=== PATIENT | female | born 1950 | race Caucasian/White ===

== ENCOUNTER → 2019-03-04 | Outpatient (CLI) | payer BC ==
--- NOTE | 2019-03-04 21:29 | NM ---
Nuclear medicine hepatobiliary scan. HISTORY: Pain. DOSAGE: The patient received 8 ounces ensure plus and 4.9 mCi of Technetium 99m Choletec. FINDINGS: There is normal hepatic extraction. The gallbladder is seen by 40 minutes. There is bilia ry to bowel clearance by 20 minutes. Ejection fraction is 83%. IMPRESSION: 1. Normal filling of the gallbladder with radiotracer. 2. Ejection fraction 83% can occasionally be seen with hyperdynamic gallbladder. Correlate clinically .
== END ==
LOC: RADNMMAIN 12:51
DX: R10.11 Right upper quadrant pain (principal)
CPT/HCPCS: 78226; A9537

== ENCOUNTER → 2020-01-31 | Outpatient (CLI) | payer BC ==
--- NOTE | 2020-01-31 16:16 | XR ---
Right knee HISTORY: Right knee strain 3 views of the right knee Bone mineralization is reduced. Joint spaces and alignment are maintained. No evident joint effusion. Question soft tissue swelling. IMPRESSION: Suspect osteopenia. Soft tissue swelling may be present.
== END | disposition home or self-care (01) ==
LOC: RADXRMAIN 15:22
DX: S86.911A Strain of unspecified muscle(s) and tendon(s) at lower leg level, right leg, initial encounter (principal)

== ENCOUNTER 2020-04-07 12:11 | Emergency (ER) | payer BC, MEDICARE ==
[2020-04-07 12:19] VITALS: TEMP 98.5
--- NOTE | 2020-04-07 12:38 | ED ---
SOB HPI - General Chief Complaint: Shortness of Breath Stated Complaint: positive covid/breathing issues Time Seen by Provider: 04/07/20 12:20 Source: patient Mode of arrival: ambulatory Limitations: no limitations - History of Present Illness Initial Comments: 69-year-old feel presenting today for chief complaint of increasing cough and shortness of breath. Patient states that she had symptoms of cough; shortness of breath that began Thursday she states she was tested at that time by the health department and received her positive results today. She describes symptoms of increasing cough and shortness of breath was told to come to the emergency department for evaluation. Patient denies any chest pain rash and arthritis nausea vomiting diarrhea. Patient has no additional complaints. Remaining ROS (-). - Related Data Home Medications Medication Instructions Recorded Confirmed Atorvastatin Calcium [Lipitor] 20 mg PO QAM 08/16/15 08/23/15 Cyclobenzaprine [Flexeril] 5 mg PO QAM 08/16/15 08/23/15 Cyclobenzaprine [Flexeril] 10 mg PO HS 08/16/15 08/23/15 Fexofenadine HCl [Mary Allergy] 180 mg PO DAILY PRN 08/16/15 08/23/15 HYDROcodone/APAP 7.5-325MG [[place] 1 - 2 each PO DAILY PRN 08/16/15 08/23/15 7.5-325] Levothyroxine Sodium 50 mcg PO QAM 08/16/15 08/23/15 Metoprolol Succinate [Toprol XL] 50 mg PO BID 08/16/15 08/23/15 Topiramate 50 mg PO QAM 08/16/15 08/23/15 Topiramate 100 mg PO HS 08/16/15 08/23/15 Zolpidem Tartrate [Ambien Cr] 12.5 mg PO HS 08/16/15 08/23/15 tiZANidine HCL [Zanaflex] 4 mg PO QAM 08/16/15 08/23/15 tiZANidine HCL [Zanaflex] 8 mg PO HS 08/16/15 08/23/15 Influenza Vaccine (3Yr+) [Fluarix 60 mcg IM .ONCE 08/24/15 08/24/15 Vaccine [id number]] Previous Rx's Medication Instructions Recorded Calcium Carb-Vit D 500Mg-200Un 1 each PO QID #100 tablet 08/23/15 [Oscal 500+D] Clindamycin HCl 300 mg PO Q12HR #20 cap 08/23/15 Hydrocodone/Acetaminophen [[place] 1 - 2 each PO Q6HR PRN #40 tab 08/23/15 5-325] Azithromycin [Zithromax Z-pack] 0 mg PO DIRECTED #6 tab 04/07/20 Allergies Allergy/AdvReac Type Severity Reaction Status Date / Time Sulfa (Sulfonamide Allergy Anaphylaxis Verified 04/07/20 12:19 Antibiotics) Review of Systems ROS Statement: Those systems with pertinent positive or pertinent negative responses have been documented in the HPI. ROS Other: All systems not noted in ROS Statement are negative. Past Medical History Past Medical History: Atrial Flutter History of Any Multi-Drug Resistant Organisms: None Reported Past Surgical History: Section, Hernia Repair, Hysterectomy Additional Past Surgical History / Comment(s): cataracts, thyroid, breast augmentation Past Psychological History: No Psychological Hx Reported Smoking Status: Never smoker Past Alcohol Use History: Occasional Past Drug Use History: None Reported General Exam - General Exam Comments Initial Comments: General: The patient is awake and alert, in no distress, and does not appear acutely ill. Eye: Pupils are equal, round and reactive to light, extra-ocular movements are intact. No nystagmus. There is normal conjunctiva bilaterally. No signs of icterus. Cardiovascular: There is a regular rate and rhythm. No murmur, rub or gallop is appreciated. Respiratory: Lungs are clear to auscultation, respirations are non-labored, breath sounds are equal. No wheezes, stridor, rales, or rhonchi. Musculoskeletal: Normal ROM, no tenderness. Strength 5/5. Sensation intact. Radial pulses equal bilaterally 2+. Neurological: A&O x 3. CN II-XII intact grossly, There are no obvious motor or sensory deficits. Coordination appears grossly intact. Speech is normal. Skin: Skin is warm and dry and no rashes or lesions are noted. Psychiatric: Cooperative, appropriate mood & affect, normal judgment. Limitations: no limitations Course Vital Signs 04/07/20 04/07/20 04/07/20 12:14 13:00 13:30 Temperature 98.5 F Pulse Rate 83 81 81 Respiratory 18 23 15 Rate Blood Pressure 118/79 130/94 119/79 O2 Sat by Pulse 96 96 98 Oximetry 04/07/20 04/07/20 04/07/20 14:00 14:30 14:57 Temperature Pulse Rate 59 L 51 L 78 Respiratory 18 16 18 Rate Blood Pressure 118/83 128/79 140/70 O2 Sat by Pulse 100 100 99 Oximetry Medical Decision Making - Medical Decision Making 69-year-old, over the 19 positive patient presenting for shortness of breath. Laboratory studies unremarkable. I sitting on room air. Patient does not appear tachypneic however has obvious cough. Patient does not appear septic she is not tachycardic nose and if the leukocytosis A stable. CRP is less than 5. Moderate elevated dimer which CT revealed no hypercoagulable processes as pulmonary embolism. There was some abdomen is a bilateral lowerto be consistent with scarring versus atelectasis. Cannot rule out a developing infection patient was started on azithromycin otherwise patient does not appear to be an ARDS and stable for discharge with close primary follow-up strict return parameters which were discussed at length the patient. Patient verbalized understanding was discharged appearing well after discussing case and reviewing imaging studies with Dr. Marcelino who is agreeable to this care plan. Patient is agreeable to discharge. - Lab Data Result diagrams: 04/07/20 12:41 04/07/20 12:41 Lab Results 04/07/20 04/07/20 04/07/20 Range/Units 12:41 12:41 12:41 WBC 6.1 (3.8-10.6) k/uL RBC 4.85 (3.80-5.40) m/uL Hgb 14.4 (11.4-16.0) gm/dL Hct 46.0 (34.0-46.0) % MCV 94.9 (80.0-100.0) fL MCH 29.6 (25.0-35.0) pg MCHC 31.2 (31.0-37.0) g/dL RDW 13.2 (11.5-15.5) % Plt Count 191 (150-450) k/uL Neutrophils % 73 % Lymphocytes % 18 % Monocytes % 5 % Eosinophils % 1 % Basophils % 1 % Neutrophils # 4.5 (1.3-7.7) k/uL Lymphocytes # 1.1 (1.0-4.8) k/uL Monocytes # 0.3 (0-1.0) k/uL Eosinophils # 0.1 (0-0.7) k/uL Basophils # 0.0 (0-0.2) k/uL PT 9.8 (9.0-12.0) sec INR 0.9 (<1.2) APTT 24.8 (22.0-30.0) sec D-Dimer 1.06 H (<0.60) mg/L FEU Sodium 137 (137-145) mmol/L Potassium 4.4 (3.5-5.1) mmol/L Chloride 104 (98-107) mmol/L Carbon Dioxide 25 (22-30) mmol/L Anion Gap 8 mmol/L BUN 24 H (7-17) mg/dL Creatinine 1.25 H (0.52-1.04) mg/dL Est GFR (CKD-EPI)AfAm 52 (>60 ml/min/1.73 sqM) Est GFR (CKD-EPI)NonAf 45 (>60 ml/min/1.73 sqM) Glucose 92 (74-99) mg/dL Plasma Lactic Acid Mitchell (0.7-2.0) mmol/L Calcium 8.9 (8.4-10.2) mg/dL Magnesium (1.6-2.3) mg/dL Total Bilirubin 0.1 L (0.2-1.3) mg/dL AST 35 (14-36) U/L ALT 22 (4-34) U/L Alkaline Phosphatase 99 (38-126) U/L Lactate Dehydrogenase 434 (313-618) U/L C-Reactive Protein <5.0 (<10.0) mg/L Total Protein 6.7 (6.3-8.2) g/dL Albumin 4.1 (3.5-5.0) g/dL Procalcitonin (0.02-0.09) ng/mL 04/07/20 04/07/20 04/07/20 Range/Units 12:41 12:41 12:41 WBC (3.8-10.6) k/uL RBC (3.80-5.40) m/uL Hgb (11.4-16.0) gm/dL Hct (34.0-46.0) % MCV (80.0-100.0) fL MCH (25.0-35.0) pg MCHC (31.0-37.0) g/dL RDW (11.5-15.5) % Plt Count (150-450) k/uL Neutrophils % % Lymphocytes % % Monocytes % % Eosinophils % % Basophils % % Neutrophils # (1.3-7.7) k/uL Lymphocytes # (1.0-4.8) k/uL Monocytes # (0-1.0) k/uL Eosinophils # (0-0.7) k/uL Basophils # (0-0.2) k/uL PT (9.0-12.0) sec INR (<1.2) APTT (22.0-30.0) sec D-Dimer (<0.60) mg/L FEU Sodium (137-145) mmol/L Potassium (3.5-5.1) mmol/L Chloride (98-107) mmol/L Carbon Dioxide (22-30) mmol/L Anion Gap mmol/L BUN (7-17) mg/dL Creatinine (0.52-1.04) mg/dL Est GFR (CKD-EPI)AfAm (>60 ml/min/1.73 sqM) Est GFR (CKD-EPI)NonAf (>60 ml/min/1.73 sqM) Glucose (74-99) mg/dL Plasma Lactic Acid Mitchell 0.8 (0.7-2.0) mmol/L Calcium (8.4-10.2) mg/dL Magnesium 2.2 (1.6-2.3) mg/dL Total Bilirubin (0.2-1.3) mg/dL AST (14-36) U/L ALT (4-34) U/L Alkaline Phosphatase (38-126) U/L Lactate Dehydrogenase (313-618) U/L C-Reactive Protein (<10.0) mg/L Total Protein (6.3-8.2) g/dL Albumin (3.5-5.0) g/dL Procalcitonin 0.08 (0.02-0.09) ng/mL Disposition Clinical Impression: COVID-19 virus infection, SOB (shortness of breath) Disposition: HOME SELF-CARE Condition: Good Additional Instructions: Please use medication as discussed. Please follow-up with family doctor in the next 2 days. Please return to emergency room if the symptoms increase or worsen or for any other concerns. Prescriptions: Azithromycin [Zithromax Z-pack] 0 mg PO DIRECTED #6 tab Is patient prescribed a controlled substance at d/c from ED?: No Referrals: Nonstaff,Physician [REFERRING] - 1-2 days [facility] [NON-STAFF] - 1-2 days Time of Disposition: 14:30
[2020-04-07 12:56] LABS: Basophils % (A) 1 %; Eosinophils # (A) 0.1 k/uL (0-0.7); Eosinophils % (A) 1 %; HGB 14.4 gm/dL (11.4-16.0); Lymphocytes # (A) 1.1 k/uL (1.0-4.8); Lymphocytes % (A) 18 %; MCH 29.6 pg (25.0-35.0); MCHC 31.2 g/dL (31.0-37.0); MCV 94.9 fL (80.0-100.0); Mean Platelet Volume 7.7; Monocytes # (A) 0.3 k/uL (0-1.0); Monocytes % (A) 5 %; Neutrophils # (A) 4.5 k/uL (1.3-7.7); Neutrophils % (A) 73 %; Platelet Count 191 k/uL (150-450); RBC 4.85 m/uL (3.80-5.40); RDW 13.2 % (11.5-15.5); WBC 6.1 k/uL (3.8-10.6)
[2020-04-07 13:07] LABS: ALT 22 U/L (4-34); AST 35 U/L (14-36); African American GFR (CKD) 52 (>60 ml/min/1.73 sqM); Albumin 4.1 g/dL (3.5-5.0); Alkaline Phosphatase 99 U/L (38-126); Anion Gap 8 mmol/L; Blood Urea Nitrogen 24 mg/dL (7-17); C Reactive Protein <5.0 mg/L (<10.0); Calcium 8.9 mg/dL (8.4-10.2); Carbon Dioxide 25 mmol/L (22-30); Chloride 104 mmol/L (98-107); Glucose 92 mg/dL (74-99); LDH 434 U/L (313-618); Non-African American GFR(CKD) 45 (>60 ml/min/1.73 sqM); Potassium 4.4 mmol/L (3.5-5.1); Sodium 137 mmol/L (137-145); Total Bilirubin 0.1 mg/dL (0.2-1.3); Total Protein 6.7 g/dL (6.3-8.2)
--- NOTE | 2020-04-07 13:14 | XR ---
EXAMINATION TYPE: XR chest 1V portable DATE OF EXAM: 04/07/2020 HISTORY: Suspected COVID-19 pneumonia. REFERENCE: Previous study dated 08/23/2015. FINDINGS: The patient has a right breast implants in place. This is partially calcified. Lungs are clear. Pleural space are clear. The heart is not enlarged. IMPRESSION: NO ACTIVE INTRATHORACIC DISEASE.
[2020-04-07 13:18] LABS: INR 0.9 (<1.2); Partial Thromboplastin Time 24.8 sec (22.0-30.0); Prothrombin Time 9.8 sec (9.0-12.0)
[2020-04-07 13:23] LABS: D-Dimer 1.06 mg/L FEU (<0.60)
[2020-04-07] MEDS ORDERED: SODIUM CHLORIDE 0.9% 500 ML 500 ML IV ONE (13:34)
--- NOTE | 2020-04-07 14:20 | CT ---
EXAMINATION TYPE: CT angio chest DATE OF EXAM: 04/07/2020 COMPARISON: 09/10/2015 HISTORY: PE, positive COVID CT DLP: 258.2 mGycm Automated exposure control for dose reduction was used. CONTRAST: Performed without and with IV Contrast, patient injected with 100 ml mL of Isovue 370. There are 3-D post processed images. There is no mediastinal adenopathy. There are no hilar masses. There is normal contrast opacification of the pulmonary arteries. There are no filling defects. Thoracic aorta is intact without evidence o f aneurysm or dissection. There are is no pleural effusion. There is no pericardial effusion. Heart size is normal. There is mi nimal pleural thickening at the lung apices. There is reticular interstitial infiltrates in both lowe r lobes. There is no evidence of a pulmonary mass. Thoracic spine is intact. There is no compression fracture. There are bilateral breast implants with calcification. IMPRESSION: No evidence of pulmonary embolism. Pulmonary interstitial density at the lung bases consistent with scarring and subsegmental atelectasi s that is increased compared to old exam. Minimal posterior pleural scarring unchanged.
[2020-04-07 14:58] VITALS: BP 140/70; PULSE 78; RESP 18
== END 2020-04-07 14:57 | disposition home or self-care (01) ==
LOC: EC 12:11
DX: U07.1 COVID-19 (principal); R79.89 Other specified abnormal findings of blood chemistry; Z88.2 Allergy status to sulfonamides
CPT/HCPCS: 36415; 93005; 85379; 80053; 82728; 83605; 83615; 83735; 85025; 85610; 85730; 86140; 87040; 84145; 71045; 71275; 99285; 96360; Q9967

== ENCOUNTER 2020-06-27 14:15 | Emergency (ER) | payer MEDICARE ==
[2020-06-27 14:42] VITALS: RESP 18; TEMP 98
[2020-06-27] MEDS ORDERED: KETOROLAC 30 MG/ML 1 ML VIAL IM STA (14:56)
--- NOTE | 2020-06-27 14:58 | ED ---
Fall HPI - General Chief Complaint: Fall Stated Complaint: Fall, wrist injury Time Seen by Provider: 06/27/20 14:37 Source: patient Mode of arrival: ambulatory - History of Present Illness Initial Comments: Patient is 62-year-old male presenting to emergency with a chief complaint of wrist pain. Patient reports about 2 hours ago she was on some landscaping rocks when she lost balance and fell on the left side of her body. Patient denies any loss of consciousness or head trauma. Patient reports she did injure her left wrist. States most of the pain is located on the medial aspect of the left wrist. Patient reports limited range of motion with flexion and extension of the wrist along with decreased medical diagnostic radiographer strength. Patient denies any numbness or tingling. Denies taking medication to alleviate the symptoms. States she is not on any blood thinners. Denies any other complaints. Denies other alleviating or aggravating factors. - Related Data Home Medications Medication Instructions Recorded Confirmed Atorvastatin Calcium [Lipitor] 20 mg PO QAM 08/16/15 08/23/15 Cyclobenzaprine [Flexeril] 5 mg PO QAM 08/16/15 08/23/15 Cyclobenzaprine [Flexeril] 10 mg PO HS 08/16/15 08/23/15 Fexofenadine HCl [Mary Allergy] 180 mg PO DAILY PRN 08/16/15 08/23/15 HYDROcodone/APAP 7.5-325MG [[place] 1 - 2 each PO DAILY PRN 08/16/15 08/23/15 7.5-325] Levothyroxine Sodium 50 mcg PO QAM 08/16/15 08/23/15 Metoprolol Succinate [Toprol XL] 50 mg PO BID 08/16/15 08/23/15 Topiramate 50 mg PO QAM 08/16/15 08/23/15 Topiramate 100 mg PO HS 08/16/15 08/23/15 Zolpidem Tartrate [Ambien Cr] 12.5 mg PO HS 08/16/15 08/23/15 tiZANidine HCL [Zanaflex] 4 mg PO QAM 08/16/15 08/23/15 tiZANidine HCL [Zanaflex] 8 mg PO HS 08/16/15 08/23/15 Influenza Vaccine (3Yr+) [Fluarix 60 mcg IM .ONCE 08/24/15 08/24/15 Vaccine [id number]] Previous Rx's Medication Instructions Recorded Calcium Carb-Vit D 500Mg-200Un 1 each PO QID #100 tablet 08/23/15 [Oscal 500+D] Clindamycin HCl 300 mg PO Q12HR #20 cap 08/23/15 Hydrocodone/Acetaminophen [[place] 1 - 2 each PO Q6HR PRN #40 tab 08/23/15 5-325] Azithromycin [Zithromax Z-pack] 0 mg PO DIRECTED #6 tab 04/07/20 Allergies Allergy/AdvReac Type Severity Reaction Status Date / Time Sulfa (Sulfonamide Allergy Anaphylaxis Verified 06/27/20 14:42 Antibiotics) Review of Systems ROS Statement: Those systems with pertinent positive or pertinent negative responses have been documented in the HPI. ROS Other: All systems not noted in ROS Statement are negative. Past Medical History Past Medical History: Atrial Flutter History of Any Multi-Drug Resistant Organisms: None Reported Past Surgical History: Section, Hernia Repair, Hysterectomy Additional Past Surgical History / Comment(s): cataracts, thyroid, breast augmentation Past Psychological History: No Psychological Hx Reported Past Alcohol Use History: Occasional Past Drug Use History: None Reported General Exam Limitations: no limitations General appearance: alert, in no apparent distress Head exam: Present: atraumatic, normocephalic, normal inspection Eye exam: Present: normal appearance, PERRL, EOMI Pupils: Present: normal accommodation ENT exam: Present: normal exam, normal oropharynx, mucous membranes moist, TM's normal bilaterally, normal external ear exam Neck exam: Present: normal inspection, full ROM Respiratory exam: Present: normal lung sounds bilaterally. Absent: wheezes, rales Cardiovascular Exam: Present: regular rate, normal rhythm, normal heart sounds Extremities exam: Present: normal inspection (No signs of trauma to the left wrist or distal forearm.), tenderness (Tenderness along the medial aspect of the left wrist along with some anterior distal forearm tenderness.), normal c apillary refill, other (+2 ulnar and radial pulses bilaterally.). Absent: full ROM (Limited range of motion with wrist flexion and extension), pedal edema (No swelling detected.), joint swelling, calf tenderness Back exam: Present: normal inspection, full ROM. Absent: tenderness Neurological exam: Present: alert, oriented X3 Psychiatric exam: Present: normal affect, normal mood Skin exam: Present: warm, dry, intact, normal color Course Vital Signs 06/27/20 06/27/20 14:37 16:21 Temperature 98.0 F Pulse Rate 91 80 Respiratory 18 18 Rate Blood Pressure 114/86 118/81 O2 Sat by Pulse 100 99 Oximetry Medical Decision Making - Medical Decision Making Patient is 70-year-old female presenting to emergency Department with a chief complaint of left wrist pain. Patient is not on blood thinners. There is no loss of consciousness or head injury. On exam patient has tenderness over the medial aspect of the left wrist. Limited range of motion with flexion and extension of the wrist due to pain. X-ray of the forearm and wrist reveals no signs of acute fracture or dislocations. Robert wrap applied. Patient advised to follow with medical program specialist if her symptoms not improve. Patient advised to alternate between Tylenol Motrin for pain control. Patient was to apply ice compress to minimize symptoms. Strict return parameters were thoroughly discussed patient is a 72-year-old. Case discussed physician. Disposition Clinical Impression: Fall, Left wrist injury, Left wrist pain Disposition: HOME SELF-CARE Condition: Stable Instructions (If sedation given, give patient instructions): Wrist Sprain (ED) Additional Instructions: Please follow with medical program specialist. Alternate between tolerable Motrin for pain control. Apply ice compress to minimize symptoms. Is patient prescribed a controlled substance at d/c from ED?: No Referrals: Stefan Mckinley DO [Primary Care Provider] - 1-2 days Time of Disposition: 15:53
--- NOTE | 2020-06-27 15:15 | XR ---
EXAMINATION TYPE: XR forearm LT, XR wrist complete LT DATE OF EXAM: 06/27/2020 CLINICAL HISTORY: Pain after fall injury. TECHNIQUE: Two views of the left forearm are obtained. 4 views left wrist. COMPARISON: None. FINDINGS: Demineralization is present. There is no acute fracture or dislocation seen in the left ra dius or ulna. Visualized left elbow joint is thought within normal limits. The overlying soft tissue appears within normal limits. Images of the left wrist show no acute fracture or dislocation. Carpal joint spaces are maintained. O verlying soft tissues are unremarkable. IMPRESSION: There is no acute fracture or dislocation seen in left forearm or wrist.
[2020-06-27 16:22] VITALS: BP 118/81; PULSE 80
== END 2020-06-27 16:22 | disposition home or self-care (01) ==
LOC: EC 14:15
DX: S69.92XA Unspecified injury of left wrist, hand and finger(s), initial encounter (principal); Z88.0 Allergy status to penicillin; Z98.42 Cataract extraction status, left eye; Z98.41 Cataract extraction status, right eye; W18.30XA Fall on same level, unspecified, initial encounter; Y92.009 Unspecified place in unspecified non-institutional (private) residence as the place of occurrence of the external cause
CPT/HCPCS: 73090; 73110; 99283; 96372; J1885

== ENCOUNTER → 2021-01-09 | Outpatient (CLI) | payer MEDICARE ==
[2021-01-10 00:46] LABS: African American GFR (CKD) 53.8 (60.0-200.0); Albumin 4.7 g/dL (3.80-4.90); Albumin/Globulin Ratio 2.47 (1.60-3.17); Anion Gap 15.7 mmol/L (4.00-12.00); BUN/Creat Ratio 17.5 Ratio (12.00-20.00); Calcium 8.7 mg/dL (8.7-10.3); Carbon Dioxide 15.3 mmol/L (21.6-31.8); Globulin 1.9 g/dL (1.6-3.3); Non-African American GFR(CKD) 46.4 (60.0-200.0); Potassium 4.7 mmol/L (3.5-5.5); Total Bilirubin 0.2 mg/dL (0.3-1.2); Total Protein 6.6 g/dL (6.2-8.2)
== END | disposition home or self-care (01) ==
LOC: LABWHC1 14:54
PROVIDERS: ATTEND Internal Medicine Gastroenterology
DX: K52.9 Noninfective gastroenteritis and colitis, unspecified (principal); R10.11 Right upper quadrant pain; R11.0 Nausea; R63.4 Abnormal weight loss
CPT/HCPCS: 36415; 80053

== ENCOUNTER 2021-02-21 22:14 | Emergency (ER) | payer MEDICARE ==
[2021-02-21 22:24] VITALS: TEMP 97.8
--- NOTE | 2021-02-21 22:55 | ED ---
Chest Pain HPI - General Chief Complaint: Chest Pain Stated Complaint: Chest Pain Time Seen by Provider: 02/21/21 22:19 Source: EMS, RN notes reviewed, old records reviewed Mode of arrival: EMS Limitations: no limitations - History of Present Illness Initial Comments: This is a 62-year-old female DF for evaluation patient Dese for evaluation regarding chest pain. Sensation states just mainly not feeling well, some chest pain substernal anterior chest. No other significant complaints. She does occasionally have an abnormal heart rate does feel palpitations in her chest she did take an extra one for blood pressure heart rate pills which made no difference. Patient denies fever cough or congestion. MD Complaint: chest pain, other (Palpitations) -: hour(s) Onset: during rest Pain Location: substernal Pain Radiation: none Severity: mild Severity scale (1-10): 2 Quality: tightness Consistency: constant, intermittent Improves With: nothing Worsens With: nothing Context: other (none) Anginal Symptoms: dyspnea, sense of impending doom Other Symptoms: palpitations Treatments Prior to Arrival: none - Related Data Home Medications Medication Instructions Recorded Confirmed Zolpidem Tartrate [Ambien Cr] 12.5 mg PO HS 08/16/15 02/21/21 Aspirin EC [Ecotrin Low Dose] 81 mg PO DAILY 02/21/21 02/21/21 Cholecalciferol [Vitamin D3 (25 25 mcg PO DAILY 02/21/21 02/21/21 Mcg = 1000 Iu)] Cyclobenzaprine [Flexeril] 10 mg PO BID 02/21/21 02/21/21 Ibuprofen [Motrin] 800 mg PO Q8H PRN 02/21/21 02/21/21 Levothyroxine Sodium [Synthroid] 75 mcg PO DAILY 02/21/21 02/21/21 Metoprolol Succinate [Toprol XL] 100 mg PO DAILY 02/21/21 02/21/21 Rosuvastatin [Crestor] 10 mg PO DAILY 02/21/21 02/21/21 Zinc 50 mg PO DAILY 02/21/21 02/21/21 clindamycin HCL [Cleocin] 300 mg PO TID 02/21/21 02/21/21 oxyCODONE HCL [OxyIR] 5 mg PO Q6H PRN 02/21/21 02/21/21 Allergies Allergy/AdvReac Type Severity Reaction Status Date / Time Sulfa (Sulfonamide Allergy Anaphylaxis Verified 02/21/21 22:58 Antibiotics) Review of Systems ROS Statement: Those systems with pertinent positive or pertinent negative responses have been documented in the HPI. ROS Other: All systems not noted in ROS Statement are negative. EKG Findings - EKG Comments: EKG Findings:: EKG is sinus rhythm 75, VT 138 QRS 86 QTc 433 Past Medical History Past Medical History: Atrial Flutter History of Any Multi-Drug Resistant Organisms: None Reported Past Surgical History: Section, Hernia Repair, Hysterectomy Additional Past Surgical History / Comment(s): cataracts, thyroid, breast augmentation, right hip replacement january 2021, debridment on right hip january 2021. Past Psychological History: No Psychological Hx Reported Smoking Status: Never smoker Past Alcohol Use History: Occasional Past Drug Use History: None Reported General Exam Limitations: no limitations Course Vital Signs 02/21/21 22:19 Temperature 97.8 F Pulse Rate 78 Respiratory 17 Rate Blood Pressure 170/98 O2 Sat by Pulse 99 Oximetry - Reevaluation(s) Reevaluation #1: 02/21/21 22:55 Medical record is reviewed Reevaluation #2: 02/22/21 01:04 Patient is in no significant distress has no current complaints Reevaluation #3: 02/22/21 01:04 Patient informed results and questions are answered Reevaluation #4: 02/22/21 01:04 Patient feels good for discharge home Chest Pain MDM - MDM 62 female with nonspecific symptoms. Labwork is within normal limits here today. Chest x-rays negative. Patient can be discharged home Disposition Clinical Impression: Atypical chest pain Disposition: HOME SELF-CARE Condition: Good Instructions (If sedation given, give patient instructions): Chest Pain (ED) Is patient prescribed a controlled substance at d/c from ED?: No Referrals: Stefan Mckinley, [Primary Care Provider] - 1-2 days
--- NOTE | 2021-02-21 23:20 | XR ---
EXAMINATION TYPE: XR chest 2V DATE OF EXAM: 02/21/2021 COMPARISON: 04/07/2020 HISTORY: Chest pain TECHNIQUE: FINDINGS: Heart size is normal. There are no hilar masses. Lungs are clear of consolidation. There is no pleural effusion. There is right side calcified breast implant. There are chest leads. Thoracic s pine is intact. IMPRESSION: No active cardiopulmonary disease. No change.
[2021-02-21 23:34] LABS: Anisocytosis Slight; Basophils % (A) 1 %; Eosinophils # (A) 0.2 k/uL (0-0.7); Eosinophils % (A) 4 %; HCT 38.4 % (34.0-46.0); HGB 12.4 gm/dL (11.4-16.0); Lymphocytes # (A) 1.5 k/uL (1.0-4.8); Lymphocytes % (A) 21 %; MCH 27.1 pg (25.0-35.0); MCHC 32.3 g/dL (31.0-37.0); MCV 83.9 fL (80.0-100.0); Mean Platelet Volume 7.4; Monocytes # (A) 0.4 k/uL (0-1.0); Monocytes % (A) 6 %; Neutrophils # (A) 4.6 k/uL (1.3-7.7); Neutrophils % (A) 67 %; Platelet Count 279 k/uL (150-450); RBC 4.57 m/uL (3.80-5.40); RDW 17.7 % (11.5-15.5); WBC 6.9 k/uL (3.8-10.6)
[2021-02-21 23:42] LABS: INR 0.9 (<1.2); Partial Thromboplastin Time 23.7 sec (22.0-30.0); Prothrombin Time 10.1 sec (9.0-12.0)
[2021-02-22 00:18] LABS: Albumin 3.5 g/dL (3.5-5.0); Calcium 9.2 mg/dL (8.4-10.2); Magnesium 1.9 mg/dL (1.6-2.3); Potassium 3.9 mmol/L (3.5-5.1); Total Bilirubin 0.3 mg/dL (0.2-1.3)
[2021-02-22 01:19] VITALS: BP 119/74; PULSE 61; RESP 18
== END 2021-02-22 01:19 | disposition home or self-care (01) ==
LOC: EC 22:14
DX: R07.89 Other chest pain (principal); R00.2 Palpitations; R06.00 Dyspnea, unspecified; I48.92 Unspecified atrial flutter; Z79.82 Long term (current) use of aspirin; Z79.1 Long term (current) use of non-steroidal anti-inflammatories (NSAID); Z79.899 Other long term (current) drug therapy
CPT/HCPCS: 36415; 71046; 80053; 82550; 83690; 83735; 84484; 85025; 85610; 85730; 93005; 99285

== ENCOUNTER 2021-03-07 14:11 | Inpatient (IN) | payer MEDICARE ==
[2021-03-07] MEDS ORDERED: MORPHINE SULFATE 2 MG/ML SYRINGE IVP STA (14:43)
[2021-03-07] MEDS ORDERED: ONDANSETRON 4 MG/2 ML VIAL IVP STA (14:43)
[2021-03-07 15:27] LABS: Anisocytosis Slight; Basophils % (A) 1 %; Eosinophils # (A) 0.2 k/uL (0-0.7); Eosinophils % (A) 3 %; HCT 36.5 % (34.0-46.0); HGB 12.4 gm/dL (11.4-16.0); Lymphocytes # (A) 1.6 k/uL (1.0-4.8); Lymphocytes % (A) 24 %; MCH 28.9 pg (25.0-35.0); MCV 84.9 fL (80.0-100.0); Mean Platelet Volume 7.2; Monocytes # (A) 0.5 k/uL (0-1.0); Monocytes % (A) 8 %; Neutrophils # (A) 4.1 k/uL (1.3-7.7); Neutrophils % (A) 62 %; Platelet Count 248 k/uL (150-450); WBC 6.6 k/uL (3.8-10.6)
[2021-03-07 15:35] LABS: Calcium 9.4 mg/dL (8.4-10.2); Potassium 4.3 mmol/L (3.5-5.1); Total Bilirubin 0.4 mg/dL (0.2-1.3); Total Protein 6.6 g/dL (6.3-8.2)
[2021-03-07 15:37] LABS: INR 0.9 (<1.2); Partial Thromboplastin Time 24.1 sec (22.0-30.0); Prothrombin Time 10.1 sec (9.0-12.0)
--- NOTE | 2021-03-07 15:41 | XR ---
EXAMINATION TYPE: XR knee complete RT DATE OF EXAM: 03/07/2021 CLINICAL HISTORY: Pain after falling injury TECHNIQUE: Three views of the right knee are obtained. COMPARISON: None. FINDINGS: Suboptimal study due to poor positioning. There is no acute fracture/dislocation evident i n right knee. Mild to moderate narrowing patellofemoral compartment slightly more prominent from prio r. No significant new spurring. New Mild subcutaneous edema laterally. IMPRESSION: There is no acute fracture or dislocation in the right knee.
--- NOTE | 2021-03-07 15:43 | XR ---
EXAMINATION TYPE: XR Hip RT and AP Pelvis DATE OF EXAM: 03/07/2021 COMPARISON: NONE HISTORY: Trauma and pain TECHNIQUE: A single AP view of the pelvis is obtained. Two views of the right hip are obtained. FINDINGS: There is no acute fracture/dislocation evident in the pelvis. The hip and sacroiliac join ts appear symmetric and unremarkable. The overlying soft tissue appears unremarkable. Two views of right hip show no acute fracture or dislocation. Patient is status post right hip arthr oplasty. No focal lytic or sclerotic lesion seen in the proximal right femur. The overlying soft tis mahogany is unremarkable. Possible vascular calcifications are present within the pelvis IMPRESSION: There is no acute fracture or dislocation in the pelvis or right hip.
--- NOTE | 2021-03-07 16:29 | ED ---
General Adult HPI - General Chief complaint: Fall Stated complaint: Fall, R hip pain Time Seen by Provider: 03/07/21 14:23 Source: patient Mode of arrival: wheelchair Limitations: no limitations - History of Present Illness Initial comments: 70-year-old female patient presents to the emergency department today for evaluation after experiencing a fall at home. Patient states around 1:00 in the morning she was in the kitchen. States she was walking, does not remember falling, but does remember hitting the floor. States that next thing she knew she woke up at 0500 and called for her . She is unsure if she passed out. She did have a recent admission for Atrial flutter and her physician is concerned about her heart. She does not believe she hit her head. Denies any head pain, headache, new neck pain, or back pain. She is reporting pain to the right hip and right knee. She did have right total hip replacement at the beginning of January. Denies any shortness of breath or chest pain. Patient denies any recent rash, fever, chills, cough, abdominal pain, nausea, vomiting, diarrhea, constipation, numbness, tingling, hematuria, dysuria, urinary urgency, urinary frequency, headache, visual changes, or any other complaints. - Related Data Home Medications Medication Instructions Recorded Confirmed Zolpidem Tartrate [Ambien Cr] 12.5 mg PO HS 08/16/15 02/21/21 Aspirin EC [Ecotrin Low Dose] 81 mg PO DAILY 02/21/21 02/21/21 Cholecalciferol [Vitamin D3 (25 25 mcg PO DAILY 02/21/21 02/21/21 Mcg = 1000 Iu)] Cyclobenzaprine [Flexeril] 10 mg PO BID 02/21/21 02/21/21 Ibuprofen [Motrin] 800 mg PO Q8H PRN 02/21/21 02/21/21 Levothyroxine Sodium [Synthroid] 75 mcg PO DAILY 02/21/21 02/21/21 Metoprolol Succinate [Toprol XL] 100 mg PO DAILY 02/21/21 02/21/21 Rosuvastatin [Crestor] 10 mg PO DAILY 02/21/21 02/21/21 Zinc 50 mg PO DAILY 02/21/21 02/21/21 clindamycin HCL [Cleocin] 300 mg PO TID 02/21/21 02/21/21 oxyCODONE HCL [OxyIR] 5 mg PO Q6H PRN 02/21/21 02/21/21 Allergies Allergy/AdvReac Type Severity Reaction Status Date / Time Sulfa (Sulfonamide Allergy Anaphylaxis Verified 03/07/21 14:18 Antibiotics) Review of Systems ROS Statement: Those systems with pertinent positive or pertinent negative responses have been documented in the HPI. ROS Other: All systems not noted in ROS Statement are negative. Past Medical History Past Medical History: Atrial Flutter History of Any Multi-Drug Resistant Organisms: None Reported Past Surgical History: Section, Hernia Repair, Hysterectomy Additional Past Surgical History / Comment(s): cataracts, thyroid, breast augmentation, right hip replacement january 2021, debridment on right hip january 2021. Past Psychological History: No Psychological Hx Reported Smoking Status: Never smoker Past Alcohol Use History: Occasional Past Drug Use History: None Reported General Exam Limitations: no limitations General appearance: alert, in no apparent distress, other (Physical well- developed, well-nourished adult female patient in no acute distress. Vital signs upon presentation are temperature 97.4F, pulse 69, respirations 18, blood pressure 177/79, pulse ox 98% on room air.) Eye exam: Present: normal appearance, PERRL, EOMI. Absent: scleral icterus, conjunctival injection, periorbital swelling ENT exam: Present: normal exam, normal oropharynx, mucous membranes moist Respiratory exam: Present: normal lung sounds bilaterally. Absent: respiratory distress, wheezes, rales, rhonchi, stridor Cardiovascular Exam: Present: regular rate, normal rhythm, normal heart sounds. Absent: systolic murmur, diastolic murmur, rubs, gallop, clicks GI/Abdominal exam: Present: soft, normal bowel sounds. Absent: distended, tenderness, guarding, rebound, rigid Extremities exam: Present: full ROM, tenderness (right lateral hip, right anterior knee), normal capillary refill. Absent: normal inspection, pedal edema, joint swelling, calf tenderness Neurological exam: Present: alert, oriented X3, CN II-XII intact Psychiatric exam: Present: normal affect, normal mood Skin exam: Present: warm, dry, intact, normal color. Absent: rash Course Vital Signs 03/07/21 14:13 Temperature 97.4 F L Pulse Rate 69 Respiratory 18 Rate Blood Pressure 177/79 O2 Sat by Pulse 98 Oximetry EKG Findings - EKG Comments: EKG Findings:: EKG obtained at 1623 shows normal sinus rhythm with a ventricular rate of 69, NH 144, QRS duration 88, QT 404, QTC 432. No evidence of ST elevation or depression. Medical Decision Making - Medical Decision Making 70-year-old female patient presents to the emergency department today for evaluation after experiencing a fall early in the morning. It is unclear whether this is related to a syncopal event or not. Physical examination is unremarkable. She is neurologically intact. Labs are unremarkable. EKG showed normal sinus rhythm. She'll be admitted to the hospital for further evaluation by cardiology. She is agreeable with this plan. Case discussed with my attending Dr. Jesus. - Lab Data Result diagrams: 03/07/21 14:55 03/07/21 14:55 Lab Results 03/07/21 03/07/21 03/07/21 Range/Units 14:55 14:55 14:55 WBC 6.6 (3.8-10.6) k/uL RBC 4.30 (3.80-5.40) m/uL Hgb 12.4 (11.4-16.0) gm/dL Hct 36.5 (34.0-46.0) % MCV 84.9 (80.0-100.0) fL MCH 28.9 (25.0-35.0) pg MCHC 34.0 (31.0-37.0) g/dL RDW 18.0 H (11.5-15.5) % Plt Count 248 (150-450) k/uL MPV 7.2 Neutrophils % 62 % Lymphocytes % 24 % Monocytes % 8 % Eosinophils % 3 % Basophils % 1 % Neutrophils # 4.1 (1.3-7.7) k/uL Lymphocytes # 1.6 (1.0-4.8) k/uL Monocytes # 0.5 (0-1.0) k/uL Eosinophils # 0.2 (0-0.7) k/uL Basophils # 0.0 (0-0.2) k/uL Anisocytosis Slight PT 10.1 (9.0-12.0) sec INR 0.9 (<1.2) APTT 24.1 (22.0-30.0) sec Sodium 137 (137-145) mmol/L Potassium 4.3 (3.5-5.1) mmol/L Chloride 107 (98-107) mmol/L Carbon Dioxide 21 L (22-30) mmol/L Anion Gap 9 mmol/L BUN 23 H (7-17) mg/dL Creatinine 1.20 H (0.52-1.04) mg/dL Est GFR (CKD-EPI)AfAm 54 (>60 ml/min/1.73 sqM) Est GFR (CKD-EPI)NonAf 47 (>60 ml/min/1.73 sqM) Glucose 85 (74-99) mg/dL Calcium 9.4 (8.4-10.2) mg/dL Total Bilirubin 0.4 (0.2-1.3) mg/dL AST 32 (14-36) U/L ALT 20 (4-34) U/L Alkaline Phosphatase 100 (38-126) U/L Creatine Kinase 64 (30-135) U/L Total Protein 6.6 (6.3-8.2) g/dL Albumin 4.0 (3.5-5.0) g/dL - Radiology Data Radiology results: report reviewed, image reviewed X-ray of the hip and pelvis was obtained. Report was reviewed in its entirety. Impression by Dr. Dominguez shows no acute fracture dislocation the pelvis or right hip. X-ray of the right knee is obtained. Report reviewed in its entirety. Impression by Dr. Philippe shows no acute fracture dislocation the right knee. Disposition Clinical Impression: Syncope, Contusion of right hip Disposition: ADMITTED IP TO THIS [facility] Condition: Serious Referrals: Stefan Mckinley DO [Primary Care Provider] - 1-2 days Decision to Admit Reason: Admit from EC Decision Date: 03/07/21 Decision Time: 17:02
[2021-03-07] MEDS ORDERED: ONDANSETRON 4 MG/2 ML VIAL IVP PRN (17:40)
[2021-03-07] MEDS ORDERED: NALOXONE 0.4 MG/ML 1 ML VIAL IV PRN (17:40)
[2021-03-07] MEDS: SODIUM CHLORIDE 0.9% 1,000 ML IV SCH ×2 (17:54→18:17)
[2021-03-07] MEDS ORDERED: METOPROLOL TARTRATE 50 MG TAB PO STA (18:06)
[2021-03-07] MEDS ORDERED: ACETAMINOPHEN TAB 325 MG TAB PO PRN (23:31)
[2021-03-08] MEDS ORDERED: DILTIAZEM DRIP BOLUS FROM BAG 1 MG SOLN IV ONE (05:37)
[2021-03-08] MEDS: DILTIAZEM 125 MG in SODIUM CHLORIDE 0.9% 100 ML IV SCH ×2 (05:47→18:26)
[2021-03-08] MEDS: LEVOTHYROXINE 75 MCG TAB PO SCH (05:54)
--- NOTE | 2021-03-08 10:36 | P.CRDCN ---
History of Present Illness Consult date: 03/08/21 History of present illness: HISTORY OF PRESENT ILLNESS: This is a 70-year-old female with a past medical history significant for palpitations, hyperlipidemia, and hypothyroidism. 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 We have been asked to see the patient in consultation for syncope. Patient examined at the bedside. Patient states around midnight she was on walking in her living room towards her bedroom when she suddenly passed out. Aren herrera states she believes she was on the floor for about 5 hours because when she woke up the clock said 5am. She states she was able to call her who was sleeping upstairs to come help her. Patient states she did not loss bowel or bladder control. She denies biting her tongue. She states she has fallen 4 times in the last 6 months. She states two of the falls she does not remember. Patient went into afib with RVR this morning and was started on a cardizem drip. Patient states she was brought to the hospital recently for palpitations and states that she was in an irregular heart rate when she was in the ambulance but when she came to the ER her EKG showed sinus rhythm. EKG reveals sinus mechanism with no signs of acute ischemia. Repeat EKG performed this morning reveals A. fib with RVR Laboratory data: WBC 6.6. Hemoglobin 12.4. Platelet count 248. Sodium 137. Potassium 4.3. BUN 23. Creatinine 1.20. Current home cardiac medications include Crestor 10 mg daily, metoprolol succinate 100 mg at night, and aspirin 81 mg daily REVIEW OF SYSTEMS: At the time of my exam: CONSTITUTIONAL: Denies fever or chills. HEENT: Denies blurred vision, vision changes, or eye pain. Denies hemoptysis CARDIOVASCULAR: Denies chest pain. Denies orthopnea. Denies PND. Denies palpitations RESPIRATORY: Denies shortness of breath. GASTROINTESTINAL: Denies abdominal pain. Denies nausea or vomiting. HEMATOLOGIC: Denies bleeding disorders. GENITOURINARY: Denies any blood in urine. SKIN: Denies pruitis. Denies rash. PHYSICAL EXAM: VITAL SIGNS: Reviewed. GENERAL: Well-developed in no acute distress. HEENT: Head is normocephalic. Pupils are equal, round. Sclerae anicteric. Mucous membranes of the mouth are moist. Neck supple. No JVD or thyromegaly LUNGS: Respirations even and unlabored. Lungs essentially clear to auscultation bilaterally. HEART: Tachycardic. Irregular rate and rhythm. S1 and S2 heard. ABDOMEN: Soft. Nondistended. Nontender. EXTREMITIES: Normal range of motion. No clubbing or cyanosis. Peripheral pulses intact. No lower extremity edema NEUROLOGIC: Awake and alert. Oriented x 3. ASSESSMENT: Syncope Palpitations New onset atrial fibrillation with RVR Hyperlipidemia Hypertension Frequent falls PLAN: Obtain 2D echo to assess cardiac structure and function Continue telemetry monitoring Continue IV cardizem Continue metoprolol Check TSH Due to frequent falls, will not place patient on anticoagulation Further recommendations pending patient course Nurse practitioner note has been reviewed by physician. Signing provider agrees with the documented findings, assessment, and plan of care. Past Medical History Past Medical History: Atrial Flutter History of Any Multi-Drug Resistant Organisms: None Reported Past Surgical History: Section, Hernia Repair, Hysterectomy Additional Past Surgical History / Comment(s): cataracts, thyroid, breast augmentation, right hip replacement january 2021, debridment on right hip january 2021. Past Anesthesia/Blood Transfusion Reactions: No Reported Reaction Past Psychological History: No Psychological Hx Reported Smoking Status: Former smoker Past Alcohol Use History: None Reported, Occasional Past Drug Use History: None Reported - Past Family History Mother Family Medical History: Cancer, Hypertension, Thyroid Disorder Father Family Medical History: Coronary Artery Disease (CAD), CVA/TIA Medications and Allergies Home Medications Medication Instructions Recorded Confirmed Type Zolpidem Tartrate [Ambien Cr] 12.5 mg PO HS 08/16/15 03/07/21 History Aspirin EC [Ecotrin Low Dose] 81 mg PO HS 02/21/21 03/07/21 History Cyclobenzaprine [Flexeril] 10 mg PO BID 02/21/21 03/07/21 History Ibuprofen [Motrin] 800 mg PO Q8H PRN 02/21/21 03/07/21 History Levothyroxine Sodium [Synthroid] 75 mcg PO DAILY 02/21/21 03/07/21 History Metoprolol Succinate [Toprol XL] 100 mg PO HS 02/21/21 03/07/21 History Rosuvastatin [Crestor] 10 mg PO HS 02/21/21 03/07/21 History Zinc 50 mg PO DAILY 02/21/21 03/07/21 History oxyCODONE HCL [OxyIR] 5 mg PO Q6H PRN 02/21/21 03/07/21 History Allergies Allergy/AdvReac Type Severity Reaction Status Date / Time Sulfa (Sulfonamide Allergy Anaphylaxis Verified 03/07/21 18:00 Antibiotics) Physical Exam Vitals: Vital Signs Temp Pulse Pulse Resp BP BP Pulse Ox 03/08/21 07:00 98.4 F 72 16 138/81 96 03/08/21 02:30 69 18 03/08/21 00:48 97.8 F 69 18 166/84 97 03/07/21 23:15 62 16 03/07/21 21:09 98.4 F 62 16 179/71 99 03/07/21 19:05 176/92 03/07/21 18:05 75 18 187/94 99 03/07/21 14:13 97.4 F L 69 18 177/79 98 Intake and Output 03/07/21 03/08/21 03/08/21 22:59 06:59 14:59 Other: Voiding Method Toilet # Voids 1 2 Weight 52.163 kg Results 03/07/21 14:55 03/07/21 14:55 Cardiac Enzymes 03/07/21 Range/Units 14:55 AST 32 (14-36) U/L Coagulation 03/07/21 Range/Units 14:55 PT 10.1 (9.0-12.0) sec APTT 24.1 (22.0-30.0) sec CBC 03/07/21 Range/Units 14:55 WBC 6.6 (3.8-10.6) k/uL RBC 4.30 (3.80-5.40) m/uL Hgb 12.4 (11.4-16.0) gm/dL Hct 36.5 (34.0-46.0) % Plt Count 248 (150-450) k/uL Comprehensive Metabolic Panel 03/07/21 Range/Units 14:55 Sodium 137 (137-145) mmol/L Potassium 4.3 (3.5-5.1) mmol/L Chloride 107 (98-107) mmol/L Carbon Dioxide 21 L (22-30) mmol/L BUN 23 H (7-17) mg/dL Creatinine 1.20 H (0.52-1.04) mg/dL Glucose 85 (74-99) mg/dL Calcium 9.4 (8.4-10.2) mg/dL AST 32 (14-36) U/L ALT 20 (4-34) U/L Alkaline Phosphatase 100 (38-126) U/L Total Protein 6.6 (6.3-8.2) g/dL Albumin 4.0 (3.5-5.0) g/dL Current Medications Generic Name Dose Route Start Last Admin Trade Name Freq PRN Reason Stop Dose Admin Acetaminophen 650 mg 03/07/21 23:31 Acetaminophen Tab 325 Mg Tab PO Q4HR PRN Fever and/ or Pain Aspirin 81 mg 03/08/21 21:00 Aspirin 81 Mg PO HS MARIEL Atorvastatin Calcium 20 mg 03/08/21 21:00 Atorvastatin 20 Mg Tab PO HS MARIEL Sodium Chloride 1,000 mls @ 75 mls/hr 03/07/21 17:45 03/07/21 18:17 Saline 0.9% IV 75 mls/hr .[id number] MARIEL Administration Diltiazem HCl 125 mg/ Sodium 125 mls @ 10 mls/hr 03/08/21 06:00 03/08/21 05:47 Chloride IV 10 mg/hr .[id number] MARIEL 10 mls/hr Administration 10 MG/HR Levothyroxine Sodium 75 mcg 03/08/21 06:30 03/08/21 05:54 Levothyroxine 75 Mcg Tab PO 75 mcg DAILY@0630 MARILE Administration Metoprolol Succinate 100 mg 03/08/21 21:00 Metoprolol Succinate (Er) 100 Mg Tab.Er.24h PO HS MARIEL Naloxone HCl 0.2 mg 03/07/21 17:40 Naloxone 0.4 Mg/Ml 1 Ml Vial IV Q2M PRN Opioid Reversal Ondansetron HCl 4 mg 03/07/21 17:40 Ondansetron 4 Mg/2 Ml Vial IVP Q8HR PRN Nausea And Vomiting Intake and Output 03/07/21 03/08/21 03/08/21 22:59 06:59 14:59 Other: Voiding Method Toilet # Voids 1 2 Weight 52.163 kg 03/07/21 14:55 03/07/21 14:55
[2021-03-08] MEDS: SODIUM CHLORIDE 0.9% 1,000 ML IV SCH ×2 (10:46→21:20)
--- NOTE | 2021-03-08 11:00 | ECHOF ---
Referral Reason:Lv function MEASUREMENTS -------- HEIGHT: 167.6 cm WEIGHT: 52.2 kg BP: 138/81 RVIDd: 2.7 cm (< 3.3) IVSd: 1.2 cm (0.6 - 1.1) LVIDd: 3.2 cm (3.9 - 5.3) LVPWd: 1.1 cm (0.6 - 1.1) IVSs: 1.5 cm LVIDs: 2.4 cm LVPWs: 1.2 cm LA Diam: 2.7 cm (2.7 - 3.8) LAESV Index (A-L): 21.67 ml/m Ao Diam: 2.7 cm (2.0 - 3.7) AV Cusp: 1.9 cm (1.5 - 2.6) MV EXCURSION: 14.317 mm (> 18.000) MV EF SLOPE: 69 mm/s (70 - 150) EPSS: 0.3 cm MV E Orlin: 0.74 m/s MV DecT: 252 ms MV A Orlin: 0.90 m/s MV E/A Ratio: 0.83 RAP: 5.00 mmHg RVSP: 28.15 mmHg FINDINGS -------- Sinus rhythm. This was a technically good study. The left ventricular size is normal. There is borderline concentric left ventricular hypertrophy. Overall left ventricular systolic function is normal with, an EF between 60 - 65 %. The right ventricle is normal in size. Normal LA size by volume 22+/-6 ml/m2. The right atrium is normal in size. Interatrial and interventricular septum intact. There is mild aortic valve sclerosis. Mild mitral annular calcification present. Mild mitral regurgitation is present. Mild tricuspid regurgitation present. Right ventricular systolic pressure is normal at < 35 mmHg. Trace/mild (physiologic) pulmonic regurgitation. The aortic root size is normal. Normal inferior vena cava with normal inspiratory collapse consistent with estimated right atrial pre ssure of 5 mmHg. There is no pericardial effusion. CONCLUSIONS -------- 1. The left ventricular size is normal. 2. There is borderline concentric left ventricular hypertrophy. 3. Overall left ventricular systolic function is normal with, an EF between 60 - 65 %. 4. Mild mitral annular calcification present. 5. Mild mitral regurgitation is present. 6. Mild tricuspid regurgitation present. 7. Trace/mild (physiologic) pulmonic regurgitation. 8. There is no pericardial effusion. HEALTH SERVICES DIRECTOR: Katalina Yuan RDCS
[2021-03-08] MEDS: PROPAFENONE 150 MG TAB PO SCH ×3 (11:42→21:00)
[2021-03-08 13:08] VITALS: BMI 18.6
--- NOTE | 2021-03-08 17:19 | P.HPIM ---
History of Present Illness H&P Date: 03/08/21 70-year-old female patient presents to the emergency department today for evaluation after experiencing a fall at home. Patient states around 1:00 in the morning she was in the kitchen. States she was walking, does not remember falling, but does remember hitting the floor. States that next thing she knew she woke up at 0500 and called for her . She is unsure if she passed out. She did have a recent admission for Atrial flutter and her physician is concerned about her heart. She does not believe she hit her head. Denies any head pain, headache, new neck pain, or back pain. She is reporting pain to the right hip and right knee. She did have right total hip replacement at the beginning of January. Denies any shortness of breath or chest pain. Patient denies any recent rash, fever, chills, cough, abdominal pain, nausea, vomiting, diarrhea, constipation, numbness, tingling, hematuria, dysuria, urinary urgency, urinary frequency, headache, visual changes, or any other complaints. Workup in ED including blood work reveals elevated creatinine of 1.2; EKG obtained at 1623 shows normal sinus rhythm with a ventricular rate of 69, MN 144, QRS duration 88, QT 404, QTC 432. No evidence of ST elevation or depression. Review of Systems REVIEW OF SYSTEMS: CONSTITUTIONAL: No fever, no malaise, no fatigue. HEENT: No recent visual problems or hearing problems. Denied any sore throat. CARDIOVASCULAR: No chest pain, orthopnea, PND, no palpitations, no syncope. PULMONARY: No shortness of breath, no cough, no hemoptysis. GASTROINTESTINAL: No diarrhea, no nausea, no vomiting, no abdominal pain. NEUROLOGICAL: No headaches, no weakness, no numbness. HEMATOLOGICAL: Denies any bleeding or petechiae. GENITOURINARY: Denies any burning micturition, frequency, or urgency. MUSCULOSKELETAL/RHEUMATOLOGICAL: Denies any joint pain, swelling, or any muscle pain. ENDOCRINE: Denies any polyuria or polydipsia. The rest of the 14-point review of systems is negative. Past Medical History Past Medical History: Atrial Flutter History of Any Multi-Drug Resistant Organisms: None Reported Past Surgical History: Section, Hernia Repair, Hysterectomy Additional Past Surgical History / Comment(s): cataracts, thyroid, breast augmentation, right hip replacement january 2021, debridment on right hip january 2021. Past Anesthesia/Blood Transfusion Reactions: No Reported Reaction Past Psychological History: No Psychological Hx Reported Smoking Status: Former smoker Past Alcohol Use History: None Reported, Occasional Past Drug Use History: None Reported - Past Family History Mother Family Medical History: Cancer, Hypertension, Thyroid Disorder Father Family Medical History: Coronary Artery Disease (CAD), CVA/TIA Medications and Allergies Home Medications Medication Instructions Recorded Confirmed Type Zolpidem Tartrate [Ambien Cr] 12.5 mg PO HS 08/16/15 03/07/21 History Aspirin EC [Ecotrin Low Dose] 81 mg PO HS 02/21/21 03/07/21 History Cyclobenzaprine [Flexeril] 10 mg PO BID 02/21/21 03/07/21 History Ibuprofen [Motrin] 800 mg PO Q8H PRN 02/21/21 03/07/21 History Levothyroxine Sodium [Synthroid] 75 mcg PO DAILY 02/21/21 03/07/21 History Metoprolol Succinate [Toprol XL] 100 mg PO HS 02/21/21 03/07/21 History Rosuvastatin [Crestor] 10 mg PO HS 02/21/21 03/07/21 History Zinc 50 mg PO DAILY 02/21/21 03/07/21 History oxyCODONE HCL [OxyIR] 5 mg PO Q6H PRN 02/21/21 03/07/21 History Allergies Allergy/AdvReac Type Severity Reaction Status Date / Time Sulfa (Sulfonamide Allergy Anaphylaxis Verified 03/07/21 18:00 Antibiotics) Physical Exam Vitals: Vital Signs Temp Pulse Pulse Resp BP BP Pulse Ox 03/08/21 07:00 98.4 F 72 16 138/81 96 03/08/21 02:30 69 18 03/08/21 00:48 97.8 F 69 18 166/84 97 03/07/21 23:15 62 16 03/07/21 21:09 98.4 F 62 16 179/71 99 03/07/21 19:05 176/92 03/07/21 18:05 75 18 187/94 99 03/07/21 14:13 97.4 F L 69 18 177/79 98 Intake and Output 03/07/21 03/08/21 03/08/21 22:59 06:59 14:59 Intake Total 200 Balance 200 Intake: Oral 200 Other: Voiding Method Toilet # Voids 1 2 Weight 52.163 kg 52.163 kg PHYSICAL EXAMINATION: GENERAL: The patient is alert and oriented x3, not in any acute distress. Well developed, well nourished. HEENT: Pupils are round and equally reacting to light. EOMI. No scleral icterus. No conjunctival pallor. Normocephalic, atraumatic. No pharyngeal erythema. No thyromegaly. CARDIOVASCULAR: S1 and S2 present. No murmurs, rubs, or gallops. PULMONARY: Chest is clear to auscultation, no wheezing or crackles. ABDOMEN: Soft, nontender, nondistended, normoactive bowel sounds. No palpable organomegaly. MUSCULOSKELETAL: No joint swelling or deformity. EXTREMITIES: No cyanosis, clubbing, or pedal edema. NEUROLOGICAL: Gross neurological examination did not reveal any focal deficits. SKIN: No rashes. Results CBC & Chem 7: 03/07/21 14:55 03/07/21 14:55 Labs: Abnormal Lab Results - Last 24 Hours (Table) 03/07/21 03/07/21 Range/Units 14:55 14:55 RDW 18.0 H (11.5-15.5) % Carbon Dioxide 21 L (22-30) mmol/L BUN 23 H (7-17) mg/dL Creatinine 1.20 H (0.52-1.04) mg/dL Thrombosis Risk Factor Assmnt - Choose All That Apply Any of the Below Risk Factors Present?: No Each Risk Factor Represents 2 Points: Age 61-74 years Other congenital or acquired thrombophilia - If yes, enter type in comment: No Thrombosis Risk Factor Assessment Total Risk Factor Score: 2 Thrombosis Risk Factor Assessment Level: Low Risk Assessment and Plan Assessment: 1. Acute syncope - Monitor patient on telemetry; monitor EKG and cardiac enzymes; cardiology is recommending 2-D echo 2. New onset atrial fibrillation/RVR; patient remains on IV Cardizem; continues to have elevated heart rate; patient remains on metoprolol; patient started on Rythmol; plan is to wean Cardizem off once heart rate is better controlled; no plans for anticoagulation due to frequent falls 3. Frequent fall; possibly secondary to cardiac arrhythmia; we will continue to monitor and recommend PT OT once patient is stable for discharge 4. Hypertension; stable on metoprolol 5. Hyperlipidemia; Lipitor 20 mg by mouth daily at bedtime 6. Hypothyroidism; levothyroxine 75 MCG daily DVT prophylaxis; SCDs/subcu heparin CODE STATUS; full code
[2021-03-08] MEDS ORDERED: IBUPROFEN 800 MG TAB PO PRN (17:57)
[2021-03-08] MEDS: CYCLOBENZAPRINE 10 MG TAB PO SCH (19:24)
[2021-03-08] MEDS ORDERED: ASPIRIN 81 MG PO SCH (21:00)
[2021-03-08] MEDS ORDERED: METOPROLOL SUCCINATE (ER) 100 MG TAB.ER.24H PO SCH (21:00)
[2021-03-08] MEDS ORDERED: ATORVASTATIN 20 MG TAB PO SCH (21:00)
[2021-03-09] MEDS: LEVOTHYROXINE 75 MCG TAB PO SCH (05:27)
[2021-03-09 08:29] VITALS: BP 95/53; TEMP 97.4
[2021-03-09] MEDS ORDERED: ZINC SULFATE 220 MG CAP PO SCH (09:00)
[2021-03-09] MEDS: CYCLOBENZAPRINE 10 MG TAB PO SCH (09:08)
[2021-03-09] MEDS: PROPAFENONE 150 MG TAB PO SCH (09:08)
[2021-03-09] MEDS: SODIUM CHLORIDE 0.9% 1,000 ML IV SCH (09:08)
[2021-03-09] MEDS: DILTIAZEM 125 MG in SODIUM CHLORIDE 0.9% 100 ML IV SCH (09:08)
[2021-03-09 10:43] VITALS: PULSE 56; RESP 18
--- NOTE | 2021-03-09 11:27 | P.PN ---
Subjective This is a pleasant 70-year-old female past medical history significant for dyslipidemia and hypothyroidism. 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 She has been diagnosed with new onset atrial fibrillation. She was initiated yesterday on Rythmol per Dr. Engle. She is maintaining sinus mechanism since that time. Repeat EKG this morning reveals sinus mechanism with QT 380-400 ms. Blood pressure 95/53 heart rate 67 afebrile maintaining oxygen saturation on room air. Echocardiogram obtained on this admission reveals pr eserved LV systolic function with ejection fraction 60-65%. Currently maintained on Rythmol 150 mg 3 times a day, Toprol 100 mg at bedtime, atorvastatin 20 mg daily and aspirin 81 mg daily. TSH 0.649. GENERAL: Well-appearing, well-nourished and in no acute distress. NECK: Supple without JVD or thyromegaly. LUNGS: Breath sounds clear to auscultation bilaterally. Respiration equal and unlabored. No wheezes, rales or rhonchi. HEART: Regular rate and rhythm without murmurs, rubs or gallops. S1 and S2 heard. EXTREMITIES: Normal range of motion, no edema. No clubbing or cyanosis. Peripheral pulses intact. ASSESSMENT Syncope Palpitations New onset paroxysmal atrial fibrillation with rapid ventricular rate Hypertension Dyslipidemia Frequent falls. PLAN Continue current medical regimen. Recommend outpatient event monitoring. This can be done with Dr. Engle in the office next week. Stable for discharge from a cardiac perspective, follow-up in the office with Dr. Engle next week. Nurse Practitioner note has been reviewed, I agree with a documented findings and plan of care. Patient was seen and examined. Objective - Vital Signs Vital signs: Vital Signs Temp 97.4 F L 03/09/21 07:00 Pulse 67 03/09/21 07:00 Resp 16 03/09/21 07:00 BP 95/53 03/09/21 07:00 Pulse Ox 98 03/09/21 07:00 Intake & Output 03/08/21 03/09/21 03/09/21 18:59 06:59 18:59 Intake Total 316.25 13.083 Balance 316.25 13.083 Weight 52.163 kg Intake: Intake, IV Titration 116.25 13.083 Amount Diltiazem 125 mg In 116.25 13.083 Sodium Chloride 0.9% 100 ml @ 10 MG/HR 10 mls/hr IV .[id number] [facility] Rx#: [id number] Oral 200 Other: Voiding Method Toilet # Voids 1 1 - Labs CBC & Chem 7: 03/07/21 14:55 03/07/21 14:55
--- NOTE | 2021-03-17 07:40 | P.DS ---
Providers Date of admission: 03/09/21 08:58 Expected date of discharge: 03/09/21 Attending physician: Johann Curry Consults: 03/07/21 17:40 Consult Physician Routine Consulting Provider: [facility] Consult Reason/Comments: Syncope Do you want consulting provider notified?: Yes Primary care physician: Stefan Mckinley, DO Hospital Course: 70-year-old female past medical history significant for dyslipidemia and hypothyroidism. 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 She has been diagnosed with new onset atrial fibrillation. She was initiated yesterday on Rythmol per Dr. Engle. She is maintaining sinus mechanism since that time. Repeat EKG this morning reveals sinus mechanism with QT 380-400 ms. Blood pressure 95/53 heart rate 67 afebrile maintaining oxygen saturation on room air. Echocardiogram obtained on this admission reveals preserved LV systolic function with ejection fraction 60-65%. Currently maintained on Rythmol 150 mg 3 times a day, Toprol 100 mg at bedtime, atorvastatin 20 mg daily and aspirin 81 mg daily. TSH 0.649. Syncope Palpitations New onset paroxysmal atrial fibrillation with rapid ventricular rate Hypertension Dyslipidemia Frequent falls. Cardiology evaluated patient; Continue current medical regimen. Recommend outpatient event monitoring. This can be done with Dr. Engle in the office next week. Stable for discharge from a cardiac perspective, follow-up in the office with Dr. Engle next week. Patient Condition at Discharge: Serious Plan - Discharge Summary Discharge Rx Participant: No New Discharge Prescriptions: New Propafenone [Rythmol] 150 mg PO TID #270 tab Continue Zolpidem Tartrate [Ambien Cr] 12.5 mg PO HS Rosuvastatin [Crestor] 10 mg PO HS Aspirin EC [Ecotrin Low Dose] 81 mg PO HS Metoprolol Succinate [Toprol XL] 100 mg PO HS Levothyroxine Sodium [Synthroid] 75 mcg PO DAILY Cyclobenzaprine [Flexeril] 10 mg PO BID Zinc 50 mg PO DAILY oxyCODONE HCL [OxyIR] 5 mg PO Q6H PRN PRN Reason: Pain Ibuprofen [Motrin] 800 mg PO Q8H PRN PRN Reason: Pain Discharge Medication List Zolpidem Tartrate [Ambien Cr] 12.5 mg PO HS 08/16/15 [History] Aspirin EC [Ecotrin Low Dose] 81 mg PO HS 02/21/21 [History] Cyclobenzaprine [Flexeril] 10 mg PO BID 02/21/21 [History] Ibuprofen [Motrin] 800 mg PO Q8H PRN 02/21/21 [History] Levothyroxine Sodium [Synthroid] 75 mcg PO DAILY 02/21/21 [History] Metoprolol Succinate [Toprol XL] 100 mg PO HS 02/21/21 [History] Rosuvastatin [Crestor] 10 mg PO HS 02/21/21 [History] Zinc 50 mg PO DAILY 02/21/21 [History] oxyCODONE HCL [OxyIR] 5 mg PO Q6H PRN 02/21/21 [History] Propafenone [Rythmol] 150 mg PO TID #270 tab 03/09/21 [Rx] Follow up Appointment(s)/Referral(s): Stefan Mckinley DO [REFERRING] - 1-2 days Sacha Engle MD [STAFF PHYSICIAN] - 1 Week Patient Instructions/Handouts: A-fib (Atrial Fibrillation) (GEN), Syncope (GEN) Discharge Disposition: HOME SELF-CARE
== END 2021-03-09 15:45 | disposition home or self-care (01) | DRG 310 ==
LOC: EC 14:11 → 6NMEDSUR 17:40 → OBSVTOIN 03-09 08:58
PROVIDERS: ADMIT Internal Medicine; ATTEND Internal Medicine
DX: I48.0 Paroxysmal atrial fibrillation (principal); R29.6 Repeated falls; E03.9 Hypothyroidism, unspecified; E78.5 Hyperlipidemia, unspecified; I10 Essential (primary) hypertension; S70.01XA Contusion of right hip, initial encounter; W19.XXXA Unspecified fall, initial encounter; Y92.009 Unspecified place in unspecified non-institutional (private) residence as the place of occurrence of the external cause; Z20.822 Contact with and (suspected) exposure to COVID-19; Z79.82 Long term (current) use of aspirin; Z79.890 Hormone replacement therapy; Z79.899 Other long term (current) drug therapy; Z82.49 Family history of ischemic heart disease and other diseases of the circulatory system; Z87.891 Personal history of nicotine dependence; Z90.710 Acquired absence of both cervix and uterus; Z96.641 Presence of right artificial hip joint; Z80.9 Family history of malignant neoplasm, unspecified; Z82.3 Family history of stroke; Z98.42 Cataract extraction status, left eye; Z98.41 Cataract extraction status, right eye
CPT/HCPCS: 36415; 73502; 80053; 82550; 83735; 84443; 85025; 85610; 85730; 87635; 93005; 93306; 96374; 96375; 99285

== ENCOUNTER → 2021-03-21 | Outpatient (CLI) | payer MEDICARE ==
--- NOTE | 2021-03-22 08:51 | CT ---
EXAMINATION TYPE: CT abdomen pelvis w con DATE OF EXAM: 03/21/2021 COMPARISON: 02/09/2010 HISTORY: RUQ pain, gastroenteritis, colitis. CT DLP: 905 mGycm Automated exposure control for dose reduction was used. CONTRAST: CT scan of the abdomen pelvis is performed with IV Contrast, patient injected with 80 mL of Isovue 30 0. FINDINGS- LUNG BASES-subsegmental changes involving both lungs. Pleural-based thickening and nodularity seen po steriorly greater on the left. Subpleural largest nodule measures approximately 7 mm. LIVER/GB-hypodensity involving the dome of the liver is most typical simple cyst. Gallbladder is deco mpressed limiting assessment. PANCREAS- No gross abnormality is seen. SPLEEN-subcentimeter splenic hypodensity too small to characterize could represent small cysts. Very tiny perisplenic fluid collection is seen measuring 1.9 x 0.7 cm. This is stable from prior exam of 2 010.. ADRENALS- No gross abnormality is seen. KIDNEYS/BLADDER-no hydronephrosis or nephrolithiasis. Upper pole lesion involving the left kidney too small to characterize but statistically most likely related to a cyst.. BOWEL-bowel gas pattern nonspecific with no obstruction. Extensive retained fecal debris.. LYMPH NODES- No greater than 1cm abdominal or pelvic lymph nodes areappreciated. OSSEOUS STRUCTURES-postsurgical change involving the right hip.. OTHER- bladder markedly distended. No free fluid. Aorta of normal caliber. IMPRESSION- 1. Nonspecific abdomen with no obstruction correlate for constipation. 2. Suspected hepatic and left renal cyst. Hypodense lesion involving the spleen is reduced in size fr om prior exam. Perisplenic low-attenuation is nonspecific may represent a fluid collection or lack of enhancement peripheral margin of the spleen but appears similar to the prior exam 2009.
== END | disposition home or self-care (01) ==
LOC: RADCTMAIN 14:26
PROVIDERS: ATTEND Internal Medicine Gastroenterology
DX: D73.89 Other diseases of spleen (principal)
CPT/HCPCS: 82565; 84520; 74177; 36415; Q9967

== ENCOUNTER 2021-03-28 07:21 | Day surgery (SDC) | payer MEDICARE ==
[2021-03-25 11:59] VITALS: BMI 23.1
[~2021-03-28 07:21] MED LIST: ALPRAZolam 0.25 MG TAB PO PRN; ALPRAZolam 0.5 MG TAB PO PRN; ASPIRIN 325 MG TAB PO STA; ATORVASTATIN 80 MG TAB PO STA; HEPARIN SODIUM,PORCINE 10,000 UNIT in SODIUM CHLORIDE 0.9% 1,000 ML IRRIGATION PRN; HEPARIN SODIUM,PORCINE 2,500 UNIT in SODIUM CHLORIDE 0.9% 250 ML IRRIGATION PRN; NITROGLYCERIN SL TABS 0.4 MG TAB SUBLINGUAL PRN; SODIUM CHLORIDE 0.9% 1,000 ML in EMPTY BAG 1 BAG IV ONE
[2021-03-28] MEDS ORDERED: SODIUM CHLORIDE 0.9% 1,000 ML in EMPTY BAG 1 BAG IV ONE (07:30)
[2021-03-28] MEDS ORDERED: SODIUM CHLORIDE 0.9% 1,000 ML IV ONE (07:44)
[2021-03-28 07:49] VITALS: RESP 16; TEMP 97.8
[2021-03-28 08:12] LABS: Anisocytosis Slight; Basophils % (A) 1 %; Eosinophils # (A) 0.1 k/uL (0-0.7); Eosinophils % (A) 3 %; HCT 44.9 % (34.0-46.0); HGB 13.9 gm/dL (11.4-16.0); Hypochromasia Slight; Lymphocytes # (A) 1.8 k/uL (1.0-4.8); Lymphocytes % (A) 38 %; MCH 27.3 pg (25.0-35.0); MCHC 30.9 g/dL (31.0-37.0); MCV 88.3 fL (80.0-100.0); Mean Platelet Volume 7.3; Monocytes # (A) 0.3 k/uL (0-1.0); Monocytes % (A) 6 %; Neutrophils # (A) 2.4 k/uL (1.3-7.7); Neutrophils % (A) 50 %; Platelet Count 286 k/uL (150-450); RBC 5.09 m/uL (3.80-5.40); RDW 17.2 % (11.5-15.5); WBC 4.8 k/uL (3.8-10.6)
[2021-03-28 08:40] LABS: Calcium 8.1 mg/dL (8.4-10.2); Potassium 3.9 mmol/L (3.5-5.1)
[2021-03-28] MEDS ORDERED: LIDOCAINE 1% INJ 10MG/ML (20 ML MDV) ONE ×2 (09:01→10:08)
[2021-03-28] MEDS ORDERED: VERAPAMIL 2.5 MG/ML 2 ML AMP ONE (09:01)
[2021-03-28] MEDS ORDERED: HEPARIN SODIUM 1,000 UN/ML (10ML VL) ONE (09:18)
[2021-03-28] MEDS ORDERED: fentaNYL (PF) 50 MCG/ML 2 ML AMP ONE (09:19)
[2021-03-28] MEDS ORDERED: MIDAZOLAM 2 MG/2 ML VIAL IVP ONE (09:28)
[2021-03-28] MEDS ORDERED: fentaNYL (PF) 50 MCG/ML 2 ML AMP IVP ONE (09:28)
[2021-03-28] MEDS ORDERED: LIDOCAINE 1% INJ 10MG/ML (20 ML MDV) SQ ONE (09:32)
[2021-03-28] MEDS: VERAPAMIL SYRINGE (5 MG/10 ML) INTRAARTER ONE ×2 (09:35→09:45)
[2021-03-28] MEDS ORDERED: HEPARIN SODIUM 1,000 UN/ML (10ML VL) IV ONE (09:36)
[2021-03-28] MEDS ORDERED: IOPAMIDOL-370 125ML BTL INJ ONE (09:45)
[2021-03-28] MEDS ORDERED: hydrALAZINE HCL 20 MG/ML 1 ML VIAL ONE (09:47)
[2021-03-28] MEDS: hydrALAZINE HCL 20 MG/ML 1 ML VIAL IV ONE ×2 (09:48→10:17)
--- NOTE | 2021-03-28 09:57 | P.CARDCATH ---
Description of Procedure: PROCEDURES PERFORMED: Left heart catheterization, bilateral coronary angiography, left ventriculogram INDICATION: Chest pain concerning for unstable angina, hyperlipidemia, syncope HISTORY: Patient is a pleasant 70-year-old female with history of hyperlipidemia, new-onset paroxysmal atrial fibrillation and syncope. She was initially evaluated with chest pain over last month and has also had a syncopal episode which was acute onset without much of a prodrome. When she presented to emergency department she had new onset A. fib with mild RVR with heart rate up to [address] depressions concerning for ischemia. Patient has been having ongoing intermittent chest pain with a total cholesterol level greater than 300. Given concerning symptoms, heart catheterization was recommended. CONSENT:I have discussed the risks, benefits and alternative therapies for the above-mentioned procedure and for both sedation/analgesia as well as necessary blood product administration, if indicated, as they pertain to this patient. The patient has indicated understanding and acceptance of the risks and procedures discussed. PROCEDURE: After the risks, benefits and alternatives of the above mentioned procedure explained in detail with the patient, informed consent was obtained. Patient was taken to the catheterization lab and prepped and draped in usual fashion. 1% lidocaine was used to anesthetize the right radial artery. A 6- [place] sheath was placed in the right radial artery using modified Seldinger technique. Left coronary angiography was performed with a 5-[place] JL 3.5 catheter and right coronary angiography was performed with a 5-[place] JR5 catheter in various views. A 5-[place] pigtail catheter was inserted into the left ventricle and pressure measurements were obtained. Left ventriculography was performed in the ANTONIO projection with a power injection. The right radial sheath was removed and a TR band was placed with hemostasis achieved. The patient tolerated the procedure well. Patient was transported back to the post catheterization holding area in stable condition. Conscious Sedation: Patient was monitored under the direct supervision of vision of myself for conscious sedation using Versed and fentanyl for a total duration of 20 minutes HEMODYNAMICS: Aorta: 167/82 LV: 162/5, LVEDP 22 SELECTIVE CORONARY ARTERIOGRAPHY: LEFT MAIN: The left main is a large caliber vessel which bifurcates into the LAD and circumflex. There is no significant stenosis. LEFT ANTERIOR DESCENDING CORONARY ARTERY: LAD is a large caliber vessel which wraps around to the apex. There is no significant stenosis. LEFT CIRCUMFLEX CORONARY ARTERY: Left circumflex is a moderate caliber vessel without significant stenosis. RIGHT CORONARY ARTERY: The right coronary artery is a large caliber vessel which gives off a PDA and PLV branch and is the dominant vessel. There is no significant stenosis. LEFT VENTRICULOGRAPHY: Left ventricular ejection fraction is 60% without wall motion abnormalities. There is no significant mitral regurgitation and no significant gradient with pullback across the aortic valve. FINAL IMPRESSION: 1. Normal coronary arteries as described above. 2. Normal ejection fraction 60% percent without wall motion abnormalities. 3. Mildly elevated left-sided filling pressures. PLAN: 1. Aggressive risk factor modification per most recent ACC/AHA guidelines. 2. Follow-up in the office in 1-2 weeks.
[2021-03-28] MEDS ORDERED: TOPICAL SKIN ADHESIVE 1 EACH AMP TOPICAL ONE (10:22)
--- NOTE | 2021-03-28 10:43 | P.PCN ---
Description of Procedure: Procedure: Insertion of Linq loop recorder Indication: Syncope HISTORY: Patient is a pleasant 70-year-old female with history of hypertension, hyperlipidemia, new onset of atrial fibrillation, syncope, chest pain. Patient has been having episodes of chest pain over last 1 month and was found to have new onset of atrial fibrillation. She had an episode of acute onset syncope with a prior episode approximate 6 months ago. She had a heart catheterization performed earlier today which showed no obstructive coronary artery disease. Secondary to recurrent syncope concerning for cardiogenic source, loop recorder was recommended. CONSENT:I have discussed the risks, benefits and alternative therapies for the above-mentioned procedure. The patient has indicated understanding and acceptance of the risks and procedures discussed. PROCEDURE: Patient was brought to the catheterization lab in a fasting state. Patient was prepped and draped in the usual fashion. 1% lidocaine was used to anesthetize the area of the left third intercostal space. Using the loop recorder incision device, a small 0.5 cm incision was made in the left 3rd intercostal space. Next the Linq loop recorder was deployed in the 3rd intercostal space subcutaneously using the insertion tool. Thresholds were checked and were excellent at 0.3V. Next the incision was closed using Dermabond. Steristrips were placed over the incision and the procedure was completed. The patient tolerated the procedure well. The patient was transported to the post cath holding area in stable condition. Linq loop recorder serial number: [id number]
[2021-03-28] MEDS ORDERED: RX INFO: IV CONTRAST WAS GIVEN 1 EACH MISC MISCELLANE PRN (10:45)
[2021-03-28 14:49] VITALS: BP 145/72; PULSE 71
== END 2021-03-28 14:15 | disposition home or self-care (01) ==
LOC: CATHCVL 07:21
PROVIDERS: ATTEND Internal Medicine
DX: R07.2 Precordial pain (principal); R55 Syncope and collapse; I48.0 Paroxysmal atrial fibrillation; R00.2 Palpitations; R94.31 Abnormal electrocardiogram [ECG] [EKG]; E78.5 Hyperlipidemia, unspecified
CPT/HCPCS: 93458; 33285; 80048; 85025; 87635; C1894; J2250; J0360; J0690; J2001; J3010; J1644; Q9967

== ENCOUNTER 2021-05-29 17:22 | Inpatient (IN) | payer MEDICARE ==
[2021-05-29] MEDS ORDERED: SODIUM CHLORIDE 0.9% 500 ML 500 ML IV STA (17:47)
[2021-05-29] MEDS ORDERED: ONDANSETRON 4 MG/2 ML VIAL IVP STA (17:48)
[2021-05-29] MEDS ORDERED: MORPHINE SULFATE 4 MG/ML SYRINGE IVP STA (17:48)
[2021-05-29 18:23] LABS: Anisocytosis Slight; Basophils # (A) 0.1 k/uL (0-0.2); Basophils % (A) 1 %; Eosinophils # (A) 0.3 k/uL (0-0.7); Eosinophils % (A) 3 %; HCT 41.7 % (34.0-46.0); HGB 13.8 gm/dL (11.4-16.0); Lymphocytes # (A) 1.4 k/uL (1.0-4.8); Lymphocytes % (A) 13 %; MCH 29.7 pg (25.0-35.0); MCHC 33.1 g/dL (31.0-37.0); MCV 89.7 fL (80.0-100.0); Mean Platelet Volume 6.9; Monocytes # (A) 0.6 k/uL (0-1.0); Monocytes % (A) 5 %; Neutrophils # (A) 8.4 k/uL (1.3-7.7); Neutrophils % (A) 78 %; Platelet Count 215 k/uL (150-450); RBC 4.65 m/uL (3.80-5.40); RDW 17.5 % (11.5-15.5); WBC 10.8 k/uL (3.8-10.6)
[2021-05-29 18:34] LABS: INR 0.9 (<1.2); Partial Thromboplastin Time 23.6 sec (22.0-30.0); Prothrombin Time 10.2 sec (9.0-12.0)
[2021-05-29 18:40] LABS: Albumin 3.8 g/dL (3.5-5.0); Calcium 9.1 mg/dL (8.4-10.2); Potassium 4.3 mmol/L (3.5-5.1); Total Bilirubin 0.3 mg/dL (0.2-1.3); Total Protein 6.3 g/dL (6.3-8.2)
--- NOTE | 2021-05-29 19:02 | CT ---
EXAMINATION TYPE: CT brain cspine wo con DATE OF EXAM: 05/29/2021 COMPARISON: None HISTORY: FALL Pain CT DLP: 1236 mGycm Automated exposure control for dose reduction was used. Of the brain and cervical spine without contrast. Ventricles and sulci appear normal for age. There is no mass effect nor midline shift. There is no si gn of intracranial hemorrhage. Calvarium is intact. There is no evidence of cerebral edema. There is normal aeration of the mastoid sinuses. There is small fluid level left maxillary sinus consistent wi th minimal sinusitis. The cervical vertebra have fairly normal alignment. There is mild disc space narrowing at C6-7 with s pur formation. There is mild facet arthropathy in the lower cervical spine. Prevertebral soft tissues are intact. Skull base is intact. IMPRESSION: Negative CT scan of the brain. Minimal cervical spondylotic changes. No fracture.
--- NOTE | 2021-05-29 19:04 | XR ---
EXAMINATION TYPE: XR chest 2V DATE OF EXAM: 05/29/2021 COMPARISON: 02/21/2021 HISTORY: Chest pain TECHNIQUE: 2 views FINDINGS: Heart and mediastinum are normal. Lungs are clear. Diaphragm is normal. There is calcified right breast implant. There are chest leads. The bony thorax is intact. IMPRESSION: No active cardiopulmonary disease. Normal heart. No change.
[2021-05-29] MEDS ORDERED: HYDROmorphone 0.5 MG/0.5 ML SYRINGE IVP STA (19:08)
--- NOTE | 2021-05-29 19:50 | ED ---
Fall HPI - General Chief Complaint: Fall Stated Complaint: Fall Time Seen by Provider: 05/29/21 17:29 Source: patient, RN notes reviewed Mode of arrival: wheelchair Limitations: no limitations - History of Present Illness Initial Comments: This a 71-year-old female presents emergency Department with chief complaint of fall. Patient states she was standing at the counter and then suddenly fell the ground. Patient states she did feel lightheaded. Patient states she's had these recurrent episodes is not on the usual. She complains of left shoulder posterior chest pain from the fall, mild headacheand neck her back pain. Patient also complains of left hip pain. Patient states states that she did not ambulate after the fall. - Related Data Home Medications Medication Instructions Recorded Confirmed Zolpidem Tartrate [Ambien Cr] 12.5 mg PO HS 08/16/15 05/29/21 Aspirin EC [Ecotrin Low Dose] 81 mg PO HS 02/21/21 05/29/21 Cyclobenzaprine [Flexeril] 10 mg PO BID 02/21/21 05/29/21 Ibuprofen [Motrin] 800 mg PO Q8H PRN 02/21/21 05/29/21 Levothyroxine Sodium [Synthroid] 75 mcg PO DAILY 02/21/21 05/29/21 Metoprolol Succinate [Toprol XL] 100 mg PO HS 02/21/21 05/29/21 Rosuvastatin [Crestor] 20 mg PO HS 02/21/21 05/29/21 Zinc 50 mg PO DAILY 02/21/21 05/29/21 Apixaban [Eliquis] 5 mg PO BID 03/25/21 05/29/21 HYDROcodone/APAP 7.5-325MG [[place] 1 tab PO TID PRN 05/29/21 05/29/21 7.5-325] Previous Rx's Medication Instructions Recorded Propafenone [Rythmol] 150 mg PO TID #270 tab 03/09/21 Allergies Allergy/AdvReac Type Severity Reaction Status Date / Time Sulfa (Sulfonamide Allergy Anaphylaxis Verified 05/29/21 20:20 Antibiotics) Review of Systems ROS Statement: Those systems with pertinent positive or pertinent negative responses have been documented in the HPI. ROS Other: All systems not noted in ROS Statement are negative. Past Medical History Past Medical History: Atrial Fibrillation, Hyperlipidemia, Hypertension, Syncope, Thyroid Disorder Additional Past Medical History / Comment(s): hx of migraine headaches, takes flexeril for that History of Any Multi-Drug Resistant Organisms: None Reported Past Surgical History: Section, Hernia Repair, Hysterectomy, Joint Replacement Additional Past Surgical History / Comment(s): cataracts, partial thyroidectomy, breast augmentation, right hip replacement january 2021, debridment on right hip january 2021. Past Anesthesia/Blood Transfusion Reactions: Postoperative Nausea & Vomiting (PONV) Past Psychological History: No Psychological Hx Reported Smoking Status: Former smoker - Past Family History Mother Family Medical History: Cancer, Hypertension, Thyroid Disorder Father Family Medical History: Coronary Artery Disease (CAD), CVA/TIA General Exam Limitations: no limitations General appearance: alert, in no apparent distress Head exam: Present: atraumatic, normocephalic, normal inspection Eye exam: Present: normal appearance, PERRL, EOMI. Absent: scleral icterus, conjunctival injection, periorbital swelling ENT exam: Present: normal exam, normal oropharynx, mucous membranes moist Neck exam: Present: normal inspection, full ROM. Absent: tenderness, meningismus, lymphadenopathy Respiratory exam: Present: normal lung sounds bilaterally, chest wall tenderness (Left posterior chest wall, scapular region there is some ecchymosis noted). Absent: respiratory distress, wheezes, rales, rhonchi, stridor Cardiovascular Exam: Present: regular rate, normal rhythm, normal heart sounds. Absent: systolic murmur, diastolic murmur, rubs, gallop, clicks GI/Abdominal exam: Present: soft, normal bowel sounds. Absent: distended, tend erness, guarding, rebound, rigid Extremities exam: Present: other (Left hip there is tenderness palpation, full range of motion, neurovascular intact extremities) Back exam: Present: full ROM, tenderness, paraspinal tenderness. Absent: vertebral tenderness Neurological exam: Present: alert, oriented X3, CN II-XII intact, reflexes normal. Absent: motor sensory deficit Course Vital Signs 05/29/21 17:34 Temperature 98.4 F Pulse Rate 74 Respiratory 18 Rate Blood Pressure 145/66 O2 Sat by Pulse 92 L Oximetry Medical Decision Making - Medical Decision Making Case discussed with [facility] on-call for orthopedics patient will be admitted to Dr. José Antonio medel patient will have medical clearance. - Lab Data Result diagrams: 05/29/21 18:14 05/29/21 18:14 Lab Results 05/29/21 05/29/21 05/29/21 Range/Units 18:14 18:14 18:14 WBC 10.8 H (3.8-10.6) k/uL RBC 4.65 (3.80-5.40) m/uL Hgb 13.8 (11.4-16.0) gm/dL Hct 41.7 (34.0-46.0) % MCV 89.7 (80.0-100.0) fL MCH 29.7 (25.0-35.0) pg MCHC 33.1 (31.0-37.0) g/dL RDW 17.5 H (11.5-15.5) % Plt Count 215 (150-450) k/uL MPV 6.9 Neutrophils % 78 % Lymphocytes % 13 % Monocytes % 5 % Eosinophils % 3 % Basophils % 1 % Neutrophils # 8.4 H (1.3-7.7) k/uL Lymphocytes # 1.4 (1.0-4.8) k/uL Monocytes # 0.6 (0-1.0) k/uL Eosinophils # 0.3 (0-0.7) k/uL Basophils # 0.1 (0-0.2) k/uL Anisocytosis Slight PT 10.2 (9.0-12.0) sec INR 0.9 (<1.2) APTT 23.6 (22.0-30.0) sec Sodium 140 (137-145) mmol/L Potassium 4.3 (3.5-5.1) mmol/L Chloride 105 (98-107) mmol/L Carbon Dioxide 27 (22-30) mmol/L Anion Gap 8 mmol/L BUN 25 H (7-17) mg/dL Creatinine 1.18 H (0.52-1.04) mg/dL Est GFR (CKD-EPI)AfAm 55 (>60 ml/min/1.73 sqM) Est GFR (CKD-EPI)NonAf 47 (>60 ml/min/1.73 sqM) Glucose 96 (74-99) mg/dL Calcium 9.1 (8.4-10.2) mg/dL Total Bilirubin 0.3 (0.2-1.3) mg/dL AST 43 H (14-36) U/L ALT 35 H (4-34) U/L Alkaline Phosphatase 84 (38-126) U/L Troponin I (0.000-0.034) ng/mL Total Protein 6.3 (6.3-8.2) g/dL Albumin 3.8 (3.5-5.0) g/dL 05/29/21 Range/Units 18:14 WBC (3.8-10.6) k/uL RBC (3.80-5.40) m/uL Hgb (11.4-16.0) gm/dL Hct (34.0-46.0) % MCV (80.0-100.0) fL MCH (25.0-35.0) pg MCHC (31.0-37.0) g/dL RDW (11.5-15.5) % Plt Count (150-450) k/uL MPV Neutrophils % % Lymphocytes % % Monocytes % % Eosinophils % % Basophils % % Neutrophils # (1.3-7.7) k/uL Lymphocytes # (1.0-4.8) k/uL Monocytes # (0-1.0) k/uL Eosinophils # (0-0.7) k/uL Basophils # (0-0.2) k/uL Anisocytosis PT (9.0-12.0) sec INR (<1.2) APTT (22.0-30.0) sec Sodium (137-145) mmol/L Potassium (3.5-5.1) mmol/L Chloride (98-107) mmol/L Carbon Dioxide (22-30) mmol/L Anion Gap mmol/L BUN (7-17) mg/dL Creatinine (0.52-1.04) mg/dL Est GFR (CKD-EPI)AfAm (>60 ml/min/1.73 sqM) Est GFR (CKD-EPI)NonAf (>60 ml/min/1.73 sqM) Glucose (74-99) mg/dL Calcium (8.4-10.2) mg/dL Total Bilirubin (0.2-1.3) mg/dL AST (14-36) U/L ALT (4-34) U/L Alkaline Phosphatase (38-126) U/L Troponin I <0.012 (0.000-0.034) ng/mL Total Protein (6.3-8.2) g/dL Albumin (3.5-5.0) g/dL Disposition Clinical Impression: Fall, Subcapital fracture of left femur Disposition: ADMITTED IP TO THIS HOSP Condition: Fair Referrals: Stefan Mckinley DO [Primary Care Provider] - 1-2 days
--- NOTE | 2021-05-29 20:08 | XR ---
EXAMINATION TYPE: XR Hip LT and AP Pelvis DATE OF EXAM: 05/29/2021 COMPARISON: 03/07/2021 HISTORY: Pain TECHNIQUE: 3 views FINDINGS: The pelvic ring is intact. There is right hip prosthesis. Proximal left femur shows impacte d subcapital acute fracture of the femoral neck. There is no dislocation. Sacroiliac joints are intac t. IMPRESSION: Acute subcapital fracture of the left femur which is a change compared to old exam.
[2021-05-29] MEDS ORDERED: HYDROmorphone 1 MG/ML 1 ML SYRINGE IVP STA (20:11)
[2021-05-29] MEDS ORDERED: NALOXONE 0.4 MG/ML 1 ML VIAL IV PRN (20:34)
[2021-05-29] MEDS ORDERED: ZOLPIDEM 5 MG TAB PO SCH (21:00)
[2021-05-29] MEDS: METOPROLOL SUCCINATE (ER) 100 MG TAB.ER.24H PO SCH (22:26)
[2021-05-29] MEDS: ATORVASTATIN 40 MG TAB PO SCH (22:26)
[2021-05-29] MEDS: PROPAFENONE 150 MG TAB PO SCH (22:26)
[2021-05-29] MEDS: HYDROmorphone 0.5 MG/0.5 ML SYRINGE IVP PRN (23:28)
[2021-05-30] MEDS: LEVOTHYROXINE 75 MCG TAB PO SCH (05:48)
[2021-05-30] MEDS: HYDROmorphone 1 MG/ML 1 ML SYRINGE IVP PRN ×5 (05:53→22:10)
[2021-05-30] MEDS: PROPAFENONE 150 MG TAB PO SCH ×3 (07:50→22:10)
--- NOTE | 2021-05-30 08:37 | P.HPOR ---
History of Present Illness H&P Date: 05/30/21 Chief Complaint: Left femoral neck fracture Patient is a 71-year-old female who presented to [facility] yesterday evening after injuring her left lower extremity. Currently the patient was standing in the kitchen, the next thing she knew she was lying on th e ground. She was unable to put any weight on the left lower extremity due to pain, her was able to contact EMS bring her to the hospital. Upon arrival to the hospital, imaging and lab tests were done, images did demonstrate a left femoral neck fracture. I was contacted by the emergency room staff and was able to review the images. I was unable to review the case with my attending Dr. Modi. Patient was admitted under orthopedic care with plan for likely surgical intervention. Internal medicine was then consult also. Patient was evaluated today at bedside, she is resting comfortably. Most pain she states is in the proximal aspect of the left lower extremity with movement. She is also having some left-sided upper and lower back pain. She notes some bruising in that area from falling. She denies any pain involving the right lower extremity. She denies any pain involving the bilateral upper extremity. She denies any new onset cervical or thoracic pain in the midline region. She denies any loss of bowel or bladder function at this time. She denies any numbness or tingling in bilateral lower extremities. She denies any headaches, lightheadedness, chest pain or shortness of breath. Patient has a history of multiple syncopal episodes over the last year. She did have a fall in January that led to a femoral neck fracture on the right side, she underwent a total hip replacement by the trauma service [facility]. Patient has been evaluated by cardiology, they did do a cardiac cath procedure back in March 2021, a loop recorder was also instilled. There is been no acute findings that have been reported to her. Patient recently retired about a year ago, she was living in [facility]. She does not currently have a primary care doctor in this location. Review of Systems Constitutional: Reports as per HPI Past Medical History Past Medical History: Atrial Fibrillation, Hyperlipidemia, Hypertension, Syncope, Thyroid Disorder Additional Past Medical History / Comment(s): hx of migraine headaches, takes flexeril for that History of Any Multi-Drug Resistant Organisms: None Reported Past Surgical History: Section, Hernia Repair, Hysterectomy, Joint Replacement Additional Past Surgical History / Comment(s): cataracts, partial thyroidectomy, breast augmentation, right hip replacement january 2021, debridment on right hip january 2021. Past Anesthesia/Blood Transfusion Reactions: Postoperative Nausea & Vomiting (PONV) Past Psychological History: No Psychological Hx Reported Smoking Status: Former smoker Past Alcohol Use History: Rare Additional Past Alcohol Use History / Comment(s): smoked for a few years as a teen, less than 1ppd Past Drug Use History: None Reported - Past Family History Mother Family Medical History: Cancer, Hypertension, Thyroid Disorder Father Family Medical History: Coronary Artery Disease (CAD), CVA/TIA Brother(s) Additional Family Medical History / Comment(s): history of Factor X Medications and Allergies Home Medications Medication Instructions Recorded Confirmed Type Zolpidem Tartrate [Ambien Cr] 12.5 mg PO HS 08/16/15 05/29/21 History Aspirin EC [Ecotrin Low Dose] 81 mg PO HS 02/21/21 05/29/21 History Cyclobenzaprine [Flexeril] 10 mg PO BID 02/21/21 05/29/21 History Ibuprofen [Motrin] 800 mg PO Q8H PRN 02/21/21 05/29/21 History Levothyroxine Sodium [Synthroid] 75 mcg PO DAILY 02/21/21 05/29/21 History Metoprolol Succinate [Toprol XL] 100 mg PO HS 02/21/21 05/29/21 History Rosuvastatin [Crestor] 20 mg PO HS 02/21/21 05/29/21 History Zinc 50 mg PO DAILY 02/21/21 05/29/21 History Propafenone [Rythmol] 150 mg PO TID #270 tab 03/09/21 05/29/21 Rx Apixaban [Eliquis] 5 mg PO BID 03/25/21 05/29/21 History HYDROcodone/APAP 7.5-325MG [[place] 1 tab PO TID PRN 05/29/21 05/29/21 History 7.5-325] Allergies Allergy/AdvReac Type Severity Reaction Status Date / Time Sulfa (Sulfonamide Allergy Anaphylaxis Verified 05/29/21 20:20 Antibiotics) Physical Examination Left lower extremity: There are no obvious open lesions or sores visualized on the extremity. There is some ecchymosis noted on the lateral posterior aspect of the upper left leg. She is tender with palpation in the area of the proximal femur, no tenderness with palpation noted about the knee, foot/ankle Logroll maneuver reproduces pain in the groin, she is unable to straight leg raise Knee flexion and extension were not assessed along with hip flexion due to pain. Plantar flexion, dorsiflexion, EHL, FHL are intact Calf is soft, there is no tenderness with palpation Her sensory exam to light touch throughout the extremity is intact Dorsalis pedis pulse is difficult to assess, posterior tibialis pulses 2+ Gen. orthopedic exam: No obvious open skin lesions or sores were noted on the remaining aspect exam. She does have ecchymosis noted in the midthoracic region on the left side Range of motion in the bilateral upper extremities intact in all major muscle groups, no significant strength deficits were appreciated in the bilateral upper extremities. Her sensory exam to light touch throughout bilateral upper extremities intact. Her radial and ulnar pulses are 2+ bilaterally Exam of the right lower extremity demonstrates no open lesions or sores, a well- healed incision is noted on the posterior lateral aspect of the leg. She is nontender with palpation throughout the right lower extremity, this including the foot and ankle along with knee. Logroll maneuver reproduces pain. Straight leg raise is intact. Range of motion with regards to hip flexion, knee extension, knee flexion, lateral flexion, dorsiflexion are intact. Calf is soft, no tenderness with palpation. Her sensory exam to light touch is intact throughout the extremity. Dorsalis pedis pulse and posterior tibialis pulses 2+ Results - Labs Labs: Abnormal Lab Results - Last 24 Hours (Table) 05/29/21 05/29/21 Range/Units 18:14 18:14 WBC 10.8 H (3.8-10.6) k/uL RDW 17.5 H (11.5-15.5) % Neutrophils # 8.4 H (1.3-7.7) k/uL BUN 25 H (7-17) mg/dL Creatinine 1.18 H (0.52-1.04) mg/dL AST 43 H (14-36) U/L ALT 35 H (4-34) U/L H & H 05/29/21 Range/Units 18:14 Hgb 13.8 (11.4-16.0) gm/dL Hct 41.7 (34.0-46.0) % Coagulation 05/29/21 Range/Units 18:14 INR 0.9 (<1.2) Result Diagrams: 05/29/21 18:14 05/29/21 18:14 - Diagnostic results Hip x-ray: report reviewed, image reviewed (X-ray of the pelvis and left hip demonstrate a obvious left subcapital femur fracture. Evidence of previous prosthesis noted in the right hip, with stable appearing components. There is no obvious lucencies appreciated.) Assessment and Plan Assessment: Left femoral neck fracture Syncopal episode resulting in fall from standing History of right femoral neck fracture with right total hip arthroplasty, January 2021 Other medical comorbidities Plan: I was able to discuss the case, including both physical exam findings and imaging studies my attending Dr. Modi. Our plan is to proceed with surgical intervention, more specifically a left total hip arthroplasty on 05/30/2021. Patient was made nothing by mouth after midnight on 05/29/2021, continue this at this time Risk and benefits of the procedure were discussed with the patient, this to include but not exclude infection, blood loss, neurovascular injury, development blood clots, inadequate healing of bone, need for subsequent surgery. Patient is in good understanding and would like to proceed. Obtain consent Nonweightbearing at this time, weight-bear as tolerated with walker after surgery. PT/OT evaluation after surgery GI and DVT prophylaxis, we'll restart her Eliquis 05/31/2021 Medical recommendations Due to her syncopal episodes will consult neurology for recommendations Further recommendations to follow Time with Patient: Less than 30
--- NOTE | 2021-05-30 09:34 | P.CONS ---
History of Present Illness - Reason for Consult Consult date: 05/30/21 Requesting physician: Fletcher Modi - Chief Complaint Medical clearance - History of Present Illness This is a 71-year-old female with past medical history noted below significant for recurrent syncopal episodes who presented to the emergency room after she passed out at home. Patient said that she was standing in the kitchen and next thing she remembers was waking up on the floor. She was complaining of left hip pain. She was brought into the emergency room by EMS. She was found to have a left femoral fracture. She is admitted under orthopedic surgery planned surgical intervention today at 1 PM. I was asked to see the patient for medical clearance. Patient denies any underlying diabetes, hypertension, chronic kidney disease. No history of CHF. No known cardiac history. She said that she is fairly active usually and able to climb one flight of stairs with no difficulty. She has been having problems with recurrent syncopal episode and had extensive evaluation with cardiology including a loop recorder that was unrevealing. Patient also had a left heart catheterization couple of month ago showing clear coronary arteries. Review of Systems Review of system: 14 points review of systems were obtained and were negative except to what were mentioned in the HPI. Past Medical History Past Medical History: Atrial Fibrillation, Hyperlipidemia, Hypertension, Syncope, Thyroid Disorder Additional Past Medical History / Comment(s): hx of migraine headaches, takes flexeril for that History of Any Multi-Drug Resistant Organisms: None Reported Past Surgical History: Section, Hernia Repair, Hysterectomy, Joint Replacement Additional Past Surgical History / Comment(s): cataracts, partial thyroidectomy, breast augmentation, right hip replacement january 2021, debridment on right hip january 2021. Past Anesthesia/Blood Transfusion Reactions: Postoperative Nausea & Vomiting (PONV) Past Psychological History: No Psychological Hx Reported Smoking Status: Former smoker Past Alcohol Use History: Rare Additional Past Alcohol Use History / Comment(s): smoked for a few years as a teen, less than 1ppd Past Drug Use History: None Reported - Past Family History Mother Family Medical History: Cancer, Hypertension, Thyroid Disorder Father Family Medical History: Coronary Artery Disease (CAD), CVA/TIA Brother(s) Additional Family Medical History / Comment(s): history of Factor X Medications and Allergies Home Medications Medication Instructions Recorded Confirmed Type Zolpidem Tartrate [Ambien Cr] 12.5 mg PO HS 08/16/15 05/29/21 History Aspirin EC [Ecotrin Low Dose] 81 mg PO HS 02/21/21 05/29/21 History Cyclobenzaprine [Flexeril] 10 mg PO BID 02/21/21 05/29/21 History Ibuprofen [Motrin] 800 mg PO Q8H PRN 02/21/21 05/29/21 History Levothyroxine Sodium [Synthroid] 75 mcg PO DAILY 02/21/21 05/29/21 History Metoprolol Succinate [Toprol XL] 100 mg PO HS 02/21/21 05/29/21 History Rosuvastatin [Crestor] 20 mg PO HS 02/21/21 05/29/21 History Zinc 50 mg PO DAILY 02/21/21 05/29/21 History Propafenone [Rythmol] 150 mg PO TID #270 tab 03/09/21 05/29/21 Rx Apixaban [Eliquis] 5 mg PO BID 03/25/21 05/29/21 History HYDROcodone/APAP 7.5-325MG [[place] 1 tab PO TID PRN 05/29/21 05/29/21 History 7.5-325] Allergies Allergy/AdvReac Type Severity Reaction Status Date / Time Sulfa (Sulfonamide Allergy Anaphylaxis Verified 05/29/21 20:20 Antibiotics) Physical Exam Vitals: Vital Signs Temp Pulse Pulse Resp BP BP Pulse Ox 05/30/21 08:00 97.7 F 60 18 120/75 96 05/30/21 02:30 97.6 F 70 17 122/76 98 05/29/21 22:02 97.8 F 68 18 177/98 94 L 05/29/21 21:15 76 18 156/86 96 05/29/21 17:34 98.4 F 74 18 145/66 92 L Intake and Output 05/29/21 05/30/21 05/30/21 22:59 06:59 14:59 Other: Voiding Method Bedpan # Voids 2 Weight 63.503 kg General: The patient is awake and alert, in no distress Eye: there is normal conjunctiva bilaterally. Neck: The neck is supple, there is no JVD. Cardiovascular: Normal S1-S2, no S3-S4, no murmurs. Respiratory: Lungs clear to auscultation bilaterally Gastrointestinal: Abdomen is soft, nontender Musculoskeletal: There is no pedal edema. Neurological:. Speech is normal. Skin: Skin is warm and dry Results CBC & Chem 7: 05/29/21 18:14 05/29/21 18:14 Labs: Abnormal Lab Results - Last 24 Hours (Table) 05/29/21 05/29/21 Range/Units 18:14 18:14 WBC 10.8 H (3.8-10.6) k/uL RDW 17.5 H (11.5-15.5) % Neutrophils # 8.4 H (1.3-7.7) k/uL BUN 25 H (7-17) mg/dL Creatinine 1.18 H (0.52-1.04) mg/dL AST 43 H (14-36) U/L ALT 35 H (4-34) U/L Assessment and Plan Assessment: This is a 71-year-old female who presented to the emergency room after having a syncopal episode at home and complaining of left hip pain. She was found to have left femoral fracture and currently admitted under orthopedic surgery. I was asked to see her for ongoing management of her medical problems noted below 1. Preoperative clearance, patient is at an acceptable risk for No risk orthopedic surgery according to the RCRI score. 2. Left femoral fracture, and for surgical intervention this afternoon with orthopedic 3. Recurrent syncopal episodes, exact etiology unclear. I counseled the patient extensively to stop taking Ambien. She had a loop recorder placed recently that was unrevealing for any arrhythmia. Left heart catheterization 2 months ago showed normal coronary arteries. Echocardiogram done in February showed preserved ejection fraction with no significant valvular abnormalities. 4. History of paroxysmal atrial fibrillation not on anticoagulation secondary to recurrent falls. Currently normal sinus rhythm. We will continue telemetry monitoring. 5. Acute kidney injury, mild. I would start gentle IV fluid hydration with normal saline at 50 mL per hour. 6. DVT prophylaxis with subcu Lovenox Today, I reviewed her medication list and lab work results. Continue current regimen. Repeat lab work in the morning. Thank you very much for the consultation. I will continue to follow up on the patient closely with you.
--- NOTE | 2021-05-30 11:39 | P.CRDCN ---
History of Present Illness History of present illness: HISTORY OF PRESENT ILLNESS: This is a 70-year-old female with a past medical history significant for paroxysmal atrial fibrillation (on Eliquis), Syncope, palpitations, dyslipi demia, hypothyroidism. Patient follows with Dr. Cuellar. We have been asked to see the patient in consultation for syncope. Patient examined at the bedside. Patient states that around 7:30 in the morning and 05/29/2021 patient was standing at the counter in her kitchen getting her breakfast together and she states that she fell. She is unsure what caused her fall. She states that she did feel some lightheadedness. She denies loss of consciousness or dizziness. She denies chest pain, palpitations, shortness of breath, nausea, vomiting, abdominal pain. She had pain to her left lower extremity after her fall. Her found her on the floor, contacted EMS and patient was brought to the emergency department. X-ray pelvis and left hip revealed a left subcapital femur fracture. Orthopedics has been consulted and the plan is for patient to undergo left total hip arthroplasty today. Patient is a nonsmoker. She denies alcohol or illicit drug use. She does have a family history of her father with an aneurysm, OK and stroke. Her mother had TIA, and her brother had an OK at age 55. Patient denies history of diabetes, OK, stroke. Patient was recently hospitalized in 03/07/2021 for syncopal episode. She underwent an echocardiogram showed an ejection fraction of 60-65%, mild mitral regurgitation and no other significant findings. She was also diagnosed with new onset atrial fibrillation with mild RVR. She was placed on aspirin, metoprolol 100 mg daily as well as Rythmol. She was not started on anticoagulation due to multiple falls at that time. However, patient was started on Eliquis 5mg BID. Her initial EKG was atrial fibrillation with mild RVR with heart rate up to 1:[address] depressions concerning for ischemia. She did convert to normal sinus rhythm. Patient was discharged home. In 03/28/2021 patient underwent cardiac catheterization which revealed normal coronary arteries, normal ejection fraction 60% without wall motion abnormaliti es, mildly elevated left sided filling pressures. Due to patient's multiple syncopal episodes, a loop recorder was placed on 03/28/2021 DIAGNOSTICS: EKG reveals sinus mechanism with no signs of acute ischemia, HR 67 Telemetry reviewed, patient in sinus mechanism heart rate 50 to 60s. Laboratory data: WBC 10.8, hemoglobin 13.8, platelets 215, sodium 140, potassium 4.3, BUN 25, serum creatinine 1.18, troponin negative 1 Current home cardiac medications include Eliquis 5 mg twice a day, aspirin 81 mg daily, metoprolol succinate 100 mg nightly, rosuvastatin 20 mg nightly, Rythmol 150 mg 3 times a day REVIEW OF SYSTEMS: At the time of my exam: CONSTITUTIONAL: Denies fever or chills. HEENT: Denies blurred vision, vision changes, or eye pain. Denies hemoptysis CARDIOVASCULAR: +lightheadness Denies chest pain. Denies orthopnea. Denies PND. Denies palpitations RESPIRATORY: Denies shortness of breath. GASTROINTESTINAL: Denies abdominal pain. Denies nausea or vomiting. HEMATOLOGIC: Denies bleeding disorders. GENITOURINARY: Denies any blood in urine. SKIN: Denies pruitis. Denies rash. PHYSICAL EXAM: VITAL SIGNS: Reviewed. GENERAL: Well-developed in no acute distress. HEENT: Head is normocephalic. Pupils are equal, round. Sclerae anicteric. Mucous membranes of the mouth are moist. Neck supple. No JVD or thyromegaly LUNGS: Respirations even and unlabored. Lungs essentially clear to auscultation bilaterally. HEART: Regular rate and rhythm. S1 and S2 heard. ABDOMEN: Soft. Nondistended. Nontender. EXTREMITIES: Normal range of motion. No clubbing or cyanosis. Peripheral pulses intact. No lower extremity edema NEUROLOGIC: Awake and alert. Oriented x 3. ASSESSMENT: Syncope Acute Left fracture of the left femur- Ortho following Paroxysmal atrial fibrillation with RVR on Eliquis Hyperlipidemia Hypertension Frequent falls Acute Kidney Injury- patient started on IV fluids PLAN: Interrogation of Loop Recorder completed this morning- There is no evidence of tachyarrhythmias, bradyarrhythmias, or pauses noted. Eliquis held, per ortho will restart tomorrow 05/31 Continue cardiac telemetry From cardiology perspective, patient is at moderate risk for surgery. However the benefits of the surgery outweigh the risk. Patient seemed very stable. Patient may proceed with surgery with no additional cardiac testing or procedures. Further recommendations pending patient course Nurse practitioner note has been reviewed by physician. Signing provider agrees with the documented findings, assessment, and plan of care Past Medical History Past Medical History: Atrial Fibrillation, Hyperlipidemia, Hypertension, Syncope, Thyroid Disorder Additional Past Medical History / Comment(s): hx of migraine headaches, takes flexeril for that History of Any Multi-Drug Resistant Organisms: None Reported Past Surgical History: Section, Hernia Repair, Hysterectomy, Joint Replacement Additional Past Surgical History / Comment(s): cataracts, partial thyroidectomy, breast augmentation, right hip replacement january 2021, debridment on right hip january 2021. Past Anesthesia/Blood Transfusion Reactions: Postoperative Nausea & Vomiting (PONV) Past Psychological History: No Psychological Hx Reported Smoking Status: Former smoker Past Alcohol Use History: Rare Additional Past Alcohol Use History / Comment(s): smoked for a few years as a teen, less than 1ppd Past Drug Use History: None Reported - Past Family History Mother Family Medical History: Cancer, Hypertension, Thyroid Disorder Father Family Medical History: Coronary Artery Disease (CAD), CVA/TIA Brother(s) Additional Family Medical History / Comment(s): history of Factor X Medications and Allergies Home Medications Medication Instructions Recorded Confirmed Type Zolpidem Tartrate [Ambien Cr] 12.5 mg PO HS 08/16/15 05/29/21 History Aspirin EC [Ecotrin Low Dose] 81 mg PO HS 02/21/21 05/29/21 History Cyclobenzaprine [Flexeril] 10 mg PO BID 02/21/21 05/29/21 History Ibuprofen [Motrin] 800 mg PO Q8H PRN 02/21/21 05/29/21 History Levothyroxine Sodium [Synthroid] 75 mcg PO DAILY 02/21/21 05/29/21 History Metoprolol Succinate [Toprol XL] 100 mg PO HS 02/21/21 05/29/21 History Rosuvastatin [Crestor] 20 mg PO HS 02/21/21 05/29/21 History Zinc 50 mg PO DAILY 02/21/21 05/29/21 History Propafenone [Rythmol] 150 mg PO TID #270 tab 03/09/21 05/29/21 Rx Apixaban [Eliquis] 5 mg PO BID 03/25/21 05/29/21 History HYDROcodone/APAP 7.5-325MG [[place] 1 tab PO TID PRN 05/29/21 05/29/21 History 7.5-325] Allergies Allergy/AdvReac Type Severity Reaction Status Date / Time Sulfa (Sulfonamide Allergy Anaphylaxis Verified 05/29/21 20:20 Antibiotics) Physical Exam Vitals: Vital Signs Temp Pulse Pulse Resp BP BP Pulse Ox 05/30/21 08:00 97.7 F 60 18 120/75 96 05/30/21 02:30 97.6 F 70 17 122/76 98 05/29/21 22:02 97.8 F 68 18 177/98 94 L 05/29/21 21:15 76 18 156/86 96 05/29/21 17:34 98.4 F 74 18 145/66 92 L Intake and Output 05/29/21 05/30/21 05/30/21 22:59 06:59 14:59 Other: Voiding Method Bedpan # Voids 2 Weight 63.503 kg Results 05/29/21 18:14 05/29/21 18:14 Cardiac Enzymes 05/29/21 05/29/21 Range/Units 18:14 18:14 AST 43 H (14-36) U/L Troponin I <0.012 (0.000-0.034) ng/mL Coagulation 05/29/21 Range/Units 18:14 PT 10.2 (9.0-12.0) sec APTT 23.6 (22.0-30.0) sec CBC 05/29/21 Range/Units 18:14 WBC 10.8 H (3.8-10.6) k/uL RBC 4.65 (3.80-5.40) m/uL Hgb 13.8 (11.4-16.0) gm/dL Hct 41.7 (34.0-46.0) % Plt Count 215 (150-450) k/uL Comprehensive Metabolic Panel 05/29/21 Range/Units 18:14 Sodium 140 (137-145) mmol/L Potassium 4.3 (3.5-5.1) mmol/L Chloride 105 (98-107) mmol/L Carbon Dioxide 27 (22-30) mmol/L BUN 25 H (7-17) mg/dL Creatinine 1.18 H (0.52-1.04) mg/dL Glucose 96 (74-99) mg/dL Calcium 9.1 (8.4-10.2) mg/dL AST 43 H (14-36) U/L ALT 35 H (4-34) U/L Alkaline Phosphatase 84 (38-126) U/L Total Protein 6.3 (6.3-8.2) g/dL Albumin 3.8 (3.5-5.0) g/dL Current Medications Generic Name Dose Route Start Last Admin Trade Name Freq PRN Reason Stop Dose Admin Hydrocodone Bitart/Acetaminophen 1 each 05/29/21 20:34 Hydrocodone/Apap 7.5-325mg 1 Each Tab PO TID PRN pain/migraines Atorvastatin Calcium 40 mg 05/29/21 21:00 05/29/21 22:26 Atorvastatin 40 Mg Tab PO 40 mg HS MARIEL Administration Hydromorphone HCl 0.5 mg 05/29/21 20:34 05/29/21 23:28 Hydromorphone 0.5 Mg/0.5 Ml Syringe IVP 0.5 mg Q3HR PRN Administration Moderate Pain Hydromorphone HCl 1 mg 05/29/21 20:34 05/30/21 08:58 Hydromorphone 1 Mg/Ml 1 Ml Syringe IVP 1 mg Q3HR PRN Administration Severe Pain Levothyroxine Sodium 75 mcg 05/30/21 06:30 05/30/21 05:48 Levothyroxine 75 Mcg Tab PO Not Given DAILY@0630 MARIEL Metoprolol Succinate 100 mg 05/29/21 21:00 05/29/21 22:26 Metoprolol Succinate (Er) 100 Mg Tab.Er.24h PO 100 mg HS MARIEL Administration Naloxone HCl 0.2 mg 05/29/21 20:34 Naloxone 0.4 Mg/Ml 1 Ml Vial IV Q2M PRN Opioid Reversal Propafenone HCl 150 mg 05/29/21 22:00 05/30/21 07:50 Propafenone 150 Mg Tab PO Not Given TID MARIEL Zolpidem Tartrate 5 mg 05/29/21 21:00 05/29/21 23:27 Zolpidem 5 Mg Tab PO 5 mg HS MARIEL Administration Intake and Output 05/29/21 05/30/21 05/30/21 22:59 06:59 14:59 Other: Voiding Method Bedpan # Voids 2 Weight 63.503 kg 05/29/21 18:14 05/29/21 18:14
--- NOTE | 2021-05-30 13:21 | P.CNNES ---
History of Present Illness Consult date: 05/30/21 Requesting physician: Adryan Sparks Reason for Consult: syncope with multiple falls History of Present Illness: This is a 71-year-old woman with medical history of recurrent syncopal epsidoes, borderline diabetes mellitus, chronic kidney insufficiency hypertension, hyperlipidemia, atrial fibrillation on Eliquis who presented emergency department via EMS on 05/29/2021 who had a syncopal episode and left hip pain. Patient stated that she was standing in the kitchen and then next thing she remembers was waking up on the floor. After waking up but she started having left hip pain. Patient stated that this episode that just transpired the was brief and she regained consciousness fast. Denies of urinary or bowel incontinence. The denies of any tongue soreness. She says that that she didn't have any warning signs such as any chest palpitation any lightheadedness any sweating and feeling warm. She said that she's been having these episodes of passing out for the last 6-8 months and that she had about 6 episodes so far and she said that the happen all of a sudden. She said that 2 of the episodes the day lasted for between 2-6 hours. She does not have any warning signs. Again with these episodes she denies tongue bite, urinary bowel incontinence. Patient's was at bedside and he denies witnessing these episodes and he said that he saw her once the while she was on the floor but she was waking up and her gaze was in midline no foaming around the mouth. She does not recall having any jerk in of any extremities at. She said one episode that she was trying to get out of bed but could not make it at. She said that her hands and feet are cold and sometimes they turn into blue coloration. He denies having any butterfly rash on her face or any rash. She said that that she tried the address this issue of cold sensation to her primary care physician and the cardiology and the she was notified that the was of vascular team that needs to address this issue. She had extensive workup for her syncopal episode by cardiology including a loop recorder which and cardiac cath which is unremarkable so far. Her loop recorder is being interrogated today. Patient had a cardiac cath on 03/28/2021 and it's reported as normal coronary artery. Normal ejection fraction 60% without wall motion abnormality. Mild elevated left sided filling pressure. Of note the patient on medication is Eliquis 5 Mill gram one tablet twice a day, aspirin 81 mg, Flexeril 10 mg 1 tablet twice a day, Synthroid, metoprolol, Crestor 20 mg daily at bedtime, zolpidem 12.5 mg daily at bedtime, Clinton as needed. He denies history of seizures as a child. Denies any family history of seizure. Regarding her history she said that the she was 3 months premature but was vaginal delivery no complication did not have to be in the ICU or any intervention. Of note she said that she has headaches that start in the neck occipital region that radiates the behind the right eye or left eye she seeing a specialist over at the [facility] and that initially she was tried on Elavil then Depakote which she could not tolerate the side effects now she said that she is on muscle relaxant and they're given her injections. She had MRI of the brain in the past and was told was unremarkable. Some of the workup in the hospital consisted of: Initial vitals his blood pressure of 145/66, heart rate is 74, respiratory of 18, temperature of 98.4 Fahrenheit oral and pulse ox of 92% at room air. CT of the head and cervical spine is reported as negative the computed tomography scan of the brain. While the cervical spine was reported as minimal cervical spondylitic changes. No fracture. EKG is reported as normal sinus rhythm. Possible left atrial enlargement. Borderline EKG. Left hip x-rays reported as acute subcapital fracture of the left femur which is a change compared to old exam. Initial white blood cells 10.8 and minimally slightly a neutrophilic. Creatinine is 1.18. The AST is an ALT are just slightly elevated for history of AST and ALT is 35 but not remarkable for both. Otherwise the rest of the chemistry panel is unremarkable. Sugar was 96, sodium is 140 Review of Systems Review of system: The 12 point system was reviewed and apparent positive and negative per HPI. Past Medical History Past Medical History: Atrial Fibrillation, Hyperlipidemia, Hypertension, Syncope, Thyroid Disorder Additional Past Medical History / Comment(s): hx of migraine headaches, takes flexeril for that History of Any Multi-Drug Resistant Organisms: None Reported Past Surgical History: Section, Hernia Repair, Hysterectomy, Joint Replacement Additional Past Surgical History / Comment(s): cataracts, partial thyroidectomy, breast augmentation, right hip replacement january 2021, debridment on right hip january 2021. Past Anesthesia/Blood Transfusion Reactions: Postoperative Nausea & Vomiting (PONV) Past Psychological History: No Psychological Hx Reported Smoking Status: Former smoker Past Alcohol Use History: Rare Additional Past Alcohol Use History / Comment(s): smoked for a few years as a teen, less than 1ppd Past Drug Use History: None Reported - Past Family History Mother Family Medical History: Cancer, Hypertension, Thyroid Disorder Father Family Medical History: Coronary Artery Disease (CAD), CVA/TIA Brother(s) Additional Family Medical History / Comment(s): history of Factor X Medications and Allergies Home Medications Medication Instructions Recorded Confirmed Type Zolpidem Tartrate [Ambien Cr] 12.5 mg PO HS 08/16/15 05/29/21 History Aspirin EC [Ecotrin Low Dose] 81 mg PO HS 02/21/21 05/29/21 History Cyclobenzaprine [Flexeril] 10 mg PO BID 02/21/21 05/29/21 History Ibuprofen [Motrin] 800 mg PO Q8H PRN 02/21/21 05/29/21 History Levothyroxine Sodium [Synthroid] 75 mcg PO DAILY 02/21/21 05/29/21 History Metoprolol Succinate [Toprol XL] 100 mg PO HS 02/21/21 05/29/21 History Rosuvastatin [Crestor] 20 mg PO HS 02/21/21 05/29/21 History Zinc 50 mg PO DAILY 02/21/21 05/29/21 History Propafenone [Rythmol] 150 mg PO TID #270 tab 03/09/21 05/29/21 Rx Apixaban [Eliquis] 5 mg PO BID 03/25/21 05/29/21 History HYDROcodone/APAP 7.5-325MG [Clinton 1 tab PO TID PRN 05/29/21 05/29/21 History 7.5-325] Allergies Allergy/AdvReac Type Severity Reaction Status Date / Time Sulfa (Sulfonamide Allergy Anaphylaxis Verified 05/29/21 20:20 Antibiotics) Physical Examination - Vital Signs Vital Signs: Vital Signs Temp Pulse Pulse Resp BP BP Pulse Ox 05/30/21 08:00 97.7 F 60 18 120/75 96 07/08/21 02:30 97.6 F 70 17 122/76 98 05/29/21 22:02 97.8 F 68 18 177/98 94 L 05/29/21 21:15 76 18 156/86 96 05/29/21 17:34 98.4 F 74 18 145/66 92 L Intake and Output 05/29/21 05/30/21 05/30/21 22:59 06:59 14:59 Other: Voiding Method Bedpan Bedpan # Voids 2 Weight 63.503 kg GENERAL: The patient is lying in bed and is not in acute distress. CHEST: The heart rate is regular rate rhythm. No murmurs to auscultation. No carotid bruit bilaterally. She has cold sensation of all distal extremities, more drastically feet. LUNG: Clear to auscultation bilaterally no wheezing noted throughout. Not labored breathing. ABDOMEN/GI: Bowel sounds present in all 4 quadrants. No tenderness to palpation throughout. NEUROLOGICAL: Higher mental function: The patient is awake, alert, oriented to self, place and time. Patient is following commands. No aphasia and no neglect. Cranial nerves: The pupils are round, equal and reactive to light and accommodation. Visual rowe are full to confrontation throughout. Extraocular movement is intact no nystagmus is noted. Facial sensation is normal to touch throughout. The facial strength is normal throughout. Hearing is normal bilaterally to hand rub. Tongue is midline and moved [id number] without any difficulty. No dysarthria is noted. Shoulder shrug is normal bilaterally. Motor: The strength is 5 over 5 throughout. Normal tone and bulk. Cerebellum: Normal finger to nose heel to mckay bilaterally. Sensation: Sensation is normal to touch throughout. Reflexes (right/left): 2+ throughout. Plantars are downgoing bilaterally. Results - Laboratory Findings CBC and BMP: 05/29/21 18:14 05/29/21 18:14 Abnormal Lab Findings: Abnormal Labs 05/29/21 05/29/21 18:14 18:14 WBC 10.8 H RDW 17.5 H Neutrophils # 8.4 H BUN 25 H Creatinine 1.18 H AST 43 H ALT 35 H Assessment and Plan Assessment: Recurrent syncopal episode. Does not seem seizure. Unknown exact etiology but a had extensive cardiac workup and was negative so far. Acute subcapital fracture of the left femur as result of recent fall Possibly peripheral artery disease Atrial fibrillation on Eliquis Diabetes mellitus Chronic kidney insufficiency Hypertension Hyperlipidemia Plan: I ordered a routine EEG. I'll not start the patient on antiepileptic drugs unless there is epileptiform discharges or seizure on the EEG. Cannot get MRI of the brain with and without as inpatient since has loop recorder and so recommend getting it as outpatient. Will consider getting prolonged EEG as outpatient if work-up is negative. Consulted vascular surgery team. Ordered hemoglobin A1c, Vitamin B12 and folate level. I'll get orthostatic vitals (if possible). Please avoid any narcotics last sedation or opiate that would affect the patient's mentation/neurological exam if possible. On continuous cardiac monitoring Every 4 hours neuro checks PT and OT are consulted Cardiology team is consulted. The plan is discussed with the patient, her who is at bedside and her nurse. Thank you for the consultation. Donald James MD Neuro-Hospitalist Time with Patient: Greater than 30
[2021-05-30] MEDS ORDERED: LACTATED RINGERS 1,000 ML IV ONE (13:23)
[2021-05-30] MEDS ORDERED: ONDANSETRON 4 MG/2 ML VIAL ONE (14:00)
[2021-05-30] MEDS ORDERED: ONDANSETRON 4 MG/2 ML VIAL IVP ONE (14:08)
[2021-05-30] MEDS ORDERED: DEXAMETHASONE SOD PHOSPHATE 4 MG/ML 1 ML VIAL IVP ONE (14:08)
--- NOTE | 2021-05-30 14:14 | XR ---
Thoracic spine HISTORY: Back pain Frontal lateral views of the thoracic spine submitted on 3 images There is mild multilevel spondylosis. Some loss of disc height present at the midthoracic spine level s. Bone mineralization is reduced. Thoracic vertebral bodies show preserved height and alignment. The re is no evident paraspinal mass. There is some questionable patchy increased basilar lung density. D egenerative disc disease is also noted in the cervical spine. IMPRESSION: Degenerative disc disease. Consider alternate imaging of the thoracic spine as indicated, chest x-ray
--- NOTE | 2021-05-30 14:19 | XR ---
Left RIBS HISTORY: History of trauma, pain 4 views of the left ribs There is a loop recorder over the left mid chest. Bone mineralization is reduced. Patchy densities pr esent are better seen than on chest x-ray same date on the left. No evident pneumothorax or pleural e ffusion. There is no evident displaced rib fracture, reduced bone mineralization could limit sensitivity. Calc ified breast prostheses are noted incidentally. Retained fecal debris present throughout the distribu tion of the visualized colon. IMPRESSION: Consider bone scan as indicated to assess for occult fracture. There may be lung contusio n or atelectasis, calcified breast prosthesis noted incidentally.
[2021-05-30] MEDS ORDERED: TRANEXAMIC ACID 1,000 MG in SODIUM CHLORIDE 0.9% 100 ML IVPB ONE ×5 (14:31→14:45)
[2021-05-30] MEDS ORDERED: MIDAZOLAM 2 MG/2 ML VIAL ONE (14:38)
[2021-05-30] MEDS ORDERED: ceFAZolin 1,000 MG VIAL ONE (14:38)
[2021-05-30] MEDS ORDERED: fentaNYL (PF) 50 MCG/ML 2 ML AMP ONE (14:38)
[2021-05-30] MEDS ORDERED: LIDOCAINE 1% INJ 10MG/ML (20 ML MDV) ONE (14:38)
[2021-05-30] MEDS ORDERED: SUCCINYLCHOLINE CHLORIDE 100 MG/5 ML SYR IV ONE (14:38)
[2021-05-30] MEDS ORDERED: TRANEXAMIC ACID 1,000 MG/10 ML VIAL ONE (14:38)
[2021-05-30] MEDS ORDERED: SODIUM CHLORIDE 0.9% 100 ML BAG ONE ×2 (14:38)
[2021-05-30] MEDS ORDERED: PROPOFOL 10 MG/ML 20 ML VIAL IV ONE (14:38)
--- NOTE | 2021-05-30 14:39 | XR ---
Lumbar spine HISTORY: Low back pain 3 views the lumbar spine There is a dextroscoliosis centered at L3. Bone mineralization is reduced. Lumbar vertebral bodies sh ow preserved height. There is some loss of disc height present at L4-5. Sclerosis is present in the p osterior elements of the lower lumbar spine. There is mild spondylosis. IMPRESSION: Osteopenia, facet arthropathy, degenerative disc disease.
[2021-05-30] MEDS ORDERED: ROPIVACAINE/EPI/CLONIDINE/KET 50 ML SYRINGE MISCELLANE PRN (15:10)
--- NOTE | 2021-05-30 15:58 | EEG ---
ELECTROENCEPHALOGRAM REPORT DATE OF SERVICE: 05/30/2021. CLINICAL HISTORY: This is a 71-year-old woman with recurrent syncopal episode. The video EEG is obtained to evaluate for seizure epileptiform activity. RELEVANT MEDICATION: The patient is not on any antiepileptic drug. EEG TYPE: A routine 21 channel EEG is performed with video using the 10/20 electrode placement system. DESCRIPTION: Wakefulness is only obtained. During wakefulness, there is a posterior dominant rhythm of low to moderate voltage of 8.5-9 hertz activity. There is no sleep architecture seen. There is no focal slowing seen. Interictal and ictal are none. ACTIVATION PROCEDURES: Photic stimulation did not evoke a posterior driving response. There is no abnormality during photic stimulation. Hyperventilation is not performed. CLINICAL INTERPRETATION: This is a normal routine EEG. There are no focal slowing, epileptiform discharges or seizure on the EEG. Clinical correlation is recommended. MELYSSA / RYANN: [id number] / MTDD
[2021-05-30] MEDS ORDERED: ONDANSETRON 4 MG/2 ML VIAL IVP PRN (16:19)
[2021-05-30] MEDS ORDERED: ACETAMINOPHEN TAB 325 MG TAB PO PRN (16:19)
[2021-05-30] MEDS ORDERED: MAGNESIUM HYDROXIDE 2,400 MG/10 ML CUP PO PRN (16:19)
--- NOTE | 2021-05-30 16:51 | P.OP ---
Date of Procedure: 05/30/21 Preoperative Diagnosis: Displaced left subcapital femoral neck fracture Postoperative Diagnosis: Same Procedure(s) Performed: Left total hip arthroplastypress-fitlateral approach Implants: Depuy Corail size 13 collared standard press-fit femoral stem, 36+1.5 cobalt chrome femoral head, 52 mm [place] acetabular shell with neutral polyethylene liner. Anesthesia: GETA, local Surgeon: Fletcher Modi Joiner Apprentice #1: Adryan Sparks Assistant #2: Demetri Sims Estimated Blood Loss (ml): 100 Pathology: other (Femoral head) Condition: stable Disposition: PACU Indications for Procedure: The patient's a 71-year-old female who presents after falling injuring her left hip and on evaluation was noted to have a displaced/impacted subcapital femoral neck fracture. A discussion of the risks and benefits of operative intervention was made with patient and her family. She opted to proceed with surgery. Operative options were discussed include pinning versus hemiarthroplasty versus total hip arthroplasty. She opted to proceed with total hip arthroplasty. Specific risks of the surgery to include infection, neurovascular injury, development of blood clots, possible leg length discrepancy, possible ins tability, possible component failure need for subsequent procedures was discussed. Informed consent was obtained. Operative Findings: As below Description of Procedure: The patient was brought to the operating room, and after induction of spinal anesthesia was placed in a lateral decubitus position. The bony prominences were appropriately padded. The pelvis was stable perpendicular to the floor with a pegboard. The left lower extremity was prepped and draped in normal fashion. A 12 cm incision was then made centered over the greater trochanter extending superiorly to level the ASIS and distally in line with the femoral shaft. The skin and subcutaneous tissues were divided sharply. Electrocautery was used for hemostasis. The fascia mignon and gluteus nathalia fascia was split in line with the skin incision. The muscle fibers were bluntly dissected proximally. A self-retaining retractor was placed. The anterior and posterior margins of the gluteus medius muscles identified and the anterior two thirds was detached from the greater trochanter with electrocautery. The gluteus minimus tendon was identified and detached in a similar fashion. A wide capsulotomy was performed. The femoral neck fracture was identified in the lower neck cut was made approximately 1 1/2 cm above the level of the lesser trochanter with a s agittal saw at a 45 the shaft. The head was then extracted with a corkscrew. Attention was then paid towards preparing the acetabular. Anterior and posterior retractors were placed. The remaining capsular labral tissues debrided sharply clearly defining the acetabular margins. Began reaming with a 45 mm reamer taking care to initially medialize, then reaming at 45 of abduction and 20 of anteversion. Sequential reaming is performed up to 51 mm. This was down to bleeding bony surface. A trial 52 mm acetabular shell was inserted at 45 of abduction and 20 of anteversion. This was fully seated. There was good rim fit and stability. A neutral polyethylene liner was then impacted. Care taken to avoid any soft tissue interposition. Attention was then paid towards preparing the proximal femur. A box chisel was used to open the metaphyseal region. A canal finder was used to find the femoral canal. Sequential broaching was performed up to a size 13. This is placed in 15 of anteversion with the leg perpendicular floor judging off the trans-epicondylar axis. There is good rotational stability. A calcar mill was used to fashion the medial calcar. A trial standard neck along with a 36 mm + 1.5 trial head was placed. The hip was gently reduced. It was taken through range of motion. I felt to be stable in flexion and extension with internal and external rotation. I felt there was adequate jew of soft tissue tension. The hip was gently dislocated. The trial components removed. Pulsatile lavage was utilized. The final size 13 standard collared femoral stem was inserted again with the leg perpendicular to the floor in 15 of anteversion. Again there was good rotational stability. A 36 mm + 0.5 cobalt chrome femoral head was gently impacted. The hip was gently reduced. Again it was taken through motion and felt to be stable in flexion and extension with internal and external rotation. Ropivacaine was injected in the capsular tissue, deep subcutaneous tissues and superficial subcutaneous tissues. Pulsatile lavage was again utilized. With the leg in abduction the gluteus minimus and medius tendons reattached to the greater trochanter with #2 Ethibond suture. There was minimal drainage therefore a deep drain was not placed. The fascia mignon and gluteus nathalia fascia was closed with #2 Ethibond suture. The subcutaneous tissues were reapproximated interrupted 2-0 Vicryl sutures. The skin was reapproximated with 3-0 subcuticular strata fix suture. Skin tape and adhesive was applied. A sterile dressing was applied. The patient was awoken from sedation and transferred to recovery room in good condition. Blood loss was estimated at 100 mL. No complications were incurred. Sponge and needle counts were correct in the case. Sanket PARNELL assisted during the major composes case to include exposure, implantation, and closure.
[2021-05-30] MEDS ORDERED: SODIUM CHLORIDE 0.9% 1,000 ML IV ONE ×2 (17:00)
[2021-05-30] MEDS ORDERED: HYDROmorphone 0.5 MG/0.5 ML SYRINGE IVP ONE ×2 (17:07→17:27)
--- NOTE | 2021-05-30 17:19 | XR ---
EXAMINATION TYPE: XR Hip Limited LT DATE OF EXAM: 05/30/2021 CLINICAL HISTORY: Left hip fracture. TECHNIQUE: Single AP portable view of left hip is obtained immediately postoperatively. COMPARISON: Pelvic and left hip x-ray from yesterday FINDINGS: Metallic hardware from left hip arthroplasty is seen and appears satisfactory in alignment and position. There is evidence of recent surgery with subcutaneous gas noted laterally. IMPRESSION: Metallic hardware from left hip arthroplasty is satisfactory in position.
[2021-05-30] MEDS: SODIUM CHLORIDE 0.9% 1,000 ML IV SCH ×2 (18:18→22:13)
[2021-05-30 21:53] LABS: Hemoglobin A1C 5.7 % (4.0-6.0)
[2021-05-30] MEDS: METOPROLOL SUCCINATE (ER) 100 MG TAB.ER.24H PO SCH (22:10)
[2021-05-30] MEDS: SENNOSIDES-DOCUSATE SODIUM 1 EACH TAB PO SCH (22:10)
[2021-05-30] MEDS: ATORVASTATIN 40 MG TAB PO SCH (22:10)
[2021-05-31] MEDS: HYDROmorphone 1 MG/ML 1 ML SYRINGE IVP PRN ×3 (04:10→20:19)
[2021-05-31] MEDS: LEVOTHYROXINE 75 MCG TAB PO SCH (05:50)
[2021-05-31] MEDS: FAMOTIDINE 20 MG TAB PO SCH (07:40)
[2021-05-31] MEDS: APIXABAN 5 MG TAB PO SCH ×2 (07:40→21:01)
[2021-05-31 07:44] LABS: Anisocytosis Slight; Basophils % (A) 0 %; Eosinophils # (A) 0.1 k/uL (0-0.7); Eosinophils % (A) 0 %; HCT 30.4 % (34.0-46.0); Lymphocytes # (A) 1.1 k/uL (1.0-4.8); Lymphocytes % (A) 8 %; MCH 30.7 pg (25.0-35.0); MCHC 33.9 g/dL (31.0-37.0); MCV 90.5 fL (80.0-100.0); Mean Platelet Volume 7.1; Monocytes # (A) 0.7 k/uL (0-1.0); Monocytes % (A) 5 %; Neutrophils % (A) 86 %; Platelet Count 205 k/uL (150-450); RBC 3.36 m/uL (3.80-5.40); RDW 17.8 % (11.5-15.5); WBC 13.9 k/uL (3.8-10.6)
[2021-05-31 08:03] LABS: HGB 10.3 gm/dL (11.4-16.0)
[2021-05-31] MEDS ORDERED: ENOXAPARIN 40 MG/0.4 ML SYRINGE SQ SCH (09:00)
--- NOTE | 2021-05-31 09:10 | P.PN ---
Subjective Progress Note Date: 05/31/21 Patient is doing well today. Her pain is well-controlled. She is postoperative day #1 status post left hip arthroplasty. She does not have any complaints this morning. Objective - Vital Signs Vital signs: Vital Signs Temp 97.5 F L 05/31/21 07:40 Pulse 59 L 05/31/21 07:40 Resp 17 05/31/21 07:40 BP 93/61 05/31/21 07:40 Pulse Ox 98 05/31/21 07:40 Intake & Output 05/30/21 05/31/21 05/31/21 18:59 06:59 18:59 Intake Total 1025 Output Total 100 Balance 925 Weight 63.503 kg Intake: IV 1025 Output: Estimated Blood Loss 100 Other: Voiding Method Bedpan Bedside Commode # Voids 1 - Exam General: The patient is awake and alert, in no distress Eye: there is normal conjunctiva bilaterally. Neck: The neck is supple, there is no JVD. Cardiovascular: Normal S1-S2, no S3-S4, no murmurs. Respiratory: Lungs clear to auscultation bilaterally Gastrointestinal: Abdomen is soft, nontender Musculoskeletal: There is no pedal edema. Neurological:. Speech is normal. Skin: Skin is warm and dry - Labs CBC & Chem 7: 05/31/21 07:13 05/29/21 18:14 Labs: Abnormal Lab Results - Last 24 Hours (Table) 05/31/21 Range/Units 07:13 WBC 13.9 H (3.8-10.6) k/uL RBC 3.36 L (3.80-5.40) m/uL Hgb 10.3 L D (11.4-16.0) gm/dL Hct 30.4 L (34.0-46.0) % RDW 17.8 H (11.5-15.5) % Neutrophils # 12.0 H (1.3-7.7) k/uL Assessment and Plan Assessment: This is a 71-year-old female who presented to the emergency room after having a syncopal episode at home and complaining of left hip pain. She was found to have left femoral fracture and currently admitted under orthopedic surgery. I was asked to see her for ongoing management of her medical problems noted below 1. Recurrent syncopal episodes, exact etiology unclear. I counseled the patient extensively to stop taking Ambien. She had a loop recorder placed recently unrevealing for any arrhythmia. Left heart catheterization 2 months ago showed normal coronary arteries. Echocardiogram done in February showed preserved ejection fraction with no significant valvular abnormalities. Patient was seen and evaluated by both cardiology and neurology. She underwent an EEG that was normal. 2. Left femoral fracture, postoperative day #1 status post left total hip arthroplasty. Postoperative care, pain control, and DVT prophylaxis. Orthopedic team 3. History of paroxysmal atrial fibrillation on anticoagulation with Eliquis. Currently normal sinus rhythm. We will continue telemetry monitoring. 4. Acute kidney injury, mild. Patient received IV fluid hydration since admission awaiting repeat lab work 5. DVT prophylaxis with Eliquis Today, I reviewed her medication list and lab work results. Continue current regimen. PT/OT evaluation. I will continue to follow up on the patient closely with you.
[2021-05-31] MEDS: HYDROcodone/APAP 7.5-325MG 1 EACH TAB PO PRN (09:31)
[2021-05-31 09:37] LABS: African American GFR (CKD) >90 (>60 ml/min/1.73 sqM); Anion Gap 3 mmol/L; Blood Urea Nitrogen 15 mg/dL (7-17); Calcium 8.5 mg/dL (8.4-10.2); Carbon Dioxide 27 mmol/L (22-30); Chloride 105 mmol/L (98-107); Glucose 113 mg/dL (74-99); Non-African American GFR(CKD) 82 (>60 ml/min/1.73 sqM); Sodium 135 mmol/L (137-145)
--- NOTE | 2021-05-31 12:25 | P.GSCN ---
History of Present Illness Consult date: 05/31/21 Reason for Consult: possible peripheral arterial disease Requesting physician: Donald James History of present illness: This is a 71-year-old white female who presented to the emergency room 2 days ago after having a syncopal collapse episode. he has a past medical history including atrial fibrillation, hyperlipidemia, hypertension, thyroid disorder, migraine headaches,Patient states that she's had at least 6 episodes where she wakes up on the floor. She states she does not recall feeling dizzy or lightheaded when this occurs, she states she just blacked out and wakes up on the floor. in January the patient had a similar episode and fractured her right hip and underwent a right hip arthroplasty. After sustaining this fall she was noted to also have a left femoral neck fracture and underwent a left hip arthr oplasty yesterday. Neurology was on consult and saw the patient yesterday and they reported that she had cold feet and hands therefore they placed a consult to vascular surgery for possible peripheral arterial disease. The patient denies any history of peripheral arterial disease. She is staying nonsmoker, states she only smoked when she was 20 years old for a few months. His been seen and evaluated by cardiology and underwent a cardiac cath which was normal, and underwent a loop recorder. she states she has had bluish tint to her feet for many years, mostly when she is sitting and improves when she is up and walking. She denies any pain in her lower extremities however states that she is not able to walk far distances because she feels tired and short of breath and legs get tired. She is currently on Eliquis for DVT prophylaxis.she had a CT of the head that was negative with no acute findings.currently denies any chest pain, shortness of breath, abdominal pain, nausea or vomiting. She states her pain is well controlled from her surgery. She denies any pain in her upper or lower extremities at this time. Review of Systems A 14 point review of systems was completed all pertinent positives and negatives as stated in the HPI Past Medical History Past Medical History: Atrial Fibrillation, Hyperlipidemia, Hypertension, Syncope, Thyroid Disorder Additional Past Medical History / Comment(s): hx of migraine headaches, takes flexeril for that History of Any Multi-Drug Resistant Organisms: None Reported Past Surgical History: Section, Hernia Repair, Hysterectomy, Joint Replacement Additional Past Surgical History / Comment(s): cataracts, partial thyroidectomy, breast augmentation, right hip replacement january 2021, debridment on right hip january 2021. Past Anesthesia/Blood Transfusion Reactions: Postoperative Nausea & Vomiting (PONV) Past Psychological History: No Psychological Hx Reported Smoking Status: Former smoker Past Alcohol Use History: Rare Additional Past Alcohol Use History / Comment(s): smoked for a few years as a teen, less than 1ppd Past Drug Use History: None Reported - Past Family History Mother Family Medical History: Cancer, Hypertension, Thyroid Disorder Father Family Medical History: Coronary Artery Disease (CAD), CVA/TIA Brother(s) Additional Family Medical History / Comment(s): history of Factor X Medications and Allergies Home Medications Medication Instructions Recorded Confirmed Type Zolpidem Tartrate [Ambien Cr] 12.5 mg PO HS 08/16/15 05/29/21 History Aspirin EC [Ecotrin Low Dose] 81 mg PO HS 02/21/21 05/29/21 History Cyclobenzaprine [Flexeril] 10 mg PO BID 02/21/21 05/29/21 History Ibuprofen [Motrin] 800 mg PO Q8H PRN 02/21/21 05/29/21 History Levothyroxine Sodium [Synthroid] 75 mcg PO DAILY 02/21/21 05/29/21 History Metoprolol Succinate [Toprol XL] 100 mg PO HS 02/21/21 05/29/21 History Rosuvastatin [Crestor] 20 mg PO HS 02/21/21 05/29/21 History Zinc 50 mg PO DAILY 02/21/21 05/29/21 History Propafenone [Rythmol] 150 mg PO TID #270 tab 03/09/21 05/29/21 Rx Apixaban [Eliquis] 5 mg PO BID 03/25/21 05/29/21 History HYDROcodone/APAP 7.5-325MG [[place] 1 tab PO TID PRN 05/29/21 05/29/21 History 7.5-325] Allergies Allergy/AdvReac Type Severity Reaction Status Date / Time Sulfa (Sulfonamide Allergy Anaphylaxis Verified 05/29/21 20:20 Antibiotics) Surgical - Exam Vital Signs Temp Pulse Resp BP Pulse Ox 98.4 F 74 18 145/66 92 L 05/29/21 17:34 05/29/21 17:34 05/29/21 17:34 05/29/21 17:34 05/29/21 17:34 General appearance: The patient is alert, oriented, in no acute distress. HET: Head is normocephalic and atraumatic. Pupils are equal and reactive. Neck: Supple without lymphadenopathy. Trachea midline. Heart: S1 S2. Regular rate and rhythm. Lungs: Clear to auscultation. Abdomen: Soft, nontender, nondistended. Extremities: Normal skin color and turgor. No cyanosis, rash, ulceration, clubbing, or edema. Palpable bilateral femoral,, popliteal, and posterior tibialis pulses. Palpable right dorsalis pedis pulse. Unable to palpate left dorsalis pedis pulse or obtain doppler signal. Neurological: No focal deficits. Alert and oriented 3. Results - Labs 05/31/21 07:13 05/31/21 07:13 Abnormal Lab Results - Last 24 Hours (Table) 05/31/21 Range/Units 07:13 WBC 13.9 H (3.8-10.6) k/uL RBC 3.36 L (3.80-5.40) m/uL Hgb 10.3 L D (11.4-16.0) gm/dL Hct 30.4 L (34.0-46.0) % RDW 17.8 H (11.5-15.5) % Neutrophils # 12.0 H (1.3-7.7) k/uL Diabetes panel 05/30/21 Range/Units 08:35 Hemoglobin A1c 5.7 (4.0-6.0) % - Imaging Comments: CT brain and cervical spine: Negative computed tomography scan of the brain. Minimal cervical spondylotic changes. No fracture. EEG: With reported normal findings. Assessment and Plan Assessment: 1. Cold lower extremities 2. Syncope and collapse 3. Postop day #1 for left hip arthroplasty 4. History of atrial fibrillation 5. History of hypertension 6. History of hyperlipidemia Plan: 1. Lower extremity arterial study ordered and reviewed, ABIs right 1.17, left 1.2 2. Continue Eliquis as ordered 3. There is no indication for any vascular surgical intervention. Patient does not need to follow up outpatient. Thank you for this consultation allowing us take part in the plan of care of your patient during her hospital stay The impression and plan of care has been dictated as directed. Dr. Cuppari I performed a history and examination of this patient, discussed the same with the dictator. I agree with the dictator's note ,documented as a scribe. Any additional findings or plans will be noted.
--- NOTE | 2021-05-31 12:58 | P.PN ---
Subjective Progress Note Date: 05/31/21 Principal diagnosis: Status post left total hip arthroplasty Patient is evaluated today at bedside, she is resting comfortably in a hospital chair. She is ambulating well with physical therapy. Her pain is well- controlled. She has no headaches, lightheadedness, chest pain, shortness of breath, nausea vomiting. She is being followed by cardiology, internal medicine, cardiology and vascular surgery. Objective - Vital Signs Vital signs: Vital Signs Temp 97.5 F L 05/31/21 07:40 Pulse 59 L 05/31/21 07:40 Resp 17 05/31/21 07:40 BP 93/61 05/31/21 07:40 Pulse Ox 98 05/31/21 11:13 Intake & Output 05/30/21 05/31/21 05/31/21 18:59 06:59 18:59 Intake Total 1025 Output Total 100 Balance 925 Weight 63.503 kg Intake: IV 1025 Output: Estimated Blood Loss 100 Other: Voiding Method Bedpan Bedside Commode Toilet # Voids 1 - Exam Left lower extremity: Incision is clean, dry, and intact. The exofin fusion tape is in good condition. There is minimal soft tissue swelling and ecchymosis surrounding the medial and lateral aspects of the incision. Calf is soft, no tenderness with palpation. Plantar flexion, dorsiflexion, EHL, FHL are intact. Sensory exam to light touch throughout the extremity is intact, dorsal pedis pulses 2+. - Labs CBC & Chem 7: 05/31/21 07:13 05/31/21 07:13 Labs: Abnormal Lab Results - Last 24 Hours (Table) 05/31/21 05/31/21 Range/Units 07:13 07:13 WBC 13.9 H (3.8-10.6) k/uL RBC 3.36 L (3.80-5.40) m/uL Hgb 10.3 L D (11.4-16.0) gm/dL Hct 30.4 L (34.0-46.0) % RDW 17.8 H (11.5-15.5) % Neutrophils # 12.0 H (1.3-7.7) k/uL Sodium 135 L (137-145) mmol/L Glucose 113 H (74-99) mg/dL Assessment and Plan Assessment: Postop day #1 status post left total hip arthroplasty Plan: Pain control, continue with current medication GI and DVT prophylaxis, Eliquis 5 mg twice a day has been restarted Wound care instructions were discussed the patient Weight-bear as tolerated with walker, posterior hip precautions Encourage incentive spirometer Other medical assembler recommendations Discharge planning: I'm an orthopedic standpoint, the patient is stable for discharge. Would like to wait for other medical specialty recommendations with regards to syncope, plan for discharge home 06/01/2021 unless acute processes or testing is warranted Time with Patient: Less than 30
--- NOTE | 2021-05-31 13:02 | P.PN ---
Subjective This is a 70-year-old female with a past medical history significant for paroxysmal atrial fibrillation (on Eliquis), Syncope, palpitations, dyslipid emia, hypothyroidism. Patient follows with Dr. Cuellar. We have been asked to see the patient in consultation for syncope. Patient examined at the bedside. Patient states that around 7:30 in the morning and 05/29/2021 patient was standing at the counter in her kitchen getting her breakfast together and she states that she fell. She is unsure what caused her fall. She states that she did feel s ome lightheadedness. She denies loss of consciousness or dizziness. She denies chest pain, palpitations, shortness of breath, nausea, vomiting, abdominal pain. She had pain to her left lower extremity after her fall. Her found her on the floor, contacted EMS and patient was brought to the emergency department. X-ray pelvis and left hip revealed a left subcapital femur fracture. Ortho pedics has been consulted and the plan is for patient to undergo left total hip arthroplasty 05/30/2021. 05/30/2021: Interrogation of Loop Recorder completed this morning- There is no evidence of tachyarrhythmias, bradyarrhythmias, or pauses noted. 05/31/2021: Patient seen and examined at bedside, no acute distress. She is POD #2 left total hip arthroplasty. She states she is doing well, pain is controlled. She denies chest pain, shortness of breath, lightheadedness, dizziness. Telemetry reviewed, patient in sinus mechanism heart rate 50 to 60s. Laboratory data reviewed, WBC 13.9, hemoglobin 10.8, platelets 205, sodium 135, potassium 5.0, BUN 15, serum creatinine 0.75. Sclerae be maintained on Eliquis 5 mg twice a day, atorvastatin 40 mg nightly, metoprolol succinate 100 mg nightly, Rythmol 150 mg 3 times a day. PHYSICAL EXAM: VITAL SIGNS: Reviewed. GENERAL: Well-developed in no acute distress. HEENT: Head is normocephalic. Pupils are equal, round. Sclerae anicteric. Mucous membranes of the mouth are moist. Neck supple. No JVD or thyromegaly LUNGS: Respirations even and unlabored. Lungs essentially clear to auscultation bilaterally. HEART: Regular rate and rhythm. S1 and S2 heard. ABDOMEN: Soft. Nondistended. Nontender. EXTREMITIES: Normal range of motion. No clubbing or cyanosis. Peripheral pulses intact. No lower extremity edema NEUROLOGIC: Awake and alert. Oriented x 3. ASSESSMENT: Syncope Acute Left fracture of the left femur- Ortho following Paroxysmal atrial fibrillation with RVR on Eliquis Hyperlipidemia Hypertension Frequent falls Acute Kidney Injury- patient started on IV fluids, now resolved PLAN: From cardiology perspective, patient is stable. We will sign off at this time. Please at Any further questions or concerns. Eliquis has been restarted. Continue home cardiac medications. Patient followed by Dr. Cuellar in the office. Objective - Vital Signs Vital signs: Vital Signs Temp 97.5 F L 05/31/21 07:40 Pulse 59 L 05/31/21 07:40 Resp 17 05/31/21 07:40 BP 93/61 05/31/21 07:40 Pulse Ox 98 05/31/21 11:13 Intake & Output 05/30/21 05/31/21 05/31/21 18:59 06:59 18:59 Intake Total 1025 Output Total 100 Balance 925 Weight 63.503 kg Intake: IV 1025 Output: Estimated Blood Loss 100 Other: Voiding Method Bedpan Bedside Commode Toilet # Voids 1 - Labs CBC & Chem 7: 05/31/21 07:13 05/31/21 07:13 Labs: Abnormal Lab Results - Last 24 Hours (Table) 05/31/21 05/31/21 Range/Units 07:13 07:13 WBC 13.9 H (3.8-10.6) k/uL RBC 3.36 L (3.80-5.40) m/uL Hgb 10.3 L D (11.4-16.0) gm/dL Hct 30.4 L (34.0-46.0) % RDW 17.8 H (11.5-15.5) % Neutrophils # 12.0 H (1.3-7.7) k/uL Sodium 135 L (137-145) mmol/L Glucose 113 H (74-99) mg/dL
[2021-05-31] MEDS: HYDROmorphone 0.5 MG/0.5 ML SYRINGE IVP PRN (13:49)
--- NOTE | 2021-05-31 14:23 | P.PN ---
Subjective Progress Note Date: 05/31/21 The patient was seen at bedside she denies any further syncopal episodes. The patient also states that she has not had any further syncopal episodes. Objective - Vital Signs Vital signs: Vital Signs Temp 97.5 F L 05/31/21 14:11 Pulse 62 05/31/21 14:11 Resp 18 05/31/21 14:11 BP 111/65 05/31/21 14:11 Pulse Ox 93 L 05/31/21 14:11 Intake & Output 05/30/21 05/31/21 05/31/21 18:59 06:59 18:59 Intake Total 1025 Output Total 100 Balance 925 Weight 63.503 kg Intake: IV 1025 Output: Estimated Blood Loss 100 Other: Voiding Method Bedpan Bedside Commode Toilet # Voids 1 - Exam GENERAL: The patient is lying in bed and is not in acute distress. INTEGUMENTARY: Has cold hand feet to touch bilaterally (feet>hand). NEUROLOGICAL: Higher mental function: The patient is awake, alert, oriented to self, place and time. Patient is following commands. No aphasia and no neglect. Cranial nerves: The pupils are round, equal and reactive to light and accommodation. Visual rowe are full to confrontation throughout. Extraocular movement is intact no nystagmus is noted. Facial sensation is normal to touch t hroughout. The facial strength is normal throughout. Hearing is normal bilaterally to hand rub. Tongue is midline and moved [id number] without any difficulty. No dysarthria is noted. Shoulder shrug is normal bilaterally. Motor: The strength is 5 over 5 throughout. Normal tone and bulk. Cerebellum: Normal finger to nose heel to mckay bilaterally. Sensation: Sensation is normal to touch throughout. Reflexes (right/left): 2+ throughout. Plantars are downgoing bilaterally. LABS/IMAGING/OTHER TESTS: Vitamin B-12 is 481. The folate is 12 both are within normal limits Hemoglobin A1c is 5.7 which is within normal limits. EEG on 05/30/2021 is normal. There are no focal slowing, epileptiform discharges or seizure on EEG. CT of the head and cervical spine is reported as negative the computed tomography scan of the brain. While the cervical spine was reported as minimal cervical spondylitic changes. No fracture. - Labs CBC & Chem 7: 05/31/21 07:13 05/31/21 07:13 Labs: Abnormal Lab Results - Last 24 Hours (Table) 05/31/21 05/31/21 Range/Units 07:13 07:13 WBC 13.9 H (3.8-10.6) k/uL RBC 3.36 L (3.80-5.40) m/uL Hgb 10.3 L D (11.4-16.0) gm/dL Hct 30.4 L (34.0-46.0) % RDW 17.8 H (11.5-15.5) % Neutrophils # 12.0 H (1.3-7.7) k/uL Sodium 135 L (137-145) mmol/L Glucose 113 H (74-99) mg/dL Assessment and Plan Assessment: Recurrent syncopal episode. Does not seem seizure. Unknown exact etiology but a had extensive cardiac workup and was negative so far. Acute subcapital fracture of the left femur as result of recent fall Cold distal extremities Possibly peripheral artery disease Atrial fibrillation on Eliquis Diabetes mellitus Chronic kidney insufficiency Hypertension Hyperlipidemia Plan: Cannot get MRI of the brain with and without as inpatient since has loop r ecorder and so recommend getting it as outpatient. Ordered a 2 1/2 hours EEG as outpatient. Consulted vascular surgery team. Please avoid any narcotics last sedation or opiate that would affect the patient's mentation/neurological exam if possible. On continuous cardiac monitoring Every 4 hours neuro checks PT and OT are consulted Cardiology team is on board. The patient was notified that per [place] DM law, she cannot drive for 6 months unless no further episodes of loss of consciousness. She is to avoid swimining unassisted, heights or using heavy machinery. Will defer the rest of medical management to the primary team. No further neurological work-up. Neurology will sign off. Please reconsult if needed. Donald James MD Neuro-Hospitalist Time with Patient: Less than 30
[2021-05-31] MEDS: PROPAFENONE 150 MG TAB PO SCH ×2 (17:30→21:01)
[2021-05-31] MEDS: ATORVASTATIN 40 MG TAB PO SCH (21:01)
[2021-05-31] MEDS: METOPROLOL SUCCINATE (ER) 100 MG TAB.ER.24H PO SCH (21:01)
[2021-05-31] MEDS: SENNOSIDES-DOCUSATE SODIUM 1 EACH TAB PO SCH (21:01)
[2021-06-01] MEDS: HYDROmorphone 1 MG/ML 1 ML SYRINGE IVP PRN ×4 (00:39→22:50)
[2021-06-01] MEDS: LEVOTHYROXINE 75 MCG TAB PO SCH (06:17)
[2021-06-01] MEDS: HYDROcodone/APAP 7.5-325MG 1 EACH TAB PO PRN (08:50)
[2021-06-01] MEDS: APIXABAN 5 MG TAB PO SCH ×2 (08:51→20:43)
[2021-06-01] MEDS: FAMOTIDINE 20 MG TAB PO SCH (08:51)
[2021-06-01] MEDS: PROPAFENONE 150 MG TAB PO SCH ×3 (08:51→22:50)
[2021-06-01] MEDS ORDERED: CYCLOBENZAPRINE 10 MG TAB PO PRN (09:29)
--- NOTE | 2021-06-01 09:31 | P.PN ---
Subjective Progress Note Date: 06/01/21 Principal diagnosis: Status post left total hip arthroplasty Patient is evaluated today at bedside, she is lying in her hospital bed. She states that she is having worsening pain in the left lower extremity today. She states that the leg feels heavy. She has no headaches, lightheadedness, chest pain, shortness of breath, nausea vomiting. She is being followed by cardiology, internal medicine, cardiology and vascular surgery. Objective - Vital Signs Vital signs: Vital Signs Temp 98.6 F 06/01/21 07:42 Pulse 76 06/01/21 07:42 Resp 16 06/01/21 07:42 BP 132/83 06/01/21 07:42 Pulse Ox 93 L 06/01/21 07:42 Intake & Output 05/31/21 06/01/21 06/01/21 18:59 06:59 18:59 Other: Voiding Method Toilet Toilet # Voids 2 - Exam Left lower extremity: Incision is clean, dry, and intact. The exofin fusion tape is in good condition. There is minimal soft tissue swelling and ecchymosis surrounding the medial and lateral aspects of the incision. Calf is soft, no tenderness with palpation. Plantar flexion, dorsiflexion, EHL, FHL are intact. Sensory exam to light touch throughout the extremity is intact, dorsal pedis pulses 2+. - Labs CBC & Chem 7: 05/31/21 07:13 05/31/21 07:13 Labs: Abnormal Lab Results - Last 24 Hours (Table) 05/31/21 Range/Units 07:13 Sodium 135 L (137-145) mmol/L Glucose 113 H (74-99) mg/dL Assessment and Plan Assessment: Postop day #2 status post left total hip arthroplasty Plan: Pain control, will adjust oral medication. Flexeril 10 mg twice a day is also an avid GI and DVT prophylaxis, Eliquis 5 mg twice a day has been restarted Wound care instructions were discussed the patient Weight-bear as tolerated with walker, posterior hip precautions Encourage incentive spirometer Other medical receptionist recommendations Discharge planning: Cardiology signed off the patient, neurology is recommending a more extensive EEG to be done in the outpatient setting, she is scheduled for mid May. Internal medicine is still following the patient. Depending on how the patient progresses today and tomorrow, may discharge home Time with Patient: Less than 30
--- NOTE | 2021-06-01 10:12 | P.PN ---
Subjective Progress Note Date: 06/01/21 Patient is doing well this morning. She was having problems with left hip pain and pain down her knee throughout the night. She is using ice pack for pain relief. Objective - Vital Signs Vital signs: Vital Signs Temp 98.6 F 06/01/21 07:42 Pulse 76 06/01/21 07:42 Resp 16 06/01/21 07:42 BP 132/83 06/01/21 07:42 Pulse Ox 93 L 06/01/21 07:42 Intake & Output 05/31/21 06/01/21 06/01/21 18:59 06:59 18:59 Other: Voiding Method Toilet Toilet # Voids 2 - Exam General: The patient is awake and alert, in no distress Eye: there is normal conjunctiva bilaterally. Neck: The neck is supple, there is no JVD. Cardiovascular: Normal S1-S2, no S3-S4, no murmurs. Respiratory: Lungs clear to auscultation bilaterally Gastrointestinal: Abdomen is soft, nontender Musculoskeletal: There is no pedal edema. Neurological:. Speech is normal. Skin: Skin is warm and dry - Labs CBC & Chem 7: 05/31/21 07:13 05/31/21 07:13 Assessment and Plan Assessment: This is a 71-year-old female who presented to the emergency room after having a syncopal episode at home and complaining of left hip pain. She was found to have left femoral fracture and currently admitted under orthopedic surgery. I was asked to see her for ongoing management of her medical problems noted below 1. Recurrent syncopal episodes, exact etiology unclear. I counseled the p atient extensively to stop taking Ambien. She had a loop recorder placed recently unrevealing for any arrhythmia. Left heart catheterization 2 months ago showed normal coronary arteries. Echocardiogram done in February showed preserved ejection fraction with no significant valvular abnormalities. Patient was seen and evaluated by both cardiology and neurology. She underwent an EEG that was normal. 2. Left femoral fracture, postoperative day #2 status post left total hip arthroplasty. Postoperative care, pain control, and DVT prophylaxis. Orthopedic team 3. History of paroxysmal atrial fibrillation on anticoagulation with Eliquis. Currently normal sinus rhythm. We will continue telemetry monitoring. 4. Acute kidney injury, mild. Patient received IV fluid hydration since admission awaiting repeat lab work 5. DVT prophylaxis with Eliquis Today, I reviewed her medication list and lab work results. Continue current regimen. PT/OT evaluation. Discharge planning per primary team. I will continue to follow up on the patient closely with you.
[2021-06-01] MEDS: oxyCODONE-APAP 5-325MG 1 EACH TAB PO PRN ×2 (14:16→20:41)
[2021-06-01] MEDS: ATORVASTATIN 40 MG TAB PO SCH (20:42)
[2021-06-01] MEDS: METOPROLOL SUCCINATE (ER) 100 MG TAB.ER.24H PO SCH (20:42)
[2021-06-01] MEDS: SENNOSIDES-DOCUSATE SODIUM 1 EACH TAB PO SCH (22:49)
[2021-06-02] MEDS: HYDROmorphone 1 MG/ML 1 ML SYRINGE IVP PRN ×4 (02:58→19:47)
[2021-06-02] MEDS: oxyCODONE-APAP 5-325MG 1 EACH TAB PO PRN ×4 (05:36→23:06)
[2021-06-02] MEDS: LEVOTHYROXINE 75 MCG TAB PO SCH (05:37)
[2021-06-02] MEDS: FAMOTIDINE 20 MG TAB PO SCH (08:21)
[2021-06-02] MEDS: PROPAFENONE 150 MG TAB PO SCH ×3 (08:21→21:56)
[2021-06-02] MEDS: APIXABAN 5 MG TAB PO SCH ×2 (08:21→20:19)
--- NOTE | 2021-06-02 12:46 | P.PN ---
Subjective Progress Note Date: 06/02/21 Principal diagnosis: Status post left total hip arthroplasty Patient is evaluated today at bedside, she is lying in her hospital bed. Patient states that while ambulating the pain is very minimal, she notes most of the pain when she tries to move the leg going from a lying down and sitting position. She has no headaches, lightheadedness, chest pain, shortness of breath, nausea vomiting. She is being followed by cardiology, internal medicine, cardiology and vascular surgery. Objective - Vital Signs Vital signs: Vital Signs Temp 97.9 F 06/02/21 07:56 Pulse 67 06/02/21 07:56 Resp 16 06/02/21 07:56 BP 139/68 06/02/21 07:56 Pulse Ox 92 L 06/02/21 07:56 Intake & Output 06/01/21 06/02/21 06/02/21 18:59 06:59 18:59 Other: # Voids 3 2 # Bowel Movements 1 - Exam Left lower extremity: Incision is clean, dry, and intact. The exofin fusion tape is in good condition. There is minimal soft tissue swelling and ecchymosis surrounding the medial and lateral aspects of the incision. Calf is soft, no tenderness with palpation. Plantar flexion, dorsiflexion, EHL, FHL are intact. Sensory exam to light touch throughout the extremity is intact, dorsal pedis pulses 2+. - Labs CBC & Chem 7: 05/31/21 07:13 05/31/21 07:13 Assessment and Plan Assessment: Postop day #3 status post left total hip arthroplasty Plan: Pain control, continue with current medication GI and DVT prophylaxis, Eliquis 5 mg twice a day has been restarted Wound care instructions were discussed the patient Weight-bear as tolerated with walker, posterior hip precautions Encourage incentive spirometer Other medical insurance clerk recommendations Discharge planning: Plan for discharge to home with home care tomorrow Time with Patient: Less than 30
--- NOTE | 2021-06-02 13:23 | P.PN ---
Subjective Progress Note Date: 06/02/21 Patient is doing well today. Her pain is not well controlled mostly with ambulation. No acute events overnight. Objective - Vital Signs Vital signs: Vital Signs Temp 97.9 F 06/02/21 07:56 Pulse 67 06/02/21 07:56 Resp 16 06/02/21 07:56 BP 139/68 06/02/21 07:56 Pulse Ox 92 L 06/02/21 07:56 Intake & Output 06/01/21 06/02/21 06/02/21 18:59 06:59 18:59 Other: # Voids 3 2 # Bowel Movements 1 - Exam General: The patient is awake and alert, in no distress Eye: there is normal conjunctiva bilaterally. Neck: The neck is supple, there is no JVD. Cardiovascular: Normal S1-S2, no S3-S4, no murmurs. Respiratory: Lungs clear to auscultation bilaterally Gastrointestinal: Abdomen is soft, nontender Musculoskeletal: There is no pedal edema. Neurological:. Speech is normal. Skin: Skin is warm and dry - Labs CBC & Chem 7: 05/31/21 07:13 05/31/21 07:13 Assessment and Plan Assessment: This is a 71-year-old female who presented to the emergency room after having a syncopal episode at home and complaining of left hip pain. She was found to have left femoral fracture and currently admitted under orthopedic surgery. I was asked to see her for ongoing management of her medical problems noted below 1. Recurrent syncopal episodes, exact etiology unclear. I counseled the patient extensively to stop taking Ambien. She had a loop recorder placed recently unrevealing for any arrhythmia. Left heart catheterization 2 months ago showed normal coronary arteries. Echocardiogram done in February showed preserved ejection fraction with no significant valvular abnormalities. Patient was seen and evaluated by both cardiology and neurology. She underwent an EEG that was normal. 2. Left femoral fracture, status post left total hip arthroplasty. Postoperative care, pain control, and DVT prophylaxis. Orthopedic team 3. History of paroxysmal atrial fibrillation on anticoagulation with Eliquis. Currently normal sinus rhythm. We will continue telemetry monitoring. 4. Acute kidney injury, mild. Patient received IV fluid hydration since admission awaiting repeat lab work 5. DVT prophylaxis with Eliquis Today, I reviewed her medication list and lab work results. Continue current regimen. PT/OT evaluation. Discharge planning per primary team. I will continue to follow up on the patient closely with you.
[2021-06-02] MEDS: SENNOSIDES-DOCUSATE SODIUM 1 EACH TAB PO SCH (20:18)
[2021-06-02] MEDS: ATORVASTATIN 40 MG TAB PO SCH (20:18)
[2021-06-02] MEDS: METOPROLOL SUCCINATE (ER) 100 MG TAB.ER.24H PO SCH (20:18)
[2021-06-02 22:46] VITALS: RESP 16
[2021-06-03] MEDS: HYDROmorphone 1 MG/ML 1 ML SYRINGE IVP PRN ×3 (02:03→08:57)
[2021-06-03] MEDS: LEVOTHYROXINE 75 MCG TAB PO SCH (05:32)
[2021-06-03 07:20] VITALS: BP 112/77; PULSE 73; TEMP 98
[2021-06-03] MEDS: APIXABAN 5 MG TAB PO SCH (08:56)
[2021-06-03] MEDS: PROPAFENONE 150 MG TAB PO SCH ×2 (08:56→16:20)
[2021-06-03] MEDS: FAMOTIDINE 20 MG TAB PO SCH (08:56)
--- NOTE | 2021-06-03 09:44 | P.PN ---
Subjective Progress Note Date: 06/03/21 Patient is doing well today. Her pain is improved. She does not have any complaints this morning. Objective - Vital Signs Vital signs: Vital Signs Temp 98 F 06/03/21 07:19 Pulse 73 06/03/21 07:19 Resp 16 06/03/21 07:19 BP 112/77 06/03/21 07:19 Pulse Ox 92 L 06/03/21 07:19 Intake & Output 06/02/21 06/03/21 06/03/21 18:59 06:59 18:59 Intake Total 400 Balance 400 Intake: Oral 400 Other: # Voids 3 - Exam General: The patient is awake and alert, in no distress Eye: there is normal conjunctiva bilaterally. Neck: The neck is supple, there is no JVD. Cardiovascular: Normal S1-S2, no S3-S4, no murmurs. Respiratory: Lungs clear to auscultation bilaterally Gastrointestinal: Abdomen is soft, nontender Musculoskeletal: There is no pedal edema. Neurological:. Speech is normal. Skin: Skin is warm and dry - Labs CBC & Chem 7: 05/31/21 07:13 05/31/21 07:13 Assessment and Plan Assessment: This is a 71-year-old female who presented to the emergency room after having a syncopal episode at home and complaining of left hip pain. She was found to have left femoral fracture and currently admitted under orthopedic surgery. I was asked to see her for ongoing management of her medical problems noted below 1. Recurrent syncopal episodes, exact etiology unclear. I counseled the patient extensively to stop taking Ambien. She had a loop recorder placed recently unrevealing for any arrhythmia. Left heart catheterization 2 months ago showed normal coronary arteries. Echocardiogram done in February showed preserved ejection fraction with no significant valvular abnormalities. Patient was seen and evaluated by both cardiology and neurology. She underwent an EEG that was normal. 2. Left femoral fracture, status post left total hip arthroplasty. Postoperative care, pain control, and DVT prophylaxis per Orthopedic team 3. History of paroxysmal atrial fibrillation on anticoagulation with Eliquis. Currently normal sinus rhythm. We will continue telemetry monitoring. 4. Acute kidney injury, mild. Patient received IV fluid hydration since admission awaiting repeat lab work 5. DVT prophylaxis with Eliquis Today, I reviewed her medication list and lab work results. Continue current regimen. Patient is cleared for discharge home. Resume home medications. Discontinue Ambien and Flexeril
--- NOTE | 2021-06-03 09:47 | P.PN ---
Subjective Progress Note Date: 06/03/21 Principal diagnosis: Status post left total hip arthroplasty Patient is evaluated today at bedside, she is lying in her hospital bed. She has no headaches, lightheadedness, chest pain, shortness of breath, nausea vomiting. She is being followed by cardiology, internal medicine, cardiology and vascular surgery. Objective - Vital Signs Vital signs: Vital Signs Temp 98 F 06/03/21 07:19 Pulse 73 06/03/21 07:19 Resp 16 06/03/21 07:19 BP 112/77 06/03/21 07:19 Pulse Ox 92 L 06/03/21 07:19 Intake & Output 06/02/21 06/03/21 06/03/21 18:59 06:59 18:59 Intake Total 400 Balance 400 Intake: Oral 400 Other: # Voids 3 - Exam Left lower extremity: Incision is clean, dry, and intact. The exofin fusion tape is in good condition. There is minimal soft tissue swelling and ecchymosis surrounding the medial and lateral aspects of the incision. Calf is soft, no tenderness with palpation. Plantar flexion, dorsiflexion, EHL, FHL are intact. Sensory exam to light touch throughout the extremity is intact, dorsal pedis pulses 2+. - Labs CBC & Chem 7: 05/31/21 07:13 05/31/21 07:13 Assessment and Plan Assessment: Postop day #4 status post left total hip arthroplasty Plan: Pain control, plan for discharge home on Percocet 5 mg/325 mg GI and DVT prophylaxis, Eliquis 5 mg twice a day has been restarted Wound care instructions were discussed the patient Weight-bear as tolerated with walker, posterior hip precautions Encourage incentive spirometer Other medical education coordinator recommendations Discharge planning: Plan for discharge to home with home health care Time with Patient: Less than 30
--- NOTE | 2021-06-03 09:53 | P.DS ---
Providers Date of admission: 05/30/21 13:02 Expected date of discharge: 06/03/21 Attending physician: Fletcher Modi Consults: 05/29/21 20:34 Consult Physician Urgent Consulting Provider: Garfield Ledbetter Consult Reason/Comments: Surgical clearance, medical management Do you want consulting provider notified?: Yes 05/30/21 08:37 Consult Physician Routine Consulting Provider: Donald James Consult Reason/Comments: Syncope with multiple falls Do you want consulting provider notified?: Yes 05/30/21 08:50 Consult Physician Routine Consulting Provider: Madan Cuellar Consult Reason/Comments: syncopal episode Do you want consulting provider notified?: Yes Primary care physician: Power Mckinley DO Hospital Course: Date of admission: 05/29/2021 Date of discharge: 06/03/2021 Admission diagnosis: Displaced left femoral neck fracture, syncopal episode Discharge diagnosis: Status post left total hip arthroplasty lateral approach Attending physician: Dr. Modi Surgical procedures: Left total hip arthroplasty lateral approach Brief history: Patient is a 71-year-old female who presented to [facility] on 05/29/2021 after sustaining a syncopal episode and fall at home. She uses her left lower extremity during the fall. After being evaluated in the emergency room at [facility], it was determined that she had a displaced left femoral neck fracture. She was admitted under orthopedic services for surgical intervention, internal medicine, neurology, vascular surgery, cardiology on consult. She was scheduled for surgery for 05/30/2021. Hospital course: Details of patient's surgery can be found in operative report. Patient tolerated the procedure well and was subsequently transported to orthopedic floor. Patient's orthopeidc and medical care was provided daily. Patient had daily laboratory tests performed for evaluation of overall blood counts. Patient had daily physical therapy to include strengthening range of motion as well as education with walker ambulation. Patient was treated with Xarelto their postoperative DVT prophylaxis during their inpatient stay. Patient was noted to have a relatively uneventful postoperative course. Patient reported satisfactory pain control with oral pain medications by postoperative day 2. Patient showed satisfactory progress with physical therapy. Patient moved steadily through the program and had no difficulty meeting the goals by postoperative day 4. Given patient's otherwise satisfactory course and having met physical therapy goals, plan is to discharge patient home on postoperative day 4. Discharge condition/disposition: Patient will be discharged home in stable condition. Discharge medications: Instructions are given on resumption of patient's normal daily medications per primary care recommendation, in addition patient will be prescribed Percocet 5 mg/325 mg, Colace 100mg. Discharge instructions: 1. Wound care and infection precautions, keep incision dry and covered while showering, no lotions, creams, moisturizers. No soaking, tubs, pools, hottubs. Do not scrub over the incision. 2. Weight-bear as tolerated with walker / cane until follow-up. 3. Ice and elevate when necessary. Do not exceed 20 minutes per hour with ice pack. 4. Utilize compression sleeve until seen at first follow up appointment. 5. Visiting nursing care. 6. Home physical therapy 7. Pain meds and anticoagulants per prescription. 8. Pain medication has potential to cause constipation. Increase oral fluid and fiber intake. Contact primary care provider if you have not had a bowel movement within 48 hours after discharge 9. No anti-inflammatory medication until discussed at first post operative visit, this including Motrin, Aleve, Mobic, Diclofenac 10. Follow up in office at 2 weeks postop with Sanket Sparks PA-C/Demetri Lee 11. Follow up with your primary care doctor 7-10 days after discharge. 12. Contact [facility] with any questions, . Procedures: Left total hip arthroplasty lateral approach Patient Condition at Discharge: Good Plan - Discharge Summary Discharge Rx Participant: No New Discharge Prescriptions: New Docusate [Colace] 100 mg PO DAILY #30 capsule oxyCODONE HCL/ACETAMINOPHEN [Percocet 5-325 mg] 1 tab PO Q4HR PRN #42 tab PRN Reason: Pain Continue Rosuvastatin [Crestor] 20 mg PO HS Aspirin EC [Ecotrin Low Dose] 81 mg PO HS Metoprolol Succinate [Toprol XL] 100 mg PO HS Levothyroxine Sodium [Synthroid] 75 mcg PO DAILY Propafenone [Rythmol] 150 mg PO TID #270 tab Zinc 50 mg PO DAILY Apixaban [Eliquis] 5 mg PO BID Discontinued Zolpidem Tartrate [Ambien Cr] 12.5 mg PO HS Cyclobenzaprine [Flexeril] 10 mg PO BID Ibuprofen [Motrin] 800 mg PO Q8H PRN PRN Reason: Pain HYDROcodone/APAP 7.5-325MG [[place] 7.5-325] 1 tab PO TID PRN PRN Reason: pain/migraines Discharge Medication List Aspirin EC [Ecotrin Low Dose] 81 mg PO HS 02/21/21 [History] Levothyroxine Sodium [Synthroid] 75 mcg PO DAILY 02/21/21 [History] Metoprolol Succinate [Toprol XL] 100 mg PO HS 02/21/21 [History] Rosuvastatin [Crestor] 20 mg PO HS 02/21/21 [History] Zinc 50 mg PO DAILY 02/21/21 [History] Propafenone [Rythmol] 150 mg PO TID #270 tab 03/09/21 [Rx] Apixaban [Eliquis] 5 mg PO BID 03/25/21 [History] Docusate [Colace] 100 mg PO DAILY #30 capsule 06/03/21 [Rx] oxyCODONE HCL/ACETAMINOPHEN [Percocet 5-325 mg] 1 tab PO Q4HR PRN #42 tab 06/03/21 [Rx] Follow up Appointment(s)/Referral(s): Madan Cuellar DO [STAFF PHYSICIAN] - 2 Weeks [facility], [NON-STAFF] - As Needed Stefan Mckinley DO [REFERRING] - 1-2 days Adryan Sparks PAC [PHYSICIAN DOLL SURGEON] - 2 Weeks Activity/Diet/Wound Care/Special Instructions: Orthopedic Discharge Instructions: 1. Wound care and infection precautions, keep incision dry and covered while showering, no lotions, creams, moisturizers. No soaking, pools, hot tubs. Do not scrub over incision. 2. Weight-bear as tolerated with walker / cane until follow-up. 3. Ice and elevate when necessary. Do not exceed 20 minutes per hour with ice pack. 4. Utilize compression sleeve until seen at first follow up appointment. 5. Pain meds and anticoagulants per prescription. 6. Pain medication has potential to cause constipation. Increase oral fluid and fiber intake. Contact primary care provider if you have not had a bowel movement within 48 hours after discharge. 7. No anti-inflammatory medication until discussed at first post operative visit, this including Motrin, Aleve, Mobic, Diclofenac. 8. Follow up in office at 2 weeks postop with Sanket Sparks PA-C/Demetri Sims PA-C 9. Follow up with your primary care doctor 7-10 days after discharge. 10. Contact [facility] with any questions, . Discharge Disposition: HOME WITH HOME HEALTH SERVICES
[2021-06-03] MEDS: oxyCODONE-APAP 5-325MG 1 EACH TAB PO PRN ×2 (11:09→15:25)
--- NOTE | 2021-06-05 09:36 | P.ARTDOP ---
Arterial Doppler LOWER EXTREMITY ARTERIAL DOPPLER: DATE OF SERVICE: 05/31/2021 Reason for study: Diminished pulse. Doppler waveforms: Multiphasic bilaterally throughout. Pulse volume recording: []. Pressure gradients: None. Ankle-brachial indices: Greater than 1 bilaterally. Toe brachial indices: [] on the right, [] on the left Impression: Normal study.
== END 2021-06-03 16:45 | disposition home health service (06) | DRG 522 ==
LOC: EC 17:22 → 4SSUR 20:59 → OBSVTOIN 05-30 13:02
PROVIDERS: ADMIT Orthopaedic Surgery; ATTEND Orthopaedic Surgery
PROC: 0SRB0JA Replacement of Left Hip Joint with Synthetic Substitute, Uncemented, Open Approach (ICD-10-PCS; principal; 2021-05-30 07:30)
DX: S72.012A Unspecified intracapsular fracture of left femur, initial encounter for closed fracture (principal); N17.9 Acute kidney failure, unspecified; W18.30XA Fall on same level, unspecified, initial encounter; Y92.000 Kitchen of unspecified non-institutional (private) residence as the place of occurrence of the external cause; N18.9 Chronic kidney disease, unspecified; E11.22 Type 2 diabetes mellitus with diabetic chronic kidney disease; E78.5 Hyperlipidemia, unspecified; E89.0 Postprocedural hypothyroidism; I12.9 Hypertensive chronic kidney disease with stage 1 through stage 4 chronic kidney disease, or unspecified chronic kidney disease; I48.0 Paroxysmal atrial fibrillation; R29.6 Repeated falls; R55 Syncope and collapse; G43.909 Migraine, unspecified, not intractable, without status migrainosus; Z98.890 Other specified postprocedural states; Z79.01 Long term (current) use of anticoagulants; Z79.890 Hormone replacement therapy; Z79.899 Other long term (current) drug therapy; Z82.3 Family history of stroke; Z82.49 Family history of ischemic heart disease and other diseases of the circulatory system; Z87.891 Personal history of nicotine dependence; Z90.710 Acquired absence of both cervix and uterus; Z91.81 History of falling; Z96.641 Presence of right artificial hip joint; Z80.9 Family history of malignant neoplasm, unspecified; Z98.49 Cataract extraction status, unspecified eye; Z88.2 Allergy status to sulfonamides
CPT/HCPCS: 36415; 70450; 71046; 72070; 72100; 72125; 73501; 73502; 80048; 80053; 82607; 82746; 83036; 84484; 85025; 85610; 85730; 86850; 86900; 86901; 88305; 88311; 93005; 93923; 94760; 95819; 96374; 96375; 96376; 99285

== ENCOUNTER → 2021-06-11 | Outpatient (CLI) | payer MEDICARE | LOC: NEUROMAIN 06:58 | PROVIDERS: ATTEND Student in an Organized Health Care Education/Training Program | DX: R55 Syncope and collapse (principal); Z88.2 Allergy status to sulfonamides | CPT/HCPCS: 95713 ==

== ENCOUNTER → 2021-10-08 | Outpatient (CLI) | payer MEDICARE ==
--- NOTE | 2021-10-08 15:58 | BD ---
EXAMINATION TYPE: Axial Bone Density DATE OF EXAM: 10/08/2021 COMPARISON: NONE CLINICAL HISTORY: Postmenopausal female Nuclear Medicine Study in the last 2 weeks: NO Barium Study in the last week: NO : NO Height: 65 Weight: 129 FRAX RISK QUESTIONS: Alcohol (3 or more units per day): NO Family History (Parent hip fracture): NO Glucocorticoids (More than 3mos): NO (Ex: prednisone, prednisolone, methylprednisolone, dexamethasone, and hydrocortisone). History of Fracture in Adulthood: YES Secondary Osteoporosis: 1. Type 1 Diabetes: NO 2. Hyperthyroidism: NO 3. Menopause before 45: YES 4. Malnutrition: NO 5. Chronic liver disease: NO Rheumatoid Arthritis: YES Current Tobacco Use: NO RISK FACTORS HISTORY OF: Hip Fracture (Right/Left): JANELLE HIP FX When: 2020 Spine Fracture: NO When: History of Wrist Fracture: NO When: Surgery to Spine/Hip(right/left)/Wrist (right/left): BILATERAL HIP REPLACEMENT When: 2020 Family History of Osteoporosis: YES Active: YES Diet low in dairy products/other sources of calcium: NO Postmenopausal woman: YES If Premenopausal, do you have irregular periods: Take estrogen and/or progesterone medications: NO How long: Lost more than 2 inches in height since high school: NO Frequent falls: YES Poor Health: GOOD Hyperparathyroidism: NO Adrenal Insufficiency: NO MEDICATIONS: Prednisone or other steroids: NO How Long: Thyroid Medications: YES Which medication: LEVOTHYROXINE How Long: SINCE 2012 Osteoporosis Medications: NO Which medication: How Long: Additional Medications: BLOOD PRESSURE MED. MEDS FOR AFIB, FLEXERIL, RESTLESS LEG MEDS AMBIEN, NICOLE STEROL MEDS, Additional History: EXAM MEASUREMENTS: Bone mineral densitometry was performed using the Active Circle System. Bone mineral density as measured about the Lumbar spine is: ----- L1-L4(G/cm2): 0.899 T Score Values are as follows: ----- L2: -2.6 ----- L3: -2.3 ----- L4: -1.6 ----- L1-L4: -2.3 BASELINE Bone mineral density about the L Wrist (g/cm2): 0.522 T Score values are as follows: -----Dist. R+U: -3.6 -----Prox. R+U: -1.8 -----Radius total: -2.5 BASELINE IMPRESSION: Osteopenia (T Score between -2.5 and -1). There is slightly increased risk of fracture and the patient may be considered for treatment. Re-Screen 2-5 years. NOTE: T-SCORE=SD OF THE YOUNG ADULT MEAN.
== END | disposition home or self-care (01) ==
LOC: RADBDWWP 13:19
DX: M81.0 Age-related osteoporosis without current pathological fracture (principal); M85.89 Other specified disorders of bone density and structure, multiple sites; Z78.0 Asymptomatic menopausal state
CPT/HCPCS: 77080

== ENCOUNTER 2021-10-18 20:03 | Emergency (ER) | payer MEDICARE ==
[2021-10-18 20:18] VITALS: RESP 18; TEMP 97.8
[2021-10-18] MEDS ORDERED: SODIUM CHLORIDE 0.9% 500 ML 500 ML IV STA (20:51)
[2021-10-18 21:33] LABS: Basophils % (A) 1 %; Eosinophils # (A) 0.1 k/uL (0-0.7); Eosinophils % (A) 3 %; HCT 37.3 % (34.0-46.0); Lymphocytes # (A) 0.9 k/uL (1.0-4.8); Lymphocytes % (A) 18 %; MCH 26.9 pg (25.0-35.0); MCHC 32.1 g/dL (31.0-37.0); MCV 83.8 fL (80.0-100.0); Mean Platelet Volume 7.7; Monocytes # (A) 0.4 k/uL (0-1.0); Monocytes % (A) 8 %; Neutrophils # (A) 3.3 k/uL (1.3-7.7); Neutrophils % (A) 68 %; Platelet Count 283 k/uL (150-450); RBC 4.45 m/uL (3.80-5.40); RDW 15.4 % (11.5-15.5); WBC 4.8 k/uL (3.8-10.6)
[2021-10-18 21:44] LABS: Partial Thromboplastin Time 24.3 sec (22.0-30.0); Prothrombin Time 10.7 sec (9.0-12.0)
--- NOTE | 2021-10-18 21:52 | CT ---
EXAMINATION TYPE: CT brain evangelist wo con DATE OF EXAM: 10/18/2021 COMPARISON: 05/29/2021 HISTORY: Syncope, right frontal injury. CT DLP: 1270.3 mGycm Automated exposure control for dose reduction was used. Images obtained of the brain and cervical spine without contrast. There is some cerebral cortical atrophy. There is no mass effect nor midline shift. There is no sign of intracranial hemorrhage. There is small right frontal scalp hematoma measuring 5 mm. Cervical vertebra have normal alignment. There is degenerative mild disc space narrowing at C6-7 with spurring. Posterior elements are intact. There is no compression fracture. IMPRESSION: Cerebral atrophy. No acute intracranial abnormality. Minor degenerative changes in the cervical spine. No fracture. No change compared to old exam.
--- NOTE | 2021-10-18 21:56 | ED ---
General Adult HPI - General Chief complaint: Fall Stated complaint: Fall, from standing, On Blood Thinners Time Seen by Provider: 10/18/21 20:37 Source: patient, RN notes reviewed Mode of arrival: wheelchair Limitations: no limitations - History of Present Illness Initial comments: 71-year-old female with a past medical history of atrial fibrillation, h yperlipidemia, hypertension presents to the emergency room or a chief complaint of fall and syncope. Patient states she missed been walking to the bathroom this morning and had a syncopal episode. States this has happened before. She did hit her head and her left hip. She is also complaining of low back pain. Patient does take blood thinners.Patient has no other complaints at this time including shortness of breath, chest pain, abdominal pain, nausea or vomiting, headache, or visual changes. - Related Data Home Medications Medication Instructions Recorded Confirmed Aspirin EC [Ecotrin Low Dose] 81 mg PO HS 02/21/21 05/29/21 Levothyroxine Sodium [Synthroid] 75 mcg PO DAILY 02/21/21 05/29/21 Metoprolol Succinate [Toprol XL] 100 mg PO HS 02/21/21 05/29/21 Rosuvastatin [Crestor] 20 mg PO HS 02/21/21 05/29/21 Zinc 50 mg PO DAILY 02/21/21 05/29/21 Apixaban [Eliquis] 5 mg PO BID 03/25/21 05/29/21 Previous Rx's Medication Instructions Recorded Propafenone [Rythmol] 150 mg PO TID #270 tab 03/09/21 Docusate [Colace] 100 mg PO DAILY #30 capsule 06/03/21 oxyCODONE HCL/ACETAMINOPHEN 1 tab PO Q4HR PRN #42 tab 06/03/21 [Percocet 5-325 mg] Allergies Allergy/AdvReac Type Severity Reaction Status Date / Time Sulfa (Sulfonamide Allergy Anaphylaxis Verified 10/18/21 20:18 Antibiotics) Review of Systems ROS Statement: Those systems with pertinent positive or pertinent negative responses have been documented in the HPI. ROS Other: All systems not noted in ROS Statement are negative. Past Medical History Past Medical History: Atrial Fibrillation, Hyperlipidemia, Hypertension, Syncope, Thyroid Disorder Additional Past Medical History / Comment(s): hx of migraine headaches, takes flexeril for that History of Any Multi-Drug Resistant Organisms: None Reported Past Surgical History: Section, Hernia Repair, Hysterectomy, Joint Replacement Additional Past Surgical History / Comment(s): cataracts, partial thyroidectomy, breast augmentation, right hip replacement january 2021, debridment on right hip january 2021. Past Anesthesia/Blood Transfusion Reactions: Postoperative Nausea & Vomiting (PONV) Past Psychological History: No Psychological Hx Reported Smoking Status: Former smoker Past Alcohol Use History: Rare Past Drug Use History: None Reported - Past Family History Mother Family Medical History: Cancer, Hypertension, Thyroid Disorder Father Family Medical History: Coronary Artery Disease (CAD), CVA/TIA Brother(s) Additional Family Medical History / Comment(s): history of Factor X General Exam - General Exam Comments Initial Comments: Patient has ecchymosis on the left hip with full range of motion. Mild lumbar spine tenderness with no ecchymosis or external signs of trauma Limitations: no limitations General appearance: alert, in no apparent distress Head exam: Absent: atraumatic (Patient has ecchymosis noted above the right eyebrow) Eye exam: Present: normal appearance, PERRL, EOMI. Absent: scleral icterus, co njunctival injection ENT exam: Present: normal exam, mucous membranes moist Neck exam: Present: normal inspection, full ROM. Absent: tenderness Respiratory exam: Present: normal lung sounds bilaterally. Absent: respiratory distress, wheezes Cardiovascular Exam: Present: regular rate, normal rhythm, normal heart sounds GI/Abdominal exam: Present: soft, normal bowel sounds. Absent: distended, tenderness Course Vital Signs 10/18/21 10/18/21 20:13 22:37 Temperature 97.8 F Pulse Rate 90 100 Respiratory 18 18 Rate Blood Pressure 114/69 139/87 O2 Sat by Pulse 98 96 Oximetry Medical Decision Making - Medical Decision Making Vitals are stable. HPI and physical exam as documented. X-ray of the lumbar spine, hip and pelvis, and chest showed no active cardiopulmonary process. Vitals are stable. CBC CMP unremarkable. Mild dehydration, given fluids. Urinalysis negative for infection. Patient has been evaluated for syncope multiple times and the hospitalist here. She did have an echocardiogram which was unremarkable. She had a loop recorder inserted and it is still present. Patient also was negative by neurology and had an EEG. Discussed with patient and his . As they have had extensive workup twice for syncope in the hospital this year they do not want to be admitted again. They have an appointment coming up to speak with primary care that they will attend. They also did push the button on her Holter monitor. They will return here for any worsening symptoms. - Lab Data Result diagrams: 10/18/21 21:13 10/18/21 21:13 Lab Results 10/18/21 10/18/21 10/18/21 Range/Units 21:05 21:13 21:13 WBC 4.8 (3.8-10.6) k/uL RBC 4.45 (3.80-5.40) m/uL Hgb 12.0 (11.4-16.0) gm/dL Hct 37.3 (34.0-46.0) % MCV 83.8 (80.0-100.0) fL MCH 26.9 (25.0-35.0) pg MCHC 32.1 (31.0-37.0) g/dL RDW 15.4 (11.5-15.5) % Plt Count 283 (150-450) k/uL MPV 7.7 Neutrophils % 68 % Lymphocytes % 18 % Monocytes % 8 % Eosinophils % 3 % Basophils % 1 % Neutrophils # 3.3 (1.3-7.7) k/uL Lymphocytes # 0.9 L (1.0-4.8) k/uL Monocytes # 0.4 (0-1.0) k/uL Eosinophils # 0.1 (0-0.7) k/uL Basophils # 0.0 (0-0.2) k/uL PT 10.7 (9.0-12.0) sec INR 1.0 (<1.2) APTT 24.3 (22.0-30.0) sec Sodium (137-145) mmol/L Potassium (3.5-5.1) mmol/L Chloride (98-107) mmol/L Carbon Dioxide (22-30) mmol/L Anion Gap mmol/L BUN (7-17) mg/dL Creatinine (0.52-1.04) mg/dL Est GFR (CKD-EPI)AfAm (>60 ml/min/1.73 sqM) Est GFR (CKD-EPI)NonAf (>60 ml/min/1.73 sqM) Glucose (74-99) mg/dL Calcium (8.4-10.2) mg/dL Magnesium (1.6-2.3) mg/dL Total Bilirubin (0.2-1.3) mg/dL AST (14-36) U/L ALT (4-34) U/L Alkaline Phosphatase (38-126) U/L Troponin I (0.000-0.034) ng/mL Total Protein (6.3-8.2) g/dL Albumin (3.5-5.0) g/dL Urine Color Urine Appearance (Clear) Urine pH (5.0-8.0) Ur Specific Golden (1.001-1.035) Urine Protein (Negative) Urine Glucose (UA) (Negative) Urine Ketones (Negative) Urine Blood (Negative) Urine Nitrite (Negative) Urine Bilirubin (Negative) Urine Urobilinogen (<2.0) mg/dL Ur Leukocyte Esterase (Negative) Urine RBC (0-5) /hpf Urine WBC (0-5) /hpf Ur Squamous Epith Cells (0-4) /hpf Hyaline Casts (0-2) /lpf Urine Mucus (None) /hpf Blood Type A Negative Blood Type Recheck A Neg Bld Type Recheck Status No Antibody Screen NEGATIVE Spec Expiration Date 10/21/2021 - 230410/18/21 10/18/21 10/18/21 Range/Units 21:13 21:13 22:33 WBC (3.8-10.6) k/uL RBC (3.80-5.40) m/uL Hgb (11.4-16.0) gm/dL Hct (34.0-46.0) % MCV (80.0-100.0) fL MCH (25.0-35.0) pg MCHC (31.0-37.0) g/dL RDW (11.5-15.5) % Plt Count (150-450) k/uL MPV Neutrophils % % Lymphocytes % % Monocytes % % Eosinophils % % Basophils % % Neutrophils # (1.3-7.7) k/uL Lymphocytes # (1.0-4.8) k/uL Monocytes # (0-1.0) k/uL Eosinophils # (0-0.7) k/uL Basophils # (0-0.2) k/uL PT (9.0-12.0) sec INR (<1.2) APTT (22.0-30.0) sec Sodium 141 (137-145) mmol/L Potassium 3.5 (3.5-5.1) mmol/L Chloride 112 H (98-107) mmol/L Carbon Dioxide 22 (22-30) mmol/L Anion Gap 7 mmol/L BUN 28 H (7-17) mg/dL Creatinine 1.02 (0.52-1.04) mg/dL Est GFR (CKD-EPI)AfAm 65 (>60 ml/min/1.73 sqM) Est GFR (CKD-EPI)NonAf 57 (>60 ml/min/1.73 sqM) Glucose 136 H (74-99) mg/dL Calcium 9.1 (8.4-10.2) mg/dL Magnesium 2.1 (1.6-2.3) mg/dL Total Bilirubin 0.2 (0.2-1.3) mg/dL AST 30 (14-36) U/L ALT 21 (4-34) U/L Alkaline Phosphatase 93 (38-126) U/L Troponin I <0.012 (0.000-0.034) ng/mL Total Protein 6.3 (6.3-8.2) g/dL Albumin 3.6 (3.5-5.0) g/dL Urine Color Yellow Urine Appearance Clear (Clear) Urine pH 6.5 (5.0-8.0) Ur Specific Golden 1.024 (1.001-1.035) Urine Protein 1+ H (Negative) Urine Glucose (UA) Negative (Negative) Urine Ketones Negative (Negative) Urine Blood Negative (Negative) Urine Nitrite Negative (Negative) Urine Bilirubin Negative (Negative) Urine Urobilinogen 2.0 (<2.0) mg/dL Ur Leukocyte Esterase Negative (Negative) Urine RBC <1 (0-5) /hpf Urine WBC 1 (0-5) /hpf Ur Squamous Epith Cells <1 (0-4) /hpf Hyaline Casts 1 (0-2) /lpf Urine Mucus Rare H (None) /hpf Blood Type Blood Type Recheck Bld Type Recheck Status Antibody Screen Spec Expiration Date Disposition Clinical Impression: Syncope, Contusion of left hip, Scalp contusion Disposition: HOME SELF-CARE Condition: Good Instructions (If sedation given, give patient instructions): Scalp Contusion in Adults (ED) Additional Instructions: Please follow up with your doctor in 1-2 days. Return to the ER for any worsening symptoms. Is patient prescribed a controlled substance at d/c from ED?: No Referrals: Stefan Mckinley DO [Primary Care Provider] - 1-2 days Time of Disposition: 23:58
[2021-10-18 22:32] LABS: Albumin 3.6 g/dL (3.5-5.0); Calcium 9.1 mg/dL (8.4-10.2); Magnesium 2.1 mg/dL (1.6-2.3); Potassium 3.5 mmol/L (3.5-5.1); Total Bilirubin 0.2 mg/dL (0.2-1.3); Total Protein 6.3 g/dL (6.3-8.2)
--- NOTE | 2021-10-18 22:34 | XR ---
EXAMINATION TYPE: XR chest 2V DATE OF EXAM: 10/18/2021 COMPARISON: 05/29/2021 HISTORY: Syncope TECHNIQUE: FINDINGS: There is no heart failure nor confluent pneumonic infiltrate. Costophrenic angles are clear . There is calcified right breast implant. There is no pleural effusion. There are no hilar masses. T here are chest leads. IMPRESSION: No active cardiopulmonary disease. No change.
--- NOTE | 2021-10-18 22:36 | XR ---
EXAMINATION TYPE: XR Hip LT and AP Pelvis DATE OF EXAM: 10/18/2021 COMPARISON: 05/30/2021 HISTORY: Fall. Hip pain TECHNIQUE: 3 views FINDINGS: Pelvic ring is intact. There is bilateral hip prosthesis. Components appear in anatomic pos ition. Sacroiliac joints are intact. IMPRESSION: Negative pelvis and left hip exam. No fracture. No adverse change compared to old exam.
--- NOTE | 2021-10-18 22:37 | XR ---
EXAMINATION TYPE: XR lumbar spine 2 or 3V DATE OF EXAM: 10/18/2021 COMPARISON: 05/30/2021 HISTORY: Fall. Back pain TECHNIQUE: 2 views FINDINGS: Lumbar vertebra have normal alignment. Posterior elements are intact. There is no compressi on fracture. Sacroiliac joints are intact. IMPRESSION: Negative lumbar spine exam. No adverse change.
[2021-10-18 22:38] VITALS: BP 139/87; PULSE 100
[2021-10-18 23:06] LABS: Appearance,Urine Clear (Clear); Bilirubin,Urine Negative (Negative); Blood,Urine Negative (Negative); Color,Urine Yellow; Glucose,Urine (UA) Negative (Negative); Hyaline Casts,Urine 1 /lpf (0-2); Ketones,Urine Negative (Negative); Leukocyte Esterase,Urine Negative (Negative); Mucus,Urine Rare /hpf; Nitrite,Urine Negative (Negative); PH, Urine 6.5 (5.0-8.0); Protein,Urine 1+ (Negative); RBC,Urine <1 /hpf (0-5); Specific Gravity,Urine 1.024 (1.001-1.035); Squamous Epithelial Cell,Urine <1 /hpf (0-4); WBC,Urine 1 /hpf (0-5)
== END 2021-10-19 01:07 | disposition home or self-care (01) ==
LOC: EC 20:03
DX: S00.03XA Contusion of scalp, initial encounter (principal); S70.02XA Contusion of left hip, initial encounter; R55 Syncope and collapse; I48.91 Unspecified atrial fibrillation; E78.5 Hyperlipidemia, unspecified; I10 Essential (primary) hypertension; E07.9 Disorder of thyroid, unspecified; Z79.82 Long term (current) use of aspirin; Z79.01 Long term (current) use of anticoagulants; Z88.2 Allergy status to sulfonamides; Z90.710 Acquired absence of both cervix and uterus; Z87.891 Personal history of nicotine dependence; W18.30XA Fall on same level, unspecified, initial encounter
CPT/HCPCS: 36415; 70450; 71046; 72100; 72125; 73502; 80053; 81001; 83735; 84484; 85025; 85610; 85730; 86850; 86900; 86901; 93005; 99284

== ENCOUNTER → 2021-11-22 | Outpatient (CLI) | payer MEDICARE ==
[2021-11-22 16:17] LABS: African American GFR (CKD) 50.8 (60.0-200.0); Anion Gap 14.9 mmol/L (10.00-18.00); Blood Urea Nitrogen 30.2 mg/dL (9.0-27.0); Carbon Dioxide 25.8 mmol/L (20.0-27.5); Non-African American GFR(CKD) 43.9 (60.0-200.0); Potassium 3.1 mmol/L (3.5-5.5)
== END | disposition home or self-care (01) ==
LOC: LABWHC1 10:30
DX: R06.02 Shortness of breath (principal)
CPT/HCPCS: 36415; 80051; 82565; 84520

== ENCOUNTER 2022-01-26 12:06 | Emergency (ER) | payer MEDICARE ==
--- NOTE | 2022-01-26 12:37 | ED ---
General Adult HPI - General Chief complaint: Syncope Stated complaint: Syncope Time Seen by Provider: 01/26/22 12:11 Source: patient, RN notes reviewed Mode of arrival: ambulatory Limitations: no limitations - History of Present Illness Initial comments: Patient is a pleasant [age]-year-old female presenting to the emergency Department with left upper abdomen and rib pain. Patient woke up in the middle the night and had a syncopal episode. Patient woke up on the floor and had knocked over a small table. Patient has had discomfort of her left upper abdomen and left lower ribs since that time. Discomfort increases with movement and touch. Patient does have history of syncopal episodes, approximately 7 times previously and has fractured hips previously secondary to that. Patient is on Eliquis. - Related Data Home Medications Medication Instructions Recorded Confirmed Aspirin EC [Ecotrin Low Dose] 81 mg PO HS 02/21/21 05/29/21 Levothyroxine Sodium [Synthroid] 75 mcg PO DAILY 02/21/21 05/29/21 Metoprolol Succinate [Toprol XL] 100 mg PO HS 02/21/21 05/29/21 Rosuvastatin [Crestor] 20 mg PO HS 02/21/21 05/29/21 Zinc 50 mg PO DAILY 02/21/21 05/29/21 Apixaban [Eliquis] 5 mg PO BID 03/25/21 05/29/21 Previous Rx's Medication Instructions Recorded Propafenone [Rythmol] 150 mg PO TID #270 tab 03/09/21 Docusate [Colace] 100 mg PO DAILY #30 capsule 06/03/21 oxyCODONE HCL/ACETAMINOPHEN 1 tab PO Q4HR PRN #42 tab 06/03/21 [Percocet 5-325 mg] Allergies Allergy/AdvReac Type Severity Reaction Status Date / Time Sulfa (Sulfonamide Allergy Anaphylaxis Verified 01/26/22 12:10 Antibiotics) Review of Systems ROS Statement: Those systems with pertinent positive or pertinent negative responses have been documented in the HPI. ROS Other: All systems not noted in ROS Statement are negative. Constitutional: Denies: fever Eyes: Denies: eye pain ENT: Denies: ear pain Respiratory: Denies: cough, dyspnea Cardiovascular: Reports: as per HPI. Denies: chest pain Endocrine: Denies: fatigue Gastrointestinal: Reports: as per HPI, abdominal pain Genitourinary: Denies: dysuria Musculoskeletal: Denies: back pain Skin: Denies: rash Neurological: Denies: headache, weakness, confusion Past Medical History Past Medical History: Atrial Fibrillation, Hyperlipidemia, Hypertension, Syncope, Thyroid Disorder Additional Past Medical History / Comment(s): hx of migraine headaches, takes flexeril for that History of Any Multi-Drug Resistant Organisms: None Reported Past Surgical History: Section, Hernia Repair, Hysterectomy, Joint Replacement Additional Past Surgical History / Comment(s): cataracts, partial thyroidectomy, breast augmentation, right hip replacement january 2021, debridment on right hip january 2021. Past Anesthesia/Blood Transfusion Reactions: Postoperative Nausea & Vomiting (PONV) Past Psychological History: No Psychological Hx Reported Smoking Status: Former smoker Past Alcohol Use History: Rare Past Drug Use History: None Reported - Past Family History Mother Family Medical History: Cancer, Hypertension, Thyroid Disorder Father Family Medical History: Coronary Artery Disease (CAD), CVA/TIA Brother(s) Additional Family Medical History / Comment(s): history of Factor X General Exam Limitations: no limitations General appearance: alert, in no apparent distress Head exam: Present: atraumatic, normocephalic Eye exam: Present: normal appearance, PERRL, EOMI ENT exam: Present: normal oropharynx Neck exam: Present: normal inspection. Absent: tenderness Respiratory exam: Present: normal lung sounds bilaterally, chest wall tenderness (Left lower anterior lateral ribs with tenderness) Cardiovascular Exam: Present: regular rate, normal rhythm Expanded Peripheral pulses: 2+: Radial (R), Radial (L), Posterior Tibialis (R), Posterior Tibialis (L) GI/Abdominal exam: Present: soft, tenderness (Mild tenderness left upper quadrant). Absent: distended Extremities exam: Present: normal inspection, full ROM. Absent: tenderness Back exam: Present: normal inspection. Absent: tenderness, vertebral tenderness Neurological exam: Present: alert, oriented X3, CN II-XII intact. Absent: motor sensory deficit Expanded Neurological exam: Present: protecting the airway Speech: Present: fluid speech Cranial nerves: EOM's Intact: Normal Motor strength exam: RUE: 5, LUE: 5, RLE: 5, LLE: 5 Eye Response: (4) open spontaneously Motor Response: (6) obeys commands Verbal Response: (5) oriented Psychiatric exam: Present: normal affect, normal mood Skin exam: Present: normal color Course Vital Signs 01/26/22 01/26/22 12:08 13:17 Temperature 98.2 F Pulse Rate 78 62 Respiratory 18 20 Rate Blood Pressure 160/65 146/94 O2 Sat by Pulse 99 99 Oximetry EKG Findings - EKG Comments: EKG Findings:: Sinus rhythm with sinus arrhythmia, rate 73. [place] 157. QRS 110. QT 385. QTC 411. Normal axis. No acute ST change. Q wave in V2. Medical Decision Making - Medical Decision Making Patient reevaluated and resting comfortably in bed. Patient and family updated on results. They do state that breast implant was previously punctured during placement of recorder years ago. Patient states she has passed out at least 7 times previously and has been previously evaluated for that. - Lab Data Result diagrams: 01/26/22 12:37 01/26/22 12:37 Lab Results 01/26/22 01/26/22 01/26/22 Range/Units 12:37 12:37 12:37 WBC 7.6 (3.8-10.6) k/uL RBC 4.43 (3.80-5.40) m/uL Hgb 12.6 (11.4-16.0) gm/dL Hct 39.7 (34.0-46.0) % MCV 89.7 (80.0-100.0) fL MCH 28.4 (25.0-35.0) pg MCHC 31.6 (31.0-37.0) g/dL RDW 17.2 H (11.5-15.5) % Plt Count 249 (150-450) k/uL MPV 7.3 Neutrophils % 72 % Lymphocytes % 17 % Monocytes % 6 % Eosinophils % 2 % Basophils % 1 % Neutrophils # 5.5 (1.3-7.7) k/uL Lymphocytes # 1.3 (1.0-4.8) k/uL Monocytes # 0.5 (0-1.0) k/uL Eosinophils # 0.2 (0-0.7) k/uL Basophils # 0.0 (0-0.2) k/uL Hypochromasia Slight Anisocytosis Slight PT 10.5 (9.0-12.0) sec INR 1.0 (<1.2) APTT 25.2 (22.0-30.0) sec Sodium 139 (137-145) mmol/L Potassium 4.1 (3.5-5.1) mmol/L Chloride 105 (98-107) mmol/L Carbon Dioxide 28 (22-30) mmol/L Anion Gap 6 mmol/L BUN 34 H (7-17) mg/dL Creatinine 1.04 (0.52-1.04) mg/dL Est GFR (CKD-EPI)AfAm 64 (>60 ml/min/1.73 sqM) Est GFR (CKD-EPI)NonAf 55 (>60 ml/min/1.73 sqM) Glucose 91 (74-99) mg/dL Calcium 8.6 (8.4-10.2) mg/dL Magnesium 2.3 (1.6-2.3) mg/dL Total Bilirubin 0.3 (0.2-1.3) mg/dL AST 29 (14-36) U/L ALT 27 (4-34) U/L Alkaline Phosphatase 71 (38-126) U/L Troponin I (0.000-0.034) ng/mL Total Protein 6.4 (6.3-8.2) g/dL Albumin 3.7 (3.5-5.0) g/dL Urine Color Urine Appearance (Clear) Urine pH (5.0-8.0) Ur Specific Mcrae (1.001-1.035) Urine Protein (Negative) Urine Glucose (UA) (Negative) Urine Ketones (Negative) Urine Blood (Negative) Urine Nitrite (Negative) Urine Bilirubin (Negative) Urine Urobilinogen (<2.0) mg/dL Ur Leukocyte Esterase (Negative) 01/26/22 01/26/22 Range/Units 12:37 13:17 WBC (3.8-10.6) k/uL RBC (3.80-5.40) m/uL Hgb (11.4-16.0) gm/dL Hct (34.0-46.0) % MCV (80.0-100.0) fL MCH (25.0-35.0) pg MCHC (31.0-37.0) g/dL RDW (11.5-15.5) % Plt Count (150-450) k/uL MPV Neutrophils % % Lymphocytes % % Monocytes % % Eosinophils % % Basophils % % Neutrophils # (1.3-7.7) k/uL Lymphocytes # (1.0-4.8) k/uL Monocytes # (0-1.0) k/uL Eosinophils # (0-0.7) k/uL Basophils # (0-0.2) k/uL Hypochromasia Anisocytosis PT (9.0-12.0) sec INR (<1.2) APTT (22.0-30.0) sec Sodium (137-145) mmol/L Potassium (3.5-5.1) mmol/L Chloride (98-107) mmol/L Carbon Dioxide (22-30) mmol/L Anion Gap mmol/L BUN (7-17) mg/dL Creatinine (0.52-1.04) mg/dL Est GFR (CKD-EPI)AfAm (>60 ml/min/1.73 sqM) Est GFR (CKD-EPI)NonAf (>60 ml/min/1.73 sqM) Glucose (74-99) mg/dL Calcium (8.4-10.2) mg/dL Magnesium (1.6-2.3) mg/dL Total Bilirubin (0.2-1.3) mg/dL AST (14-36) U/L ALT (4-34) U/L Alkaline Phosphatase (38-126) U/L Troponin I <0.012 (0.000-0.034) ng/mL Total Protein (6.3-8.2) g/dL Albumin (3.5-5.0) g/dL Urine Color Light Yellow Urine Appearance Clear (Clear) Urine pH 7.0 (5.0-8.0) Ur Specific Mcrae 1.008 (1.001-1.035) Urine Protein Negative (Negative) Urine Glucose (UA) Negative (Negative) Urine Ketones Negative (Negative) Urine Blood Negative (Negative) Urine Nitrite Negative (Negative) Urine Bilirubin Negative (Negative) Urine Urobilinogen <2.0 (<2.0) mg/dL Ur Leukocyte Esterase Negative (Negative) - Radiology Data Radiology results: report reviewed (CT brain, CT chest abdomen pelvis shows no acute process), image reviewed (Chest x-ray shows no acute process) Disposition Clinical Impression: Syncope, Chest wall contusion Disposition: HOME SELF-CARE Condition: Stable Instructions (If sedation given, give patient instructions): Syncope (ED), Rib Contusion (ED) Additional Instructions: Please do follow-up to primary care physician in the next or 2 for recheck. Return for difficulty in breathing, passing out, weakness or confusion, chest pain, worsening symptoms or other concerns. Is patient prescribed a controlled substance at d/c from ED?: No Referrals: Stefan Mckinley DO [Primary Care Provider] - 1-2 days Time of Disposition: 13:39
[2022-01-26 12:47] LABS: Anisocytosis Slight; Basophils % (A) 1 %; Eosinophils # (A) 0.2 k/uL (0-0.7); Eosinophils % (A) 2 %; HCT 39.7 % (34.0-46.0); HGB 12.6 gm/dL (11.4-16.0); Hypochromasia Slight; Lymphocytes # (A) 1.3 k/uL (1.0-4.8); Lymphocytes % (A) 17 %; MCH 28.4 pg (25.0-35.0); MCHC 31.6 g/dL (31.0-37.0); MCV 89.7 fL (80.0-100.0); Mean Platelet Volume 7.3; Monocytes # (A) 0.5 k/uL (0-1.0); Monocytes % (A) 6 %; Neutrophils # (A) 5.5 k/uL (1.3-7.7); Neutrophils % (A) 72 %; Platelet Count 249 k/uL (150-450); RBC 4.43 m/uL (3.80-5.40); RDW 17.2 % (11.5-15.5); WBC 7.6 k/uL (3.8-10.6)
[2022-01-26 12:56] LABS: Albumin 3.7 g/dL (3.5-5.0); Calcium 8.6 mg/dL (8.4-10.2); Magnesium 2.3 mg/dL (1.6-2.3); Potassium 4.1 mmol/L (3.5-5.1); Total Bilirubin 0.3 mg/dL (0.2-1.3); Total Protein 6.4 g/dL (6.3-8.2)
--- NOTE | 2022-01-26 13:04 | XR ---
EXAMINATION TYPE: XR chest 2V DATE OF EXAM: 01/26/2022 COMPARISON: 10/18/2021 HISTORY: Shortness of breath TECHNIQUE: Frontal and lateral views of the chest are obtained. FINDINGS: Scattered senescent parenchymal changes noted. Hyperinflation compatible with COPD. No evidence for infiltrate. No evidence for atelectasis. Heart size is stable. Mediastinal structures are stable and grossly unremarkable. No evidence for hilar prominence. Degenerative changes dorsal spine. Calcified right breast implant. IMPRESSION: 1. No evidence for acute pulmonary disease.
[2022-01-26 13:13] LABS: Partial Thromboplastin Time 25.2 sec (22.0-30.0); Prothrombin Time 10.5 sec (9.0-12.0)
--- NOTE | 2022-01-26 13:16 | CT ---
EXAMINATION TYPE: CT brain wo con DATE OF EXAM: 01/26/2022 COMPARISON: 10/18/2021 HISTORY: syncope CT DLP: [address] of the brain was performed. The ventricles, basal cisterns and sulci overlying the cerebral convexities demonstrate mild enlargem ent. There is no evidence for intracranial hemorrhage or sulcal effacement. There is decreased attenuation about the periventricular white matter and deep white matter of both c erebral hemispheres, compatible with chronic small vessel ischemia. Differential diagnosis does inclu de demyelination. No mass effects are seen.No midline shift. Osseous calvarium is intact. If symptoms persist consider MRI. IMPRESSION: 1. Age related atrophic and chronic small vessel ischemic change without acute intracranial process s een at this time.
[2022-01-26 13:18] VITALS: RESP 20
[2022-01-26] MEDS ORDERED: MORPHINE SULFATE 2 MG/ML SYRINGE IVP STA ×2 (13:18→14:07)
[2022-01-26 13:24] LABS: Appearance,Urine Clear (Clear); Bilirubin,Urine Negative (Negative); Blood,Urine Negative (Negative); Color,Urine Light Yellow; Glucose,Urine (UA) Negative (Negative); Ketones,Urine Negative (Negative); Leukocyte Esterase,Urine Negative (Negative); Nitrite,Urine Negative (Negative); Protein,Urine Negative (Negative); Specific Gravity,Urine 1.008 (1.001-1.035); Urobilinogen,Urine <2.0 mg/dL (<2.0)
--- NOTE | 2022-01-26 13:25 | CT ---
EXAMINATION TYPE: CT ChestAbdPelvis w con DATE OF EXAM: 01/26/2022 COMPARISON: None HISTORY: syncope, Lt sided abd pain and bruising CT DLP: 1096.3 mGycm CONTRAST: Contrast enhanced Trauma CT of the Chest, Abdomen and Pelvis is performed with IV Contrast, patient i njected with 80 mL of Isovue 300. Chest: LUNGS: There is no evidence for pneumothorax. The lungs are clear and free of focal contusion or ate lectasis. No pleural effusion MEDIASTINUM: Thoracic aorta is of normal caliber without CT evidence to suggest traumatic induced ao rtic injury. No mediastinal fluid or blood. No pericardial fluid or cardia abnormality. HILAR STRUCTURES: No evidence for mass. No hilar adenopathy is appreciated. OTHER: Left breast implant is ruptured. OSSEOUS: No displaced osseous fractures identified. CT ABDOMEN AND PELVIS FINDINGS: LIVER/GB: No focal laceration, contusion or subcapsular hemorrhage. No calcified gallstones. No s pace occupying hepatic lesion. Biliary tree is of normal caliber. PANCREAS: No evidence for transection. No inflammation. No distinct mass. SPLEEN: No focal laceration, contusion or subcapsular hemorrhage. ADRENALS: No hemorrhage. No nodule. No thickening. KIDNEYS/BLADDER: No focal laceration, contusion or subcapsular hemorrhage. No hydronephrosis. No n ephrolithiasis. No disctinct renal mass. BOWEL: Bowel is intact. No evidence for pneumoperitoneum. GENITAL ORGANS: No gross abnormality. LYMPH NODES: No greater than 1cm abdominal or pelvic lymph nodes areappreciated. AORTA: No traumatic aortic injury visualized. OSSEOUS STRUCTURES: No displaced fracture seen. OTHER: No evidence for hemoperitoneum. IMPRESSION: 1. No evidence for traumatic injury to the chest. 2. No evidence for traumatic injury to the abdomen or pelvis.
[2022-01-26 14:34] VITALS: BP 145/78; PULSE 66; TEMP 98.1
== END 2022-01-26 14:49 | disposition home or self-care (01) ==
LOC: EC 12:06
DX: S20.212A Contusion of left front wall of thorax, initial encounter (principal); R55 Syncope and collapse; I10 Essential (primary) hypertension; I48.91 Unspecified atrial fibrillation; E78.5 Hyperlipidemia, unspecified; Z87.891 Personal history of nicotine dependence; Z79.01 Long term (current) use of anticoagulants; Z79.82 Long term (current) use of aspirin; Z79.890 Hormone replacement therapy; Z79.899 Other long term (current) drug therapy; W18.39XA Other fall on same level, initial encounter; W22.8XXA Striking against or struck by other objects, initial encounter
CPT/HCPCS: 36415; 93005; 80053; 83735; 84484; 85025; 85610; 85730; 81003; 71046; 70450; 71260; 74177; 99284; 96374; 96376; J2270; Q9967

== ENCOUNTER → 2022-05-23 | Outpatient (CLI) | payer MEDICARE ==
--- NOTE | 2022-05-23 12:40 | XR ---
EXAMINATION TYPE: XR chest 2V DATE OF EXAM: 05/23/2022 COMPARISON: 01/26/2022 TECHNIQUE: PA and lateral views submitted. HISTORY: Presurgical FINDINGS: The lungs are clear and there is no pneumothorax, pleural effusion, or focal pneumonia. Calcificati on related to the right breast implant noted. Loop recorder suspected. Biapical pleural thickening. H eart size normal. No overt failure. Hypertrophic changes of the spine. Hyperinflation suggests COPD IMPRESSION: 1. No acute process.
== END | disposition home or self-care (01) ==
LOC: RADXRMAIN 12:21
PROVIDERS: ATTEND Neuromusculoskeletal Medicine & OMM
DX: Z01.818 Encounter for other preprocedural examination (principal); R91.8 Other nonspecific abnormal finding of lung field
CPT/HCPCS: 71046; 93005

== ENCOUNTER 2022-06-10 09:30 | Emergency (ER) | payer MEDICARE ==
[2022-06-10] MEDS ORDERED: SODIUM CHLORIDE 0.9% 500 ML 500 ML IV STA (09:45)
--- NOTE | 2022-06-10 10:01 | ED ---
General Adult HPI - General Chief complaint: Syncope Stated complaint: Fall,Back injury and pain Time Seen by Provider: 06/10/22 09:39 Source: patient, RN notes reviewed, old records reviewed Mode of arrival: wheelchair Limitations: no limitations - History of Present Illness Initial comments: 72-year-old female presents status post fall and syncopal episode. Scrotal 1 AM. The patient was in the bathroom, she had apparently fallen and did have head trauma. She does not recall the events. She was apparently on the bathroom floor for about 2 hours. She also injured her right elbow and her low back. She denies any preceding symptoms of dictation, no chest pain, no vomiting or diarrhea. She states she's had issues in the past with recurrent s yncope. - Related Data Home Medications Medication Instructions Recorded Confirmed Aspirin EC [Ecotrin Low Dose] 81 mg PO HS 02/21/21 05/29/21 Levothyroxine Sodium [Synthroid] 75 mcg PO DAILY 02/21/21 05/29/21 Metoprolol Succinate [Toprol XL] 100 mg PO HS 02/21/21 05/29/21 Rosuvastatin [Crestor] 20 mg PO HS 02/21/21 05/29/21 Zinc 50 mg PO DAILY 02/21/21 05/29/21 Apixaban [Eliquis] 5 mg PO BID 03/25/21 05/29/21 Previous Rx's Medication Instructions Recorded Propafenone [Rythmol] 150 mg PO TID #270 tab 03/09/21 Docusate [Colace] 100 mg PO DAILY #30 capsule 06/03/21 oxyCODONE HCL/ACETAMINOPHEN 1 tab PO Q4HR PRN #42 tab 06/03/21 [Percocet 5-325 mg] Allergies Allergy/AdvReac Type Severity Reaction Status Date / Time Sulfa (Sulfonamide Allergy Anaphylaxis Verified 06/10/22 09:37 Antibiotics) Review of Systems ROS Statement: Those systems with pertinent positive or pertinent negative responses have been documented in the HPI. ROS Other: All systems not noted in ROS Statement are negative. Past Medical History Past Medical History: Atrial Fibrillation, Hyperlipidemia, Hypertension, Syncope, Thyroid Disorder Additional Past Medical History / Comment(s): hx of migraine headaches, takes flexeril for that History of Any Multi-Drug Resistant Organisms: None Reported Past Surgical History: Section, Hernia Repair, Hysterectomy, Joint Replacement Additional Past Surgical History / Comment(s): cataracts, partial thyroidectomy, breast augmentation, right hip replacement january 2021, debridment on right hip january 2021. Past Anesthesia/Blood Transfusion Reactions: Postoperative Nausea & Vomiting (PONV) Past Psychological History: No Psychological Hx Reported Smoking Status: Former smoker Past Alcohol Use History: Rare Past Drug Use History: None Reported - Past Family History Mother Family Medical History: Cancer, Hypertension, Thyroid Disorder Father Family Medical History: Coronary Artery Disease (CAD), CVA/TIA Brother(s) Additional Family Medical History / Comment(s): history of Factor X General Exam Limitations: no limitations General appearance: alert, in no apparent distress Head exam: Present: normocephalic Eye exam: Present: PERRL ENT exam: Present: normal exam Neck exam: Present: full ROM, other (Ecchymosis at the base of the cervical spine) Respiratory exam: Present: normal lung sounds bilaterally. Absent: respiratory distress, wheezes Cardiovascular Exam: Present: regular rate, normal rhythm GI/Abdominal exam: Present: soft. Absent: distended, tenderness Extremities exam: Present: other (Ecchymosis posterior right elbow) Back exam: Present: normal inspection, paraspinal tenderness (Lumbar) Neurological exam: Present: alert, oriented X3, CN II-XII intact. Absent: motor sensory deficit Psychiatric exam: Present: normal affect, normal mood Skin exam: Present: warm, dry, intact. Absent: cyanosis, diaphoretic Course Vital Signs 06/10/22 06/10/22 06/10/22 09:31 11:00 12:00 Temperature 97.4 F L Pulse Rate 70 57 L 78 Respiratory 18 18 16 Rate Blood Pressure 142/80 155/92 155/92 O2 Sat by Pulse 99 99 97 Oximetry EKG Findings - EKG Comments: EKG Findings:: EKG: Sinus rhythm with sinus arrhythmia rate of 70, NV interval 180, QRS duration 97, QTC 398 Procedures - Orthopedic Splinting/Casting Injury #1 Side: right Upper Extremity Injury Location: elbow Upper Extremity Immobilizer: posterior splint Medical Decision Making - Medical Decision Making 72-year-old female with likely syncopal episode and fall. Head trauma, trauma to the right elbow and some low back pain. Patient overall well-appearing with stable vitals. Laboratory testing is essentially unremarkable. She had imaging of the brain and C-spine which is negative. X-ray of the elbow negative for displaced fracture but there is a small joint effusion. Patient's placed in a posterior splint. She's given orthopedic follow-up. I did offer observation for monitoring the patient declines. She prefers discharge she states she's had these episodes in the past and this is unchanged. - Lab Data Result diagrams: 06/10/22 09:56 06/10/22 11:02 Lab Results 06/10/22 06/10/22 06/10/22 Range/Units 09:56 09:56 10:49 WBC 7.7 (3.8-10.6) k/uL RBC 5.03 (3.80-5.40) m/uL Hgb 15.6 (11.4-16.0) gm/dL Hct 48.7 H (34.0-46.0) % MCV 96.8 (80.0-100.0) fL MCH 31.1 (25.0-35.0) pg MCHC 32.1 (31.0-37.0) g/dL RDW 13.6 (11.5-15.5) % Plt Count 302 (150-450) k/uL MPV 7.5 Neutrophils % 67 % Lymphocytes % 22 % Monocytes % 8 % Eosinophils % 1 % Basophils % 1 % Neutrophils # 5.1 (1.3-7.7) k/uL Lymphocytes # 1.7 (1.0-4.8) k/uL Monocytes # 0.6 (0-1.0) k/uL Eosinophils # 0.1 (0-0.7) k/uL Basophils # 0.0 (0-0.2) k/uL PT 10.4 (9.0-12.0) sec INR 1.0 (<1.2) APTT 25.1 (22.0-30.0) sec Sodium (137-145) mmol/L Potassium (3.5-5.1) mmol/L Chloride (98-107) mmol/L Carbon Dioxide (22-30) mmol/L Anion Gap mmol/L BUN (7-17) mg/dL Creatinine (0.52-1.04) mg/dL Est GFR (CKD-EPI)AfAm (>60 ml/min/1.73 sqM) Est GFR (CKD-EPI)NonAf (>60 ml/min/1.73 sqM) Glucose (74-99) mg/dL Calcium (8.4-10.2) mg/dL Magnesium (1.6-2.3) mg/dL Total Bilirubin (0.2-1.3) mg/dL AST (14-36) U/L ALT (4-34) U/L Alkaline Phosphatase (38-126) U/L Creatine Kinase (30-135) U/L Troponin I (0.000-0.034) ng/mL Total Protein (6.3-8.2) g/dL Albumin (3.5-5.0) g/dL Urine Color Colorless Urine Appearance Clear (Clear) Urine pH 6.5 (5.0-8.0) Ur Specific [place] 1.005 (1.001-1.035) Urine Protein Negative (Negative) Urine Glucose (UA) Negative (Negative) Urine Ketones Negative (Negative) Urine Blood Negative (Negative) Urine Nitrite Negative (Negative) Urine Bilirubin Negative (Negative) Urine Urobilinogen <2.0 (<2.0) mg/dL Ur Leukocyte Esterase Negative (Negative) 06/10/22 06/10/22 Range/Units 11:02 11:02 WBC (3.8-10.6) k/uL RBC (3.80-5.40) m/uL Hgb (11.4-16.0) gm/dL Hct (34.0-46.0) % MCV (80.0-100.0) fL MCH (25.0-35.0) pg MCHC (31.0-37.0) g/dL RDW (11.5-15.5) % Plt Count (150-450) k/uL MPV Neutrophils % % Lymphocytes % % Monocytes % % Eosinophils % % Basophils % % Neutrophils # (1.3-7.7) k/uL Lymphocytes # (1.0-4.8) k/uL Monocytes # (0-1.0) k/uL Eosinophils # (0-0.7) k/uL Basophils # (0-0.2) k/uL PT (9.0-12.0) sec INR (<1.2) APTT (22.0-30.0) sec Sodium 140 (137-145) mmol/L Potassium 4.3 (3.5-5.1) mmol/L Chloride 106 (98-107) mmol/L Carbon Dioxide 26 (22-30) mmol/L Anion Gap 8 mmol/L BUN 42 H (7-17) mg/dL Creatinine 1.06 H (0.52-1.04) mg/dL Est GFR (CKD-EPI)AfAm 62 (>60 ml/min/1.73 sqM) Est GFR (CKD-EPI)NonAf 54 (>60 ml/min/1.73 sqM) Glucose 91 (74-99) mg/dL Calcium 8.9 (8.4-10.2) mg/dL Magnesium 1.9 (1.6-2.3) mg/dL Total Bilirubin 0.4 (0.2-1.3) mg/dL AST 34 (14-36) U/L ALT 31 (4-34) U/L Alkaline Phosphatase 85 (38-126) U/L Creatine Kinase 35 (30-135) U/L Troponin I <0.012 (0.000-0.034) ng/mL Total Protein 7.3 (6.3-8.2) g/dL Albumin 4.4 (3.5-5.0) g/dL Urine Color Urine Appearance (Clear) Urine pH (5.0-8.0) Ur Specific [place] (1.001-1.035) Urine Protein (Negative) Urine Glucose (UA) (Negative) Urine Ketones (Negative) Urine Blood (Negative) Urine Nitrite (Negative) Urine Bilirubin (Negative) Urine Urobilinogen (<2.0) mg/dL Ur Leukocyte Esterase (Negative) Disposition Clinical Impression: Fall, Elbow effusion Disposition: HOME SELF-CARE Condition: Fair Instructions (If sedation given, give patient instructions): Swollen Joint (ED), Syncope (ED) Is patient prescribed a controlled substance at d/c from ED?: No Referrals: Stefan Mckniley DO [Primary Care Provider] - 1-2 days Dusty Goldstein DO [Doctor of Osteopathic Medicine] - 1-2 days Time of Disposition: 12:37
[2022-06-10 10:24] LABS: Basophils % (A) 1 %; Eosinophils # (A) 0.1 k/uL (0-0.7); Eosinophils % (A) 1 %; HCT 48.7 % (34.0-46.0); HGB 15.6 gm/dL (11.4-16.0); Lymphocytes # (A) 1.7 k/uL (1.0-4.8); Lymphocytes % (A) 22 %; MCH 31.1 pg (25.0-35.0); MCHC 32.1 g/dL (31.0-37.0); MCV 96.8 fL (80.0-100.0); Mean Platelet Volume 7.5; Monocytes # (A) 0.6 k/uL (0-1.0); Monocytes % (A) 8 %; Neutrophils # (A) 5.1 k/uL (1.3-7.7); Neutrophils % (A) 67 %; Platelet Count 302 k/uL (150-450); RBC 5.03 m/uL (3.80-5.40); RDW 13.6 % (11.5-15.5); WBC 7.7 k/uL (3.8-10.6)
--- NOTE | 2022-06-10 10:29 | CT ---
EXAMINATION TYPE: CT brain cspine wo con CT DLP: 1311.5 mGycm, Automated exposure control for dose reduction was used. DATE OF EXAM: 06/10/2022 10:23 AM COMPARISON: CT brain 01/26/2022 CT brain C-spine 10/18/2021. CLINICAL INDICATION:Female, 72 years old with history of syncope; Fall, Syncope TECHNIQUE: Brain: Multiple axial CT images of the brain were obtained without IV contrast. Cspine: Axial CT images from the skull base to the inferior aspect of T2 we obtained without intraven ous contrast. Coronal and sagittal reformatted images were also reviewed. FINDINGS: Brain: Extra-axial spaces: No abnormal extra-axial fluid collections. Ventricular system: Within normal limits Cerebral parenchyma: No acute intraparenchymal hemorrhage or mass effect. The farrar-white junction is well differentiated. Cerebellum: Unremarkable. Mass effect: No evidence of midline shift. Intracranial vasculature: unremarkable Soft tissues: Normal. Calvarium/osseous structures: No depressed skull fracture. Paranasal sinuses and mastoid air cells: Minimal mucosal thickening of the left maxillary sinus. Mast oid air cells are clear. Visualized orbits: Bilateral aphakia Cervical spine: Fracture: None. Osseous structures: Unremarkable Vertebral alignment: Within normal limits. Spinal canal/Neural Foramina: Posterior disc osteophyte complex at C6-C7 with mild effacement of the anterior thecal sac. No evidence for significant neural foraminal stenosis. Neck soft tissues: Prevertebral soft tissues are within normal limits. Other: The airway is patent. Biapical scarring. Centrilobular emphysematous changes. Vascular scleros is. IMPRESSION: * No acute intracranial process. * No evidence of cervical spine fracture. * Mild multilevel degenerative disc disease.
[2022-06-10 10:38] LABS: Partial Thromboplastin Time 25.1 sec (22.0-30.0); Prothrombin Time 10.4 sec (9.0-12.0)
--- NOTE | 2022-06-10 10:38 | XR ---
EXAMINATION TYPE: XR elbow complete RT DATE OF EXAM: 06/10/2022 COMPARISON: NONE HISTORY: Pain FINDINGS: Three views of the elbow demonstrate the osseous structures are intact. There is no acute fracture o r dislocation. Subtle displacement anterior fat pad. IMPRESSION: 1. Question a subtle joint effusion with mild displacement of the anterior fat pad. No definite fract ure seen. Occult fracture not excluded.
--- NOTE | 2022-06-10 10:46 | XR ---
Lumbar spine HISTORY: Trauma and pain 3 views lumbar spine, correlation prior exam 10/18/2021 There is a dextroscoliosis centered at L3, rudimentary ribs noted L1. Lumbar vertebral bodies show st able height, alignment, bone mineralization. Disc spaces are stable. Sclerosis in the posterior eleme nts consistent with facet arthropathy. IMPRESSION: No acute fracture or subluxation. MRI or bone scan could be performed for increased sensi tivity as indicated.
[2022-06-10 11:01] LABS: Appearance,Urine Clear (Clear); Bilirubin,Urine Negative (Negative); Blood,Urine Negative (Negative); Color,Urine Colorless; Glucose,Urine (UA) Negative (Negative); Ketones,Urine Negative (Negative); Leukocyte Esterase,Urine Negative (Negative); Nitrite,Urine Negative (Negative); PH, Urine 6.5 (5.0-8.0); Protein,Urine Negative (Negative); Specific Gravity,Urine 1.005 (1.001-1.035); Urobilinogen,Urine <2.0 mg/dL (<2.0)
[2022-06-10 11:21] LABS: Albumin 4.4 g/dL (3.5-5.0); Calcium 8.9 mg/dL (8.4-10.2); Magnesium 1.9 mg/dL (1.6-2.3); Potassium 4.3 mmol/L (3.5-5.1); Total Bilirubin 0.4 mg/dL (0.2-1.3); Total Protein 7.3 g/dL (6.3-8.2)
[2022-06-10] MEDS ORDERED: HYDROmorphone 0.5 MG/0.5 ML SYRINGE IVP STA (11:24)
[2022-06-10 13:12] VITALS: BP 128/79; PULSE 67; RESP 18; TEMP 98
== END 2022-06-10 13:11 | disposition home or self-care (01) ==
LOC: EC 09:30
DX: W19.XXXA Unspecified fall, initial encounter (principal); S59.901A Unspecified injury of right elbow, initial encounter; Z88.2 Allergy status to sulfonamides; E78.5 Hyperlipidemia, unspecified; E07.9 Disorder of thyroid, unspecified; Z79.899 Other long term (current) drug therapy; Z87.891 Personal history of nicotine dependence
CPT/HCPCS: 99285; 29125; 96374; 96361; 36415; 93005; 80053; 82550; 83735; 84484; 85025; 85610; 85730; 81003; 72100; 73080; 72125; 70450; J1170

== ENCOUNTER → 2022-06-14 | Outpatient (CLI) | payer MEDICARE ==
--- NOTE | 2022-06-14 18:07 | MR ---
EXAMINATION TYPE: MR lumbar spine wo con DATE OF EXAM: 06/14/2022 COMPARISON: CT chest abdomen pelvis 01/26/2022. HISTORY: LUMBAR RADICULOPATHY TECHNIQUE: Multiplanar, multisequence images of the lumbar spine were acquired without IV contrast. Lumbar segments are intact. No paraspinal masses are identified. Conus medullaris has a normal appe arance. Disc desiccation is present at L4-L5 and L5-S1. Rudimentary disc at S1-S2. T12-L1: No herniation, protrusion or disc bulging. No canal stenosis is present. Foramina are paten t bilaterally. L1-L2: No herniation, protrusion or disc bulging. No canal stenosis is present. Foramina are patent bilaterally. L2-L3: No herniation, protrusion or disc bulging. No canal stenosis is present. Foramina are patent bilaterally. L3-L4: No herniation, protrusion or disc bulging. No canal stenosis is present. Foramina are patent bilaterally. L4-L5: Broad-based disc bulge with minimal effacement of the anterior thecal sac. Mild facet arthropa thy bilaterally. Mild bilateral neural foraminal stenosis. L5-S1: Broad-based disc bulge with minimal effacement of the anterior thecal sac. Mild facet arthropa thy bilaterally. Mild bilateral neural foraminal stenosis. IMPRESSION: 1. No disc herniation or significant spinal canal stenosis. 2. Mild degenerative changes of the lumbar spine at L4-L5 and L5-S1. Mild bilateral neural foraminal stenosis at these levels.
== END | disposition home or self-care (01) ==
LOC: RADMRIMAIN 09:54
PROVIDERS: ATTEND Orthopaedic Surgery Orthopaedic Trauma
DX: M47.26 Other spondylosis with radiculopathy, lumbar region (principal); M48.061 Spinal stenosis, lumbar region without neurogenic claudication; M99.73 Connective tissue and disc stenosis of intervertebral foramina of lumbar region
CPT/HCPCS: 72148

== ENCOUNTER 2022-07-27 10:02 | Observation (INO) | payer MEDICARE ==
--- NOTE | 2022-07-27 10:41 | ED ---
General Adult HPI - General Chief complaint: Syncope Stated complaint: Fall,Head injury Source: patient, RN notes reviewed Mode of arrival: wheelchair Limitations: no limitations - History of Present Illness Initial comments: Patient is a pleasant 72-year-old male presenting to the emergency room with her spouse with complaints of a syncopal event earlier today in which she fell to the ground hitting her left hip, left shoulder and head. She is currently on Eliquis for atrial fibrillation. She denies any dizziness prior to the event or prodromal indicator for her syncope. 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 She immediately regained consciousness. She reports that she had a syncopal event approximately 2 months ago as well at that time she had a workup completed that was negative. She does have a loop recorder in place but did not press the alert button when the event occurred. She is complaining of pain in her right shoulder and right hip or she fell along with a mild headache from her fall. She has chronic blurred vision with diplopia to her right eye that is unchanged pre-or post fall. She denies any focal neurological deficits, chest pain, shortness of breath, headache related to trauma, abdominal pain, nausea, vomiting, fevers or chills. She has a past medical history significant for as stated above A. fib, hypertension, hyperlipidemia, migraines and hypothyroidism. - Related Data Home Medications Medication Instructions Recorded Confirmed Levothyroxine Sodium [Synthroid] 75 mcg PO DAILY 02/21/21 07/27/22 Zinc 50 mg PO DAILY 02/21/21 07/27/22 Apixaban [Eliquis] 5 mg PO BID 03/25/21 07/27/22 Bumetanide [Bumex] 1 mg PO DAILY 06/10/22 07/27/22 Cholecalciferol (Vitamin D3) 75 mcg PO DAILY 06/10/22 07/27/22 [Vitamin D3 (3000 Iu)] Metoprolol Tartrate [Lopressor] 50 mg PO BID 06/10/22 07/27/22 NIFEdipine [NIFEdipine ER] 30 mg PO DAILY PRN 06/10/22 07/27/22 Omeprazole [PriLOSEC] 20 mg PO DAILY PRN 06/10/22 07/27/22 Zolpidem Tartrate [Zolpidem 12.5 mg PO HS 06/10/22 07/27/22 Tartrate ER] rOPINIRole HCL [Requip] 4 mg PO HS 06/10/22 07/27/22 Atorvastatin [Lipitor] 20 mg PO HS 07/27/22 07/27/22 HYDROcodone/APAP 7.5-325MG [[place] 1 tab PO TID 07/27/22 07/27/22 7.5-325] Propafenone [Rythmol] 150 mg PO BID 07/27/22 07/27/22 methocarbamoL [Robaxin] 500 mg PO BID 07/27/22 07/27/22 Allergies Allergy/AdvReac Type Severity Reaction Status Date / Time Sulfa (Sulfonamide Allergy Anaphylaxis Verified 07/27/22 10:15 Antibiotics) Review of Systems ROS Statement: Those systems with pertinent positive or pertinent negative responses have been documented in the HPI. ROS Other: All systems not noted in ROS Statement are negative. Past Medical History Past Medical History: Atrial Fibrillation, Hyperlipidemia, Hypertension, Syncope, Thyroid Disorder Additional Past Medical History / Comment(s): hx of migraine headaches, takes flexeril for that History of Any Multi-Drug Resistant Organisms: None Reported Past Surgical History: Section, Hernia Repair, Hysterectomy, Joint Replacement Additional Past Surgical History / Comment(s): cataracts, partial thyroidectomy, breast augmentation, right hip replacement january 2021, debridment on right hip january 2021. Past Anesthesia/Blood Transfusion Reactions: Postoperative Nausea & Vomiting (PONV) Past Psychological History: No Psychological Hx Reported Smoking Status: Former smoker Past Alcohol Use History: Rare Past Drug Use History: None Reported - Past Family History Mother Family Medical History: Cancer, Hypertension, Thyroid Disorder Father Family Medical History: Coronary Artery Disease (CAD), CVA/TIA Brother(s) Additional Family Medical History / Comment(s): history of Factor X General Exam General appearance: alert, in no apparent distress Head exam: Present: normocephalic, other (small hematoma to right upper forehead. ) Course Vital Signs 07/27/22 07/27/22 07/27/22 10:12 12:57 12:59 Temperature 97.9 F Pulse Rate 54 L Pulse Rate [ 56 L Sitting] Pulse Rate [ Standing] Pulse Rate [ 60 Supine] Respiratory 16 Rate Blood Pressure 124/71 Blood Pressure 162/83 [Right Arm Sitting] Blood Pressure [Right Arm Standing] Blood Pressure 157/83 [Right Arm Supine] O2 Sat by Pulse 100 Oximetry 07/27/22 13:01 Temperature Pulse Rate Pulse Rate [ Sitting] Pulse Rate [ 60 Standing] Pulse Rate [ Supine] Respiratory Rate Blood Pressure Blood Pressure [Right Arm Sitting] Blood Pressure 155/90 [Right Arm Standing] Blood Pressure [Right Arm Supine] O2 Sat by Pulse Oximetry Medical Decision Making - Lab Data Result diagrams: 07/27/22 11:03 07/27/22 11:03 Lab Results 07/27/22 07/27/22 07/27/22 Range/Units 11:03 11:03 11:03 WBC 9.1 (3.8-10.6) k/uL RBC 4.60 (3.80-5.40) m/uL Hgb 15.1 (11.4-16.0) gm/dL Hct 45.3 (34.0-46.0) % MCV 98.5 (80.0-100.0) fL MCH 32.9 (25.0-35.0) pg MCHC 33.4 (31.0-37.0) g/dL RDW 13.4 (11.5-15.5) % Plt Count 246 (150-450) k/uL MPV 7.4 Neutrophils % 75 % Lymphocytes % 16 % Monocytes % 6 % Eosinophils % 1 % Basophils % 0 % Neutrophils # 6.9 (1.3-7.7) k/uL Lymphocytes # 1.4 (1.0-4.8) k/uL Monocytes # 0.5 (0-1.0) k/uL Eosinophils # 0.1 (0-0.7) k/uL Basophils # 0.0 (0-0.2) k/uL PT 10.5 (9.0-12.0) sec INR 1.0 (<1.2) APTT 23.0 (22.0-30.0) sec Sodium 140 (137-145) mmol/L Potassium 4.2 (3.5-5.1) mmol/L Chloride 109 H (98-107) mmol/L Carbon Dioxide 22 (22-30) mmol/L Anion Gap 9 mmol/L BUN 28 H (7-17) mg/dL Creatinine 0.87 (0.52-1.04) mg/dL Est GFR (CKD-EPI)AfAm 78 (>60 ml/min/1.73 sqM) Est GFR (CKD-EPI)NonAf 68 (>60 ml/min/1.73 sqM) Glucose 96 (74-99) mg/dL Calcium 9.0 (8.4-10.2) mg/dL Magnesium 2.2 (1.6-2.3) mg/dL Total Bilirubin 0.4 (0.2-1.3) mg/dL AST 32 (14-36) U/L ALT 26 (4-34) U/L Alkaline Phosphatase 68 (38-126) U/L Troponin I (0.000-0.034) ng/mL Total Protein 6.4 (6.3-8.2) g/dL Albumin 3.9 (3.5-5.0) g/dL TSH (0.465-4.680) mIU/L 07/27/22 07/27/22 Range/Units 11:03 11:03 WBC (3.8-10.6) k/uL RBC (3.80-5.40) m/uL Hgb (11.4-16.0) gm/dL Hct (34.0-46.0) % MCV (80.0-100.0) fL MCH (25.0-35.0) pg MCHC (31.0-37.0) g/dL RDW (11.5-15.5) % Plt Count (150-450) k/uL MPV Neutrophils % % Lymphocytes % % Monocytes % % Eosinophils % % Basophils % % Neutrophils # (1.3-7.7) k/uL Lymphocytes # (1.0-4.8) k/uL Monocytes # (0-1.0) k/uL Eosinophils # (0-0.7) k/uL Basophils # (0-0.2) k/uL PT (9.0-12.0) sec INR (<1.2) APTT (22.0-30.0) sec Sodium (137-145) mmol/L Potassium (3.5-5.1) mmol/L Chloride (98-107) mmol/L Carbon Dioxide (22-30) mmol/L Anion Gap mmol/L BUN (7-17) mg/dL Creatinine (0.52-1.04) mg/dL Est GFR (CKD-EPI)AfAm (>60 ml/min/1.73 sqM) Est GFR (CKD-EPI)NonAf (>60 ml/min/1.73 sqM) Glucose (74-99) mg/dL Calcium (8.4-10.2) mg/dL Magnesium (1.6-2.3) mg/dL Total Bilirubin (0.2-1.3) mg/dL AST (14-36) U/L ALT (4-34) U/L Alkaline Phosphatase (38-126) U/L Troponin I <0.012 (0.000-0.034) ng/mL Total Protein (6.3-8.2) g/dL Albumin (3.5-5.0) g/dL TSH 2.990 (0.465-4.680) mIU/L - EKG Data EKG Comments: Sinus bradycardia, possible left atrial enlargement, probable lateral myocardial infarction of indeterminate age, ventricular rate 53 bpm, PA interval 125 ms, QRS duration 107 ms, QT/QTC 415/397 ms, PRT axes 43, 1, 15 - Radiology Data Radiology results: report reviewed, image reviewed Disposition Clinical Impression: Syncope Disposition: ADMITTED IP TO THIS [facility] Condition: Stable Is patient prescribed a controlled substance at d/c from ED?: No Referrals: Sandoval Mckinley MD [Primary Care Provider] - 1-2 days Time of Disposition: 13:26
[2022-07-27 11:24] LABS: Albumin 3.9 g/dL (3.5-5.0); Magnesium 2.2 mg/dL (1.6-2.3); Potassium 4.2 mmol/L (3.5-5.1); Total Bilirubin 0.4 mg/dL (0.2-1.3); Total Protein 6.4 g/dL (6.3-8.2)
[2022-07-27 11:26] LABS: Prothrombin Time 10.5 sec (9.0-12.0)
--- NOTE | 2022-07-27 11:32 | CT ---
EXAMINATION TYPE: CT brain cspine wo con CT DLP: 1281 mGycm, Automated exposure control for dose reduction was used. DATE OF EXAM: 07/27/2022 11:25 AM COMPARISON: CT brain C-spine 06/10/2022. CLINICAL INDICATION:Female, 72 years old with history of syncope; TECHNIQUE: Brain: Multiple axial CT images of the brain were obtained without IV contrast. Cspine: Axial CT images from the skull base to the inferior aspect of T2 we obtained without intraven ous contrast. Coronal and sagittal reformatted images were also reviewed. FINDINGS: Brain: Extra-axial spaces: No abnormal extra-axial fluid collections. Ventricular system: Within normal limits Cerebral parenchyma: No acute intraparenchymal hemorrhage or mass effect. The farrar-white junction is well differentiated. Cerebellum: Unremarkable. Mass effect: No evidence of midline shift. Intracranial vasculature: unremarkable Soft tissues: Normal. Calvarium/osseous structures: No depressed skull fracture. Paranasal sinuses and mastoid air cells: Clear. Visualized orbits: Bilateral aphakia Cervical spine: Fracture: None. Osseous structures: Unremarkable Vertebral alignment: Within normal limits. Spinal canal/Neural Foramina: Disc osteophyte complexes at C6-C7 with at least mild spinal canal sten osis. No evidence for significant neural foraminal stenosis. Neck soft tissues: Prevertebral soft tissues are within normal limits. Other: The airway is patent. Biapical scarring. Centrilobular emphysematous changes. Vascular scleros is. IMPRESSION: No acute intracranial process. No evidence of cervical spine fracture. Mild multilevel degenerative disc disease.
--- NOTE | 2022-07-27 11:34 | XR ---
EXAMINATION TYPE: XR Hip RT and AP Pelvis DATE OF EXAM: 07/27/2022 11:27 AM INDICATION: Patient age:Female; 72 years old; Reason for study: fall.; [facility]. COMPARISON: Right hip radiograph 03/07/2021. TECHNIQUE: The right hip was examined in the frontal and lateral projections and a AP pelvis. FINDINGS: Postsurgical changes from bilateral total hip arthroplasty. Hardware appears intact with ap propriate alignment. No acute fracture or dislocation. Multilevel degenerative changes visualized spi ne. No soft tissue swelling. IMPRESSION: 1. No acute osseous pathology. 2. Postsurgical changes from bilateral total hip arthroplasty. Hardware appears intact.
[2022-07-27 13:07] LABS: Basophils % (A) 0 %; Eosinophils # (A) 0.1 k/uL (0-0.7); Eosinophils % (A) 1 %; HCT 45.3 % (34.0-46.0); HGB 15.1 gm/dL (11.4-16.0); Lymphocytes # (A) 1.4 k/uL (1.0-4.8); Lymphocytes % (A) 16 %; MCH 32.9 pg (25.0-35.0); MCHC 33.4 g/dL (31.0-37.0); MCV 98.5 fL (80.0-100.0); Mean Platelet Volume 7.4; Monocytes # (A) 0.5 k/uL (0-1.0); Monocytes % (A) 6 %; Neutrophils # (A) 6.9 k/uL (1.3-7.7); Neutrophils % (A) 75 %; Platelet Count 246 k/uL (150-450); RDW 13.4 % (11.5-15.5); WBC 9.1 k/uL (3.8-10.6)
[2022-07-27] MEDS ORDERED: NALOXONE 0.4 MG/ML 1 ML VIAL IV PRN (13:26)
[2022-07-27] MEDS ORDERED: PANTOPRAZOLE 40 MG TABLET PO PRN (14:41)
[2022-07-27] MEDS ORDERED: methocarbamoL 500 MG TAB PO PRN (14:41)
[2022-07-27] MEDS ORDERED: ZOLPIDEM 5 MG TAB PO PRN (14:41)
[2022-07-27] MEDS ORDERED: ACETAMINOPHEN TAB 325 MG TAB PO PRN (14:49)
--- NOTE | 2022-07-27 14:53 | P.HPIM ---
History of Present Illness H&P Date: 07/27/22 Patient is a 72-year-old female with PMH of paroxysmal atrial fibrillation, congestive heart failure with unknown EF, hypertension, dyslipidemia, chronic lower back pain, hypothyroidism, GERD, restless leg syndrome and insomnia that presents the ED after syncopal episode. Her is at bedside contributing to her history. Patient reports waking up last night to use the washroom. As she was walking to the washroom, she reports having a syncopal episode. There was noone to witness her syncopal episode. She does not remember the events proceeding or preceding her syncope. Patient reports multiple syncopal episodes in the past, last one was a year ago. Patient denies any prodrome prior to her syncopal episodes. She denies any auras, palpitations, lightheadedness, nausea vomiting or shortness of breath prior to her syncope. She denies any tongue biting, shaking or bladder or bowel incontinence during her syncopal episodes. She is usually confused for a brief period of time after regaining consciousness. She denies any history of CAD or CVA. 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 She currently has a loop recorder which has shown no abnormalities according to her. She currently reports feeling well. She denies any symptoms at the time of her interview. She denies any lower extremity edema, fever or chills, cough or chest pain, changes in urination or bowel habits. No changes in appetite or weight. She denies any lightheadedness, numbness/weakness/tingling of extremities. In the ED, her vital signs are stable except for bradycardia with heart rate in the 50s. Orthostatic vitals were negative. CBC was unremarkable. INR was 1.0. CMP showed chloride of 109, BUN of 28. Troponin was less than 0.012 with EKG showing sinus bradycardia with ventricular rate of 53 and T-wave inversions. CT head and C-spine showed no acute intracranial process, mild multilevel DJD. Hip x-ray was negative for acute process. Patient is admitted under observation s tatus for syncopal episode with cardiology consultation. Review of systems is performed and is negative except above. General: [non toxic], [no distress], [appears at stated age] Derm: [warm], [dry] Head: [atraumatic], [normocephalic], [symmetric] Eyes: [EOMI], [no lid lag], [anicteric sclera] Mouth: [no lip lesion], [mucus membranes moist] Cardiovascular: [Bradycardia], [no murmur], [positive posterior tibial pulse bilateral], Lungs: [CTA bilateral], [no rhonchi, no rales] , [no accessory muscle use] Abdominal: [soft], [ nontender to palpation], [no guarding], [no appreciable organomegaly] Ext: [no gross muscle atrophy], [no edema], [no contractures] Neuro: [ CN II-XI grossly intact], [no focal neuro deficits] Psych: [Alert], [oriented], [appropriate affect] #Syncopal episode #Sinus bradycardia #History of atrial fibrillation #Elevated BUN Chronic conditions: Chronic lower back pain, dyslipidemia, congestive heart failure, GERD, restless leg syndrome, insomnia Patient presents with syncopal episode with no prodrome. Initial troponin is negative with EKG showing sinus bradycardia with T wave inversions. She follows a [facility] [facility] out of [facility]. Orthostats is negative. Troponins will be trended and ACS will be ruled out. Patient be placed on telemetry monitoring. Echocardiogram will be ordered. We will hold AV rita blockers for now (Diltiazem and Metoprolol). PT and OT will be consulted to work with this patient. Patient will be placed on fall precautions. Cardiology will be consulted for further management of this patient. Restart propafenone for history of atrial fibrillation. Continue Eliquis for stroke prevention. Elevated BUN likely due to use of Bumex at home. Restart [place] as needed for chronic lower back pain. Restart Lipitor for history of dyslipidemia. Restart Bumex. Restart omeprazole for history of GERD. Restart ropinirole for history of loss. Zolpidem as needed for insomnia. DVT prophylaxis: [Eliquis] Discussed with: [Patient, , ED physician] Anticipated discharge: [1-2 days] Anticipated discharge place: [Home] A total of [35] minutes was spent on the care of this complex patient more than 50% of the time was spent in counseling and care coordination. Patient names her decision maker if she can't make decisions for herself. Patient would like to be full code. Past Medical History Past Medical History: Atrial Fibrillation, Hyperlipidemia, Hypertension, Syncop e, Thyroid Disorder Additional Past Medical History / Comment(s): hx of migraine headaches, takes flexeril for that History of Any Multi-Drug Resistant Organisms: None Reported Past Surgical History: Section, Hernia Repair, Hysterectomy, Joint Replacement Additional Past Surgical History / Comment(s): cataracts, partial thyroidectomy, breast augmentation, right hip replacement january 2021, debridment on right hip january 2021. Past Anesthesia/Blood Transfusion Reactions: Postoperative Nausea & Vomiting (PONV) Past Psychological History: No Psychological Hx Reported Smoking Status: Former smoker Past Alcohol Use History: Rare Past Drug Use History: None Reported - Past Family History Mother Family Medical History: Cancer, Hypertension, Thyroid Disorder Father Family Medical History: Coronary Artery Disease (CAD), CVA/TIA Brother(s) Additional Family Medical History / Comment(s): history of Factor X Medications and Allergies Home Medications Medication Instructions Recorded Confirmed Type Levothyroxine Sodium [Synthroid] 75 mcg PO DAILY 02/21/21 07/27/22 History Zinc 50 mg PO DAILY 02/21/21 07/27/22 History Apixaban [Eliquis] 5 mg PO BID 03/25/21 07/27/22 History Bumetanide [Bumex] 1 mg PO DAILY 06/10/22 07/27/22 History Cholecalciferol (Vitamin D3) 75 mcg PO DAILY 06/10/22 07/27/22 History [Vitamin D3 (3000 Iu)] Metoprolol Tartrate [Lopressor] 50 mg PO BID 06/10/22 07/27/22 History NIFEdipine [NIFEdipine ER] 30 mg PO DAILY PRN 06/10/22 07/27/22 History Omeprazole [PriLOSEC] 20 mg PO DAILY PRN 06/10/22 07/27/22 History Zolpidem Tartrate [Zolpidem 12.5 mg PO HS 06/10/22 07/27/22 History Tartrate ER] rOPINIRole HCL [Requip] 4 mg PO HS 06/10/22 07/27/22 History Atorvastatin [Lipitor] 20 mg PO HS 07/27/22 07/27/22 History HYDROcodone/APAP 7.5-325MG [[place] 1 tab PO TID 07/27/22 07/27/22 History 7.5-325] Propafenone [Rythmol] 150 mg PO BID 07/27/22 07/27/22 History methocarbamoL [Robaxin] 500 mg PO BID 07/27/22 07/27/22 History Allergies Allergy/AdvReac Type Severity Reaction Status Date / Time Sulfa (Sulfonamide Allergy Anaphylaxis Verified 07/27/22 10:15 Antibiotics) Physical Exam Vitals: Vital Signs Temp Pulse Pulse Pulse Pulse Resp BP 07/27/22 13:01 60 07/27/22 12:59 56 L 07/27/22 12:57 60 07/27/22 10:12 97.9 F 54 L 16 124/71 BP BP BP Pulse Ox 07/27/22 13:01 155/90 07/27/22 12:59 162/83 07/27/22 12:57 157/83 07/27/22 10:12 100 Intake and Output 07/26/22 07/27/22 07/27/22 22:59 06:59 14:59 Other: Weight 60.781 kg Results CBC & Chem 7: 07/27/22 11:03 07/27/22 11:03 Labs: Abnormal Lab Results - Last 24 Hours (Table) 07/27/22 Range/Units 11:03 Chloride 109 H (98-107) mmol/L BUN 28 H (7-17) mg/dL
[2022-07-27] MEDS ORDERED: MORPHINE SULFATE 2 MG/ML SYRINGE IVP STA (15:15)
[2022-07-27] MEDS: rOPINIRole HCL 4 MG TABLET PO SCH (21:58)
[2022-07-27] MEDS: PROPAFENONE 150 MG TAB PO SCH (21:58)
[2022-07-27] MEDS: HYDROcodone/APAP 7.5-325MG 1 EACH TAB PO PRN (21:58)
[2022-07-27] MEDS: ATORVASTATIN 20 MG TAB PO SCH (21:58)
[2022-07-27] MEDS: APIXABAN 5 MG TAB PO SCH (21:58)
[2022-07-28] MEDS: LEVOTHYROXINE 75 MCG TAB PO SCH (05:41)
[2022-07-28] MEDS: HYDROcodone/APAP 7.5-325MG 1 EACH TAB PO PRN ×2 (09:12→21:38)
[2022-07-28] MEDS: APIXABAN 5 MG TAB PO SCH ×2 (09:13→21:39)
[2022-07-28] MEDS: PROPAFENONE 150 MG TAB PO SCH ×2 (09:13→21:38)
[2022-07-28] MEDS: BUMETANIDE 1 MG TAB PO SCH (09:49)
--- NOTE | 2022-07-28 10:53 | P.PN ---
Subjective Progress Note Date: 07/28/22 Patient was seen and examined. No acute events overnight. Patient reports no lightheadedness. No chest pain, shortness breath or palpitations. No syncopal episodes. She has no complaints today. General: non toxic, no distress, appears at stated age Derm: warm, dry Head: atraumatic, normocephalic, symmetric Eyes: EOMI, no lid lag, anicteric sclera Mouth: no lip lesion, mucus membranes moist Cardiovascular: Bradycardia, no murmur Lungs: CTA bilateral, no rhonchi, no rales , no accessory muscle use Ext: no gross muscle atrophy, no edema, no contractures Neuro: no focal neuro deficits Psych: Alert, oriented, appropriate affect #Syncopal episode #Sinus bradycardia #History of atrial fibrillation #Elevated BUN Chronic conditions: Chronic lower back pain, dyslipidemia, congestive heart failure, GERD, restless leg syndrome, insomnia Patient presents with syncopal episode with no prodrome. Initial troponin is negative with EKG showing sinus bradycardia with T wave inversions. 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 Orthostats is negative. Troponins have been trended and ACS has been ruled out. Patient be placed on telemetry monitoring. Echocardiogram is pending. We will hold AV rita blockers for now (Diltiazem and Metoprolol). PT and OT will be consulted to work with thi s patient. Patient will be placed on fall precautions. Loop recorder interrogation ordered. Cardiology will be consulted for further management of this patient. Continue propafenone for history of atrial fibrillation. Continue Eliquis for stroke prevention. Elevated BUN likely due to use of Bumex at home. Restart [place] as needed for chronic lower back pain. Restart Lipitor for history of dyslipidemia. Restart Bumex. Restart omeprazole for history of GERD. Restart ropinirole for history of loss. Zolpidem as needed for insomnia. DVT prophylaxis: Eliquis Discussed with: Patient, nurse Anticipated discharge: 1-[address]: Home Objective - Vital Signs Vital signs: Vital Signs Temp 98.0 F 07/28/22 07:00 Pulse 60 07/28/22 07:00 Resp 18 07/28/22 07:00 BP 171/89 07/28/22 07:00 Pulse Ox 99 07/28/22 07:00 FiO2 Intake & Output 07/27/22 07/28/22 07/28/22 18:59 06:59 18:59 Weight 60.781 kg 60.781 kg Other: # Voids 2 1 - Labs CBC & Chem 7: 07/27/22 11:03 07/27/22 11:03 Labs: Abnormal Lab Results - Last 24 Hours (Table) 07/27/22 Range/Units 11:03 Chloride 109 H (98-107) mmol/L BUN 28 H (7-17) mg/dL
--- NOTE | 2022-07-28 11:37 | P.CRDCN ---
History of Present Illness Consult date: 07/28/22 Consult reason: sycope History of present illness: The patient is a 72-year-old female with past medical history of recurrent syncope, who presented to the emergency room after experiencing an additional syncopal spell. She states she got up to go to the bathroom, when she collapsed in her bathroom. She states there was no prodromal symptoms. She is unsure of how long she was unconscious as this was not witnessed. The patient states that she was not ill or had any change in health status leading up to the syncopal episode. She states she previously [facility] with [facility], however has recently been following at [facility] in [place], however there has been no found cause. She does have a loop monitor implant. DIAGNOSTICS: Sinus bradycardia with normal PA, narrow QRS and QT interval less than [address] shows no acute process Hip/pelvis CT shows no acute osseous pathology Labs data: WBC 9.1, hemoglobin 15.1, hematocrit 45.3, platelet 246, sodium 140, potassium 4.2, BUN 20, creatinine 0.87, troponins negative 3, magnesium 2.2, AST 32, ALT 26, TSH 2.99 PAST MEDICAL HISTORY: Recurrent syncope, status post loop implant, paroxysmal atrial fibrillation, hypothyroidism REVIEW OF SYSTEMS: No fever or chills. No cough or expectoration. No diaphoresis. Patient denies headache, dizziness, blurred vision, double vision. Patient denies any stomach discomfort. No nausea, vomiting. No hematochezia. No hematemesis. Denies any black stools or blood in his stools. Denies dysuria or hematuria. No muscle weakness or numbness. No chest pain or chest pressure. No dyspnea. PHYSICAL EXAMINATION: This is a 72-year-old female in no apparent distress at the time of my examination. HEENT: Head is atraumatic, normocephalic. Pupils are equal, round. Sclerae anicteric. Conjunctivae are clear. Mucous membranes of the mouth are moist. Neck is supple. There is no jugular venous distention. No carotid bruit is heard. CHEST EXAMINATION: Lungs are clear to auscultation. No chest wall tenderness is noted on palpation or with deep breathing. HEART EXAMINATION: Heart regular rate and rhythm. S1, S2 heard. No murmurs, gallops or rub. ABDOMEN: Soft, nontender. Bowel sounds are heard. No organomegaly noted. EXTREMITIES: 2+ peripheral pulses with no evidence of peripheral edema and no calf tenderness noted. NEUROLOGIC EXAMINATION: Patient is awake, alert and oriented x3. FINAL ASSESSMENT AND PLAN: Syncope and collapse, recurrent Paroxysmal atrial fibrillation, maintaining sinus rhythm on propafenone History of hypothyroidism, normal TSH History of dyslipidemia PLAN: Orthostatic blood pressure readings Interrogation of loop monitor to assess for arrhythmias Further recommendations be placed on clinical course I am dictating on behalf of Dr Diego Titus's history/physical and assess ment/plan. Past Medical History Past Medical History: Atrial Fibrillation, Hyperlipidemia, Hypertension, Syncope, Thyroid Disorder Additional Past Medical History / Comment(s): hx of migraine headaches, takes flexeril for that History of Any Multi-Drug Resistant Organisms: None Reported Past Surgical History: Section, Hernia Repair, Hysterectomy, Joint Replacement Additional Past Surgical History / Comment(s): cataracts, partial thyroidectomy, breast augmentation, right hip replacement january 2021, debridment on right hip january 2021. Past Anesthesia/Blood Transfusion Reactions: Postoperative Nausea & Vomiting (PONV) Past Psychological History: No Psychological Hx Reported Smoking Status: Former smoker Past Alcohol Use History: Rare Additional Past Alcohol Use History / Comment(s): smoked for a few years as a teen, less than 1ppd Past Drug Use History: None Reported - Past Family History Mother Family Medical History: Cancer, Hypertension, Thyroid Disorder Father Family Medical History: Coronary Artery Disease (CAD), CVA/TIA Brother(s) Additional Family Medical History / Comment(s): history of Factor X Medications and Allergies Home Medications Medication Instructions Recorded Confirmed Type Levothyroxine Sodium [Synthroid] 75 mcg PO DAILY 02/21/21 07/27/22 History Zinc 50 mg PO DAILY 02/21/21 07/27/22 History Apixaban [Eliquis] 5 mg PO BID 03/25/21 07/27/22 History Bumetanide [Bumex] 1 mg PO DAILY 06/10/22 07/27/22 History Cholecalciferol (Vitamin D3) 75 mcg PO DAILY 06/10/22 07/27/22 History [Vitamin D3 (3000 Iu)] Metoprolol Tartrate [Lopressor] 50 mg PO BID 06/10/22 07/27/22 History NIFEdipine [NIFEdipine ER] 30 mg PO DAILY PRN 06/10/22 07/27/22 History Omeprazole [PriLOSEC] 20 mg PO DAILY PRN 06/10/22 07/27/22 History Zolpidem Tartrate [Zolpidem 12.5 mg PO HS 06/10/22 07/27/22 History Tartrate ER] rOPINIRole HCL [Requip] 4 mg PO HS 06/10/22 07/27/22 History Atorvastatin [Lipitor] 20 mg PO HS 07/27/22 07/27/22 History HYDROcodone/APAP 7.5-325MG [[place] 1 tab PO TID 07/27/22 07/27/22 History 7.5-325] Propafenone [Rythmol] 150 mg PO BID 07/27/22 07/27/22 History methocarbamoL [Robaxin] 500 mg PO BID 07/27/22 07/27/22 History Allergies Allergy/AdvReac Type Severity Reaction Status Date / Time Sulfa (Sulfonamide Allergy Anaphylaxis Verified 07/27/22 10:15 Antibiotics) Physical Exam Vitals: Vital Signs Temp Pulse Pulse Pulse Resp BP BP 07/28/22 07:00 98.0 F 60 18 171/89 07/28/22 03:26 98.4 F 76 15 07/27/22 22:46 98.6 F 62 15 07/27/22 18:41 97.8 F 65 18 150/73 07/27/22 13:01 60 155/90 07/27/22 12:59 56 L 162/83 07/27/22 12:57 60 BP Pulse Ox 07/28/22 07:00 99 07/28/22 03:26 135/84 96 07/27/22 22:46 150/79 97 07/27/22 18:41 98 07/27/22 13:01 07/27/22 12:59 07/27/22 12:57 157/83 Intake and Output 07/27/22 07/28/22 07/28/22 22:59 06:59 14:59 Other: # Voids 2 2 1 Weight 60.781 kg Results 07/27/22 11:03 07/27/22 11:03 Cardiac Enzymes 07/27/22 07/27/22 07/27/22 Range/Units 11:03 19:09 23:04 Troponin I <0.012 <0.012 <0.012 (0.000-0.034) ng/mL CBC 07/27/22 Range/Units 11:03 WBC 9.1 (3.8-10.6) k/uL RBC 4.60 (3.80-5.40) m/uL Hgb 15.1 (11.4-16.0) gm/dL Hct 45.3 (34.0-46.0) % Plt Count 246 (150-450) k/uL Current Medications Generic Name Dose Route Start Last Admin Trade Name Freq PRN Reason Stop Dose Admin Acetaminophen 650 mg 07/27/22 14:49 07/28/22 08:01 Acetaminophen Tab 325 Mg Tab PO 650 mg Q6HR PRN Administration Mild Pain or Fever > 100.5 Hydrocodone Bitart/Acetaminophen 1 each 07/27/22 14:41 07/28/22 09:12 Hydrocodone/Apap 7.5-325mg 1 Each Tab PO 1 each TID PRN Administration Breakthrough Pain Apixaban 5 mg 07/27/22 21:00 07/28/22 09:13 Apixaban 5 Mg Tab PO 5 mg BID MARIEL Administration Protocol Atorvastatin Calcium 20 mg 07/27/22 21:00 07/27/22 21:58 Atorvastatin 20 Mg Tab PO 20 mg HS MARIEL Administration Bumetanide 1 mg 07/28/22 09:00 07/28/22 09:49 Bumetanide 1 Mg Tab PO 1 mg DAILY MARIEL Administration Levothyroxine Sodium 75 mcg 07/28/22 06:30 07/28/22 05:41 Levothyroxine 75 Mcg Tab PO 75 mcg 0630 MARIEL Administration Methocarbamol 500 mg 07/27/22 14:41 Methocarbamol 500 Mg Tab PO BID PRN Mild Spasms Naloxone HCl 0.2 mg 07/27/22 13:26 Naloxone 0.4 Mg/Ml 1 Ml Vial IV Q2M PRN Opioid Reversal Pantoprazole Sodium 40 mg 07/27/22 14:41 Pantoprazole 40 Mg Tablet PO DAILY PRN gerd Propafenone HCl 150 mg 07/27/22 21:00 07/28/22 09:13 Propafenone 150 Mg Tab PO 150 mg BID MARIEL Administration Ropinirole HCl 4 mg 07/27/22 21:00 07/27/22 21:58 Ropinirole Hcl 4 Mg Tablet PO 4 mg HS MARIEL Administration Zolpidem Tartrate 5 mg 07/27/22 14:41 Zolpidem 5 Mg Tab PO HS PRN Insomnia Intake and Output 07/27/22 07/28/22 07/28/22 22:59 06:59 14:59 Other: # Voids 2 2 1 Weight 60.781 kg 07/27/22 11:03 07/27/22 11:03
[2022-07-28] MEDS: rOPINIRole HCL 4 MG TABLET PO SCH (21:38)
[2022-07-28] MEDS: ATORVASTATIN 20 MG TAB PO SCH (21:39)
[2022-07-29] MEDS: LEVOTHYROXINE 75 MCG TAB PO SCH (05:55)
[2022-07-29 07:54] VITALS: BP 168/90; PULSE 74; RESP 18; TEMP 98
[2022-07-29] MEDS: APIXABAN 5 MG TAB PO SCH (09:39)
[2022-07-29] MEDS: HYDROcodone/APAP 7.5-325MG 1 EACH TAB PO PRN (09:40)
[2022-07-29] MEDS: PROPAFENONE 150 MG TAB PO SCH (09:40)
[2022-07-29] MEDS: BUMETANIDE 1 MG TAB PO SCH (09:40)
--- NOTE | 2022-07-29 10:44 | P.PN ---
Subjective The is a 72-year-old female with past medical history of recurrent syncope, status post loop recorder implantation, paroxysmal atrial fibrillation on Eliquis. Follows with a riveter portable machine in [facility]. Patient presented to the emergency room after experiencing an additional syncopal spell. She states she got up to go to the bathroom, when she collapsed in her bathroom. She states there was no prodromal symptoms. She is unsure of how long she was unconscious as this was not witnessed. The patient states that she was not ill or had any change in health status leading up to the syncopal episode. DIAGNOSTICS: Sinus bradycardia with normal MI, narrow QRS and QT interval less than [address] shows no acute process Hip/pelvis CT shows no acute osseous pathology Labs data on admission WBC 9.1, hemoglobin 15.1, hematocrit 45.3, platelet 246, sodium 140, potassium 4.2, BUN 20, creatinine 0.87, troponins negative 3, magnesium 2.2, AST 32, ALT 26, TSH 2.99 Cardiac catheterization 03/27/2021 revealed normal coronary arteries 07/29 Patient seen and examined at bedside, no distress. No further episodes of syncope. Telemetry is maintaining sinus mechanism with heart rates in the 70s80s. Loop recorder was interrogated which revealed no evidence of acute arrhythmia explaining patient's symptoms. She has had episodes of tachycardia which are documented in July 2021. PHYSICAL EXAMINATION: This is a 72-year-old female in no apparent distress at the time of my examination. HEENT: Head is atraumatic, normocephalic. Sclerae anicteric. Mucous membranes of the mouth are moist. Neck is supple. There is no jugular venous distention. CHEST EXAMINATION: Lungs are clear to auscultation. No chest wall tenderness is noted on palpation or with deep breathing. HEART EXAMINATION: Heart regular rate and rhythm. S1, S2 heard. No murmurs, gallops or rub. ABDOMEN: Soft, nontender. Bowel sounds are heard. N EXTREMITIES: 2+ peripheral pulses with no evidence of peripheral edema and no calf tenderness noted. NEUROLOGIC EXAMINATION: Patient is awake, alert and oriented x3. FINAL ASSESSMENT AND PLAN: Syncope and collapse, recurrent, unclear etiology Paroxysmal atrial fibrillation, maintaining sinus rhythm on propafenone, anticoagulation with Eliquis History of hypothyroidism, normal TSH History of dyslipidemia PLAN: Orthostatic blood pressure readings were negative Interrogation of loop monitor revealed sinus rhythm with no significant arrhythmias, only reported with episodes tachycardia. From cardiology perspective, no further inpatient workup indicated at this time. Recommend follow-up with her primary riveter portable machine within 12 weeks Nurse practitioner note has been reviewed by physician. Signing provider agrees with the documented findings, assessment, and plan of care. Objective - Vital Signs Vital signs: Vital Signs Temp 98.0 F 07/29/22 07:35 Pulse 74 07/29/22 07:35 Resp 18 07/29/22 07:35 BP 168/90 07/29/22 07:35 Pulse Ox 99 07/29/22 07:35 FiO2 Intake & Output 07/28/22 07/29/22 07/29/22 18:59 06:59 18:59 Intake Total 118 240 Balance 118 240 Intake: Oral 118 240 Other: Voiding Method Toilet # Voids 4 2 - Labs CBC & Chem 7: 07/27/22 11:03 07/27/22 11:03
--- NOTE | 2022-07-29 12:30 | P.DS ---
Providers Date of admission: 07/27/22 14:49 Expected date of discharge: 07/29/22 Attending physician: Roberto Fried MD Consults: 07/27/22 14:50 Consult Physician Routine Consulting Provider: Andrew Clark Consult Reason/Comments: Syncope Do you want consulting provider notified?: Yes Primary care physician: Sandoval Mckinley MD Hospital Course: 72-year-old female with PMH of paroxysmal atrial fibrillation, congestive heart failure with unknown EF, hypertension, dyslipidemia, chronic lower back pain, hypothyroidism, GERD, restless leg syndrome and insomnia that presents the ED after syncopal episode. She was waking up to use the washroom. As she was walking to the washroom, she reports having a syncopal episode. There was no one to witness her syncopal episode. She does not remember the events proceeding or preceding her syncope. Patient reports multiple syncopal episodes in the past, first one was a year and a half ago. She had 4 episodes over the past 4 months. Patient denies any prodrome prior to her syncopal episodes. She denies any auras, palpitations, lightheadedness, nausea vomiting or shortness of breath prior to her syncope. She denies any tongue biting, shaking or bladder or bowel incontinence during her syncopal episodes. She is usually confused for a brief period of time after regaining consciousness. No tongue biting, shaking, lightheadedness, numbness/weakness/tingling of extremities. She denies any history of CAD or CVA. 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 She currently has a loop recorder which has shown no abnorm alities according to her. In the ED, her vital signs are stable except for bradycardia with heart rate in the 50s. Orthostatic vitals were negative. CBC was unremarkable. INR was 1.0. CMP showed chloride of 109, BUN of 28. Troponin was less than 0.012 with EKG showing sinus bradycardia with ventricular rate of 53 and T-wave inversions. CT head and C-spine showed no acute intracranial process, mild multilevel DJD. Hip x-ray was negative for acute process. Patient was admitted under observation status for syncopal episode with cardiology consultation. Patient was admitted, was monitored on telemetry. She cardiology evaluated her, the loop recorder was checked and she was only found to have some intermittent tachycardia which could not explain her symptoms. Echocardiogram was checked, patient was cleared by cardiology for discharge. She did not have any episodes of passing out during the hospitalization.. About a year ago patient was admitted for the same thing, she was seen by neurology at that time, she had an EEG that was negative. MRI could not be done because of the presence of the loop recorder. I advised patient to follow up with neurology in the office. May be the loop recorder could be removed for her to have an MRI. Patient Condition at Discharge: Stable Plan - Discharge Summary New Discharge Prescriptions: Continue Levothyroxine Sodium [Synthroid] 75 mcg PO DAILY Cholecalciferol (Vitamin D3) [Vitamin D3 (3000 Iu)] 75 mcg PO DAILY Metoprolol Tartrate [Lopressor] 50 mg PO BID Zolpidem Tartrate [Zolpidem Tartrate ER] 12.5 mg PO HS Atorvastatin [Lipitor] 20 mg PO HS Propafenone [Rythmol] 150 mg PO BID Zinc 50 mg PO DAILY Apixaban [Eliquis] 5 mg PO BID rOPINIRole HCL [Requip] 4 mg PO HS Omeprazole [PriLOSEC] 20 mg PO DAILY PRN PRN Reason: gerd Bumetanide [BUMEX] 1 mg PO DAILY NIFEdipine [NIFEdipine ER] 30 mg PO DAILY PRN PRN Reason: BP >140 methocarbamoL [Robaxin] 500 mg PO BID HYDROcodone/APAP 7.5-325MG [[place] 7.5-325] 1 tab PO TID Discharge Medication List Levothyroxine Sodium [Synthroid] 75 mcg PO DAILY 02/21/21 [History] Zinc 50 mg PO DAILY 02/21/21 [History] Apixaban [Eliquis] 5 mg PO BID 03/25/21 [History] Bumetanide [BUMEX] 1 mg PO DAILY 06/10/22 [History] Cholecalciferol (Vitamin D3) [Vitamin D3 (3000 Iu)] 75 mcg PO DAILY 06/10/22 [History] Metoprolol Tartrate [Lopressor] 50 mg PO BID 06/10/22 [History] NIFEdipine [NIFEdipine ER] 30 mg PO DAILY PRN 06/10/22 [History] Omeprazole [PriLOSEC] 20 mg PO DAILY PRN 06/10/22 [History] Zolpidem Tartrate [Zolpidem Tartrate ER] 12.5 mg PO HS 06/10/22 [History] rOPINIRole HCL [Requip] 4 mg PO HS 06/10/22 [History] Atorvastatin [Lipitor] 20 mg PO HS 07/27/22 [History] HYDROcodone/APAP 7.5-325MG [Avella 7.5-325] 1 tab PO TID 07/27/22 [History] Propafenone [Rythmol] 150 mg PO BID 07/27/22 [History] methocarbamoL [Robaxin] 500 mg PO BID 07/27/22 [History] Follow up Appointment(s)/Referral(s): Sandoval Mckinley MD [Primary Care Provider] - 1-2 days
--- NOTE | 2022-07-30 09:52 | CA ---
Transthoracic Echo Report Name: Marcia Paiz Age: 72 Gender: F : 1950 Exam Date: 07/29/2022 11:19 Exam Location: [facility] Ht (in): 66 Wt (lb): 134 Ordering Physician: Roberto Fried MD Attending/Referring Phys: Fibreglass Gun Hand Halle Tineo RDCS Procedure CPT: Indications: Syncope Cardiac Hx: Technical Quality: Fair Contrast 1: Total Dose (mL): Contrast 2: Total Dose (mL): MEASUREMENTS (Male / Female) Normal Values 2D ECHO LV Diastolic Diameter PLAX 3.4 cm 4.2 - 5.9 / 3.9 - 5.3 cm LV Systolic Diameter PLAX 2.4 cm IVS Diastolic Thickness 1.2 cm 0.6 - 1.0 / 0.6 - 0.9 cm LVPW Diastolic Thickness 1.5 cm 0.6 - 1.0 / 0.6 - 0.9 cm LV Relative Wall Thickness 0.8 RV Internal Dim ED PLAX 2.0 cm LA Volume 55.2 cm??? 18 - 58 / 22 - 52 cm??? M-MODE Aortic Root Diameter MM 2.7 cm LA Systolic Diameter MM 3.9 cm LA Ao Ratio MM 1.4 AV Cusp Separation MM 1.5 cm DOPPLER AV Peak Velocity 135.4 cm/s AV Peak Gradient 7.3 mmHg AI Peak Velocity 375.4 cm/s AI Peak Gradient 56.4 mmHg AI Pressure Half Time 530.1 ms LVOT Peak Velocity 121.3 cm/s LVOT Peak Gradient 5.9 mmHg MV Area PHT 3.4 cm??? Mitral E Point Velocity 52.2 cm/s Mitral A Point Velocity 70.6 cm/s Mitral E to A Ratio 0.7 MV Deceleration Time 220.0 ms TR Peak Velocity 245.5 cm/s TR Peak Gradient 24.1 mmHg Right Ventricular Systolic Press 28.7 mmHg FINDINGS Left Ventricle Mildly increased left ventricular wall thickness. Normal left ventricular systolic function with no obvious regional wall motion abnormalities. Left ventricular ejection fraction is estimated at 55-60 %. Normal left ventricular diastolic filling pattern. Right Ventricle Normal right ventricular size and function. Right ventricular systolic pressure within normal limits. Right Atrium Normal right atrial size. Left Atrium Mildly increased left atrial volume. No evidence for an atrial septal defect. Mitral Valve Structurally normal mitral valve. Structurally normal mitral valve. No mitral stenosis, regurgitation or prolapse. Aortic Valve Trileaflet aortic valve. Trace aortic regurgitation. Tricuspid Valve Structurally normal tricuspid valve. Mild tricuspid regurgitation. Pulmonic Valve Structurally normal pulmonic valve. Pericardium No pericardial effusion. Aorta Normal size aortic root and proximal ascending aorta. CONCLUSIONS Normal LV size and systolic function. No significant abnormality in the Doppler exam. No pericardial effusion Previewed by: Dr. Isidra Mirza MD (Electronically Signed) Final Date: 30 July 2022 09:51
== END 2022-07-29 19:00 ==
LOC: EC 10:02 → 6NMEDSUR 14:49
PROVIDERS: ADMIT Family Medicine; ATTEND Family Medicine
DX: R55 Syncope and collapse (principal); R94.4 Abnormal results of kidney function studies; R00.1 Bradycardia, unspecified; I48.0 Paroxysmal atrial fibrillation; E78.5 Hyperlipidemia, unspecified; G43.909 Migraine, unspecified, not intractable, without status migrainosus; E89.0 Postprocedural hypothyroidism; I11.0 Hypertensive heart disease with heart failure; I50.9 Heart failure, unspecified; M54.50 Low back pain, unspecified; G89.29 Other chronic pain; K21.9 Gastro-esophageal reflux disease without esophagitis; G25.81 Restless legs syndrome; G47.00 Insomnia, unspecified; Z79.01 Long term (current) use of anticoagulants; Z79.890 Hormone replacement therapy; Z79.899 Other long term (current) drug therapy; Z88.2 Allergy status to sulfonamides; Z96.641 Presence of right artificial hip joint; Z87.891 Personal history of nicotine dependence; Z82.49 Family history of ischemic heart disease and other diseases of the circulatory system; Z82.3 Family history of stroke; Z83.49 Family history of other endocrine, nutritional and metabolic diseases
CPT/HCPCS: 36415; 93005; 93306; 97162; 97166; 80053; 84443; 83735; 84484; 85025; 85610; 85730; 73502; 72125; 70450; G0378 ×3; J2270

== ENCOUNTER → 2022-11-15 | Outpatient (CLI) | payer MEDICARE ==
[2022-11-15 23:58] LABS: INR 0.86 (0.90-1.11); Prothrombin Time 9.8 sec (9.9-11.9)
[2022-11-16 00:22] LABS: HGB 14.6 g/dL (12.0-15.0); MCH 32.3 pg (27.0-32.0); MCHC 32.4 g/dL (32.0-37.0); MCV 99.6 fL (80.0-97.0); Mean Platelet Volume 10.1 fL (9.5-12.2); NRBC Per 100 WBC 0 /100 WBCS (0.0-0.0); Platelet Count 269 X 10*3/uL (140-440); RBC 4.52 X 10*6/uL (4.10-5.20); RDW 13.4 % (11.5-14.5); WBC 8.16 X 10*3/uL (4.50-10.00)
[2022-11-16 00:32] LABS: African American GFR (CKD) 46.4 (60.0-200.0); Anion Gap 10.4 mmol/L (10.00-18.00); Blood Urea Nitrogen 36.9 mg/dL (9.0-27.0); Potassium 4.3 mmol/L (3.5-5.5)
== END | disposition home or self-care (01) ==
LOC: LABMAIN 15:08
PROVIDERS: ATTEND Internal Medicine
DX: Z01.812 Encounter for preprocedural laboratory examination (principal)
CPT/HCPCS: 80051; 82565; 84520; 85027; 85610

== ENCOUNTER 2023-02-05 08:56 | Inpatient (IN) | payer MEDICARE ==
[2023-02-05] MEDS ORDERED: SODIUM CHLORIDE 0.9% 500 ML 500 ML IV STA (09:14)
[2023-02-05] MEDS ORDERED: DIPH,PERTUS(ACELL)TETVAC-LF 0.5 ML VIAL IM ONE (09:16)
--- NOTE | 2023-02-05 09:21 | ED ---
General Adult HPI - General Chief complaint: Syncope Stated complaint: Fall,Syncope Time Seen by Provider: 02/05/23 09:07 Source: patient, EMS, RN notes reviewed, old records reviewed Mode of arrival: EMS - History of Present Illness Initial comments: 72-year-old female presents for evaluation of suspected syncopal episode and fall in the bathroom. She states she has been dealing with some blood pressure issues with standing. She does not exactly remember the events but was found by paramedics in the bathroom. She had head trauma she was placed in c-collar. She complains of left wrist pain and right hip pain. She was noted to have a skin tear on the left anterior lower extremity. She was nonambulatory by EMS. She is alert and oriented and able to give a detailed history at the time my evaluation. No chest pain. No abdominal pain. - Related Data Home Medications Medication Instructions Recorded Confirmed Levothyroxine Sodium [Synthroid] 75 mcg PO DAILY 02/21/21 07/27/22 Zinc 50 mg PO DAILY 02/21/21 07/27/22 Apixaban [Eliquis] 5 mg PO BID 03/25/21 07/27/22 Bumetanide [BUMEX] 1 mg PO DAILY 06/10/22 07/27/22 Cholecalciferol (Vitamin D3) 75 mcg PO DAILY 06/10/22 07/27/22 [Vitamin D3 (3000 Iu)] Metoprolol Tartrate [Lopressor] 50 mg PO BID 06/10/22 07/27/22 NIFEdipine [Adalat CC] 30 mg PO DAILY PRN 06/10/22 07/27/22 Omeprazole [PriLOSEC] 20 mg PO DAILY PRN 06/10/22 07/27/22 Zolpidem Tartrate [Zolpidem 12.5 mg PO HS 06/10/22 07/27/22 Tartrate ER] rOPINIRole HCL [Requip] 4 mg PO HS 06/10/22 07/27/22 Atorvastatin [Lipitor] 20 mg PO HS 07/27/22 07/27/22 HYDROcodone/APAP 7.5-325MG [[facility] 1 tab PO TID 07/27/22 07/27/22 7.5-325] Propafenone [Rythmol] 150 mg PO BID 07/27/22 07/27/22 methocarbamoL [Robaxin] 500 mg PO BID 07/27/22 07/27/22 Allergies Allergy/AdvReac Type Severity Reaction Status Date / Time Sulfa (Sulfonamide Allergy Anaphylaxis Verified 07/27/22 10:15 Antibiotics) Review of Systems ROS Statement: Those systems with pertinent positive or pertinent negative responses have been documented in the HPI. ROS Other: All systems not noted in ROS Statement are negative. Past Medical History Past Medical History: Atrial Fibrillation, Hyperlipidemia, Hypertension, Syncope, Thyroid Disorder Additional Past Medical History / Comment(s): hx of migraine headaches, takes flexeril for that History of Any Multi-Drug Resistant Organisms: None Reported Past Surgical History: Section, Hernia Repair, Hysterectomy, Joint Replacement Additional Past Surgical History / Comment(s): cataracts, partial thyroidectomy, breast augmentation, right hip replacement january 2021, debridment on right hip january 2021. Past Anesthesia/Blood Transfusion Reactions: Postoperative Nausea & Vomiting (PONV) Past Psychological History: No Psychological Hx Reported Smoking Status: Former smoker Past Alcohol Use History: Rare Past Drug Use History: None Reported - Past Family History Mother Family Medical History: Cancer, Hypertension, Thyroid Disorder Father Family Medical History: Coronary Artery Disease (CAD), CVA/TIA Brother(s) Additional Family Medical History / Comment(s): history of Factor X General Exam General appearance: alert, in no apparent distress Head exam: Present: atraumatic, normocephalic Eye exam: Present: normal appearance, PERRL Neck exam: Present: other (C-collar placed by paramedics) Respiratory exam: Present: normal lung sounds bilaterally. Absent: respiratory distress, wheezes Cardiovascular Exam: Present: regular rate, normal rhythm GI/Abdominal exam: Present: soft. Absent: distended, tenderness, guarding Extremities exam: Present: other (Left anterior mckay skin tear, pain with rotation of the right lower extremity at the hip. There is a leg length discrepancy with right leg approximately 1 inch longer than the left leg. There is ecchymosis and some suspect deformity of the left wrist and forearm. Sensation is intact distally.) Neurological exam: Present: alert. Absent: motor sensory deficit Psychiatric exam: Present: normal affect, normal mood Skin exam: Present: other (Skin tear, left anterior mckay) Course Vital Signs 02/05/23 02/05/23 02/05/23 09:01 10:00 11:56 Temperature 98.1 F Pulse Rate 66 67 Respiratory 18 22 Rate Blood Pressure 160/82 165/80 Blood Pressure 128/75 [Right Arm Sitting] Blood Pressure 98/64 [Right Arm Standing] Blood Pressure 153/81 [Right Arm Supine] O2 Sat by Pulse 96 97 Oximetry EKG Findings - EKG Results: EKG: interpreted by AUGUSTIND (EKG: Sinus rhythm, rate of 66, SD interval 166, QRS duration 94, QTC 435, T-wave inversion in V3, I do not see any ST segment elevation. EKG reviewed from July 2022, T waves in the precordial leads we re upright at that time.) Medical Decision Making - Medical Decision Making Was pt. sent in by a medical professional or institution (, PA, PRINCIPLE SOFTWARE ENGINEER, urgent care, hospital, or shelter...) When possible be specific @ -[No] Did you speak to anyone other than the patient for history (EMS, parent, family, police, friend...)? What history was obtained from this source @ -Patient's at bedside was able to provide additional history as well as paramedics upon arrival Did you review nursing and triage notes (agree or disagree)? Why? @ -[I reviewed and agree with nursing and triage notes] Were old charts reviewed (outside hosp., previous admission, EMS record, old EKG, old radiological studies, urgent care reports/EKG's, shelter records)? Report findings @ -Review blood pressure log which was obtained by the . Differential Diagnosis (chest pain, altered mental status, abdominal pain women, abdominal pain men, vaginal bleeding, weakness, fever, dyspnea, syncope, headache, dizziness, GI bleed, back pain, seizure, CVA, palpatations, mental health, musculoskeletal)? @ -Differential Syncope: Valvular disease, hypertrophic cardiomyopathy, pulmonary embolism, tamponade, tachycardia, bradycardia, KS, hypovolemia, hemorrhage, dissection, anemia, intracranial hemorrhage, seizure, hypoglycemia, carbon monoxide poisoning, this is not meant to be an all-inclusive list. EKG interpreted by me (3pts min.). @ -[As above] X-rays interpreted by me (1pt min.). @ -X-rays reviewed of the chest, right hip and pelvis, left wrist and forearm. Agree with the radiologist assessment, no acute process identified. CT interpreted by me (1pt min.). @ -CT brain and cervical spine reviewed by myself, agree with the radiologist i nterpretation, no acute process U/S interpreted by me (1pt. min.). @ -[None done] What testing was considered but not performed or refused? (CT, X-rays, U/S, labs)? Why? @ -[None] What meds were considered but not given or refused? Why? @ -[None] Did you discuss the management of the patient with other professionals (professionals i.e. , PA, PRINCIPLE SOFTWARE ENGINEER, lab, RT, psych nurse, drug abuse social worker, managing principal, teacher, command and control officer, assistant case manager)? Give summary @ -Discussed case with the admitting physician Dr. Torres Was smoking cessation discussed for >3mins.? @ -[No] Was critical care preformed (if so, how long)? @ -[No] Were there social determinants of health that impacted care today? How? (Homelessness, low income, unemployed, alcoholism, drug addiction, t ransportation, low edu. Level, literacy, decrease access to med. care, group home, rehab)? @ -[No] Was there de-escalation of care discussed even if they declined (Discuss DNR or withdrawal of care, Hospice)? DNR status @ -[No] What co-morbidities impacted this encounter? (DM, HTN, Smoking, COPD, CAD, Cancer, CVA, ARF, Chemo, Hep., AIDS, mental health diagnosis, sleep apnea, morbid obesity)? @ -Atrial fibrillation, CAD, hypertension Was patient admitted / discharged? Hospital course, mention meds given and route, prescriptions, significant lab abnormalities, going to OR and other perti nent info. @ -72-year-old female presents with syncopal episode. She has been dealing with issues of orthostasis and hypotension when standing at home. She's had several adjustments to her medications. She had a recent admission at an outside hospital. Her main complaints are from injuries including right hip pain and left wrist pain. No chest or abdominal pain. X-rays performed negative for traumatic injury as well as CT brain and cervical spine negative for intracranial hemorrhage or cervical fracture or subluxation. She has normal CBC. She has a mild acute kidney injury with 1.90 creatinine and a baseline of 1.3. She will be admitted for reevaluation, telemetry and pain control. Urinalysis pending Undiagnosed new problem with uncertain prognosis? @ -[No] Drug Therapy requiring intensive monitoring for toxicity (Heparin, Nitro, Insulin, Cardizem)? @ -[no] Were any procedures done? @ -[No] Diagnosis/symptom? @ -Syncope Acute, or Chronic, or Acute on Chronic? @ -Acute Uncomplicated (without systemic symptoms) or Complicated (systemic symptoms)? @ -[Complicated] Side effects of treatment? @ -[No] Exacerbation, Progression, or Severe Exacerbation? @ -[No] Poses a threat to life or bodily function? How? (Chest pain, USA, KS, pneumonia, PE, COPD, DKA, ARF, appy, cholecystitis, CVA, Diverticulitis, Homicidal, Suicidal, threat to staff... and all critical care pts) @ -[Syncope and hypotension does pose a threat especially accompanied by acute kidney injury. Risks of arrhythmia and sustained hypotension] - Lab Data Result diagrams: 02/05/23 09:21 02/05/23 09:21 Lab Results 02/05/23 02/05/23 02/05/23 Range/Units 09:21 09:21 09:21 WBC 4.7 (3.8-10.6) k/uL RBC 4.60 (3.80-5.40) m/uL Hgb 14.0 (11.4-16.0) gm/dL Hct 43.6 (34.0-46.0) % MCV 94.8 (80.0-100.0) fL MCH 30.4 (25.0-35.0) pg MCHC 32.1 (31.0-37.0) g/dL RDW 12.6 (11.5-15.5) % Plt Count 197 (150-450) k/uL MPV 7.8 Neutrophils % 66 % Lymphocytes % 26 % Monocytes % 4 % Eosinophils % 1 % Basophils % 0 % Neutrophils # 3.1 (1.3-7.7) k/uL Lymphocytes # 1.2 (1.0-4.8) k/uL Monocytes # 0.2 (0-1.0) k/uL Eosinophils # 0.1 (0-0.7) k/uL Basophils # 0.0 (0-0.2) k/uL PT 9.9 (9.0-12.0) sec INR 0.9 (<1.2) APTT 22.5 (22.0-30.0) sec Sodium 138 (137-145) mmol/L Potassium 3.6 (3.5-5.1) mmol/L Chloride 105 (98-107) mmol/L Carbon Dioxide 24 (22-30) mmol/L Anion Gap 9 mmol/L BUN 45 H (7-17) mg/dL Creatinine 1.98 H (0.52-1.04) mg/dL Est GFR (CKD-EPI)AfAm 29 (>60 ml/min/1.73 sqM) Est GFR (CKD-EPI)NonAf 25 (>60 ml/min/1.73 sqM) Glucose 97 (74-99) mg/dL Calcium 8.6 (8.4-10.2) mg/dL Magnesium 2.4 H (1.6-2.3) mg/dL Total Bilirubin 0.4 (0.2-1.3) mg/dL AST 32 (14-36) U/L ALT 24 (4-34) U/L Alkaline Phosphatase 87 (38-126) U/L Troponin I (0.000-0.034) ng/mL Total Protein 6.4 (6.3-8.2) g/dL Albumin 3.9 (3.5-5.0) g/dL 02/05/23 Range/Units 09:21 WBC (3.8-10.6) k/uL RBC (3.80-5.40) m/uL Hgb (11.4-16.0) gm/dL Hct (34.0-46.0) % MCV (80.0-100.0) fL MCH (25.0-35.0) pg MCHC (31.0-37.0) g/dL RDW (11.5-15.5) % Plt Count (150-450) k/uL MPV Neutrophils % % Lymphocytes % % Monocytes % % Eosinophils % % Basophils % % Neutrophils # (1.3-7.7) k/uL Lymphocytes # (1.0-4.8) k/uL Monocytes # (0-1.0) k/uL Eosinophils # (0-0.7) k/uL Basophils # (0-0.2) k/uL PT (9.0-12.0) sec INR (<1.2) APTT (22.0-30.0) sec Sodium (137-145) mmol/L Potassium (3.5-5.1) mmol/L Chloride (98-107) mmol/L Carbon Dioxide (22-30) mmol/L Anion Gap mmol/L BUN (7-17) mg/dL Creatinine (0.52-1.04) mg/dL Est GFR (CKD-EPI)AfAm (>60 ml/min/1.73 sqM) Est GFR (CKD-EPI)NonAf (>60 ml/min/1.73 sqM) Glucose (74-99) mg/dL Calcium (8.4-10.2) mg/dL Magnesium (1.6-2.3) mg/dL Total Bilirubin (0.2-1.3) mg/dL AST (14-36) U/L ALT (4-34) U/L Alkaline Phosphatase (38-126) U/L Troponin I 0.016 (0.000-0.034) ng/mL Total Protein (6.3-8.2) g/dL Albumin (3.5-5.0) g/dL Disposition Clinical Impression: Syncope, NAYELI (acute kidney injury) Disposition: ADMITTED IP TO THIS [facility] Condition: Stable Is patient prescribed a controlled substance at d/c from ED?: No Referrals: Stefan Mckinley DO [Primary Care Provider] - 1-2 days Time of Disposition: 11:59
[2023-02-05 10:00] LABS: Basophils % (A) 0 %; Eosinophils # (A) 0.1 k/uL (0-0.7); Eosinophils % (A) 1 %; HCT 43.6 % (34.0-46.0); Lymphocytes # (A) 1.2 k/uL (1.0-4.8); Lymphocytes % (A) 26 %; MCH 30.4 pg (25.0-35.0); MCHC 32.1 g/dL (31.0-37.0); MCV 94.8 fL (80.0-100.0); Mean Platelet Volume 7.8; Monocytes # (A) 0.2 k/uL (0-1.0); Monocytes % (A) 4 %; Neutrophils # (A) 3.1 k/uL (1.3-7.7); Neutrophils % (A) 66 %; Platelet Count 197 k/uL (150-450); RDW 12.6 % (11.5-15.5); WBC 4.7 k/uL (3.8-10.6)
[2023-02-05 10:11] LABS: Albumin 3.9 g/dL (3.5-5.0); Calcium 8.6 mg/dL (8.4-10.2); Magnesium 2.4 mg/dL (1.6-2.3); Potassium 3.6 mmol/L (3.5-5.1); Total Bilirubin 0.4 mg/dL (0.2-1.3); Total Protein 6.4 g/dL (6.3-8.2)
[2023-02-05 10:22] LABS: INR 0.9 (<1.2); Partial Thromboplastin Time 22.5 sec (22.0-30.0); Prothrombin Time 9.9 sec (9.0-12.0)
--- NOTE | 2023-02-05 10:37 | XR ---
EXAMINATION TYPE: XR chest 1V portable DATE OF EXAM: 02/05/2023 COMPARISON: 05/23/2022 HISTORY: Syncope TECHNIQUE: Single frontal view of the chest is obtained. FINDINGS: There is no focal air space opacity, pleural effusion, or pneumothorax seen. The cardiac silhouette size is within normal limits. The osseous structures are intact. Diffuse emphysematous c hanges are seen. Calcification related to the right breast implant noted. IMPRESSION: No acute process. Correlate for COPD.
--- NOTE | 2023-02-05 10:40 | XR ---
EXAMINATION TYPE: XR Hip RT and AP Pelvis DATE OF EXAM: 02/05/2023 10:21 AM INDICATION: Patient age:Female; 72 years old; Reason for study: fall; COMPARISON: 08/06/2022 TECHNIQUE: The right hip was examined in the frontal and lateral projections and a AP pelvis. FINDINGS: Bilateral hip arthroplasties. Hardware appears in appropriate alignment. No evidence of fra cture. No evidence for acute process, joint dislocation or significant soft tissue swelling. IMPRESSION: Hip arthroplasties with hardware in appropriate alignment. No evidence of fracture
--- NOTE | 2023-02-05 10:41 | XR ---
EXAMINATION TYPE: XR forearm LT DATE OF EXAM: 02/05/2023 COMPARISON: NONE HISTORY: Pain Two views of the forearm demonstrate that the osseous structures appear to be intact and the joint sp aces appear to be preserved. There is no acute fracture or dislocation. Soft tissue edema is seen. IMPRESSION: 1. No acute fracture or dislocation
--- NOTE | 2023-02-05 10:42 | XR ---
EXAMINATION TYPE: XR wrist complete LT DATE OF EXAM: 02/05/2023 COMPARISON: NONE HISTORY: Pain TECHNIQUE: Four views submitted. FINDINGS: The osseous structures are intact. The joint spaces are preserved and there is no acute fracture or dislocation. IMPRESSION: 1. No definite acute fracture or dislocation if symptoms persist, follow-up study in 7 to 10 days wo uld be suggested
--- NOTE | 2023-02-05 10:48 | CT ---
EXAMINATION TYPE: CT brain cspine wo con DATE OF EXAM: 02/05/2023 COMPARISON: Trauma CT July 27, 2022 HISTORY: Fall injury with headache and neck pain. CT DLP: 1285.7 mGycm. Automated Exposure Control for Dose Reduction was Utilized. TECHNIQUE: CT scan of the head and cervical spine are performed without contrast. FINDINGS: There is no acute intracranial hemorrhage or midline shift identified. Mild ventricular a nd sulcal prominence is redemonstrated. Alex-white matter differentiation is fairly well-preserved. The calvarium is intact. The globes are intact and the visualized sinuses are clear. Cervical spine is visualized in its entirety from C1 through upper thoracic levels and redemonstrates grade 1 retrolisthesis C6 on C7 without evidence of acute fracture or dislocation. Prevertebral sof t tissue appears within normal limits. The C1-C2 articulation remains within normal limits on the co byron images. Vertebral body heights are preserved. There is mild and moderate disc space narrowing C6-C7 level with mild anterior spurring. Spinal canal is grossly preserved. Review of axial images sh ows multilevel facet degenerative changes bilaterally. Thyroid gland appears within normal limits. Isa ng apices show no pneumothorax bilaterally. IMPRESSION: 1. There is no acute fracture or dislocation evident in the cervical spine. 2. No acute intracranial hemorrhage or midline shift is seen. No significant change from prior trauma CT.
[2023-02-05] MEDS ORDERED: BACITRACIN OINT 1 EACH PACKET TOPICAL ONE (11:25)
[2023-02-05] MEDS ORDERED: HYDROmorphone 0.5 MG/0.5 ML SYRINGE IVP STA (11:26)
[2023-02-05] MEDS ORDERED: ACETAMINOPHEN TAB 325 MG TAB PO PRN ×2 (11:45→15:45)
[2023-02-05] MEDS ORDERED: NALOXONE 0.4 MG/ML 1 ML VIAL IV PRN (11:45)
[2023-02-05 12:28] LABS: Appearance,Urine Clear (Clear); Bilirubin,Urine Negative (Negative); Blood,Urine Negative (Negative); Color,Urine Yellow; Glucose,Urine (UA) Negative (Negative); Ketones,Urine Trace (Negative); Leukocyte Esterase,Urine Negative (Negative); Nitrite,Urine Negative (Negative); Protein,Urine Trace (Negative); Specific Gravity,Urine 1.022 (1.001-1.035); Urobilinogen,Urine <2.0 mg/dL (<2.0)
[2023-02-05] MEDS ORDERED: ALBUTEROL NEBULIZED 2.5 MG/3 ML INHALATION PRN (15:40)
--- NOTE | 2023-02-05 15:45 | P.HPIM ---
History of Present Illness This is a pleasant 72 years old female with multiple medical problems including Atrial Fibrillation, Hyperlipidemia, Hypertension, Syncope, hypothyroidism, hx of migraine headaches, She presents because of syncope, this a.m. patient went to the restroom and as she was trying to stand up from the sitting position she felt dizzy and she passed out. Patient isn't known to have recurrent syncope last time was about one month ago 2 days ago patient had diarrhea but has now stopped and she had regular bowel movement currently. Yesterday also she has been having some chest pain which is gone now but patient complains from exertional dyspnea for example when she goes upstairs. 6 months ago she was in the hospital for also recurrent syncope also evaluated by spinning frame changer at that time she underwent interrogation of her pacemaker which was uneventful. She also complaining of from dry cough. No abdominal pain vomiting or diarrhea, she was recently treated for UTI about 1.5 weeks ago,also she was receiving another antibiotic for left forehead wound secondary to excision of lesion by her physician. Currently she denies any urinary complaints She denies smoking alcohol or illicit tracts Patient has positive orthostatic vitals with drop in blood pressure from supine 153/51 down to 98/64 Labs including CBC, INR and liver enzymes were unremarkable. Troponin is negative. Urine analysis is negative. CT of the head and neck: No acute intracranial process, no cervical spine fracture Fracture or dislocation Chest x-ray: No acute process Hip and pelvis x-ray: No fracture EKG showing normal sinus rhythm at [address]-T changes The emergency room patient received normal saline and pain medication Review of Systems Review of systems CONSTITUTIONAL: No fever, no malaise, no fatigue. HEENT: No recent visual problems or hearing problems. Denied any sore throat. CARDIOVASCULAR: No orthopnea, PND, no palpitations, no syncope. PULMONARY: No shortness of breath, no cough, no hemoptysis. GASTROINTESTINAL: No diarrhea, no nausea, no vomiting, no abdominal pain. Normoactive bowel sounds. NEUROLOGICAL: No headaches, no weakness, no numbness. HEMATOLOGICAL: Denies any bleeding or petechiae. GENITOURINARY: Denies any burning micturition, frequency, or urgency. MUSCULOSKELETAL/RHEUMATOLOGICAL: Denies any joint pain, swelling, or any muscle pain. ENDOCRINE: Denies any polyuria or polydipsia. Past Medical History Past Medical History: Atrial Fibrillation, Hyperlipidemia, Hypertension, Syncope, Thyroid Disorder Additional Past Medical History / Comment(s): hx of migraine headaches, takes flexeril for that History of Any Multi-Drug Resistant Organisms: None Reported Past Surgical History: Section, Hernia Repair, Hysterectomy, Joint Replacement Additional Past Surgical History / Comment(s): cataracts, partial thyroidectomy, breast augmentation, right hip replacement january 2021, debridment on right hip january 2021. Past Anesthesia/Blood Transfusion Reactions: Postoperative Nausea & Vomiting (PONV) Past Psychological History: No Psychological Hx Reported Smoking Status: Former smoker Past Alcohol Use History: Rare Past Drug Use History: None Reported - Past Family History Mother Family Medical History: Cancer, Hypertension, Thyroid Disorder Father Family Medical History: Coronary Artery Disease (CAD), CVA/TIA Brother(s) Additional Family Medical History / Comment(s): history of Factor X Medications and Allergies Home Medications Medication Instructions Recorded Confirmed Type Levothyroxine Sodium [Synthroid] 75 mcg PO DAILY 02/21/21 02/05/23 History Zinc 100 mg PO DAILY 02/21/21 02/05/23 History Bumetanide [BUMEX] 1 mg PO DAILY 06/10/22 02/05/23 History Metoprolol Tartrate [Lopressor] 50 mg PO BID 06/10/22 02/05/23 History NIFEdipine [Adalat CC] 30 mg PO DAILY PRN 06/10/22 02/05/23 History Zolpidem Tartrate [Zolpidem 12.5 mg PO HS 06/10/22 02/05/23 History Tartrate ER] rOPINIRole HCL [Requip] 4 mg PO HS 06/10/22 02/05/23 History HYDROcodone/APAP 7.5-325MG [[place] 1 tab PO Q8H PRN 07/27/22 02/05/23 History 7.5-325] Propafenone [Rythmol] 150 mg PO TID 07/27/22 02/05/23 History methocarbamoL [Robaxin] 500 mg PO BID 07/27/22 02/05/23 History Albuterol Sulfate [Albuterol 2 puff PO RT-Q6H PRN 02/05/23 02/05/23 History Sulfate Hfa] B Complex/Folic Acid/Basia C 1 tab PO DAILY 02/05/23 02/05/23 History Budesonide/Formoterol Fumarate 2 puff INHALATION RT-BID 02/05/23 02/05/23 History [Symbicort 80-4.5 Mcg Inhaler] Cholecalciferol [Vitamin D3 (125 250 mcg PO DAILY 02/05/23 02/05/23 History Mcg = 5000 Iu)] Omeprazole [PriLOSEC] 40 mg PO DAILY 02/05/23 02/05/23 History Oxybutynin Chloride 5 mg PO BID 02/05/23 02/05/23 History Potassium Chloride ER [K-Dur 20] 20 meq PO DAILY 02/05/23 02/05/23 History Rosuvastatin [Crestor] 20 mg PO HS 02/05/23 02/05/23 History Triamcinolone 0.1% Cream [Kenalog 1 applicatio TOPICAL BID PRN 02/05/23 02/05/23 History 0.1% Cream] estradioL [Vagifem] 10 mcg VAGINAL SUTH 02/05/23 02/05/23 History hydrOXYzine HCL [Hydroxyzine HCl] 10 mg PO HS 02/05/23 02/05/23 History Allergies Allergy/AdvReac Type Severity Reaction Status Date / Time Sulfa (Sulfonamide Allergy Anaphylaxis Verified 02/05/23 13:25 Antibiotics) Physical Exam Vitals: Vital Signs Temp Pulse Resp BP BP BP BP 02/05/23 11:56 128/75 98/64 153/81 02/05/23 10:00 67 22 165/80 02/05/23 09:01 98.1 F 66 18 160/82 Pulse Ox 02/05/23 11:56 02/05/23 10:00 97 02/05/23 09:01 96 Intake and Output 02/04/23 02/05/23 02/05/23 22:59 06:59 14:59 Other: Weight 58.967 kg GENERAL: The patient is alert and oriented x3, not in any acute distress. Well developed, well nourished. HEENT: Pupils are round and equally reacting to light. EOMI. No scleral icterus. No conjunctival pallor. Normocephalic, atraumatic. No pharyngeal erythema. No thyromegaly. CARDIOVASCULAR: S1 and S2 present. No murmurs, rubs, or gallops. PULMONARY: Chest is clear to auscultation, no wheezing or crackles. ABDOMEN: Soft, nontender, nondistended, normoactive bowel sounds. No palpable organomegaly. -MUSCULOSKELETAL: No joint swelling or deformity. Left forearm and left leg dressing in place EXTREMITIES: No cyanosis, clubbing, or pedal edema. NEUROLOGICAL: Gross neurological examination did not reveal any focal deficits. SKIN: No rashes. no petechiae. Results CBC & Chem 7: 02/05/23 09:21 02/05/23 09:21 Labs: Abnormal Lab Results - Last 24 Hours (Table) 02/05/23 02/05/23 Range/Units 09:21 09:21 BUN 45 H (7-17) mg/dL Creatinine 1.98 H (0.52-1.04) mg/dL Magnesium 2.4 H (1.6-2.3) mg/dL Urine Protein Trace H (Negative) Urine Ketones Trace H (Negative) Assessment and Plan Assessment: Syncope most likely to postural hypotension Postural hypotension Acute kidney injury Fall secondary to above with left wrist and elbow trauma with no evidence of f racture on the initial x-ray Diarrhea about 2 days ago which is resolved Chronic atrial fibrillation on a blood thinner Hypertension Hyperlipidemia History of syncope, recurrent Plan: Continue with normal saline and increased rate from 50 up to 75 mL per hour Hold Bumex Telemetry monitoring Cardiology consult We recommend repeat in left wrist and elbow x-ray in 7-10 days Labs and medication were reviewed.. Continue same treatment. Continue with symptomatic treatment. Resume home medication. Monitor labs and vitals. DVT and GI prophylaxis. Further recommendations as per clinical course of the patient DVT prophylaxis: Subcutaneous heparin GI Prophylaxis: Pepcid Prognosis is guarded
[2023-02-05] MEDS: PROPAFENONE 150 MG TAB PO SCH ×2 (17:34→22:36)
[2023-02-05] MEDS: SODIUM CHLORIDE 0.9% 1,000 ML IV SCH (17:35)
[2023-02-05] MEDS: HYDROcodone/APAP 7.5-325MG 1 EACH TAB PO PRN (17:37)
[2023-02-05] MEDS: SYMBICORT 80-4.5 MCG INHALER INHALATION SCH (19:41)
[2023-02-05] MEDS: METOPROLOL TARTRATE 50 MG TAB PO SCH (20:39)
[2023-02-05] MEDS: ATORVASTATIN 40 MG TAB PO SCH (20:39)
[2023-02-05] MEDS: OXYBUTYNIN CHLORIDE 5 MG TAB PO SCH (20:40)
[2023-02-05] MEDS: rOPINIRole HCL 4 MG TABLET PO SCH (20:40)
[2023-02-05] MEDS: HYDROmorphone 0.5 MG/0.5 ML SYRINGE IVP PRN (20:54)
[2023-02-06] MEDS: HYDROmorphone 0.5 MG/0.5 ML SYRINGE IVP PRN ×3 (01:41→22:13)
[2023-02-06] MEDS: SODIUM CHLORIDE 0.9% 1,000 ML IV SCH ×2 (03:01→16:43)
[2023-02-06] MEDS: HYDROcodone/APAP 7.5-325MG 1 EACH TAB PO PRN ×2 (04:54→16:41)
[2023-02-06] MEDS: LEVOTHYROXINE 75 MCG TAB PO SCH (04:54)
[2023-02-06] MEDS: SYMBICORT 80-4.5 MCG INHALER INHALATION SCH ×2 (07:46→21:13)
[2023-02-06] MEDS: METOPROLOL TARTRATE 50 MG TAB PO SCH ×2 (09:11→21:26)
[2023-02-06] MEDS: OXYBUTYNIN CHLORIDE 5 MG TAB PO SCH ×2 (09:18→21:30)
[2023-02-06] MEDS: PROPAFENONE 150 MG TAB PO SCH ×3 (09:18→21:30)
--- NOTE | 2023-02-06 11:41 | P.CRDCN ---
History of Present Illness Consult date: 02/06/23 Chief complaint: Syncope History of present illness: This is a 72-year-old female patient who sees a [facility] operations specialist out of [facility] with a past medical history significant for recurrent syncope and questionable history of atrial fibrillation, as well as hypertension and dyslipidemia and thyroid disease was admitted to the hospital with syncope. The patient was in her usual state of health where she went to use the bathroom and upon standing up she did feel dizzy and suddenly she lost her consciousness. She stated that she was experiencing some symptoms of diarrhea and nausea for the last few days before she had the syncopal episode. She does not recall having any symptoms of chest pain or chest discomfort or any shortness of breath. No feeling of heart racing or fluttering. She was admitted to the hospital where she underwent a workup including orthostatic blood pressure check and that came in to be unremarkable but overall her pressure has been soft in the 90s. As an outpatient she was receiving metoprolol tartrate as well as Bumex as well as the feet pain. She is on propafenone on but she is not on any oral anticoagulation and she does not recall having a diagnosis of atrial fibrillation. The patient was seen by our service recently for same presentation not long time ago where at that point she underwent an echo which revealed normal LV systolic function was no significant valvular abnormalities. A year before she underwent a loop recorder placement. She underwent CBC and that came in to be unremarkable and also BMP showed mildly elevated creatinine. The examination is remarkable for stable vital signs was soft blood pressure as well as she did have troponin first set came in to be unremarkable. The EKG showed sinus rhythm with T-wave inversion in V2 and V3, changes compared to be new to previous EKG when she was seen before. Currently she is not experiencing any symptoms of any chest pain or chest discomfort and no shortness of breath. No history of coronary artery disease or congestive heart failure according to her. The examination is remarkable for stable vitals was soft blood pressure was regular rhythm and systolic murmur at the right upper sternal border was clear breathing sounds bilaterally and no lower excellent is edema noted. Assessment Recurrent syncope, likely related to orthostatic hypotension in a patient was experiencing symptoms of nausea as well as diarrhea and also she was receiving diuretics as an outpatient Left wrist injury secondary to syncope. No acute intracranial or cervical abnormalities by the computed tomography scan Renal failure likely secondary to dehydration Paroxysmal a chair fibrillation not on any anticoagulation for unknown reason. The patient sees a [facility] operations specialist out of [facility] Rule out type IC antiarrhythmic medication brought arrhythmia. Interrogate the loop recorder. At least at this point the QRS is narrow Abnormal EKG with a normal troponin and no evidence of ischemia clinically Plan Loop recorder interrogation Hold oral diuretics Hold non-dihydropyridine calcium channel jaciel Continue the current dose of beta jaciel and consider decreasing the dose down the line The patient is not on any anticoagulation for unknown reason. That to be addressed by her primary [employer] operations specialist Recent echo showed normal LV systolic function Follow-up with the patient Past Medical History Past Medical History: Atrial Fibrillation, Hyperlipidemia, Hypertension, Syncope, Thyroid Disorder Additional Past Medical History / Comment(s): hx of migraine headaches, takes flexeril for that History of Any Multi-Drug Resistant Organisms: None Reported Past Surgical History: Section, Hernia Repair, Hysterectomy, Joint Replacement Additional Past Surgical History / Comment(s): cataracts, partial thyroidectomy, breast augmentation, right hip replacement january 2021, debridment on right hip january 2021, left hip surgery. Past Anesthesia/Blood Transfusion Reactions: Postoperative Nausea & Vomiting (PONV) Smoking Status: Former smoker - Past Family History Mother Family Medical History: Cancer, Hypertension, Thyroid Disorder Father Family Medical History: Coronary Artery Disease (CAD), CVA/TIA Brother(s) Additional Family Medical History / Comment(s): history of Factor X Medications and Allergies Home Medications Medication Instructions Recorded Confirmed Type Levothyroxine Sodium [Synthroid] 75 mcg PO DAILY 02/21/21 02/05/23 History Zinc 100 mg PO DAILY 02/21/21 02/05/23 History Bumetanide [BUMEX] 1 mg PO DAILY 06/10/22 02/05/23 History Metoprolol Tartrate [Lopressor] 50 mg PO BID 06/10/22 02/05/23 History NIFEdipine [Adalat CC] 30 mg PO DAILY PRN 06/10/22 02/05/23 History Zolpidem Tartrate [Zolpidem 12.5 mg PO HS 06/10/22 02/05/23 History Tartrate ER] rOPINIRole HCL [Requip] 4 mg PO HS 06/10/22 02/05/23 History HYDROcodone/APAP 7.5-325MG [[place] 1 tab PO Q8H PRN 07/27/22 02/05/23 History 7.5-325] Propafenone [Rythmol] 150 mg PO TID 07/27/22 02/05/23 History methocarbamoL [Robaxin] 500 mg PO BID 07/27/22 02/05/23 History Albuterol Sulfate [Albuterol 2 puff PO RT-Q6H PRN 02/05/23 02/05/23 History Sulfate Hfa] B Complex/Folic Acid/Basia C 1 tab PO DAILY 02/05/23 02/05/23 History Budesonide/Formoterol Fumarate 2 puff INHALATION RT-BID 02/05/23 02/05/23 History [Symbicort 80-4.5 Mcg Inhaler] Cholecalciferol [Vitamin D3 (125 250 mcg PO DAILY 02/05/23 02/05/23 History Mcg = 5000 Iu)] Omeprazole [PriLOSEC] 40 mg PO DAILY 02/05/23 02/05/23 History Oxybutynin Chloride 5 mg PO BID 02/05/23 02/05/23 History Potassium Chloride ER [K-Dur 20] 20 meq PO DAILY 02/05/23 02/05/23 History Rosuvastatin [Crestor] 20 mg PO HS 02/05/23 02/05/23 History Triamcinolone 0.1% Cream [Kenalog 1 applicatio TOPICAL BID PRN 02/05/23 02/05/23 History 0.1% Cream] estradioL [Vagifem] 10 mcg VAGINAL SUTH 02/05/23 02/05/23 History hydrOXYzine HCL [Hydroxyzine HCl] 10 mg PO HS 02/05/23 02/05/23 History Allergies Allergy/AdvReac Type Severity Reaction Status Date / Time Sulfa (Sulfonamide Allergy Anaphylaxis Verified 02/05/23 13:25 Antibiotics) Physical Exam Vitals: Vital Signs Temp Pulse Pulse Resp BP BP BP 02/06/23 09:03 98.0 F 65 16 96/55 89/57 91/56 02/06/23 07:47 02/06/23 01:42 98.7 F 64 16 128/74 02/05/23 20:00 97.8 F 67 16 116/73 02/05/23 19:35 16 02/05/23 18:33 98.6 F 69 16 118/70 02/05/23 14:00 98.0 F 65 18 105/56 02/05/23 11:56 128/75 98/64 153/81 Pulse Ox 02/06/23 09:03 94 L 02/06/23 07:47 95 02/06/23 01:42 98 02/05/23 20:00 96 02/05/23 19:35 02/05/23 18:33 96 02/05/23 14:00 100 02/05/23 11:56 Intake and Output 02/05/23 02/06/23 02/06/23 22:59 06:59 14:59 Intake Total 240 590 Balance 240 590 Intake: Oral 240 590 Other: # Voids 1 Weight 58.967 kg Results 02/05/23 09:21 02/05/23 09:21 Current Medications Generic Name Dose Route Start Last Admin Trade Name Freq PRN Reason Stop Dose Admin Acetaminophen 325 mg 02/05/23 15:45 Acetaminophen Tab 325 Mg Tab PO Q6HR PRN Mild Pain or Fever > 100.5 Hydrocodone Bitart/Acetaminophen 1 each 02/05/23 15:45 02/06/23 04:54 Hydrocodone/Apap 7.5-325mg 1 Each Tab PO 1 each Q12H PRN Administration Moderate Pain (Scale 4 to 6) Albuterol Sulfate 2.5 mg 02/05/23 15:40 Albuterol Nebulized 2.5 Mg/3 Ml INHALATION RT-Q6H PRN Shortness Of Breath Atorvastatin Calcium 40 mg 02/05/23 21:00 02/05/23 20:39 Atorvastatin 40 Mg Tab PO 40 mg HS MARIEL Administration Budesonide/Formoterol Fumarate 2 puff 02/05/23 20:00 02/06/23 07:46 Symbicort 80-4.5 Mcg Inhaler INHALATION 2 puff RT-BID MARIEL Administration Hydromorphone HCl 0.5 mg 02/05/23 11:45 02/06/23 06:29 Hydromorphone 0.5 Mg/0.5 Ml Syringe IVP 0.5 mg Q3HR PRN Administration Severe Pain (Scale 7 to 10) Sodium Chloride 1,000 mls @ 75 mls/hr 02/05/23 11:00 02/06/23 03:01 Saline 0.9% IV Not Given .[id number] MARIEL Levothyroxine Sodium 75 mcg 02/06/23 06:30 02/06/23 04:54 Levothyroxine 75 Mcg Tab PO 75 mcg DAILY@0630 MARIEL Administration Metoprolol Tartrate 50 mg 02/05/23 21:00 02/06/23 09:11 Metoprolol Tartrate 50 Mg Tab PO Not Given BID MARIEL Naloxone HCl 0.2 mg 02/05/23 11:45 Naloxone 0.4 Mg/Ml 1 Ml Vial IV Q2M PRN Opioid Reversal Oxybutynin Chloride 5 mg 02/05/23 21:00 02/06/23 09:18 Oxybutynin Chloride 5 Mg Tab PO 5 mg BID MARIEL Administration Propafenone HCl 150 mg 02/05/23 16:15 02/06/23 09:18 Propafenone 150 Mg Tab PO Not Given TID MARIEL Ropinirole HCl 4 mg 02/05/23 21:00 02/05/23 20:40 Ropinirole Hcl 4 Mg Tablet PO 4 mg HS MARIEL Administration Intake and Output 02/05/23 02/06/23 02/06/23 22:59 06:59 14:59 Intake Total 240 590 Balance 240 590 Intake: Oral 240 590 Other: # Voids 1 Weight 58.967 kg 02/05/23 09:21 02/05/23 09:21
[2023-02-06] MEDS: ATORVASTATIN 40 MG TAB PO SCH (21:28)
[2023-02-06] MEDS: rOPINIRole HCL 4 MG TABLET PO SCH (21:30)
[2023-02-07] MEDS: HYDROcodone/APAP 7.5-325MG 1 EACH TAB PO PRN ×2 (03:46→16:25)
[2023-02-07] MEDS: SODIUM CHLORIDE 0.9% 1,000 ML IV SCH (03:48)
[2023-02-07] MEDS: LEVOTHYROXINE 75 MCG TAB PO SCH (06:03)
[2023-02-07 08:09] VITALS: RESP 16
[2023-02-07] MEDS: PROPAFENONE 150 MG TAB PO SCH ×2 (08:59→17:25)
[2023-02-07] MEDS: METOPROLOL TARTRATE 50 MG TAB PO SCH (08:59)
[2023-02-07] MEDS: OXYBUTYNIN CHLORIDE 5 MG TAB PO SCH (08:59)
[2023-02-07] MEDS: SYMBICORT 80-4.5 MCG INHALER INHALATION SCH ×2 (09:10→19:04)
[2023-02-07] MEDS: HYDROmorphone 0.5 MG/0.5 ML SYRINGE IVP PRN (11:13)
[2023-02-07 14:38] VITALS: BP 136/70; PULSE 61; TEMP 98.3
--- NOTE | 2023-02-07 15:36 | P.PN ---
Subjective This is a 72-year-old female patient who sees a pocket builder out of [facility] with a past medical history significant for recurrent syncope and questionable history of atrial fibrillation, as well as hypertension and dyslipidemia and thyroid disease was admitted to the hospital with syncope. The patient was in her usual state of health where she went to use the bathroom and upon standing up she did feel dizzy and suddenly she lost her consciousness. She stated that she was experiencing some symptoms of diarrhea and nausea for the last few days before she had the syncopal episode. She does not recall having any symptoms of chest pain or chest discomfort or any shortness of breath. No feeling of heart racing or fluttering. She was admitted to the hospital where she underwent a workup including orthostatic blood pressure check and that came in to be unremarkable but overall her pressure has been soft in the 90s. As an outpatient she was receiving metoprolol tartrate as well as Bumex as well as the feet pain. She is on propafenone on but she is not on any oral anticoagulation and she does not recall having a diagnosis of atrial fibrillation. The patient was seen by our service recently for same presentation not long time ago where at that point she underwent an echo which revealed normal LV systolic function was no significant valvular abnormalities. A year before she underwent a loop recorder placement. She underwent CBC and that came in to be unremarkable and also BMP showed mildly elevated creatinine. The examination is remarkable for stable vital signs was soft blood pressure as well as she did have troponin first set came in to be unremarkable. The EKG showed sinus rhythm with T-wave inversion in V2 and V3, changes compared to be new to previous EKG when she was seen before. Currently she is not experiencing any symptoms of any chest pain or chest discomfort and no shortness of breath. No history of coronary artery disease or congestive heart failure according to her. The examination is remarkable for stable vitals was soft blood pressure was regular rhythm and systolic murmur at the right upper sternal border was clear breathing sounds bilaterally and no lower excellent is edema noted. 02/07 Patient seen and examined. She states she has not actually been on her nifedipine for last few weeks and only takes the Bumex around 3 times a week. She denies any chest pain or pressure. Echocardiogram has not been performed however she did have one and July which showed preserved EF. Loop recorder interrogated with multiple episodes of A. fib with RVR none during the episode February 05. Intermittent episodes of A. fib with RVR with heart rates in the 150s to 200s however low A. fib burden. No significant ventricular tachycardia. Blood pressures have been borderline in the 90s to low 100s systolic. PHYSICAL EXAMINATION Vital signs reviewed. CONSTITUTIONAL: No apparent distress. HEENT: Head is normocephalic. Pupils are equal, round. Sclerae anicteric. Mucous membranes of the mouth are moist. No JVD. No carotid bruit. CHEST EXAMINATION: Lungs are clear to auscultation. No chest wall tenderness is noted on palpation or with deep breathing. HEART EXAMINATION: Regular rate and rhythm. S1, S2 heard. No murmurs, gallops or rub. ABDOMEN: Soft, nontender. Positive bowel sounds. EXTREMITIES: 2+ peripheral pulses, no lower extremity edema and no calf tenderness. NEUROLOGIC EXAMINATION: Patient is awake, alert and oriented x3. Assessment Recurrent syncope, likely related to orthostatic hypotension in a patient was experiencing symptoms of nausea as well as diarrhea and also she was receiving diuretics as an outpatient Left wrist injury secondary to syncope. No acute intracranial or cervical abnormalities by the computed tomography scan Renal failure likely secondary to dehydration Paroxysmal a chair fibrillation not on any anticoagulation for unknown reason. The patient sees a pocket builder out of [facility] Rule out type IC antiarrhythmic medication brought arrhythmia. Interrogate the loop recorder. At least at this point the QRS is narrow Abnormal EKG with a normal troponin and no evidence of ischemia clinically NAYELI Plan Loop recorder interrogation shows intermittent episodes of A. fib with RVR liver none during the syncopal episode and patient appears mainly asymptomatic. Patient does not need repeat echo performed in the hospital and this may be performed as an outpatient. Majority of symptoms appear related to changes in blood pressure and continue to hold nifedipine and would recommend holding Bumex as well going home. Patient can follow up with primary pocket builder in the next week. Patient cleared for discharge home from a cardiology standpoint. Objective - Vital Signs Vital signs: Vital Signs Temp 98.3 F 02/07/23 14:15 Pulse 61 02/07/23 14:15 Resp 16 02/07/23 14:15 BP 136/70 02/07/23 14:15 Pulse Ox 97 02/07/23 14:15 FiO2 21 02/07/23 09:10 Intake & Output 02/06/23 02/07/23 02/07/23 18:59 06:59 18:59 Intake Total 240 Balance 240 Intake: Oral 240 Other: Voiding Method Toilet # Voids 2 1 - Labs CBC & Chem 7: 02/05/23 09:21 02/05/23 09:21
[2023-02-07 16:47] LABS: Potassium 4.4 mmol/L (3.5-5.1)
[2023-02-07 16:48] LABS: African American GFR (CKD) 65 (>60 ml/min/1.73 sqM); Albumin 3.3 g/dL (3.5-5.0); Anion Gap 4 mmol/L; Blood Urea Nitrogen 12 mg/dL (7-17); Calcium 8.4 mg/dL (8.4-10.2); Carbon Dioxide 21 mmol/L (22-30); Chloride 113 mmol/L (98-107); Glucose 96 mg/dL (74-99); Non-African American GFR(CKD) 56 (>60 ml/min/1.73 sqM); Phosphorus 2.2 mg/dL (2.5-4.5); Sodium 138 mmol/L (137-145)
--- NOTE | 2023-02-08 12:40 | P.PN ---
Subjective Progress Note Date: 02/06/23 72 years old female with multiple medical problems including Atrial Fibrillation, Hyperlipidemia, Hypertension, Syncope, hypothyroidism, hx of migraine headaches, She presents because of syncope, this a.m. patient went to the restroom and as she was trying to stand up from the sitting position she felt dizzy and she passed out. Patient isn't known to have recurrent syncope last time was about one month ago 2 days ago patient had diarrhea but has now stopped and she had regular bowel movement currently. Yesterday also she has been having some chest pain which is gone now but patient complains from exertional dyspnea for example when she goes upstairs. 6 months ago she was in the hospital for also recurrent syncope also evaluated by rocket scientist at that time she underwent interrogation of her pacemaker which was uneventful. She also complaining of from dry cough. No abdominal pain vomiting or diarrhea, she was recently treated for UTI about 1.5 weeks ago,also she was receiving another antibiotic for left forehead wound secondary to excision of lesion by her physician. Currently she denies any urinary complaints She denies smoking alcohol or illicit tracts Patient has positive orthostatic vitals with drop in blood pressure from supine 153/51 down to 98/64 Labs including CBC, INR and liver enzymes were unremarkable. Troponin is negative. Urine analysis is negative. CT of the head and neck: No acute intracranial process, no cervical spine fracture Fracture or dislocation Chest x-ray: No acute process Hip and pelvis x-ray: No fracture EKG showing normal sinus rhythm at [address]-T changes The emergency room patient received normal saline and pain medication Objective - Vital Signs Vital signs: Vital Signs Temp 97.8 F 02/06/23 11:58 Pulse 62 02/06/23 16:16 Resp 16 02/06/23 11:58 BP 125/78 02/06/23 16:16 Pulse Ox 96 02/06/23 16:16 FiO2 Intake & Output 02/05/23 02/06/23 02/06/23 18:59 06:59 18:59 Intake Total 830 Balance 830 Weight 58.967 kg Intake: Oral 830 Other: # Voids 1 2 - Exam PHYSICAL EXAMINATION: GENERAL: The patient is alert and oriented x3, not in any acute distress. Well developed, well nourished. HEENT: Pupils are round and equally reacting to light. EOMI. No scleral icterus. No conjunctival pallor. Normocephalic, atraumatic. No pharyngeal erythema. No thyromegaly. CARDIOVASCULAR: S1 and S2 present. No murmurs, rubs, or gallops. PULMONARY: Chest is clear to auscultation, no wheezing or crackles. ABDOMEN: Soft, nontender, nondistended, normoactive bowel sounds. No palpable organomegaly. MUSCULOSKELETAL: No joint swelling or deformity. EXTREMITIES: No cyanosis, clubbing, or pedal edema. NEUROLOGICAL: Gross neurological examination did not reveal any focal deficits. SKIN: No rashes. - Labs CBC & Chem 7: 02/05/23 09:21 02/07/23 16:15 Assessment and Plan Assessment: Syncope most likely to postural hypotension Postural hypotension Acute kidney injury Fall secondary to above with left wrist and elbow trauma with no evidence of fracture on the initial x-ray Diarrhea about 2 days ago which is resolved Chronic atrial fibrillation on a blood thinner Hypertension Hyperlipidemia History of syncope, recurrent Plan: Continue with normal saline and increased rate from 50 up to 75 mL per hour Hold Bumex Telemetry monitoring Cardiology consult We recommend repeat in left wrist and elbow x-ray in 7-10 days Labs and medication were reviewed.. Continue same treatment. Continue with symptomatic treatment. Resume home medication. Monitor labs and vitals. DVT and GI prophylaxis. Further recommendations as per clinical course of the patient DVT prophylaxis: Subcutaneous heparin
== END 2023-02-07 19:15 | disposition home or self-care (01) | DRG 312 ==
LOC: EC 08:56 → 5NMEDONC 11:45
PROVIDERS: ADMIT Internal Medicine; ATTEND Internal Medicine
PROC: 3E0234Z Introduction of Serum, Toxoid and Vaccine into Muscle, Percutaneous Approach (ICD-10-PCS; principal; 2023-02-05)
DX: I95.1 Orthostatic hypotension (principal); N17.9 Acute kidney failure, unspecified; S81.812A Laceration without foreign body, left lower leg, initial encounter; I48.0 Paroxysmal atrial fibrillation; E78.5 Hyperlipidemia, unspecified; E86.0 Dehydration; S69.92XA Unspecified injury of left wrist, hand and finger(s), initial encounter; S59.802A Other specified injuries of left elbow, initial encounter; I10 Essential (primary) hypertension; E89.0 Postprocedural hypothyroidism; I25.10 Atherosclerotic heart disease of native coronary artery without angina pectoris; R11.2 Nausea with vomiting, unspecified; R19.7 Diarrhea, unspecified; M25.551 Pain in right hip; G43.909 Migraine, unspecified, not intractable, without status migrainosus; Z79.51 Long term (current) use of inhaled steroids; Z79.890 Hormone replacement therapy; Z79.899 Other long term (current) drug therapy; Z96.641 Presence of right artificial hip joint; Z87.891 Personal history of nicotine dependence; W18.30XA Fall on same level, unspecified, initial encounter; Y92.002 Bathroom of unspecified non-institutional (private) residence as the place of occurrence of the external cause; Z88.2 Allergy status to sulfonamides
CPT/HCPCS: 36415; 70450; 71045; 72125; 73502; 80053; 80069; 81003; 83735; 84484; 85025; 85610; 85730; 90471; 90715; 93005; 94640; 94760; 96361; 96374; 99285

== ENCOUNTER 2023-05-17 16:42 | Inpatient (IN) | payer MEDICARE ==
--- NOTE | 2023-05-17 17:03 | ED ---
Chest Pain HPI - General Chief Complaint: Chest Pain Stated Complaint: Chest pain Time Seen by Provider: 05/17/23 16:54 Source: patient Mode of arrival: EMS Limitations: no limitations - History of Present Illness Initial Comments: 9-year-old female presenting with chief complaint of chest pain. Patient had cardiac ablation performed for atrial fibrillation last month. Pressure-like pain that radiated down the arm and up into the jaw ongoing for the last 3 hours. Patient was given a sublingual nitro and aspirin 325mg prior to arrival. States that her pain has reduced to a 4 out of 10 discomfort. Admits to shortness of breath. No abdominal pain, nausea, vomiting, fever, chills, cough, congestion, sore throat. Admits to lower extremity edema. - Related Data Home Medications Medication Instructions Recorded Confirmed Levothyroxine Sodium [Synthroid] 75 mcg PO DAILY 02/21/21 05/17/23 Zinc 100 mg PO DAILY 02/21/21 05/17/23 Bumetanide [BUMEX] 1 mg PO DAILY 06/10/22 05/17/23 Metoprolol Tartrate [Lopressor] 50 mg PO BID PRN 06/10/22 05/17/23 Zolpidem Tartrate [Zolpidem 12.5 mg PO HS 06/10/22 05/17/23 Tartrate ER] rOPINIRole HCL [Requip] 4 mg PO HS 06/10/22 05/17/23 HYDROcodone/APAP 7.5-325MG [[place] 1 tab PO Q8H PRN 07/27/22 05/17/23 7.5-325] Propafenone [Rythmol] 150 mg PO TID 07/27/22 05/17/23 Albuterol Sulfate [Albuterol 2 puff INHALATION RT-Q6H PRN 02/05/23 05/17/23 Sulfate Hfa] B Complex/Folic Acid/Basia C 1 tab PO DAILY 02/05/23 05/17/23 Budesonide/Formoterol Fumarate 2 puff INHALATION RT-BID 02/05/23 05/17/23 [Symbicort 80-4.5 Mcg Inhaler] Cholecalciferol [Vitamin D3 (125 250 mcg PO DAILY 02/05/23 05/17/23 Mcg = 5000 Iu)] Omeprazole [PriLOSEC] 40 mg PO BID 02/05/23 05/17/23 Potassium Chloride ER [K-Dur 20] 20 meq PO DAILY 02/05/23 05/17/23 Rosuvastatin [Crestor] 20 mg PO HS 02/05/23 05/17/23 Triamcinolone 0.1% Cream [Kenalog 1 applicatio TOPICAL BID PRN 02/05/23 05/17/23 0.1% Cream] estradioL [Vagifem] 10 mcg VAGINAL SUTH@2100 02/05/23 05/17/23 hydrOXYzine HCL 10 mg PO HS 02/05/23 05/17/23 oxyBUTYnin chloride 5 mg PO BID 02/05/23 05/17/23 Apixaban [Eliquis] 5 mg PO BID 05/17/23 05/17/23 Baclofen [Lioresal] 10 mg PO TID 05/17/23 05/17/23 Colchicine 0.6 mg PO DAILY 05/17/23 05/17/23 Midodrine HCl [ProAmantine] 2.5 mg PO Q8H PRN 05/17/23 05/17/23 Sucralfate [Carafate] 1 gm PO QID 05/17/23 05/17/23 Triamcinolone Acetonide 1 applic TOPICAL MOTH 05/17/23 05/17/23 [Triamcinolone Acetonide 0.025%] Allergies Allergy/AdvReac Type Severity Reaction Status Date / Time Sulfa (Sulfonamide Allergy Anaphylaxis Verified 05/17/23 18:56 Antibiotics) Review of Systems ROS Statement: Those systems with pertinent positive or pertinent negative responses have been documented in the HPI. ROS Other: All systems not noted in ROS Statement are negative. EKG Findings - EKG Comments: EKG Findings:: Sinus rhythm ventricular rate 67. AK interval 183. QRS 119. QT 336. QTc 352. No acute changes when compared to previous EKG Past Medical History Past Medical History: Atrial Fibrillation, Hyperlipidemia, Hypertension, Myocardial Infarction ([place]), Syncope, Thyroid Disorder Additional Past Medical History / Comment(s): hx of migraine headaches, takes flexeril for that History of Any Multi-Drug Resistant Organisms: None Reported Past Surgical History: Section, Heart Catheterization With Stent, Hernia Repair, Hysterectomy, Joint Replacement Additional Past Surgical History / Comment(s): cataracts, partial thyroidectomy, breast augmentation, right hip replacement january 2021, debridment on right hip january 2021, left hip surgery. Past Anesthesia/Blood Transfusion Reactions: Postoperative Nausea & Vomiting (PONV) Past Psychological History: No Psychological Hx Reported Smoking Status: Former smoker - Past Family History Mother Family Medical History: Cancer, Hypertension, Thyroid Disorder Father Family Medical History: Coronary Artery Disease (CAD), CVA/TIA Brother(s) Additional Family Medical History / Comment(s): history of Factor X General Exam Limitations: no limitations General appearance: alert, in no apparent distress Head exam: Present: atraumatic, normocephalic, normal inspection Eye exam: Present: normal appearance, EOMI. Absent: scleral icterus Neck exam: Present: normal inspection, full ROM Respiratory exam: Present: normal lung sounds bilaterally. Absent: respiratory distress, wheezes, rales, rhonchi, stridor Cardiovascular Exam: Present: regular rate, normal rhythm, normal heart sounds. Absent: systolic murmur, diastolic murmur, rubs, gallop, clicks Extremities exam: Present: pedal edema Neurological exam: Present: alert, oriented X3, CN II-XII intact Psychiatric exam: Present: normal affect, normal mood Skin exam: Present: warm, dry, intact, normal color. Absent: rash Course Vital Signs 05/17/23 05/17/23 05/17/23 16:43 16:47 17:10 Temperature 98 F Pulse Rate 66 65 Pulse Rate [ 65 Telegraph Dispatcher ] Respiratory 16 18 20 Rate Blood Pressure 163/64 160/65 O2 Sat by Pulse 96 98 Oximetry 05/17/23 05/17/23 05/17/23 17:20 17:47 18:00 Temperature Pulse Rate 65 63 62 Pulse Rate [ Telegraph Dispatcher ] Respiratory 7 L 16 18 Rate Blood Pressure 145/82 145/82 O2 Sat by Pulse 98 98 97 Oximetry 05/17/23 05/17/23 05/17/23 18:32 19:00 20:00 Temperature 98.2 F Pulse Rate 64 64 65 Pulse Rate [ Telegraph Dispatcher ] Respiratory 18 9 L 15 Rate Blood Pressure 129/80 137/75 156/78 O2 Sat by Pulse 97 98 98 Oximetry 05/17/23 05/17/23 05/17/23 20:50 21:00 22:00 Temperature Pulse Rate 69 87 66 Pulse Rate [ Telegraph Dispatcher ] Respiratory 18 14 15 Rate Blood Pressure 159/84 159/84 143/82 O2 Sat by Pulse 100 97 95 Oximetry 05/17/23 05/17/23 05/18/23 23:00 23:34 00:00 Temperature Pulse Rate 68 64 Pulse Rate [ Telegraph Dispatcher ] Respiratory 18 16 Rate Blood Pressure 176/81 138/80 138/80 O2 Sat by Pulse 97 Oximetry 05/18/23 05/18/23 01:00 03:36 Temperature Pulse Rate 65 65 Pulse Rate [ Telegraph Dispatcher ] Respiratory 13 18 Rate Blood Pressure 132/68 166/83 O2 Sat by Pulse 99 100 Oximetry Chest Pain MDM - MDM Was pt. sent in by a medical professional or institution (, PA, PURCHASING AND CLAIMS SUPERVISOR, urgent care, hospital, or prison...) When possible be specific @ -No Did you speak to anyone other than the patient for history (EMS, parent, family, police, friend...)? What history was obtained from this source @ -No Did you review nursing and triage notes (agree or disagree)? Why? @ -I reviewed and agree with nursing and triage notes Were old charts reviewed (outside hosp., previous admission, EMS record, old EKG, old radiological studies, urgent care reports/EKG's, prison records)? Report findings @ -No old charts were reviewed Differential Diagnosis (chest pain, altered mental status, abdominal pain women, abdominal pain men, vaginal bleeding, weakness, fever, dyspnea, syncope, headache, dizziness, GI bleed, back pain, seizure, CVA, palpatations, mental health, musculoskeletal)? @ -[facility] Differential Chest Pain: Stable Angina, Unstable Angina, STEMI, NSTEMI Aortic Dissection, Pneumothorax, Musculoskeletal, Esophageal Spasm GERD, Cholecystitis, Pancreatitis, Zoster This is not meant to be an all-inclusive list. EKG interpreted by me (3pts min.). @ -As above X-rays interpreted by me (1pt min.). @ -Chest X-ray shows no acute process CT interpreted by me (1pt min.). @ -None done U/S interpreted by me (1pt. min.). @ -None done What testing was considered but not performed or refused? (CT, X-rays, U/S, labs)? Why? @ -None What meds were considered but not given or refused? Why? @ -None Did you discuss the management of the patient with other professionals (professionals i.e. DrOlivier, PA, PURCHASING AND CLAIMS SUPERVISOR, lab, RT, psych nurse, web content & social media manager, sql tech, teacher, major gifts officer, window caser)? Give summary @ -Spoke with Sound Physician On-Call Who Accepted Admission Was smoking cessation discussed for >3mins.? @ -No Was critical care preformed (if so, how long)? @ -No Were there social determinants of health that impacted care today? How? (Homelessness, low income, unemployed, alcoholism, drug addiction, transportation, low edu. Level, literacy, decrease access to med. care, intermediate, rehab)? @ -No Was there de-escalation of care discussed even if they declined (Discuss DNR or withdrawal of care, Hospice)? DNR status @ -No What co-morbidities impacted this encounter? (DM, HTN, Smoking, COPD, CAD, Can cer, CVA, ARF, Chemo, Hep., AIDS, mental health diagnosis, sleep apnea, morbid obesity)? @ -Atrial fibrillation, hyperlipidemia, hypertension Was patient admitted / discharged? Hospital course, mention meds given and route, prescriptions, significant lab abnormalities, going to OR and other pertinent info. @ -72-year-old female presenting with chief complaint of pressure-like chest pain extending down the arm and up the neck associated with shortness of breath that started 3 hours prior to arrival. Physical examination is unremarkable. Patient was given aspirin prior to arrival. Patient states that after nitro pain has resolved. Troponin is 0.045. Chest x-rays unremarkable. EKG shows no acute changes. Patient is initiated on heparin and will be admitted for observation. Patient is agreeable to this plan. I discussed this with my attending Dr. Rae. Undiagnosed new problem with uncertain prognosis? @ -No Drug Therapy requiring intensive monitoring for toxicity (Heparin, Nitro, Insulin, Cardizem)? @ -Heparin Were any procedures done? @ -No Diagnosis/symptom? @ -NSTEMI Acute, or Chronic, or Acute on Chronic? @ -acute Uncomplicated (without systemic symptoms) or Complicated (systemic symptoms)? @ -Complicated Side effects of treatment? @ -No Exacerbation, Progression, or Severe Exacerbation? @ -No Poses a threat to life or bodily function? How? (Chest pain, [place], LA, pneumonia, PE, COPD, DKA, ARF, appy, cholecystitis, CVA, Diverticulitis, Homicidal, Suicidal, threat to staff... and all critical care pts) @ -Yes Disposition Clinical Impression: Acute non-ST elevation myocardial infarction (NSTEMI) Disposition: ADMITTED IP TO THIS HOSP Condition: Fair Time of Disposition: 17:50
[2023-05-17 17:10] LABS: Basophils % (A) 0 %; Eosinophils # (A) 0.2 k/uL (0-0.7); Eosinophils % (A) 2 %; HCT 37.2 % (34.0-46.0); HGB 11.9 gm/dL (11.4-16.0); Lymphocytes # (A) 1.2 k/uL (1.0-4.8); Lymphocytes % (A) 17 %; MCH 29.5 pg (25.0-35.0); MCV 92.2 fL (80.0-100.0); Mean Platelet Volume 7.7; Monocytes # (A) 0.4 k/uL (0-1.0); Monocytes % (A) 6 %; Neutrophils # (A) 5.4 k/uL (1.3-7.7); Neutrophils % (A) 74 %; Platelet Count 232 k/uL (150-450); RBC 4.03 m/uL (3.80-5.40); WBC 7.3 k/uL (3.8-10.6)
[2023-05-17 17:20] LABS: ALT 26 U/L (4-34); AST 32 U/L (14-36); African American GFR (CKD) 68 (>60 ml/min/1.73 sqM); Albumin 3.5 g/dL (3.5-5.0); Alkaline Phosphatase 111 U/L (38-126); Anion Gap 5 mmol/L; Blood Urea Nitrogen 27 mg/dL (7-17); Calcium 8.5 mg/dL (8.4-10.2); Carbon Dioxide 26 mmol/L (22-30); Chloride 106 mmol/L (98-107); Glucose 88 mg/dL (74-99); Magnesium 2.2 mg/dL (1.6-2.3); Non-African American GFR(CKD) 59 (>60 ml/min/1.73 sqM); Potassium 3.9 mmol/L (3.5-5.1); Sodium 137 mmol/L (137-145); Total Bilirubin 0.4 mg/dL (0.2-1.3); Total Protein 5.9 g/dL (6.3-8.2)
--- NOTE | 2023-05-17 17:25 | XR ---
EXAMINATION TYPE: XR chest 2V DATE OF EXAM: 05/17/2023 5:09 PM COMPARISON: Chest radiographs from 02/05/2023 TECHNIQUE: XR chest 2V Frontal and lateral views of the chest. CLINICAL INDICATION:Female, 72 years old with history of Chest Pain; FINDINGS: Lungs/Pleura: There is no evidence of pleural effusion, focal consolidation, or pneumothorax. Pulmonary vascularity: Unremarkable. Heart/mediastinum: Cardiomediastinal silhouette is unremarkable. A loop recorder projects over the le ft thorax over the heart. Musculoskeletal: No acute osseous pathology. IMPRESSION: No acute cardiopulmonary disease/process.
[2023-05-17 17:29] LABS: Partial Thromboplastin Time 24.5 sec (22.0-30.0); Prothrombin Time 10.2 sec (9.0-12.0)
[2023-05-17] MEDS: NITROGLYCERIN SL TABS 0.4 MG TAB SUBLINGUAL PRN ×2 (17:32→23:34)
[2023-05-17] MEDS ORDERED: HEPARIN SODIUM 1,000 UN/ML (10ML VL) IV PRN (17:58)
[2023-05-17] MEDS ORDERED: HEPARIN SODIUM 1,000 UN/ML (10ML VL) IV ONE (17:58)
[2023-05-17] MEDS ORDERED: NALOXONE 0.4 MG/ML 1 ML VIAL IV PRN (18:12)
[2023-05-17] MEDS: HEPARIN SOD,PORK IN 0.45% NACL 25,000 UNIT in 0.45% NACL 1 250ML.BAG IV SCH (18:21)
[2023-05-17] MEDS ORDERED: METOPROLOL TARTRATE 50 MG TAB PO PRN (23:37)
[2023-05-17] MEDS ORDERED: IPRATROPIUM-ALBUTEROL 3 ML NEB INHALATION PRN (23:39)
--- NOTE | 2023-05-17 23:46 | P.HPIM ---
History of Present Illness H&P Date: 05/17/23 Chief Complaint: chest pain 72-year-old female with coronary artery disease, A. fib on Ellequis Patient coming in for sudden onset chest pain. She reports that she was sitting doing nothing however she was feeling tired all day when gradually she felt pressure-like chest pain gradually getting worse and then started radiating to the jaw and her neck and left arm associated with feeling nauseous and shortness of breath and lightheadedness denies any profuse sweating or vomiting denies any GI bleeding denies any coughing denies any upper respiratory infectious symptoms Patient recently had similar episodes 1 day after ablation for A. fib she went on the [facility] for evaluation and was discharged from the ER after running some tests. Otherwise she denies any abdominal pain denies any weight loss denies any focal neuro deficits denies any recent travel her hospital stay denies any history of blood clots Patient denies any tobacco smoking illicit drugs or alcohol Review of systems Pertinent positives as noted in HPI. All other systems were reviewed and are negative On physical exam Constitutional: No acute distress, conversant, pleasant Eyes: Anicteric sclerae, moist conjunctiva, Pupils equal round reactive to light ENMT: NC/AT Oropharynx clear, no erythema, or exudates Neck: Supple, no masses, or JVD No carotid bruits No thyromegaly Lungs: Clear to auscultation Clear to percussion Normal respiratory effort, no accessory muscle use Cardiovascular: Heart regular in rate and rhythm, No murmurs, gallops, or rubs No peripheral edema Abdominal: Soft Nontender, no guarding, rebound or rigidity Abdomen moving with respiration Normoactive bowel sounds No hepatomegaly, No splenomegaly No palpable mass No abdominal wall hernia noted Skin: Normal temperature, tone, texture, turgor No induration No subcutaneous nodules No rash, lesions No ulcers Extremities: No digital cyanosis No clubbing Pedal pulses intact and symmetrical Radial pulses intact and symmetrical No calf tenderness Psychiatric: Alert and oriented to person, place and time Appropriate affect fair judgement Neuro Muscles Strength 5/5 in all 4 extremities Sensation to light touch grossly present throughout Cranial nerves II-XII grossly intact Lymphatics: no palpable cervical or supraclavicular lymph nodes Past Medical History Past Medical History: Atrial Fibrillation, Hyperlipidemia, Hypertension, Myoca rdial Infarction ([place]), Syncope, Thyroid Disorder Additional Past Medical History / Comment(s): hx of migraine headaches, takes flexeril for that History of Any Multi-Drug Resistant Organisms: None Reported Past Surgical History: Section, Heart Catheterization With Stent, Hernia Repair, Hysterectomy, Joint Replacement Additional Past Surgical History / Comment(s): cataracts, partial thyroidectomy, breast augmentation, right hip replacement january 2021, debridment on right hip january 2021, left hip surgery. Past Anesthesia/Blood Transfusion Reactions: Postoperative Nausea & Vomiting (PONV) Past Psychological History: No Psychological Hx Reported Smoking Status: Former smoker - Past Family History Mother Family Medical History: Cancer, Hypertension, Thyroid Disorder Father Family Medical History: Coronary Artery Disease (CAD), CVA/TIA Brother(s) Additional Family Medical History / Comment(s): history of Factor X Medications and Allergies Home Medications Medication Instructions Recorded Confirmed Type Levothyroxine Sodium [Synthroid] 75 mcg PO DAILY 02/21/21 05/17/23 History Zinc 100 mg PO DAILY 02/21/21 05/17/23 History Bumetanide [BUMEX] 1 mg PO DAILY 06/10/22 05/17/23 History Metoprolol Tartrate [Lopressor] 50 mg PO BID PRN 06/10/22 05/17/23 History Zolpidem Tartrate [Zolpidem 12.5 mg PO HS 06/10/22 05/17/23 History Tartrate ER] rOPINIRole HCL [Requip] 4 mg PO HS 06/10/22 05/17/23 History HYDROcodone/APAP 7.5-325MG [[place] 1 tab PO Q8H PRN 07/27/22 05/17/23 History 7.5-325] Propafenone [Rythmol] 150 mg PO TID 07/27/22 05/17/23 History Albuterol Sulfate [Albuterol 2 puff INHALATION RT-Q6H PRN 02/05/23 05/17/23 History Sulfate Hfa] B Complex/Folic Acid/Basia C 1 tab PO DAILY 02/05/23 05/17/23 History Budesonide/Formoterol Fumarate 2 puff INHALATION RT-BID 02/05/23 05/17/23 History [Symbicort 80-4.5 Mcg Inhaler] Cholecalciferol [Vitamin D3 (125 250 mcg PO DAILY 02/05/23 05/17/23 History Mcg = 5000 Iu)] Omeprazole [PriLOSEC] 40 mg PO BID 02/05/23 05/17/23 History Potassium Chloride ER [K-Dur 20] 20 meq PO DAILY 02/05/23 05/17/23 History Rosuvastatin [Crestor] 20 mg PO HS 02/05/23 05/17/23 History Triamcinolone 0.1% Cream [Kenalog 1 applicatio TOPICAL BID PRN 02/05/23 05/17/23 History 0.1% Cream] estradioL [Vagifem] 10 mcg VAGINAL SUTH@2100 02/05/23 05/17/23 History hydrOXYzine HCL 10 mg PO HS 02/05/23 05/17/23 History oxyBUTYnin chloride 5 mg PO BID 02/05/23 05/17/23 History Apixaban [Eliquis] 5 mg PO BID 05/17/23 05/17/23 History Baclofen [Lioresal] 10 mg PO TID 05/17/23 05/17/23 History Colchicine 0.6 mg PO DAILY 05/17/23 05/17/23 History Midodrine HCl [ProAmantine] 2.5 mg PO Q8H PRN 05/17/23 05/17/23 History Sucralfate [Carafate] 1 gm PO QID 05/17/23 05/17/23 History Triamcinolone Acetonide 1 applic TOPICAL MOTH 05/17/23 05/17/23 History [Triamcinolone Acetonide 0.025%] Allergies Allergy/AdvReac Type Severity Reaction Status Date / Time Sulfa (Sulfonamide Allergy Anaphylaxis Verified 05/17/23 18:56 Antibiotics) Physical Exam Vitals: Vital Signs Temp Pulse Pulse Resp BP Pulse Ox 05/17/23 20:50 69 18 159/84 100 05/17/23 18:32 98.2 F 64 18 129/80 97 05/17/23 17:47 63 16 145/82 98 05/17/23 17:10 20 05/17/23 16:47 65 65 18 160/65 98 05/17/23 16:43 98 F 66 16 163/64 96 Intake and Output 05/17/23 05/17/23 05/17/23 06:59 14:59 22:59 Other: Weight 66.678 kg Results CBC & Chem 7: 05/17/23 16:51 05/17/23 16:51 Labs: Abnormal Lab Results - Last 24 Hours (Table) 05/17/23 05/17/23 Range/Units 16:51 16:51 BUN 27 H (7-17) mg/dL Troponin I 0.045 H* (0.000-0.034) ng/mL Total Protein 5.9 L (6.3-8.2) g/dL Assessment and Plan Assessment: 72-year-old female with A. fib status post ablation on blood thinners, coming in for chest pain I discussed the case with the ED doctor patient has elevation of troponins accepted the admission for an STEMI for further management and cardiology evaluation with anticipated length of stay more than 2 midnights NSTEMI atypical chest pain rule out ACS EKG no acute changes CXR no acute pathology trops POSITIVE 0.045 monitoring engineer monitor vital signs ASA, statin cardiology consult A1c, lipid panel , TSH pain control Nitro when necessary In the ED patient was initiated on heparin drip,eliquis will be on hold Blood work overall unremarkable hemoglobin 11.9, wbc 7.3 Renal function unremarkable BUN 27, creatinine 0.98, sodium 137, potassium 3.9 Hypothyroid Resume levothyroxine COPD compensated Resume DuoNeb's Resume Symbicort Full code DVT prophylaxis currently on heparin drip for ACS
[2023-05-18] MEDS: LEVOTHYROXINE 75 MCG TAB PO SCH (07:13)
[2023-05-18 07:16] LABS: Basophils % (A) 1 %; Eosinophils # (A) 0.2 k/uL (0-0.7); Eosinophils % (A) 2 %; HCT 39.3 % (34.0-46.0); HGB 12.7 gm/dL (11.4-16.0); Lymphocytes # (A) 1.3 k/uL (1.0-4.8); Lymphocytes % (A) 17 %; MCHC 32.2 g/dL (31.0-37.0); MCV 93.1 fL (80.0-100.0); Mean Platelet Volume 7.7; Monocytes # (A) 0.4 k/uL (0-1.0); Monocytes % (A) 5 %; Neutrophils # (A) 5.4 k/uL (1.3-7.7); Neutrophils % (A) 73 %; Platelet Count 249 k/uL (150-450); RBC 4.23 m/uL (3.80-5.40); RDW 13.9 % (11.5-15.5); WBC 7.3 k/uL (3.8-10.6)
[2023-05-18 07:22] LABS: INR 1.1 (<1.2); Prothrombin Time 11.1 sec (9.0-12.0)
[2023-05-18] MEDS: SYMBICORT 80-4.5 MCG INHALER INHALATION SCH ×2 (08:13→20:51)
[2023-05-18] MEDS ORDERED: RX INFO: IV CONTRAST WAS GIVEN 1 EACH MISC MISCELLANE PRN (08:53)
[2023-05-18] MEDS: oxyBUTYnin chloride 5 MG TAB PO SCH ×2 (08:56→20:08)
[2023-05-18] MEDS: BUMETANIDE 1 MG TAB PO SCH (08:57)
[2023-05-18] MEDS: PANTOPRAZOLE 40 MG TABLET PO SCH ×2 (08:57→20:08)
--- NOTE | 2023-05-18 09:47 | CONS ---
CONSULTATION CHIEF COMPLAINT: Chest pain. HISTORY OF PRESENT ILLNESS: Marcia is a 72-year-old lady with a history of paroxysmal atrial fibrillation, hypotension, dyslipidemia, hypothyroidism, who presents to hospital complaining of chest discomfort. She had ablation for atrial fibrillation at [facility] on the of this month and states that she has been having episodes of chest discomfort from the day after. Yesterday, it got worse. It is a sharp, pericardial, moderate intensity that radiated to her back and neck. Due to this, she was concerned and came in to the ER. Her troponins are slightly elevated at 0.04, 0.04, and 0.04. EKG does not reveal any acute ischemic changes. The patient is in sinus rhythm. There is evidence of prior anteroseptal myocardial infarction. The patient states that she had a cardiac catheterization in October at [facility] and was told it was normal. The patient's chest discomfort is sharp and may be related to the recent ablation and certainly, the elevated troponin could be related to it. We need to rule out any complications related to the atrial fibrillation. I am going to get a CT scan of the chest. I will obtain a D-dimer to rule out any pulmonary embolism. I will obtain catheterization report from [facility] and if the cath report shows that she had normal coronaries, there is no reason to investigate her for the elevated troponin at this time. I will obtain a 2D echo to rule out any pericardial disease and to assess LV function and wall motion. I will decide on further course of action based on these test results. PAST MEDICAL HISTORY: Significant for paroxysmal atrial fibrillation and hypertension. CURRENT MEDICATIONS: Include colchicine, metoprolol, hydroxyzine, Synthroid, Symbicort, Bumex, midodrine, Rythmol 150 t.i.d. ALLERGIES: The patient is allergic to sulfa. FAMILY HISTORY: Negative for premature coronary artery disease. SOCIAL HISTORY: Negative for smoking, EtOH abuse, or drug abuse. REVIEW OF SYSTEMS: HEENT: Unremarkable. CARDIAC: As described above. RESPIRATORY: As described above. GI: Negative. GENITOURINARY: Negative. ALLERGY/IMMUNOLOGY: Negative. SKIN: Negative. MUSCULOSKELETAL: Negative. ENDOCRINE: Negative. DERM: Negative. CONSTITUTIONAL: Negative. ONCOLOGICAL: Negative. CASH MANAGEMENT COORDINATOR: Negative Rest of the system review is not relevant. PHYSICAL EXAMINATION: GENERAL: The patient is comfortable at rest. VITAL SIGNS: Afebrile. Heart rate is 67 beats per minute. Blood pressure is 150/85, respiratory rate is 16, O2 saturation is 98% on 2 L. NECK: There is no jugular venous distention. Carotid upstroke is normal. There are no bruits. CHEST: Reveals good air entry bilaterally. HEART: Reveals first and second heart sounds. No gallop. No murmur. No rub. ABDOMEN: Soft, nontender. Examination of extremities did not reveal any edema. Peripheral pulses are felt. LABS: Showed that the hemoglobin is 12.7, platelet count is 249, potassium is 3.9, creatinine 0.98. Three sets of troponins are mildly elevated. TSH is normal. BNP is 720. ASSESSMENT: 1. Elevated troponin could be related to recent ablation and EP procedure. 2. Pericardial chest pain could be related to pericarditis from the recent ablation. The patient is on colchicine which should be continued. 3. Paroxysmal atrial fibrillation, status post ablation. PLAN: I will obtain a 2D echo, obtain the cath report from [facility], stop the heparin if her coronaries were normal in October. I will obtain a CT scan of the chest and D- dimer to complete a workup. MMODL / IJN: [id number] /
[2023-05-18] MEDS: PROPAFENONE 150 MG TAB PO SCH ×3 (10:27→23:56)
--- NOTE | 2023-05-18 11:59 | CT ---
EXAMINATION TYPE: CT chest w con DATE OF EXAM: 05/18/2023 COMPARISON: HISTORY: chest pain, complications post cardiac ablation CT DLP: 212.2 mGycm, Automated exposure control for dose reduction was used. CONTRAST: Performed injected with 80 mL of Isovue 300. TECHNIQUE: Axial images were obtained at 5 mm thick sections. Reconstructed images are reviewed on [employer] computer in the coronal plane. FINDINGS: Portion of the thyroid visualized is normal. There is a 0.5 cm nodule in the right perihilar region this was present previously No enlarged mediastinal or hilar adenopathy is evident. The ascending aorta diameter at the level o f the main pulmonary artery is 3.0 cm. The main pulmonary artery diameter at the bifurcation is 2.[address] sections are obtained through the upper abdomen. Cortical renal cysts are present in the l eft. Small cyst may be in the inferior spleen. Hepatic cyst may be at the dome of the liver. Collapsed calcified prostheses or residual calcification post implant is present within the bilateral breasts. IMPRESSIONS: 1. Stable 0.5 cm nodule right midlung. 2. Post implant collapse or removal calcifications posterior bilateral breasts.
--- NOTE | 2023-05-18 18:39 | P.PN ---
Subjective Progress Note Date: 05/18/23 Patient is a 72-year-old female with a history of recent A. fib ablation on 05/07 at [facility] on Eliquis, coronary artery disease, hypertension, dyslipidemia, and hypothyroidism who presented to the hospital with complaints of chest discomfort. In the ER she underwent an extensive evaluation. Initial vital signs were remarkable for a blood pressure 163/64 initial laboratory a nalysis was remarkable for elevated troponin 0.045. Patient was transitioned from Eliquis to heparin drip and arrangements were made for placement in observation. Cardiology was consulted. Her troponins remained flat. Patient seen and examined at bedside. Patient seen and examined at bedside. She reports that she is no longer having chest pain but did have some this morning. She denies any chest pain or shortness of breath. Vital signs reviewed General: nontoxic, no distress, appears at stated age Cardiovascular: S1S2 reg, no murmur, positive posterior tibial pulse bilateral, Lungs: CTA bilateral, no rhonchi, no rales , no accessory muscle use Abdominal: soft, nontender to palpation, no guarding, no appreciable organomegaly Ext: no gross muscle atrophy, no edema b/l lower extremities, no contractures Neuro: CN II-XI grossly intact, no focal neuro deficits Psych: Alert, oriented, appropriate affect Assessment: Chest pain Elevated troponin, may be related to recent ablation Recent atrial fibrillation ablation Hypertension Dyslipidemia Hypothyroidism COPD without exacerbation Imaging: Chest CT-stable 0.5 cm nodule right mid lung, post implant collapsible a removable calcifications posterior bilateral breast Data Review: Vitals reviewed and 67, respirations 16, blood pressure 144/85, O2 sat 98% on 2 L nasal cannula -Laboratory analysis from this morning unremarkable. TSH 0.62, d-dimer 0.40 Plan: -Continue with Lipitor 40 mg daily, Prograf unknown 150 mg 3 times daily, Bumex 1 mg daily -Lopressor 50 mg as needed for high blood pressure - Cardiology note reviewed: Await echocardiogram and records from [facility]. -Symbicort 2 puffs twice daily -Protonix 40 mg twice daily, DVT prophylaxis: On heparin drip Anticipated discharge date: Pending clinical course Anticipated discharge place: Pending clinical course This dictation was prepared using [employer] voice recognition software. Though every attempt is made to correct errors during dictation some may still exist. Objective - Vital Signs Vital signs: Vital Signs Temp 98.1 F 05/18/23 17:33 Pulse 84 05/18/23 18:00 Resp 16 05/18/23 18:00 BP 136/73 05/18/23 17:33 Pulse Ox 97 05/18/23 17:33 FiO2 Intake & Output 05/17/23 05/18/23 05/18/23 18:59 06:59 18:59 Weight 66.678 kg 66.678 kg - Labs CBC & Chem 7: 05/18/23 07:05 05/17/23 16:51 Labs: Abnormal Lab Results - Last 24 Hours (Table) 05/17/23 05/17/23 05/17/23 Range/Units 21:21 23:52 23:52 APTT 92.9 H (22.0-30.0) sec Troponin I 0.042 H* 0.041 H* (0.000-0.034) ng/mL
[2023-05-18 18:58] LABS: Chol/HDL Ratio 2.97 Ratio; LDL Cholesterol,Calculated 93.8 mg/dL (0.0-131.0); VLDL Calculation 17.04 mg/dL (5.00-40.00)
[2023-05-18] MEDS: HEPARIN SOD,PORK IN 0.45% NACL 25,000 UNIT in 0.45% NACL 1 250ML.BAG IV SCH (20:02)
[2023-05-18] MEDS: APIXABAN 5 MG TAB PO SCH (20:08)
[2023-05-18] MEDS ORDERED: ATORVASTATIN 40 MG TAB PO SCH (21:00)
[2023-05-19 00:41] VITALS: RESP 18
[2023-05-19] MEDS: LEVOTHYROXINE 75 MCG TAB PO SCH (06:29)
[2023-05-19] MEDS: SYMBICORT 80-4.5 MCG INHALER INHALATION SCH (09:15)
[2023-05-19] MEDS: APIXABAN 5 MG TAB PO SCH (09:20)
[2023-05-19] MEDS: BUMETANIDE 1 MG TAB PO SCH (09:21)
[2023-05-19] MEDS: PANTOPRAZOLE 40 MG TABLET PO SCH (09:21)
[2023-05-19] MEDS: oxyBUTYnin chloride 5 MG TAB PO SCH (09:21)
[2023-05-19] MEDS: PROPAFENONE 150 MG TAB PO SCH (09:21)
[2023-05-19] MEDS ORDERED: COLCHICINE 0.6 MG EACH PO SCH (12:00)
--- NOTE | 2023-05-19 12:00 | P.PN ---
Subjective Progress Note Date: 05/19/23 HISTORY OF PRESENT ILLNESS: Patient examined this morning at the bedside. She denies shortness of breath. She reports minimal chest discomfort this morning and states it is improved compared to yesterday. She has been up ambulating to the bathroom. Vital signs are stable. Records received from [facility] and reviewed. Patient underwent right heart cath and 2021 revealing mild pulmonary hypertension. It is noted that the patient had a left heart catheterization performed By Dr. Cuellar in 2020 revealing normal coronary arteries. CT of the chest completed revealing stable 0.5 cm nodule right midlung. Post-implant collapse or removable calcifications posterior bilateral breasts. PHYSICAL EXAM: VITAL SIGNS: Reviewed. GENERAL: Well-developed in no acute distress. NECK: Supple. No JVD or thyromegaly LUNGS: Respirations even and unlabored. Lungs essentially clear to auscultation bilaterally. HEART: Regular rate and rhythm. S1 and S2 heard. EXTREMITIES: Normal range of motion. No clubbing or cyanosis. Peripheral pulses intact. No lower extremity edema ASSESSMENT: Chest pain, possible pericarditis Recent A. fib ablation Elevated troponins, flat, likely secondary to recent ablation, ACS ruled out History of paroxysmal atrial fibrillation Hypertension PLAN: Await results of 2D echo Continue current cardiac medications Resume colchicine Patient may be discharged home today pending the results of her echocardiogram Patient to follow-up with her primary associate professor of sociology Nurse practitioner note has been reviewed by physician. Signing provider agrees with the documented findings, assessment, and plan of care. Objective - Vital Signs Vital signs: Vital Signs Temp 97.9 F 05/19/23 07:55 Pulse 84 05/19/23 08:00 Resp 18 05/19/23 08:00 BP 158/85 05/19/23 07:55 Pulse Ox 99 05/19/23 07:55 FiO2 Intake & Output 05/18/23 05/19/23 05/19/23 18:59 06:59 18:59 Intake Total 180 Balance 180 Weight 66.678 kg Intake: Oral 180 Other: Voiding Method Toilet Toilet # Voids 2 - Labs CBC & Chem 7: 05/18/23 07:05 05/17/23 16:51
[2023-05-19 12:31] VITALS: BP 134/81; PULSE 83; TEMP 98.4
--- NOTE | 2023-05-19 13:22 | CA ---
Transthoracic Echo Report Name: Marcia Paiz Age: 72 Gender: F : 1950 Exam Date: 05/18/2023 09:29 Exam Location: [facility] Ht (in): 66 Wt (lb): 147 Ordering Physician: Sacha Engle MD ([id number]) Attending/Referring Phys: Dean Cooper DO Business Solutions Architect Marcelo León Procedure CPT: Indications: Chest Pain Cardiac Hx: Technical Quality: Fair Contrast 1: Total Dose (mL): Contrast 2: Total Dose (mL): MEASUREMENTS (Male / Female) Normal Values 2D ECHO LV Diastolic Diameter PLAX 4.2 cm 4.2 - 5.9 / 3.9 - 5.3 cm LV Systolic Diameter PLAX 2.5 cm IVS Diastolic Thickness 1.1 cm 0.6 - 1.0 / 0.6 - 0.9 cm LVPW Diastolic Thickness 0.9 cm 0.6 - 1.0 / 0.6 - 0.9 cm LV Relative Wall Thickness 0.5 RV Internal Dim ED PLAX 1.9 cm LVOT Diameter 1.9 cm Aortic Root Diameter 2.5 cm LA Systolic Diameter LX 3.3 cm 3.0 - 4.0 / 2.7 - 3.8 cm LV Diastolic Volume MOD BP 58.8 cm??? 67 - 155 / 56 - 104 cm??? LV Systolic Volume MOD BP 18.8 cm??? 22 - 58 / 19 - 49 cm??? LV Ejection Fraction MOD BP 68.0 % >= 55 % LV Diastolic Volume MOD 4C 58.7 cm??? LV Systolic Volume MOD 4C 20.5 cm??? LV Ejection Fraction MOD 4C 65.1 % LV Diastolic Length 4C 5.7 cm LV Systolic Length 4C 5.2 cm LV Diastolic Volume MOD 2C 58.9 cm??? LV Systolic Volume MOD 2C 15.1 cm??? LV Ejection Fraction MOD 2C 74.4 % LV Diastolic Length 2C 5.6 cm LV Systolic Length 2C 4.5 cm LA Volume 64.8 cm??? 18 - 58 / 22 - 52 cm??? Ascending Aorta Diameter 2.4 cm DOPPLER AV Peak Velocity 184.5 cm/s AV Peak Gradient 13.6 mmHg AV Mean Velocity 115.1 cm/s AV Mean Gradient 6.4 mmHg AV Velocity Time Integral 40.6 cm AI Peak Velocity 404.4 cm/s AI Peak Gradient 65.4 mmHg AI Pressure Half Time 670.6 ms LVOT Peak Velocity 144.4 cm/s LVOT Peak Gradient 8.3 mmHg LVOT Velocity Time Integral 30.8 cm LVOT Stroke Volume 89.7 cm??? LVOT Stroke Volume Index 51.1 ml/m??? AV Area Cont Eq vti 2.2 cm??? AV Area Cont Eq pk 2.3 cm??? MV Peak Velocity 106.6 cm/s MV Peak Gradient 4.5 mmHg MV Mean Velocity 53.5 cm/s MV Mean Gradient 1.5 mmHg MV Velocity Time Integral 34.5 cm MR Peak Velocity 441.5 cm/s MR Peak Gradient 78.0 mmHg Mitral E Point Velocity 92.3 cm/s Mitral A Point Velocity 82.6 cm/s Mitral E to A Ratio 1.1 MV Deceleration Time 248.9 ms MV E' Velocity 7.8 cm/s Mitral E to MV E' Ratio 11.8 TR Peak Velocity 281.5 cm/s TR Peak Gradient 31.7 mmHg Right Ventricular Systolic Press 36.8 mmHg FINDINGS Left Ventricle Left ventricular ejection fraction is estimated at 55-60 %. Right Ventricle Normal right ventricular size. Right Atrium Normal right atrial size. Left Atrium Mild left atrial dilatation. Mitral Valve Structurally normal mitral valve. Moderate MR. Aortic Valve Aortic valve not well visualized. Moderate AI. Tricuspid Valve Structurally normal tricuspid valve. Mild to Moderate TR. RVSP= 40mmhg. Pulmonic Valve Pulmonic valve not well visualized. No pulmonic regurgitation. Pericardium Small Anterior pericardial effusion best visualized in subcostal views. Aorta Normal size aortic root and proximal ascending aorta. CONCLUSIONS Normal LV size and systolic function. Mild to moderate mitral and aortic insufficiency. Mild pulmonary hypertension. Small anterior pericardial effusion noted. Previewed by: Dr. Isidra Mirza MD (Electronically Signed) Final Date: 19 May 2023 13:21
--- NOTE | 2023-05-19 14:20 | P.DS ---
Providers Date of admission: 05/17/23 18:59 Expected date of discharge: 05/19/23 Attending physician: Roberto Fried MD Consults: 05/17/23 18:12 Consult Physician Urgent Consulting Provider: [facility] Consult Reason/Comments: NSTEMI Do you want consulting provider notified?: Yes Primary care physician: Stefan Mckinley, Hospital Course: Discharge Diagnosis: Chest pain, probable pericarditis Elevated troponin secondary to recent cardiac ablation, acute coronary syndrome ruled out Hypertension Dyslipidemia Hypothyroidism COPD without exacerbation Hospital Course: Patient is a 72-year-old female with a history of recent A. fib ablation on 05/07 at [facility] on Eliquis, coronary artery disease, hypertension, dyslipidemia, and hypothyroidism who presented to the hospital with complaints of chest discomfort. In the ER she underwent an extensive evaluation. Initial vital signs were remarkable for a blood pressure 163/64 initial laboratory analysis was remarkable for elevated troponin 0.045. Patient was transitioned from Eliquis to heparin drip and arrangements were made for placement in observation. Cardiology was consulted. Her troponins remained flat. She was evaluated by cardiology who recommended resumption of her Eliquis and discontinuation of the Cardizem drip. She underwent an echocardiogram which showed an ejection fraction of 55-60% and a small anterior pericardial effusion with mild pulmonary hypertension. CT chest showed a stable 0.5 cm right mid lung nodule with post implantation collapse or removal of calcifications of posterior bilateral breasts. She conitnued to do well. She was cleared by cardiology and determined stable for dsicharge. Patient seen and examined at bedside. She has some mild chest pressure Vital signs reviewed and stable. General: nontoxic, no distress, appears at stated age Cardiovascular: S1S2 reg, no murmur, positive posterior tibial pulse bilateral, Lungs: CTA bilateral, no rhonchi, no rales , no accessory muscle use Abdominal: soft, nontender to palpation, no guarding, no appreciable organomegaly Ext: no gross muscle atrophy, no edema b/l lower extremities, no contractures Neuro: CN II-XI grossly intact, no focal neuro deficits Psych: Alert, oriented, appropriate affect A total of 32 minutes of time were spent preparing this complex discharge summary. Patient was discharged on 05/19/23. This dictation was prepared using [employer] voice recognition software. Though every attempt is made to correct errors during dictation some may still exist. Patient Condition at Discharge: Fair Plan - Discharge Summary Discharge Rx Participant: No New Discharge Prescriptions: Continue Levothyroxine Sodium [Synthroid] 75 mcg PO DAILY Metoprolol Tartrate [Lopressor] 50 mg PO BID PRN PRN Reason: high blood pressure Zolpidem Tartrate [Zolpidem Tartrate ER] 12.5 mg PO HS Propafenone [Rythmol] 150 mg PO TID oxyBUTYnin chloride 5 mg PO BID Omeprazole [PriLOSEC] 40 mg PO BID hydrOXYzine HCL 10 mg PO HS estradioL [Vagifem] 10 mcg VAGINAL SUTH@2100 Budesonide/Formoterol Fumarate [Symbicort 80-4.5 Mcg Inhaler] 2 puff INHALATION RT-BID Albuterol Sulfate [Albuterol Sulfate Hfa] 2 puff INHALATION RT-Q6H PRN PRN Reason: Shortness Of Breath B Complex/Folic Acid/Basia C 1 tab PO DAILY Sucralfate [Carafate] 1 gm PO QID Baclofen [Lioresal] 10 mg PO TID Apixaban [Eliquis] 5 mg PO BID Colchicine 0.6 mg PO DAILY Zinc 100 mg PO DAILY rOPINIRole HCL [Requip] 4 mg PO HS Bumetanide [BUMEX] 1 mg PO DAILY HYDROcodone/APAP 7.5-325MG [Philpot 7.5-325] 1 tab PO Q8H PRN PRN Reason: Pain Triamcinolone 0.1% Cream [Kenalog 0.1% Cream] 1 applicatio TOPICAL BID PRN PRN Reason: Skin Irritation Rosuvastatin [Crestor] 20 mg PO HS Cholecalciferol [Vitamin D3 (125 Mcg = 5000 Iu)] 250 mcg PO DAILY Potassium Chloride ER [K-Dur 20] 20 meq PO DAILY Triamcinolone Acetonide [Triamcinolone Acetonide 0.025%] 1 applic TOPICAL MO Midodrine HCl [ProAmantine] 2.5 mg PO Q8H PRN PRN Reason: hold for BP <110 Discharge Medication List Levothyroxine Sodium [Synthroid] 75 mcg PO DAILY 02/21/21 [History] Zinc 100 mg PO DAILY 02/21/21 [History] Bumetanide [BUMEX] 1 mg PO DAILY 06/10/22 [History] Metoprolol Tartrate [Lopressor] 50 mg PO BID PRN 06/10/22 [History] Zolpidem Tartrate [Zolpidem Tartrate ER] 12.5 mg PO HS 06/10/22 [History] rOPINIRole HCL [Requip] 4 mg PO HS 06/10/22 [History] HYDROcodone/APAP 7.5-325MG [Philpot 7.5-325] 1 tab PO Q8H PRN 07/27/22 [History] Propafenone [Rythmol] 150 mg PO TID 07/27/22 [History] Albuterol Sulfate [Albuterol Sulfate Hfa] 2 puff INHALATION RT-Q6H PRN 02/05/23 [History] B Complex/Folic Acid/Basia C 1 tab PO DAILY 02/05/23 [History] Budesonide/Formoterol Fumarate [Symbicort 80-4.5 Mcg Inhaler] 2 puff INHALATION RT-BID 02/05/23 [History] Cholecalciferol [Vitamin D3 (125 Mcg = 5000 Iu)] 250 mcg PO DAILY 02/05/23 [History] Omeprazole [PriLOSEC] 40 mg PO BID 02/05/23 [History] Potassium Chloride ER [K-Dur 20] 20 meq PO DAILY 02/05/23 [History] Rosuvastatin [Crestor] 20 mg PO HS 02/05/23 [History] Triamcinolone 0.1% Cream [Kenalog 0.1% Cream] 1 applicatio TOPICAL BID PRN 02/05/23 [History] estradioL [Vagifem] 10 mcg VAGINAL SUTH@2100 02/05/23 [History] hydrOXYzine HCL 10 mg PO HS 02/05/23 [History] oxyBUTYnin chloride 5 mg PO BID 02/05/23 [History] Apixaban [Eliquis] 5 mg PO BID 05/17/23 [History] Baclofen [Lioresal] 10 mg PO TID 05/17/23 [History] Colchicine 0.6 mg PO DAILY 05/17/23 [History] Midodrine HCl [ProAmantine] 2.5 mg PO Q8H PRN 05/17/23 [History] Sucralfate [Carafate] 1 gm PO QID 05/17/23 [History] Triamcinolone Acetonide [Triamcinolone Acetonide 0.025%] 1 applic TOPICAL MOTH 05/17/23 [History] Follow up Appointment(s)/Referral(s): Stefan Mckinley DO [Primary Care Provider] - 1-2 days Activity/Diet/Wound Care/Special Instructions: Activity: as tolerated Diet: Heart healthy Special Instructions: Please follow up with your shop worker and machine chocolate molder from [facility] in 1 week. Discharge Disposition: HOME SELF-CARE
== END 2023-05-19 15:48 | disposition home or self-care (01) | DRG 315 ==
LOC: EC 16:42 → 3SCARD 18:59
PROVIDERS: ADMIT Family Medicine; ATTEND Family Medicine
DX: I31.9 Disease of pericardium, unspecified (principal); I25.110 Atherosclerotic heart disease of native coronary artery with unstable angina pectoris; I27.20 Pulmonary hypertension, unspecified; I10 Essential (primary) hypertension; J44.9 Chronic obstructive pulmonary disease, unspecified; E03.9 Hypothyroidism, unspecified; F17.210 Nicotine dependence, cigarettes, uncomplicated; I48.0 Paroxysmal atrial fibrillation; Z79.01 Long term (current) use of anticoagulants; E78.5 Hyperlipidemia, unspecified; G43.909 Migraine, unspecified, not intractable, without status migrainosus; I25.2 Old myocardial infarction; Z79.890 Hormone replacement therapy; I31.39 Other pericardial effusion (noninflammatory); Z86.79 Personal history of other diseases of the circulatory system; Z79.899 Other long term (current) drug therapy; Z79.51 Long term (current) use of inhaled steroids; Z90.710 Acquired absence of both cervix and uterus; Z96.641 Presence of right artificial hip joint; Z82.49 Family history of ischemic heart disease and other diseases of the circulatory system; Z98.42 Cataract extraction status, left eye; Z98.41 Cataract extraction status, right eye; Z87.19 Personal history of other diseases of the digestive system; Z88.2 Allergy status to sulfonamides
CPT/HCPCS: 36415; 71046; 71260; 80053; 80061; 83036; 83735; 83880; 84443; 84484; 85025; 85379; 85610; 85730; 93005; 93306; 94640; 96365; 96366; 99285

== ENCOUNTER → 2023-10-19 | Outpatient (CLI) | payer MEDICARE | END | disposition home or self-care (01) | LOC: LABPAT 16:07 | PROVIDERS: ATTEND Orthopaedic Surgery | DX: Z01.812 Encounter for preprocedural laboratory examination (principal); T84.84XA Pain due to internal orthopedic prosthetic devices, implants and grafts, initial encounter; Y82.9 Unspecified medical devices associated with adverse incidents; Z96.641 Presence of right artificial hip joint; Z22.322 Carrier or suspected carrier of Methicillin resistant Staphylococcus aureus | CPT/HCPCS: 86850; 86900; 86901; 87070 ==

== ENCOUNTER → 2023-10-23 | Outpatient (CLI) | payer MEDICARE ==
[2023-10-24 02:24] LABS: Basophils # (A) 0.04 X 10*3/uL (0.00-0.10); Basophils % (A) 0.7 %; Eosinophils # (A) 0.08 X 10*3/uL (0.04-0.35); Eosinophils % (A) 1.4 %; HCT 42.5 % (37.2-46.3); HGB 13.4 g/dL (12.0-15.0); Lymphocytes # (A) 2.14 X 10*3/uL (0.90-5.00); Lymphocytes % (A) 36.1 %; MCH 27.9 pg (27.0-32.0); MCHC 31.5 g/dL (32.0-37.0); MCV 88.4 FL (80.0-97.0); Mean Platelet Volume 10.4 FL (9.5-12.2); Monocytes # (A) 0.46 X 10*3/uL (0.20-1.00); Monocytes % (A) 7.8 %; NRBC Per 100 WBC 0 X 10*3/uL (0.00-0.01); Neutrophils # (A) 3.19 X 10*3/uL (1.80-7.70); Neutrophils % (A) 53.8 %; Platelet Count 262 X 10*3/uL (140-440); RBC 4.81 X 10*6/uL (4.10-5.20); RDW 18.5 % (11.5-14.5); WBC 5.92 X 10*3/uL (4.50-10.00)
[2023-10-24 02:49] LABS: BUN/Creat Ratio 24.86 Ratio (12.00-20.00); Blood Urea Nitrogen 34.8 mg/dL (9.0-27.0); Calcium 9.9 mg/dL (8.7-10.3); Carbon Dioxide 23.1 mmol/L (21.6-31.8); Chloride 106 mmol/L (96-109); Glucose 131 mg/dL (70-110); Sodium 143 mmol/L (135-145)
--- NOTE | 2023-10-26 08:37 | P.HPOR ---
History of Present Illness H&P Date: 10/26/23 Chief Complaint: Right hip pain The patient is a 73-year-old retired female who presents with persistent/progressive right hip pain after undergoing a right total hip arthroplasty for fracture in 2020. She's having pain with any weightbearing activities. She notes groin and thigh pain. She's tried medications without much relief. She notes daily pain that limits her normal function and activities. Review of Systems As below Past Medical History Past Medical History: Atrial Fibrillation, Hyperlipidemia, Hypertension, Myocardial Infarction ([place]), Syncope, Thyroid Disorder Additional Past Medical History / Comment(s): hx of migraine headaches, takes flexeril for that Last Myocardial Infarction Date:: unknown History of Any Multi-Drug Resistant Organisms: None Reported Past Surgical History: Section, Heart Catheterization With Stent, Hernia Repair, Hysterectomy, Joint Replacement Additional Past Surgical History / Comment(s): cataracts, partial thyroidectomy, breast augmentation, right hip replacement january 2021, debridment on right hip january 2021, left hip surgery. Past Anesthesia/Blood Transfusion Reactions: Postoperative Nausea & Vomiting (PONV) Date of Last Stent Placement:: unknown Past Psychological History: No Psychological Hx Reported Smoking Status: Former smoker Past Alcohol Use History: Rare Additional Past Alcohol Use History / Comment(s): smoked for a few years as a teen, less than 1ppd Past Drug Use History: None Reported - Past Family History Mother Family Medical History: Cancer, Hypertension, Thyroid Disorder Father Family Medical History: Coronary Artery Disease (CAD), CVA/TIA Brother(s) Additional Family Medical History / Comment(s): history of Factor X Medications and Allergies Home Medications Medication Instructions Recorded Confirmed Type Levothyroxine Sodium [Synthroid] 75 mcg PO DAILY 02/21/21 10/23/23 History Bumetanide [BUMEX] 1 mg PO DAILY PRN 06/10/22 10/23/23 History Metoprolol Tartrate [Lopressor] 50 mg PO BID PRN 06/10/22 10/23/23 History Zolpidem Tartrate [Zolpidem 12.5 mg PO HS 06/10/22 10/23/23 History Tartrate ER] HYDROcodone/APAP 7.5-325MG [[place] 1 tab PO Q8H PRN 07/27/22 10/23/23 History 7.5-325] Propafenone [Rythmol] 150 mg PO BID PRN 07/27/22 10/23/23 History Albuterol Sulfate [Albuterol 2 puff INHALATION RT-Q6H PRN 02/05/23 10/23/23 History Sulfate Hfa] B Complex/Folic Acid/Basia C 1 tab PO DAILY 02/05/23 10/23/23 History Budesonide/Formoterol Fumarate 2 puff INHALATION RT-BID 02/05/23 10/23/23 History [Symbicort 80-4.5 Mcg Inhaler] Cholecalciferol [Vitamin D3 (125 250 mcg PO DAILY 02/05/23 10/23/23 History Mcg = 5000 Iu)] Rosuvastatin [Crestor] 20 mg PO HS 02/05/23 10/23/23 History Triamcinolone 0.1% Cream [Kenalog 1 applicatio TOPICAL BID PRN 02/05/23 10/23/23 History 0.1% Cream] Triamcinolone Acetonide 1 applic TOPICAL MOTH 05/17/23 10/23/23 History [Triamcinolone Acetonide 0.025%] Cranberry Supplement 1 dose PO DAILY 10/23/23 History Ibuprofen [Motrin] 600 mg PO Q8HR PRN 10/23/23 10/23/23 History Loratadine [Claritin] 10 mg PO DAILY 10/23/23 10/23/23 History Nifedipine 30 mg PO DAILY PRN 10/23/23 History methocarbamoL 750 mg PO TID 10/23/23 10/23/23 History Allergies Allergy/AdvReac Type Severity Reaction Status Date / Time Sulfa (Sulfonamide Allergy Anaphylaxis Verified 10/23/23 14:08 Antibiotics) tape AdvReac Unknown skin tears Uncoded 10/23/23 15:21 Physical Examination - Hip right Gait: antalgic Tenderness with palpation: anterior Pain with motion: internal rotation and hip flexion ROM: flexion: 80 degrees ROM: internal rotation: 10 degrees (With pain) ROM: external rotation: 60 degrees Strength: flexion: 4/5 Strength: abduction: 4/5 Tests: impingement tests: positive Results The patient is a well-developed well-nourished female, approximately 5 foot 5, 140 pounds of mesomorphic habits. HEENT exam is nonfocal, neck supple. On the right hip she has a healed posterior lateral incision. She has diffuse tenderness about the anterior aspect of the hip. No erythema or fluctuance is n oted. She has an antalgic gait pattern. Distal neurovascular appears intact in the right lower extremity. - Labs Labs: H & H 10/23/23 Range/Units 16:16 Hgb 13.4 (12.0-15.0) g/dL Hct 42.5 (37.2-46.3) % Result Diagrams: 10/23/23 16:16 10/23/23 16:16 - Diagnostic results Hip x-ray: image reviewed (2 views of the right hip obtain the office show a total hip arthroplasty with lucency about the acetabular component which appears to have 2 screws placed. 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 At this point she is quite limited and painful despite an attempted conservative measures. After a thorough discussion she opted to proceed with surgery. We'll plan to proceed with revision right total hip arthroplasty utilizing a lateral approach. Risks and benefits were discussed at length in layman's terms.
== END | disposition home or self-care (01) ==
LOC: LABWHC1 15:41
PROVIDERS: ATTEND Orthopaedic Surgery
DX: Z01.812 Encounter for preprocedural laboratory examination (principal)
CPT/HCPCS: 36415; 80048; 85025

== ENCOUNTER 2023-10-27 05:54 | Inpatient (IN) | payer MEDICARE ==
[2023-10-23 15:24] VITALS: BMI 23.3
[~2023-10-27 05:54] MED LIST changes: +ACETAMINOPHEN TAB 500 MG TAB PO PRN; -ALPRAZolam 0.25 MG TAB PO PRN; -ALPRAZolam 0.5 MG TAB PO PRN; -ASPIRIN 325 MG TAB PO STA; -ATORVASTATIN 80 MG TAB PO STA; -HEPARIN SODIUM,PORCINE 10,000 UNIT in SODIUM CHLORIDE 0.9% 1,000 ML IRRIGATION PRN; -HEPARIN SODIUM,PORCINE 2,500 UNIT in SODIUM CHLORIDE 0.9% 250 ML IRRIGATION PRN; +MELOXICAM 7.5 MG TAB PO PRN; -NITROGLYCERIN SL TABS 0.4 MG TAB SUBLINGUAL PRN; -SODIUM CHLORIDE 0.9% 1,000 ML in EMPTY BAG 1 BAG IV ONE; +TRANEXAMIC 1,000 MG/100ML-NACL 1,000 MG in SALINE 1 100ML.BAG IVPB PRN
[2023-10-27] MEDS ORDERED: ONDANSETRON 4 MG/2 ML VIAL IVP ONE (06:07)
[2023-10-27] MEDS ORDERED: DEXAMETHASONE SOD PHOSPHATE 4 MG/ML 1 ML VIAL IV ONE (06:07)
[2023-10-27] MEDS: LACTATED RINGERS 1,000 ML IV SCH (06:41)
[2023-10-27] MEDS ORDERED: MIDAZOLAM 2 MG/2 ML VIAL IVP ONE (07:05)
[2023-10-27] MEDS ORDERED: fentaNYL (PF) 50 MCG/1 ML VIAL IVP ONE (07:05)
[2023-10-27 07:08] LABS: INR 0.9 (<1.2); Prothrombin Time 10.4 sec (10.0-12.5)
[2023-10-27] MEDS ORDERED: ePHEDrine 50 MG/ML 1 ML VIAL ONE (07:29)
[2023-10-27] MEDS ORDERED: NEOSTIGMINE 1 MG/ML 10 ML VIAL ONE (07:29)
[2023-10-27] MEDS ORDERED: fentaNYL (PF) 50 MCG/ML 2 ML AMP ONE (07:29)
[2023-10-27] MEDS ORDERED: TRANEXAMIC 1,000 MG/100ML-NACL PREMIX BAG ONE (07:29)
[2023-10-27] MEDS ORDERED: LIDOCAINE 1% INJ 10MG/ML (20 ML MDV) ONE (07:29)
[2023-10-27] MEDS ORDERED: GLYCOPYRROLATE 0.2 MG/ML 2 ML VIAL ONE (07:29)
[2023-10-27] MEDS ORDERED: SUCCINYLCHOLINE CHLORIDE 200 MG/10 ML VIAL IV ONE (07:29)
[2023-10-27] MEDS ORDERED: ROPIVACAINE 5 MG/ML 30 ML VIAL ONE (07:29)
[2023-10-27] MEDS ORDERED: PROPOFOL 10 MG/ML 20 ML VIAL IV ONE (07:29)
[2023-10-27] MEDS ORDERED: ROCURONIUM 10 MG/ML (5 ML VIAL) IV ONE (07:29)
[2023-10-27] MEDS ORDERED: WATER FOR INJECTION, STERILE 10 ML VIAL IV ONE (07:29)
--- NOTE | 2023-10-27 07:51 | P.ANPRN ---
Procedure Note - Anesthesia - Nerve Block Performed Right Phillip Single Time Out Performed: Yes ([id number]) Date of Procedure: 10/27/23 Procedure Start Time: :08 Procedure Stop Time: 07:11 Location of Patient: PreOp Indication: Acute Post-Operative Pain, Requested by Surgeon Specifically requested for management of pain by DrOlivier: Fletcher Modi Sedation Type: Sedate with meaningful contact maintained Preparation: Sterile Prep Position: Supine Catheter: None Needle Types: Pajunk Needle Gauge: 21 Ultrasound used to visualize needle placement: Yes Ultrasound used to observe medication spread: Yes Injectate: 0.5% Ropivacaine (see comment for volume) (20cc) Blood Aspirated: No Pain Paresthesia on Injection Noted: No Resistance on Injection: Normal Image Stored and Saved: Yes Events: Uneventful and Well Tolerated
[2023-10-27] MEDS ORDERED: ceFAZolin 1,000 MG in SODIUM CHLORIDE 0.9% 1,000 ML IRRIGATION ONE (08:15)
[2023-10-27] MEDS ORDERED: LACTATED RINGERS 1,000 ML IV ONE (08:37)
--- NOTE | 2023-10-27 09:38 | FL ---
EXAMINATION TYPE: FL guidance operating room DATE OF EXAM: 10/27/2023 HISTORY: Fluoroscopy time Total dose area product (DAP) in uGy*m?, mGy*cm? (or similar): 0.18543 IMPRESSION: 1. Fluoroscopy time.
[2023-10-27] MEDS ORDERED: HYDROcodone/APAP 5-325MG 1 EACH TAB PO PRN (09:47)
[2023-10-27] MEDS ORDERED: NALOXONE 0.4 MG/ML 1 ML VIAL IV PRN (09:47)
[2023-10-27] MEDS ORDERED: MAGNESIUM HYDROXIDE 2,400 MG/30 ML CUP PO PRN (09:47)
--- NOTE | 2023-10-27 09:59 | P.OP ---
Date of Procedure: 10/27/23 Preoperative Diagnosis: Aseptic loosening right total hip arthroplasty Postoperative Diagnosis: Same Procedure(s) Performed: Revision right total hip arthroplasty Implants: Henniker accolade 54 mm multihole acetabular shell, neutral polyethylene liner, 36+5 ceramic femoral head Anesthesia: MACHO Surgeon: Fletcher Modi [employer]1: Demetri Sims Estimated Blood Loss (ml): 300 Pathology: none sent Condition: stable Disposition: PACU Indications for Procedure: The patient is a 73-year-old female who underwent right total hip arthroplasty almost 2 years ago for a femoral neck fracture who presents with persistent/progressive right hip pain. Clinically she appeared to have evidence of loosening of the acetabular component. A discussion of the risks and benefits of operative intervention versus continued conservative measures was made with the patient. She opted to proceed with surgery. Operative risks to include infection, neurovascular injury, development of blood clots, persistence of leg length discrepancy, component loosening/failure and possible need for subsequent procedures was discussed. Informed consent was obtained. Operative Findings: As below Description of Procedure: The patient was brought to the operating room, and after induction of general anesthesia was placed on the pegboard perpendicular to the floor. The pelvis was stabilized. Bony prominences were appropriately padded. The right lower extremity was prepped and draped in a normal fashion. A 12 cm incision was then made starting at the level ASIS centered over the greater trochanter in line with the femoral shaft. Skin and subcutaneous tissues were divided sharply. Electrocautery was used for hemostasis. The fascia mignon and gluteus nathalia fascia was split in line with the skin incision. A self-retaining retractor was placed. The anterior and posterior margins of the gluteus medius muscles identified in the anterior one half detached with electrocautery. The gluteus minimus tendon was identified and detached in a similar fashion. There was a very thick pseudocapsule that was excised sharply. The femoral neck and head was then exposed. The hip was gently dislocated. The previously placed dual mobility modular head component was removed. Attention was then paid towards the femoral component. This appeared to be stable rotationally and well fixed. Attention was then paid towards the acetabular component. Anterior and posterior retractors were placed. The metal acetabular liner was then removed. The 2 screws were removed. A curved acetabular osteotome was utilized to mobilize the acetabular component. This was easily removed. Less than 10% bony ingrowth was noted on the component. The anterior posterior margins were clearly identified. I then began reaming with a 49 mm reamer down to a bleeding bony surface. This was done at 45 of abduction and 20 of anteversion. Sequential reaming is performed up to 53. A trial 54 mm acetabular shell was inserted in the same alignment and good purchase was obtained. The final component was inserted with good purchase. I did place one posterior superior screw with good purchase. This was 6.5 mm x 25 mm. The neutral polyethylene liner was gently impacted. Trial reduction was then obtained with a 36+5 head. The hip was taken through range of motion and felt to be stable in flexion and e xtension with internal and external rotation. I felt there was adequate pentecostalism of soft tissue tension. I did check alignment with fluoroscopy. The hip was dislocated. The trial component was removed. A 36+5 ceramic head was gently impacted. The hip was again reduced and taken through range of motion and was felt to be stable. Pulsatile lavage was utilized. The gluteus medius and minimus tendons reattached with #2 Ethibond suture. The fascia mignon and gluteus nathalia fascia was closed with running #2 Ethibond suture. Subcu tissues reapproximated interrupted 2-0 Vicryl sutures. Skin was reapproximated with 3-0 subcuticular strata fix suture. Skin tape and adhesive was applied. The patient was then awoken from general anesthesia and transferred to the recovery room in stable condition. Blood loss was estimated 300 mL. No complications were incurred. Sponge and needle counts were correct at the end of the case.
[2023-10-27] MEDS: HYDROmorphone 0.5 MG/0.5 ML SYRINGE IVP PRN ×7 (10:05→21:23)
--- NOTE | 2023-10-27 10:40 | XR ---
EXAMINATION TYPE: XR Hip Limited RT DATE OF EXAM: 10/27/2023 COMPARISON: NONE HISTORY: Postop TECHNIQUE: One view submitted. FINDINGS: There is postsurgical change compatible hip replacement surgery. IMPRESSION: 1. Postoperative change.
[2023-10-27] MEDS ORDERED: ALBUTEROL NEBULIZED 2.5 MG/3 ML INHALATION PRN (17:04)
[2023-10-27] MEDS ORDERED: BUMETANIDE 1 MG TAB PO PRN (17:04)
--- NOTE | 2023-10-27 17:08 | P.CONS ---
History of Present Illness - Reason for Consult Consult date: 10/27/23 Medical management Requesting physician: Fletcher Modi - History of Present Illness History of Presenting Illness: Patient is a very pleasant 73-year-old female with a past medical history of CAD with stent, hypertension, hyperlipidemia, atrial fibrillation not on anticoagulation but is status post ablation and has loop recorder in place, hypothyroidism, COPD. 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 We have been consulted for medical management throughout patient's hospitalization. Patient seen and fully evaluated at bedside. She was resting comfortably has been visiting at bedside. Patient reports mild to moderate postoperative pain at this time. She reports she ate dinner well and denies having any postoperative nausea or vomiting. Patient denies having any other complaints including headache, lightheadedness, dizziness, chest pain, palpitations, shortness of breath, or experiencing any focal numbness/tingling/weakness. Patient reports she does have a history of atrial fibrillation but did have a successful ablation and has a loop recorder in place. She reports that she had the ablation a loop recorder implantation secondary to recurrent falls and syncopal episodes. 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 Review of systems: Pertinent positives and negatives as discussed in HPI, a complete review of sy stems was performed and all other systems are negative. Physical exam: Vital signs reviewed and stable. General: Nontoxic, no distress and appears stated age. Derm: Skin warm and dry, normal coloration for ethnicity. Head: Atraumatic, normocephalic and symmetric. Eyes: EOMs intact, no lid lag, and anicteric sclera Mouth: no lip lesions, mucus membranes moist Cardiovascular: regular rate and rhythm with normal S1S2, no murmur, positive posterior tibial pulses bilaterally, and cap refill < 2 seconds. Lungs: Respirations even, regular, and unlabored on room air. Lungs CTA bilaterally, no rhonchi, no rales, no wheezing, and no accessory muscle usage. Abdominal: soft, nontender to palpation, no guarding, no appreciable organomegaly Ext: No gross muscle atrophy, no edema, no contractures. Movement and sensation intact. Dressing in place right anterior hip. Ice pack in place. Neuro: Speech clear, face symmetrical and CN II-XII grossly intact with no noted focal neuro deficits Psych: Alert and oriented to person, place, time, and situation. Appropriate and pleasant affect. Assessment and Plan of Care: Status post right total hip arthroplasty -Management per primary admitting orthopedic surgery team including DVT prophylaxis, pain management, wound/dressing management, weightbearing, and PT/OT. -Currently and DVT prophylaxis with Xarelto CAD with stent Hypertension Hyperlipidemia Atrial fibrillation not on anticoagulation -Status post ablation and has loop recorder in place. -Pt to continue daily medication regimen with atorvastatin 40 mg nightly, nifedipine 30 mg daily, and metoprolol 50 mg twice daily. Hypothyroidism -Patient to continue daily medication regimen with levothyroxine 75 g daily COPD. -Patient to continue daily medication regimen with Symbicort 2 puffs twice daily and Claritin 10 mg daily Data reviewed: -Vital signs reviewed. Blood pressure 127/80, heart rate 59, respiratory rate 16, and SpO2 of 98% on 2 L. Thank you for allowing us to participate in the care of this pleasant patient. Do not hesitate to contact us with questions. Someone can be reached from the [facility] hospitalist group all hours of the day at [phone] or via [place]. Patient was seen independently by Nurse Practitioner. This document was prepared using [employer] dictation software. Please allow for errors in iron caster while rare they do occur. Oscar Suarez NP rendered care for this patient independently, reviewed the findings and plan as documented in the note above. I did not physically speak with or examine the patient on this date. Past Medical History Past Medical History: Atrial Fibrillation, Hyperlipidemia, Hypertension, Myocardial Infarction ([place]), Syncope, Thyroid Disorder Additional Past Medical History / Comment(s): hx of migraine headaches, takes flexeril for that Last Myocardial Infarction Date:: unknown History of Any Multi-Drug Resistant Organisms: None Reported Past Surgical History: Section, Heart Catheterization With Stent, H ernia Repair, Hysterectomy, Joint Replacement Additional Past Surgical History / Comment(s): cataracts, partial thyroidectomy, breast augmentation, right hip replacement january 2021, debridment on right hip january 2021, left hip surgery. Past Anesthesia/Blood Transfusion Reactions: Postoperative Nausea & Vomiting (PONV) Date of Last Stent Placement:: unknown Type of Cardiac Device: Loop Device Placement Date:: 2020 Smoking Status: Former smoker - Past Family History Mother Family Medical History: Cancer, Hypertension, Thyroid Disorder Father Family Medical History: Coronary Artery Disease (CAD), CVA/TIA Brother(s) Additional Family Medical History / Comment(s): history of Factor X Medications and Allergies Home Medications Medication Instructions Recorded Confirmed Type Levothyroxine Sodium [Synthroid] 75 mcg PO DAILY 02/21/21 10/27/23 History Bumetanide [BUMEX] 1 mg PO DAILY PRN 06/10/22 10/27/23 History Metoprolol Tartrate [Lopressor] 50 mg PO BID PRN 06/10/22 10/27/23 History Zolpidem Tartrate [Zolpidem 12.5 mg PO HS 06/10/22 10/27/23 History Tartrate ER] HYDROcodone/APAP 7.5-325MG [[place] 1 tab PO Q8H PRN 07/27/22 10/27/23 History 7.5-325] Propafenone [Rythmol] 150 mg PO BID PRN 07/27/22 10/27/23 History Albuterol Sulfate [Albuterol 2 puff INHALATION RT-Q6H PRN 02/05/23 10/27/23 History Sulfate Hfa] B Complex/Folic Acid/Basia C 1 tab PO DAILY 02/05/23 10/27/23 History Budesonide/Formoterol Fumarate 2 puff INHALATION RT-BID 02/05/23 10/27/23 History [Symbicort 80-4.5 Mcg Inhaler] Cholecalciferol [Vitamin D3 (125 250 mcg PO DAILY 02/05/23 10/27/23 History Mcg = 5000 Iu)] Rosuvastatin [Crestor] 20 mg PO HS 02/05/23 10/27/23 History Triamcinolone 0.1% Cream [Kenalog 1 applicatio TOPICAL BID PRN 02/05/23 10/27/23 History 0.1% Cream] Triamcinolone Acetonide 1 applic TOPICAL MOTH 05/17/23 10/27/23 History [Triamcinolone Acetonide 0.025%] Cranberry Supplement 1 dose PO DAILY 10/23/23 10/27/23 History Ibuprofen [Motrin] 600 mg PO Q8HR PRN 10/23/23 10/27/23 History Loratadine [Claritin] 10 mg PO DAILY 10/23/23 10/27/23 History Nifedipine 30 mg PO DAILY PRN 10/23/23 10/27/23 History methocarbamoL 750 mg PO TID 10/23/23 10/27/23 History Allergies Allergy/AdvReac Type Severity Reaction Status Date / Time Sulfa (Sulfonamide Allergy Anaphylaxis Verified 10/27/23 06:18 Antibiotics) tape AdvReac Unknown skin tears Uncoded 10/27/23 06:18 Physical Exam Osteopathic Statement: *. No significant issues noted on an osteopathic structural exam other than those noted in the History and Physical/Consult. Vitals: Vital Signs Temp Pulse Pulse Resp BP Pulse Ox 10/27/23 14:46 59 L 127/80 98 10/27/23 14:16 62 146/84 97 10/27/23 13:46 60 148/89 98 10/27/23 13:32 57 L 126/66 96 10/27/23 13:16 58 L 142/78 98 10/27/23 13:01 59 L 132/77 95 10/27/23 12:46 58 L 128/75 93 L 10/27/23 12:30 54 L 16 123/55 100 10/27/23 12:00 59 L 16 121/51 97 10/27/23 11:45 57 L 16 127/52 97 10/27/23 11:30 55 L 16 113/45 100 10/27/23 11:15 55 L 16 120/51 99 10/27/23 11:00 54 L 16 110/53 99 10/27/23 10:45 54 L 16 121/60 100 10/27/23 10:30 53 L 16 135/57 96 10/27/23 10:15 53 L 16 134/55 94 L 10/27/23 10:00 54 L 20 129/54 96 10/27/23 09:53 97.0 F L 53 L 20 129/63 96 10/27/23 07:19 53 L 14 111/58 100 10/27/23 06:32 97.6 F 58 L 16 149/66 98 Intake and Output 10/27/23 10/27/23 10/27/23 06:59 14:59 22:59 Intake Total 400 1551 Output Total 300 Balance 400 1251 Intake: IV 400 1551 Output: Estimated Blood Loss 300 Other: Weight 67.6 kg 67.6 kg
[2023-10-27] MEDS: HYDROcodone/APAP 7.5-325MG 1 EACH TAB PO PRN (17:46)
[2023-10-27] MEDS: PROPAFENONE 150 MG TAB PO SCH (20:31)
[2023-10-27] MEDS: METOPROLOL TARTRATE 50 MG TAB PO SCH (20:31)
[2023-10-27] MEDS: SYMBICORT 80-4.5 MCG INHALER INHALATION SCH (20:57)
[2023-10-27] MEDS: SENNOSIDES-DOCUSATE SODIUM 1 EACH TAB PO SCH (21:25)
[2023-10-27] MEDS: ATORVASTATIN 40 MG TAB PO SCH (21:25)
[2023-10-27] MEDS: methocarbamoL 750 MG TAB PO SCH (21:32)
[2023-10-28] MEDS: HYDROcodone/APAP 7.5-325MG 1 EACH TAB PO PRN ×4 (01:40→23:08)
[2023-10-28] MEDS: HYDROmorphone 0.5 MG/0.5 ML SYRINGE IVP PRN ×3 (03:59→20:21)
[2023-10-28] MEDS: LEVOTHYROXINE 75 MCG TAB PO SCH (06:52)
[2023-10-28] MEDS: SYMBICORT 80-4.5 MCG INHALER INHALATION SCH ×2 (08:07→20:55)
[2023-10-28] MEDS: methocarbamoL 750 MG TAB PO SCH ×3 (08:25→23:09)
[2023-10-28] MEDS: METOPROLOL TARTRATE 50 MG TAB PO SCH ×2 (08:25→23:07)
[2023-10-28] MEDS: NIFEdipine XL 30 MG TAB.ER.24 PO SCH (08:25)
[2023-10-28] MEDS: LORATADINE 10 MG TAB PO SCH (08:26)
[2023-10-28] MEDS: PROPAFENONE 150 MG TAB PO SCH ×2 (08:26→23:09)
[2023-10-28] MEDS: LACTATED RINGERS 1,000 ML IV SCH (08:26)
[2023-10-28] MEDS: CHOLECALCIFEROL 125 MCG (5000 IU) TABLET PO SCH (08:26)
[2023-10-28] MEDS ORDERED: B COMPLEX PO SCH (09:00)
[2023-10-28] MEDS ORDERED: VITA C PO SCH (09:00)
[2023-10-28] MEDS ORDERED: CRANBERRY SUPPLEMENT PO SCH (09:00)
[2023-10-28] MEDS ORDERED: FOLIC ACID PO SCH (09:00)
[2023-10-28 09:52] LABS: Anisocytosis Slight; Basophils % (A) 0 %; Eosinophils % (A) 0 %; HCT 30.5 % (34.0-46.0); Lymphocytes # (A) 1.9 k/uL (1.0-4.8); Lymphocytes % (A) 30 %; MCH 28.8 pg (25.0-35.0); MCHC 32.8 g/dL (31.0-37.0); MCV 87.9 fL (80.0-100.0); Monocytes # (A) 0.5 k/uL (0-1.0); Monocytes % (A) 7 %; Neutrophils # (A) 3.8 k/uL (1.3-7.7); Neutrophils % (A) 60 %; Platelet Count 168 k/uL (150-450); RBC 3.47 m/uL (3.80-5.40); RDW 17.3 % (11.5-15.5); WBC 6.3 k/uL (3.8-10.6)
[2023-10-28 10:11] LABS: ALT 18 U/L (4-34); AST 33 U/L (14-36); African American GFR (CKD) 89 (>60 ml/min/1.73 sqM); Albumin 2.8 g/dL (3.5-5.0); Albumin/Globulin Ratio 1.3; Alkaline Phosphatase 67 U/L (38-126); Anion Gap 8 mmol/L; Blood Urea Nitrogen 21 mg/dL (7-17); Calcium 8.1 mg/dL (8.4-10.2); Carbon Dioxide 21 mmol/L (22-30); Chloride 109 mmol/L (98-107); Globulin 2.1 g/dL; Glucose 143 mg/dL (74-99); Magnesium 2.1 mg/dL (1.6-2.3); Non-African American GFR(CKD) 77 (>60 ml/min/1.73 sqM); Potassium 3.7 mmol/L (3.5-5.1); Sodium 138 mmol/L (137-145); Total Bilirubin 0.2 mg/dL (0.2-1.3); Total Protein 4.9 g/dL (6.3-8.2)
[2023-10-28] MEDS: RIVAROXABAN 10 MG TAB PO SCH (10:31)
--- NOTE | 2023-10-28 13:54 | P.PN ---
Subjective Progress Note Date: 10/28/23 Principal diagnosis: Aseptic loosening right total hip arthroplasty Patient was seen at bedside this morning sitting up in chair with dressing over right hip. Patient says she did get up this morning with therapy and walk around the room and out of the hallway. Patient says she was little bit unsteady when she is on her feet she did not to do stairs. Patient says she has urinated since surgery yesterday several times. Patient says she did have a small bowel movement as well since surgery. Patient is hoping stay one more additional night for continued therapy and pain control. Patient denies chest pain, fever, shortness of breath, nausea, vomiting, change in vision, loss/bladder control. Objective - Vital Signs Vital signs: Vital Signs Temp 97.9 F 10/28/23 08:00 Pulse 67 10/28/23 08:00 Resp 18 10/28/23 08:00 BP 97/60 10/28/23 08:00 Pulse Ox 96 10/28/23 08:00 FiO2 Intake & Output 10/27/23 10/28/23 10/28/23 18:59 06:59 18:59 Intake Total 1551 Output Total 300 Balance 1251 Weight 67.6 kg Intake: IV 1551 Output: Estimated Blood Loss 300 Other: Voiding Method Toilet # Voids 2 2 - Exam Right hip: Incision is clean, dry, and intact. The exofin fusion tape is in good condition. There is minimal soft tissue swelling and ecchymosis surrounding the medial and lateral aspects of the incision. Calf is soft, no tenderness with palpation. Plantar flexion, dorsiflexion, EHL, FHL are intact. Sensory exam to light touch throughout the extremity is intact, dorsal pedis pulses 2+. - Labs CBC & Chem 7: 10/28/23 08:35 10/28/23 08:35 Labs: Abnormal Lab Results - Last 24 Hours (Table) 10/28/23 10/28/23 Range/Units 08:35 08:35 RBC 3.47 L (3.80-5.40) m/uL Hgb 10.0 L (11.4-16.0) gm/dL Hct 30.5 L (34.0-46.0) % RDW 17.3 H (11.5-15.5) % Chloride 109 H (98-107) mmol/L Carbon Dioxide 21 L (22-30) mmol/L BUN 21 H (7-17) mg/dL Glucose 143 H (74-99) mg/dL Calcium 8.1 L (8.4-10.2) mg/dL Total Protein 4.9 L (6.3-8.2) g/dL Albumin 2.8 L (3.5-5.0) g/dL Assessment and Plan Assessment: 1. Aseptic loosening right total hip arthroplasty Postop day 1 status post -revision right total hip arthroplasty Plan: 1. Aseptic loosening right total hip arthroplasty - surgery performed yesterday, 10/27/2023revision right total hip arthroplasty. Patient stable at bedside this morning. Patient did work with physical therapy and PT recommending continued evaluation and possible discharge to rehab. At this time we plan to keep patient for 1 additional night for continued pain management and therapy. Plan for discharge to rehab versus home tomorrow versus Thursday. 2. Appreciate medical management 3. Pain management - [place] 4. DVT prophylaxis - Xarelto 5. GI prophylaxis - senna 6. PT/OT - weightbearing as tolerated with walker and assistance as needed 7. Encourage incentive spirometer use 8. Discharge planning - Plan for discharge to rehab versus home tomorrow versus Thursday. Time with Patient: Less than 30
--- NOTE | 2023-10-28 17:43 | P.PN ---
Subjective Progress Note Date: 10/28/23 History of Presenting Illness: Patient is a very pleasant 73-year-old female with a past medical history of CAD with stent, hypertension, hyperlipidemia, atrial fibrillation not on anti coagulation but is status post ablation and has loop recorder in place, hypothyroidism, COPD. 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 We have been consulted for medical management throughout patient's hospitalization. Physical exam: Patient seen and fully evaluated at bedside this morning. She was sitting up in the chair. Patient just returned from walking with physical therapy. Patient reports having a more difficult time than she expected. Physical therapy reporting patient slightly weak and unsteady. Physical therapy states he will reevaluate tomorrow. Patient reports mild to moderate postoperative pain but otherwise denies having any other complaints or concerns at this time. Vital signs reviewed and stable. General: Nontoxic, no distress and appears stated age. Derm: Skin warm and dry, normal coloration for ethnicity. Head: Atraumatic, normocephalic and symmetric. Eyes: EOMs intact, no lid lag, and anicteric sclera Mouth: no lip lesions, mucus membranes moist Cardiovascular: regular rate and rhythm with normal S1S2, no murmur, positive posterior tibial pulses bilaterally, and cap refill < 2 seconds. Lungs: Respirations even, regular, and unlabored on room air. Lungs CTA bilaterally, no rhonchi, no rales, no wheezing, and no accessory muscle usage. Abdominal: soft, nontender to palpation, no guarding, no appreciable organo megaly Ext: No gross muscle atrophy, no edema, no contractures. Movement and sensation intact. Dressing in place right anterior hip. Ice pack in place. Neuro: Speech clear, face symmetrical and CN II-XII grossly intact with no noted focal neuro deficits Psych: Alert and oriented to person, place, time, and situation. Appropriate and pleasant affect. Assessment and Plan of Care: Acute postoperative blood loss anemia, stable and expected finding -CBC showing acute postoperative blood loss anemia with hemoglobin of 10.0 and preoperative hemoglobin of 13.4. -Again this is a stable and expected finding with no need for transfusion, no active signs of bleeding, no need for further intervention or repeat testing at this time. Status post right total hip arthroplasty -Management per primary admitting orthopedic surgery team including DVT prophylaxis, pain management, wound/dressing management, weightbearing, and PT/OT. -Currently and DVT prophylaxis with Xarelto CAD with stent Hypertension Hyperlipidemia Atrial fibrillation not on anticoagulation -Status post ablation and has loop recorder in place. -Pt to continue daily medication regimen with atorvastatin 40 mg nightly, nifedipine 30 mg daily, and metoprolol 50 mg twice daily. Hypothyroidism -Patient to continue daily medication regimen with levothyroxine 75 g daily COPD. -Patient to continue daily medication regimen with Symbicort 2 puffs twice daily and Claritin 10 mg daily Data reviewed: -Vital signs reviewed. Blood pressure slightly low at 97/60, heart rate 67, respiratory rate 18, temp 97.9F, SpO2 of 96% on room air. -Postoperative labs reviewed. CBC showing acute postoperative blood loss anemia with hemoglobin of 10.0 and preoperative hemoglobin of 13.4. BMP showing mildly elevated chloride of 109 and bicarb of 21 otherwise normal findings. Blood glucose 143. Liver profile unremarkable. Magnesium normal findings at 2.1. Thank you for allowing us to participate in the care of this pleasant patient. Do not hesitate to contact us with questions. Someone can be reached from the [facility] hospitalist group all hours of the day at [phone] or via [facility]. Patient was seen independently by Nurse Practitioner. This document was prepared using [employer] dictation software. Please allow for errors in senior commissions analyst while rare they do occur. \Oscar Suarez NP rendered care for this patient independently, reviewed the findings and plan as documented in the note above. I did not physically speak with or examine the patient on this date. Objective - Vital Signs Vital signs: Vital Signs Temp 97.9 F 10/28/23 08:00 Pulse 67 10/28/23 08:00 Resp 18 10/28/23 08:00 BP 97/60 10/28/23 08:00 Pulse Ox 96 10/28/23 08:00 FiO2 Intake & Output 10/27/23 10/28/23 10/28/23 18:59 06:59 18:59 Intake Total 1551 Output Total 300 Balance 1251 Weight 67.6 kg Intake: IV 1551 Output: Estimated Blood Loss 300 Other: Voiding Method Toilet # Voids 2 2 - Labs CBC & Chem 7: 10/28/23 08:35 10/28/23 08:35
[2023-10-28] MEDS: SENNOSIDES-DOCUSATE SODIUM 1 EACH TAB PO SCH (23:07)
[2023-10-28] MEDS: ATORVASTATIN 40 MG TAB PO SCH (23:07)
[2023-10-29] MEDS: HYDROmorphone 0.5 MG/0.5 ML SYRINGE IVP PRN ×3 (01:38→22:38)
[2023-10-29] MEDS: HYDROcodone/APAP 7.5-325MG 1 EACH TAB PO PRN (06:47)
[2023-10-29] MEDS: LEVOTHYROXINE 75 MCG TAB PO SCH (06:48)
[2023-10-29] MEDS: LACTATED RINGERS 1,000 ML IV SCH (06:48)
[2023-10-29] MEDS: RIVAROXABAN 10 MG TAB PO SCH (07:59)
[2023-10-29] MEDS: CHOLECALCIFEROL 125 MCG (5000 IU) TABLET PO SCH (07:59)
[2023-10-29] MEDS: LORATADINE 10 MG TAB PO SCH (07:59)
[2023-10-29] MEDS: hydrOXYzine pamoate 25 MG CAP PO PRN ×3 (07:59→18:39)
[2023-10-29] MEDS: methocarbamoL 750 MG TAB PO SCH ×3 (08:00→21:15)
[2023-10-29] MEDS: METOPROLOL TARTRATE 50 MG TAB PO SCH ×2 (08:00→21:14)
[2023-10-29] MEDS: PROPAFENONE 150 MG TAB PO SCH ×2 (08:00→21:15)
[2023-10-29] MEDS: NIFEdipine XL 30 MG TAB.ER.24 PO SCH (08:01)
[2023-10-29] MEDS: SYMBICORT 80-4.5 MCG INHALER INHALATION SCH ×2 (09:07→22:30)
--- NOTE | 2023-10-29 10:37 | P.PN ---
Subjective Progress Note Date: 10/29/23 Principal diagnosis: Aseptic loosening right total hip arthroplasty Patient seen at bedside this morning sitting up in bed with dressing over right hip. Patient says she did work with physical therapy this morning walked out to the hallway. Patient says she was still unable to do status. Patient did discuss options with her about going home versus rehab and they decided that rehab is the best option at this point. therapy is recommending rehab as well. Patient does have a walker at home. Patient says she has had a bowel movement and urinated since surgery. Patient denies any other changes at this time. Patient denies chest pain, fever, shortness breath, nausea, vomiting, change in vision, loss of bowel/bladder control. Objective - Vital Signs Vital signs: Vital Signs Temp 98.6 F 10/29/23 06:58 Pulse 66 10/29/23 06:58 Resp 19 10/29/23 06:58 BP 143/79 10/29/23 06:58 Pulse Ox 96 10/29/23 06:58 FiO2 Intake & Output 10/28/23 10/29/23 10/29/23 18:59 06:59 18:59 Other: Voiding Method Toilet # Voids 2 - Exam Right hip: Incision is clean, dry, and intact. The exofin fusion tape is in good c ondition. There is minimal soft tissue swelling and ecchymosis surrounding the medial and lateral aspects of the incision. Calf is soft, no tenderness with palpation. Plantar flexion, dorsiflexion, EHL, FHL are intact. Sensory exam to light touch throughout the extremity is intact, dorsal pedis pulses 2+. - Labs CBC & Chem 7: 10/28/23 08:35 10/28/23 08:35 Assessment and Plan Assessment: 1. Aseptic loosening right total hip arthroplasty Postop day 2 status post -revision right total hip arthroplasty Plan: 1. Aseptic loosening right total hip arthroplasty - surgery performed 10/27/2023revision right total hip arthroplasty. Patient stable at bedside this morning. PT recommending rehab. Plan for discharge to rehab today. 2. Appreciate medical management 3. Pain management - [place] 4. DVT prophylaxis - Xarelto; to rehab with eliquis 5. GI prophylaxis - senna 6. PT/OT - weightbearing as tolerated with walker and assistance as needed 7. Encourage incentive spirometer use 8. Discharge planning - Plan for discharge to rehab today. Time with Patient: Less than 30
--- NOTE | 2023-10-29 10:40 | P.DS ---
Providers Date of admission: 10/27/23 05:54 Expected date of discharge: 10/29/23 Attending physician: Fletcher Modi Consults: 10/27/23 09:50 Consult Physician Routine Consulting Provider: Maria D Meadows Consult Reason/Comments: Medical Management s/p RTHA Do you want consulting provider notified?: Yes Primary care physician: Stefan Mckinley DO Hospital Course: Date of admission: 10/27/2023 Date of discharge: 10/29/2023 Admission diagnosis: Aseptic loosening right total hip Discharge diagnosis: Same Attending physician: Dr. Modi Surgical procedures: Revision right total hip arthroplasty Brief history: Patient is a 73-year-old female with a history of aseptic loosening right total hip arthroplasty. At this point patient has failed conservative treatment measures and has opted to proceed with a elective revision right total hip arthroplasty. Hospital course: Details of patient's surgery can be found in operative report. Patient tolerated the procedure well and was subsequently transported to orthopedic floor. Patient's orthopeidc and medical care was provided daily. Patient had daily laboratory tests performed for evaluation of overall blood counts. Patient had daily physical therapy to include strengthening range of motion as well as education with walker ambulation. Patient was treated with Xarelto for their postoperative DVT prophylaxis during their inpatient stay. Patient was noted to have a relatively uneventful postoperative course. Patient reported satisfactory pain control with oral pain medications by postoperative d ay 2. Patient showed satisfactory progress with physical therapy. Patient moved steadily through the program and had no difficulty meeting the goals by postoperative day 2. Given patient's otherwise satisfactory course and having met physical therapy goals, plan is to discharge patient to rehab on postoperative day 2. Discharge condition/disposition: Patient will be discharged to rehab in stable condition. Discharge medications: Instructions are given on resumption of patient's normal daily medications per primary care recommendation, in addition patient will be prescribed Longview; senna; Eliquis 2.5 mg twice a day 2 weeks. Discharge instructions: 1. Wound care and infection precautions, keep incision dry and covered while showering, no lotions, creams, moisturizers. No soaking, tubs, pools, hottubs. Do not scrub over the incision. 2. Weight-bear as tolerated with walker / cane until follow-up. 3. Ice and elevate when necessary. Do not exceed 20 minutes per hour with ice pack. 4. Utilize compression sleeve until seen at first follow up appointment. 5. Visiting nursing care. 6. Home physical therapy. 7. Pain meds and anticoagulants per prescription. 8. Pain medication has potential to cause constipation. Increase oral fluid and fiber intake. Contact primary care provider if you have not had a bowel movement within 48 hours after discharge 9. No anti-inflammatory medication until discussed at first post operative visit, this including Motrin, Aleve, Mobic, Diclofenac. 10. Follow up in office at 2 weeks postop with Sanket Sparks PA-C / Demetri Sims PA-C 11. Follow up with your primary care doctor 7-10 days after discharge. 12. Contact [facility] with any questions, . Keep incision clean, dry, intact. While showering, cover fusion tape with Saran wrap. Keep fusion tape covered until follow-up appointment in office in 2 weeks. Assessment: Aseptic loosening right total hip arthroplasty Procedures: revision right total hip arthroplasty. Patient Condition at Discharge: Good Plan - Discharge Summary Discharge Rx Participant: No New Discharge Prescriptions: New Sennosides/Docusate Sodium [Senna Plus 8.6-50 mg Softgel] 1 each PO DAILY #20 capsule Apixaban [Eliquis] 2.5 mg PO BID #60 tab HYDROcodone/APAP 10-325MG [Longview 10-325] 1 tab PO Q6HR PRN #28 tab PRN Reason: Pain No Action Levothyroxine Sodium [Synthroid] 75 mcg PO DAILY Metoprolol Tartrate [Lopressor] 50 mg PO BID PRN PRN Reason: hold for systolic below 100 Zolpidem Tartrate [Zolpidem Tartrate ER] 12.5 mg PO HS Propafenone [Rythmol] 150 mg PO BID PRN PRN Reason: hold if pulse below 60. Budesonide/Formoterol Fumarate [Symbicort 80-4.5 Mcg Inhaler] 2 puff INHALATION RT-BID Albuterol Sulfate [Albuterol Sulfate Hfa] 2 puff INHALATION RT-Q6H PRN PRN Reason: Shortness Of Breath Or Wheezing B Complex/Folic Acid/Basia C 1 tab PO DAILY Cranberry Supplement 1 dose PO DAILY Nifedipine 30 mg PO DAILY PRN PRN Reason: systolic bp above 140 Bumetanide [BUMEX] 1 mg PO DAILY PRN PRN Reason: swelling or 4-5 # wt gain HYDROcodone/APAP 7.5-325MG [[place]view 7.5-325] 1 tab PO Q8H PRN PRN Reason: Pain Triamcinolone 0.1% Cream [Kenalog 0.1% Cream] 1 applicatio TOPICAL BID PRN PRN Reason: Skin Irritation Rosuvastatin [Crestor] 20 mg PO HS Cholecalciferol [Vitamin D3 (125 Mcg = 5000 Iu)] 250 mcg PO DAILY Triamcinolone Acetonide [Triamcinolone Acetonide 0.025%] 1 applic TOPICAL MOTH Loratadine [Claritin] 10 mg PO DAILY Ibuprofen [Motrin] 600 mg PO Q8HR PRN PRN Reason: Pain methocarbamoL 750 mg PO TID Discharge Medication List Levothyroxine Sodium [Synthroid] 75 mcg PO DAILY 02/21/21 [History] Bumetanide [BUMEX] 1 mg PO DAILY PRN 06/10/22 [History] Metoprolol Tartrate [Lopressor] 50 mg PO BID PRN 06/10/22 [History] Zolpidem Tartrate [Zolpidem Tartrate ER] 12.5 mg PO HS 06/10/22 [History] HYDROcodone/APAP 7.5-325MG [[place]view 7.5-325] 1 tab PO Q8H PRN 07/27/22 [History] Propafenone [Rythmol] 150 mg PO BID PRN 07/27/22 [History] Albuterol Sulfate [Albuterol Sulfate Hfa] 2 puff INHALATION RT-Q6H PRN 02/05/23 [History] B Complex/Folic Acid/Basia C 1 tab PO DAILY 02/05/23 [History] Budesonide/Formoterol Fumarate [Symbicort 80-4.5 Mcg Inhaler] 2 puff INHALATION RT-BID 02/05/23 [History] Cholecalciferol [Vitamin D3 (125 Mcg = 5000 Iu)] 250 mcg PO DAILY 02/05/23 [History] Rosuvastatin [Crestor] 20 mg PO HS 02/05/23 [History] Triamcinolone 0.1% Cream [Kenalog 0.1% Cream] 1 applicatio TOPICAL BID PRN 02/05/23 [History] Triamcinolone Acetonide [Triamcinolone Acetonide 0.025%] 1 applic TOPICAL MOTH 05/17/23 [History] Cranberry Supplement 1 dose PO DAILY 10/23/23 [History] Ibuprofen [Motrin] 600 mg PO Q8HR PRN 10/23/23 [History] Loratadine [Claritin] 10 mg PO DAILY 10/23/23 [History] Nifedipine 30 mg PO DAILY PRN 10/23/23 [History] methocarbamoL 750 mg PO TID 10/23/23 [History] Apixaban [Eliquis] 2.5 mg PO BID #60 tab 10/29/23 [Rx] HYDROcodone/APAP 10-325MG [[place]view 10-325] 1 tab PO Q6HR PRN #28 tab 10/29/23 [Rx] Sennosides/Docusate Sodium [Senna Plus 8.6-50 mg Softgel] 1 each PO DAILY #20 capsule 10/29/23 [Rx] Follow up Appointment(s)/Referral(s): Demetri Sims, KRISTOFER [PHYSICIAN MOTION STUDY ANALYST] - 2 Weeks Activity/Diet/Wound Care/Special Instructions: Orthopedic Discharge Instructions: 1. Wound care and infection precautions, keep incision dry and covered while showering, no lotions, creams, moisturizers. No soaking, pools, hot tubs. Do not scrub over incision. 2. Weight-bear as tolerated with walker / cane until follow-up. 3. Ice and elevate when necessary. Do not exceed 20 minutes per hour with ice pack. 4. Utilize compression sleeve until seen at first follow up appointment. 5. Pain meds and anticoagulants per prescription. 6. Pain medication has potential to cause constipation. Increase oral fluid and fiber intake. Contact primary care provider if you have not had a bowel movement within 48 hours after discharge. 7. No anti-inflammatory medication until discussed at first post operative visit, this including Motrin, Aleve, Mobic, Diclofenac. 8. Follow up in office at 2 weeks postop with Sanket Sparks PA-C / Demetri Sims PA-C 9. Follow up with your primary care doctor 7-10 days after discharge. 10. Contact [facility] with any questions, . Keep incision clean, dry, intact. While showering, cover fusion tape with Saran wrap. Keep fusion tape on until follow-up appointment in office in 2 weeks. Discharge Disposition: TRANSFER TO SNF/ECF
[2023-10-29] MEDS: HYDROcodone/APAP 10-325MG 1 EACH TAB PO PRN ×2 (12:04→18:38)
[2023-10-29 14:14] VITALS: RESP 18
[2023-10-29] MEDS: traMADol 50 MG TAB PO SCH ×2 (16:42→21:15)
--- NOTE | 2023-10-29 16:48 | P.PN ---
Subjective Progress Note Date: 10/29/23 History of Presenting Illness: Patient is a very pleasant 73-year-old female with a past medical history of CAD with stent, hypertension, hyperlipidemia, atrial fibrillation not on anti coagulation but is status post ablation and has loop recorder in place, hypothyroidism, COPD. 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 We have been consulted for medical management throughout patient's hospitalization. Physical exam: Vital signs reviewed and stable. General: Nontoxic, no distress and appears stated age. Derm: Skin warm and dry, normal coloration for ethnicity. Head: Atraumatic, normocephalic and symmetric. Eyes: EOMs intact, no lid lag, and anicteric sclera Mouth: no lip lesions, mucus membranes moist Cardiovascular: regular rate and rhythm with normal S1S2, no murmur, positive posterior tibial pulses bilaterally, and cap refill < 2 seconds. Lungs: Respirations even, regular, and unlabored on room air. Lungs CTA bilaterally, no rhonchi, no rales, no wheezing, and no accessory muscle usage. Abdominal: soft, nontender to palpation, no guarding, no appreciable organomegaly Ext: No gross muscle atrophy, no edema, no contractures. Movement and sensation intact. Dressing in place right anterior hip. Ice pack in place. Neuro: Speech clear, face symmetrical and CN II-XII grossly intact with no noted focal neuro deficits Psych: Alert and oriented to person, place, time, and situation. Appropriate and pleasant affect. Assessment and Plan of Care: Acute postoperative blood loss anemia, stable and expected finding -CBC showing acute postoperative blood loss anemia with hemoglobin of 10.0 and preoperative hemoglobin of 13.4. -Again this is a stable and expected finding with no need for transfusion, no active signs of bleeding, no need for further intervention or repeat testing at this time. Status post right total hip arthroplasty -Management per primary admitting orthopedic surgery team including DVT prophylaxis, pain management, wound/dressing management, weightbearing, and PT/OT. -Currently and DVT prophylaxis with Xarelto CAD with stent Hypertension Hyperlipidemia Atrial fibrillation not on anticoagulation -Status post ablation and has loop recorder in place. -Pt to continue daily medication regimen with atorvastatin 40 mg nightly, nifedipine 30 mg daily, and metoprolol 50 mg twice daily. Hypothyroidism -Patient to continue daily medication regimen with levothyroxine 75 g daily COPD. -Patient to continue daily medication regimen with Symbicort 2 puffs twice daily and Claritin 10 mg daily Data reviewed: -Vital signs reviewed. Blood pressure slightly low at 91/55, heart rate 82, respiratory rate 19, blood pressure 91/55, temp 98.4F, SpO2 of 95% on room air. Thank you for allowing us to participate in the care of this pleasant patient. Do not hesitate to contact us with questions. Someone can be reached from the [facility] hospitalist group all hours of the day at [phone] or via [employer] Patient was seen independently by Nurse Practitioner. This document was prepared using [email or web address] dictation software. Please allow for errors in pet training instructor while rare they do occur. Oscar Suarez NP rendered care for this patient independently, reviewed the fi ndings and plan as documented in the note above. I did not physically speak with or examine the patient on this date. Objective - Vital Signs Vital signs: Vital Signs Temp 98.6 F 10/29/23 06:58 Pulse 66 10/29/23 06:58 Resp 19 10/29/23 06:58 BP 143/79 10/29/23 06:58 Pulse Ox 96 10/29/23 06:58 FiO2 Intake & Output 10/28/23 10/29/23 10/29/23 18:59 06:59 18:59 Other: Voiding Method Toilet # Voids 2 - Labs CBC & Chem 7: 10/30/23 06:14 10/28/23 08:35 Labs: Abnormal Lab Results - Last 24 Hours (Table) 10/28/23 10/28/23 Range/Units 08:35 08:35 RBC 3.47 L (3.80-5.40) m/uL Hgb 10.0 L (11.4-16.0) gm/dL Hct 30.5 L (34.0-46.0) % RDW 17.3 H (11.5-15.5) % Chloride 109 H (98-107) mmol/L Carbon Dioxide 21 L (22-30) mmol/L BUN 21 H (7-17) mg/dL Glucose 143 H (74-99) mg/dL Calcium 8.1 L (8.4-10.2) mg/dL Total Protein 4.9 L (6.3-8.2) g/dL Albumin 2.8 L (3.5-5.0) g/dL
[2023-10-29] MEDS: SENNOSIDES-DOCUSATE SODIUM 1 EACH TAB PO SCH (21:15)
[2023-10-29] MEDS: ATORVASTATIN 40 MG TAB PO SCH (21:15)
[2023-10-30] MEDS: HYDROcodone/APAP 10-325MG 1 EACH TAB PO PRN ×2 (00:29→13:52)
[2023-10-30] MEDS: HYDROmorphone 0.5 MG/0.5 ML SYRINGE IVP PRN ×2 (04:30→12:38)
[2023-10-30] MEDS: LACTATED RINGERS 1,000 ML IV SCH (06:06)
[2023-10-30] MEDS: LEVOTHYROXINE 75 MCG TAB PO SCH (06:16)
[2023-10-30 07:16] VITALS: BP 97/62; PULSE 61; TEMP 98.3
[2023-10-30] MEDS: SYMBICORT 80-4.5 MCG INHALER INHALATION SCH (08:41)
[2023-10-30] MEDS: NIFEdipine XL 30 MG TAB.ER.24 PO SCH (08:51)
[2023-10-30] MEDS: METOPROLOL TARTRATE 50 MG TAB PO SCH (08:51)
[2023-10-30] MEDS: HYDROcodone/APAP 7.5-325MG 1 EACH TAB PO PRN (08:51)
[2023-10-30] MEDS: RIVAROXABAN 10 MG TAB PO SCH (08:51)
[2023-10-30] MEDS: PROPAFENONE 150 MG TAB PO SCH (08:51)
[2023-10-30] MEDS: methocarbamoL 750 MG TAB PO SCH (08:52)
[2023-10-30] MEDS: LORATADINE 10 MG TAB PO SCH (08:52)
[2023-10-30] MEDS: traMADol 50 MG TAB PO SCH (08:52)
[2023-10-30] MEDS: CHOLECALCIFEROL 125 MCG (5000 IU) TABLET PO SCH (08:52)
--- NOTE | 2023-10-30 10:33 | P.PN ---
Subjective Progress Note Date: 10/30/23 History of Presenting Illness: Patient is a very pleasant 73-year-old female with a past medical history of CAD with stent, hypertension, hyperlipidemia, atrial fibrillation not on anti coagulation but is status post ablation and has loop recorder in place, hypothyroidism, COPD. 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 We have been consulted for medical management throughout patient's hospitalization. Physical exam: Vital signs reviewed and stable. General: Nontoxic, no distress and appears stated age. Derm: Skin warm and dry, normal coloration for ethnicity. Head: Atraumatic, normocephalic and symmetric. Eyes: EOMs intact, no lid lag, and anicteric sclera Mouth: no lip lesions, mucus membranes moist Cardiovascular: regular rate and rhythm with normal S1S2, no murmur, positive posterior tibial pulses bilaterally, and cap refill < 2 seconds. Lungs: Respirations even, regular, and unlabored on room air. Lungs CTA bilaterally, no rhonchi, no rales, no wheezing, and no accessory muscle usage. Abdominal: soft, nontender to palpation, no guarding, no appreciable organomegaly Ext: No gross muscle atrophy, no edema, no contractures. Movement and sensation intact. Dressing in place right anterior hip. Ice pack in place. Neuro: Speech clear, face symmetrical and CN II-XII grossly intact with no noted focal neuro deficits Psych: Alert and oriented to person, place, time, and situation. Appropriate and pleasant affect. Assessment and Plan of Care: Acute postoperative blood loss anemia, stable and expected finding -CBC showing acute postoperative blood loss anemia with hemoglobin of 10.0 and preoperative hemoglobin of 13.4. -Again this is a stable and expected finding with no need for transfusion, no active signs of bleeding, no need for further intervention or repeat testing at this time. Status post right total hip arthroplasty -Management per primary admitting orthopedic surgery team including DVT prophylaxis, pain management, wound/dressing management, weightbearing, and PT/OT. -Currently and DVT prophylaxis with Xarelto CAD with stent Hypertension Hyperlipidemia Atrial fibrillation not on anticoagulation -Status post ablation and has loop recorder in place. -Pt to continue daily medication regimen with atorvastatin 40 mg nightly, nifedipine 30 mg daily, and metoprolol 50 mg twice daily. Hypothyroidism -Patient to continue daily medication regimen with levothyroxine 75 g daily COPD. -Patient to continue daily medication regimen with Symbicort 2 puffs twice daily and Claritin 10 mg daily Data reviewed: -Vital signs reviewed. Blood pressure 97/62, heart rate 61, respiratory rate 18, temp 98.3F, SpO2 of 96% on room air. -Labs completed and reviewed. CBC showing a stable normocytic anemia with hemoglobin of 10.1. Patient is medically optimized for discharge to rehab facility once cleared by primary admitting orthopedic surgery team and facility and insurance auth orization is obtained. Thank you for allowing us to participate in the care of this pleasant patient. Do not hesitate to contact us with questions. Someone can be reached from the [facility] hospitalist group all hours of the day at [phone] or via [employer]. Patient was seen independently by Nurse Practitioner. This document was prepared using [employer] dictation software. Please allow for errors in bindery machine operator while rare they do occur. Oscar Suarez NP rendered care for this patient independently, reviewed the findings and plan as documented in the note above. I did not physically speak with or examine the patient on this date. Objective - Vital Signs Vital signs: Vital Signs Temp 98.3 F 10/30/23 06:47 Pulse 61 10/30/23 06:47 Resp 18 10/30/23 06:47 BP 97/62 10/30/23 06:47 Pulse Ox 96 10/30/23 06:47 FiO2 Intake & Output 10/29/23 10/30/23 10/30/23 18:59 06:59 18:59 Intake Total 10 Balance 10 Intake: IV 10 Invasive Line 1 10 Other: Voiding Method Toilet # Voids 3 1 - Labs CBC & Chem 7: 10/30/23 06:14 10/28/23 08:35
[2023-10-30 11:27] LABS: Basophils # (A) 0.03 X 10*3/uL (0.00-0.10); Basophils % (A) 0.4 %; Eosinophils # (A) 0.09 X 10*3/uL (0.04-0.35); Eosinophils % (A) 1.2 %; HCT 33.2 % (37.2-46.3); HGB 10.1 g/dL (12.0-15.0); Lymphocytes # (A) 2.11 X 10*3/uL (0.90-5.00); Lymphocytes % (A) 29.2 %; MCH 27.2 pg (27.0-32.0); MCHC 30.4 g/dL (32.0-37.0); MCV 89.5 FL (80.0-97.0); Mean Platelet Volume 10.6 FL (9.5-12.2); Monocytes # (A) 0.64 X 10*3/uL (0.20-1.00); Monocytes % (A) 8.9 %; NRBC Per 100 WBC 0 X 10*3/uL (0.00-0.01); Neutrophils # (A) 4.33 X 10*3/uL (1.80-7.70); Platelet Count 242 X 10*3/uL (140-440); RBC 3.71 X 10*6/uL (4.10-5.20); RDW 18.6 % (11.5-14.5); WBC 7.22 X 10*3/uL (4.50-10.00)
--- NOTE | 2023-10-30 12:21 | P.PN ---
Subjective Progress Note Date: 10/30/23 Principal diagnosis: Aseptic loosening right total hip arthroplasty Patient seen at bedside this morning sitting up in chair with dressing over right hip. Patient says she did work with physical therapy this morning walked out to the hallway. Patient says she was still unable to do stairs. Patient did discuss options with her about going home versus rehab and they de cided that rehab is the best option at this point. therapy is recommending rehab as well. Patient does have a walker at home. Patient says she has had a bowel movement and urinated since surgery. Patient denies any other changes at this time. Patient denies chest pain, fever, shortness breath, nausea, vomiting, change in vision, loss of bowel/bladder control. Objective - Vital Signs Vital signs: Vital Signs Temp 98.3 F 10/30/23 06:47 Pulse 61 10/30/23 07:40 Resp 18 10/30/23 07:40 BP 97/62 10/30/23 06:47 Pulse Ox 96 10/30/23 06:47 FiO2 Intake & Output 10/29/23 10/30/23 10/30/23 18:59 06:59 18:59 Intake Total 10 Balance 10 Intake: IV 10 Invasive Line 1 10 Other: Voiding Method Toilet Toilet # Voids 3 1 - Exam Right hip: Incision is clean, dry, and intact. The exofin fusion tape is in good condit ion. There is minimal soft tissue swelling and ecchymosis surrounding the medial and lateral aspects of the incision. Calf is soft, no tenderness with palpation. Plantar flexion, dorsiflexion, EHL, FHL are intact. Sensory exam to light touch throughout the extremity is intact, dorsal pedis pulses 2+. - Labs CBC & Chem 7: 10/30/23 06:14 10/28/23 08:35 Labs: Abnormal Lab Results - Last 24 Hours (Table) 10/30/23 Range/Units 06:14 RBC 3.71 L (4.10-5.20) X 10*6/uL Hgb 10.1 L (12.0-15.0) g/dL Hct 33.2 L (37.2-46.3) % MCHC 30.4 L (32.0-37.0) g/dL RDW 18.6 H (11.5-14.5) % Assessment and Plan Assessment: 1. Aseptic loosening right total hip arthroplasty Postop day 3 status post -revision right total hip arthroplasty Plan: 1. Aseptic loosening right total hip arthroplasty - surgery performed 10/27/2023revision right total hip arthroplasty. Patient stable at bedside thi s morning. PT recommending rehab. Plan for discharge to rehab today. 2. Appreciate medical management 3. Pain management - [place] 4. DVT prophylaxis - Xarelto; to rehab with eliquis 5. GI prophylaxis - senna 6. PT/OT - weightbearing as tolerated with walker and assistance as needed 7. Encourage incentive spirometer use 8. Discharge planning - Plan for discharge to rehab today. Time with Patient: Less than 30
== END 2023-10-30 13:58 | DRG 467 ==
LOC: 2ORMAIN 05:54 → 4SSUR 12:24
PROVIDERS: ADMIT Orthopaedic Surgery; ATTEND Orthopaedic Surgery
PROC: 0SPA0JZ Removal of Synthetic Substitute from Right Hip Joint, Acetabular Surface, Open Approach (ICD-10-PCS; 2023-10-27)
PROC: 3E0T3BZ Introduction of Anesthetic Agent into Peripheral Nerves and Plexi, Percutaneous Approach (ICD-10-PCS; 2023-10-27)
PROC: 0SRA03Z Replacement of Right Hip Joint, Acetabular Surface with Ceramic Synthetic Substitute, Open Approach (ICD-10-PCS; principal; 2023-10-27 07:30)
DX: T84.030A Mechanical loosening of internal right hip prosthetic joint, initial encounter (principal); D62 Acute posthemorrhagic anemia; E03.9 Hypothyroidism, unspecified; I10 Essential (primary) hypertension; J44.9 Chronic obstructive pulmonary disease, unspecified; I48.91 Unspecified atrial fibrillation; G43.909 Migraine, unspecified, not intractable, without status migrainosus; E78.5 Hyperlipidemia, unspecified; R29.6 Repeated falls; I25.10 Atherosclerotic heart disease of native coronary artery without angina pectoris; Y79.2 Prosthetic and other implants, materials and accessory orthopedic devices associated with adverse incidents; Z28.311 Partially vaccinated for COVID-19; Z95.5 Presence of coronary angioplasty implant and graft; Z95.818 Presence of other cardiac implants and grafts; Z91.81 History of falling; I25.2 Old myocardial infarction; Z87.891 Personal history of nicotine dependence; Z90.89 Acquired absence of other organs; Z79.890 Hormone replacement therapy; Z79.899 Other long term (current) drug therapy; Z79.51 Long term (current) use of inhaled steroids; Z88.2 Allergy status to sulfonamides; Z91.048 Other nonmedicinal substance allergy status
CPT/HCPCS: 64447; 73501; 80053; 83735; 85025; 85610; 85730; 94640